=== PATIENT | female | born 1975 | race Caucasian/White ===

== ENCOUNTER 2016-04-14 17:46 | Emergency (ER) | payer OTHER ==
[~2016-04-14] VITALS: Ht 162.6 cm; Wt 102.0 kg
[~2016-04-14 17:46] MED LIST: ACET-1257 PO; ALBUAER19 INH; AMLO-110 PO; ASPCH81X PO; CALC600C9 PO; CARV25TA2 PO; CIPR-255 PO; CITA20TA9 PO; ENOX40IN SQ; ERGO1CAP35 PO; FERR325T5 PO; FURO-85 PO; GLGKIT PO; HYG/25 PO; INSUINJ2 SQ; LAMO200T PO; LEVO175T3 PO; LOSA1TAB38 PO; LOVA10TA2 PO; MAGN1TAB19 PO; MEDR10TA PO; NAPR-1007 PO; ONDA4TAB46 PO; OXYB10TA13 PO; PANT40TA PO; POTA10CA28 PO; PRLSR20 PO; RANI150T3 PO; SPIR25TA89 PO; SUMA25TA12 PO; TIZA4CAP PO; TRAM-10 PO; TRAZ100T29 PO; TROS1CAP2 PO
[2016-04-14 17:52] VITALS: TEMP 36.9; Ht 162.6 cm; Wt 102.0 kg
[2016-04-14] MEDS ORDERED: SODIUM CHLORIDE 0.9% 1000ML 1,000 ML IV STA (18:22)
[2016-04-14] MEDS ORDERED: DiphenhydrAMINE HCL 50 MG/ML VIAL IV STA (18:22)
[2016-04-14] MEDS ORDERED: PROCHLORPERAZINE 5 MG/ML 2 ML VIAL IV STA (18:22)
[2016-04-14] MEDS ORDERED: INSDGI SC (18:37)
[2016-04-14] MEDS ORDERED: CYCL5TAB PO (18:37)
[2016-04-14] MEDS ORDERED: INSU100I2 SQ (18:37)
[2016-04-14] MEDS ORDERED: LEVO200T PO (18:37)
--- NOTE | 2016-04-14 18:44 | DIAGNOSTIC IMAGING REPORT ---
SINGLE VIEW CHEST CLINICAL HISTORY: Headache. FINDINGS: An AP, portable, upright chest radiograph is compared to study dated 07/17/2015 and correlated with chest CT dated 09/13/2010. The examination is degraded by portable technique and large body habitus. The cardiomediastinal silhouette is unremarkable. There is mild chronic elevation of the right hemidiaphragm. The lungs and pleural spaces are clear. No pneumothorax is seen. The bony thorax is grossly intact. Cholecystectomy clips are seen in the right upper quadrant. IMPRESSION: No active disease in the chest. Electronically signed by: Adithya Moreno M.D. 04/14/2016 6:42 PM Dictated Date/Time: 04/14/2016 6:41 PM
[2016-04-14] MEDS ORDERED: ASPI-390 PF (18:57)
[2016-04-14 19:28] LABS: BASO % 0.2 %; BASO ABS # 0.02 K/uL (0-0.2); COMPLETE YES; EOS % 0.9 %; HEMATOCRIT 39.3 % (37-47); IG% 0.2 %; LYMPH % 19.7 %; LYMPH ABS # 1.82 K/uL (1.2-3.4); MEAN CORPUSCULAR HEMOGLOBIN 27.3 pg (25-34); MEAN CORPUSCULAR HGB CONC 35.9 g/dl (32-36); MEAN PLATELET VOLUME 9.6 fL (7.4-10.4); MONO % 9.1 %; NEUT % 69.9 %; PLATELET COUNT 335 K/uL (130-400); RED BLOOD COUNT 5.17 M/uL (4.2-5.4); WHITE BLOOD COUNT 9.23 K/uL (4.8-10.8)
[2016-04-14] MEDS ORDERED: CARVEDILOL 25 MG TAB PO ONE (19:45)
[2016-04-14] MEDS ORDERED: AMLODIPINE BESYLATE 5 MG TAB PO ONE (19:45)
[2016-04-14] MEDS ORDERED: CARVEDILOL 12.5 MG TAB ONE (19:50)
[2016-04-14 20:02] LABS: BUN/CREATININE RATIO 13.4 (10-20); CREATININE 1.2 mg/dl (0.60-1.20); POTASSIUM 3.1 mmol/L (3.5-5.1)
[2016-04-14] MEDS ORDERED: SODIUM CHLORIDE 0.9% 1000ML 2,000 ML IV STA (20:07)
[2016-04-14] MEDS ORDERED: NovoLIN-R INSULIN PER UNIT CHARGE SC STA (20:08)
[2016-04-14] MEDS ORDERED: POTASSIUM CHLORIDE 10 MEQ TABCR PO STA ×2 (20:20→23:42)
[2016-04-14 20:24] LABS: LYME DISEASE AB IGG NEG (NEG); LYME DISEASE AB IGM NEG (NEG)
[2016-04-14 20:29] LABS: BETA-HYDROXYBUTYRATE 20.12 mg/dL (0.2-2.81)
--- NOTE | 2016-04-14 20:57 | DIAGNOSTIC IMAGING REPORT ---
MRI OF THE BRAIN WITHOUT IV CONTRAST CLINICAL HISTORY: Left facial numbness. Left arm tingling. COMPARISON STUDY: No priors. TECHNIQUE: MRI of the brain was performed utilizing various T1 and T2-weighted sequences in the axial, sagittal, and coronal planes. IV contrast was not administered for this examination. The examination is modestly degraded by motion artifact. FINDINGS: Brain parenchyma: There are 2 or 3 punctate foci of T2 signal abnormality identified within the subcortical and periventricular white matter. This is of doubtful significance as an isolated finding. The brain parenchyma is otherwise normal in appearance. There is no hemorrhage or mass effect. There is no restricted diffusion to suggest acute ischemia. Fontana-white matter differentiation is preserved. No extra-axial fluid collection is seen. The cerebellar tonsils are normal in configuration. Ventricles, sulci, and cisterns: Normal in configuration. Pituitary and sella: Unremarkable. Intracranial vasculature: Normal flow voids are maintained at the skull base. Orbits: The bony orbits are grossly intact. Orbital contents are normal in appearance. Sinuses and mastoids: Clear. Calvarium: Unremarkable. Cervical cord: Partially visualized cervical spinal cord is normal in morphology and signal intensity. IMPRESSION: No acute intracranial abnormality. Electronically signed by: Adithya Moreno M.D. 04/14/2016 8:55 PM Dictated Date/Time: 04/14/2016 8:51 PM
[2016-04-14 21:15] LABS: VEN BLOOD GAS BASE EXCESS -0.5 mmol/L; VENOUS BLOOD GAS PCO2 34 mmHg (38.0-50.0); VENOUS BLOOD GAS PO2 31 mmHg
[2016-04-14 21:19] LABS: VEN BLD GAS O2 SATURATION < 60.0 %
[2016-04-14 22:16] LABS: URINE APPEARANCE CLEAR (CLEAR); URINE BILIRUBIN NEG (NEG); URINE COLOR YELLOW; URINE NITRITE NEG (NEG); URINE SPECIFIC GRAVITY 1.012 (1.000-1.030); UROBILINOGEN NEG (NEG)
[2016-04-14 22:22] LABS: MANUAL MICROSCOPIC REQUIRED? NO; REVIEW REQ? NO
[2016-04-14 23:02] VITALS: BP 169/83; PULSE 66; O2SAT 98
--- NOTE | 2016-04-15 01:36 | EMERGENCY ROOM VISIT NOTE ---
History Report prepared by Zeeshan: Jordin Davidson Under the Supervision of: Dr. Robert Saab D.O. First contact with patient: 18:10 Chief Complaint: STROKE SYMPTOMS Stated Complaint: POSSIBLE MINI STROKE OVER WEEKEND-REFERRED Nursing Triage Summary: [facility] in [place] sent patient here due to pain in left side of head and and left arm. Patient states she is weak. Breaking out in cold sweats. History of Present Illness The patient is a 40 year old female who presents to the Emergency Room with complaints of persistent left sided facial pain beginning three days prior to arrival. She currently rates her discomfort as a 7/10 in severity. The patient associates a left sided headache, left sided facial numbness, left arm numbness and weakness, and intermittent confusion with today's symptoms. She notes she began to have a left sided headache three days ago, in which, she took her migraine medication without relief. The patient states since the event of her headache, her symptoms have not resolved. She notes she would drink out of a cup and the fluid would dribble down the left side of her face. The left arm numbness is described as tingling, and she states she has chronic left leg weakness secondary to the ankle she broke years ago. She states she has been intermittently confused about her birthday and not recognizing her living room this past Wednesday notes that this has resolved.. The patient notes an instance , in which, [place] the [place] grab milk when she became diaphoretic and felt like she was going to pass out. She states she has the heterozygous portion of Factor 5. The patient notes she has anxiety and bipolar disorder, but denies a recent change in medication. She states she has a history of a previous blood clot in her ankle. The patient notes she called her PCP, who referred her to [facility] that referred the patient to the ED today. She denies recent surgeries, sick contacts, recent surgeries, and recent tick bites. Pt denies change in vision, fevers, chest pain, shortness of breath, nausea, vomiting, diarrhea, pain with urination, and melena. 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 Review of Systems See HPI for pertinent positives & negatives. A total of 10 systems reviewed and were otherwise negative. Past Medical & Surgical Medical Problems: (1) Abdominal pain (2) Anemia of chronic disease (3) Asthma (4) Bipolar 1 disorder (5) CKD (chronic kidney disease), stage III (6) Depression (7) Diabetes mellitus type 2 in obese (8) Endometriosis (9) Factor 5 Leiden mutation, heterozygous (10) GERD (gastroesophageal reflux disease) (11) HTN (hypertension) (12) Hypothyroidism (13) Migraine (14) Steatohepatitis, nonalcoholic (15) Vitamin D deficiency Surgical Problems: (1) H/O esophagogastroduodenoscopy (2) H/O tooth extraction (3) H/O: (4) Hx of tubal ligation (5) S/P laparoscopic cholecystectomy (6) S/P nasal surgery Family History Bleeding disorder (Factor V Leiden ) MOTHER SISTER Diabetes mellitus MOTHER FH: cancer MOTHER (Ovarian) FH: heart disease Hypertension MOTHER SISTER Social History Smoking Status: Never Smoker Marital Status: , Occupation Status: disabled Current/Historical Medications Scheduled Amlodipine (Norvasc), 5 MG PO QAM Aspirin (Aspirin Chewable), 81 MG PO QAM Fekalyu-Smaezjpxggjyq-Pzxeikwi (Excedrin Migraine), 2 TABS PF prn ud Calcium Carbonate-Vitamin D (Calcium/Vitamin D 600-200 mg-Unit), 1 CAP PO BID Carvedilol (Coreg), 25 MG PO BID Chlorthalidone (Hygroton), 1 TAB PO QAM Citalopram Hydrobromide (Celexa), 20 MG PO QAM Ergocalciferol (Vitamin D Cap), 50,000 INTER.UNIT PO [id number] Ferrous Sulfate (Ferrous Sulfate), 1 TAB PO QAM Insulin Glargine (Lantus), 90 SC QPM Insulin Lispro (Human) (Humalog Kwikpen), UNITS SQ AC Lamotrigine (Lamictal), 200 MG PO BID Levothyroxine Sodium (Synthroid), 200 MCG PO DAILY Losartan Potassium (Cozaar), 100 MG PO QAM Lovastatin (Mevacor), 5 MG PO QPM Magnesium Oxide (Mg Supplement (Magnesium Oxide), 1 TAB PO QAM Medroxyprogesterone (Provera), 10 MG PO UD Naproxen Sodium (Naproxen Sodium), 500 MG PO BID Omeprazole (Prilosec), 20 MG PO QAM Oxybutynin Chloride Er (Ditropan Xl), 15 MG PO QAM Potassium Chloride (Micro-K Ext Rel), 2 CAP PO BID Spironolactone (Aldactone), 25 MG PO QAM Trazodone Hcl (Trazodone), 100 MG PO HS Scheduled PRN Acetaminophen (Tylenol Extra Strength), 1,000 MG PO Q4 PRN for Pain Albuterol Inhaler (Ventolin Inhaler), 2 PUFFS INH QID PRN for Shortness of Breath Cyclobenzaprine Hcl (Flexeril), 5 MG PO TID PRN for Muscle Spasms Furosemide (Lasix), 20 MG PO DAILY PRN for LEG SWELLING Glucagon (Glucagon Emergency Kit), 1 DOSE PO UD PRN for RN Ondansetron Hcl (Zofran), 4 MG PO Q8H PRN for N Ranitidine Hcl (Zantac), 150 MG PO BID PRN for Dyspepsia Tramadol (Ultram), 50 MG PO Q6H PRN for RN Allergies Coded Allergies: Dust (Verified Allergy, Mild, ITCHY EYES,WHEEZING, 07/17/15) Penicillins (Verified Allergy, Mild, RED RASH AND LIP SWELLS, 07/17/15) Cat Dander (Verified Allergy, Unknown, ITCHY EYES,WHEEZING, 07/17/15) Morphine (Verified Allergy, Unknown, CHILLS, GI UPSET,VOMITING, 07/17/15) Physical Exam Vital Signs Date Time Temp Pulse Resp B/P Pulse Ox O2 Delivery O2 Flow Rate FiO2 04/14/16 23:02 66 16 169/83 98 Room Air 04/14/16 21:48 51 16 172/94 97 Room Air 04/14/16 19:50 115 20 181/104 99 Room Air 04/14/16 18:12 124 04/14/16 17:52 36.9 127 20 157/103 96 Room Air Physical Exam GENERAL: laying in bed, disheveled, no acute distress, non-toxic HEAD: No tenderness over the temporal arteries. EYE EXAM: normal conjunctiva, PERRL and EOM's intact OROPHARYNX: Moist mucous membranes with poor dentition. No abscess or swelling in the submandibular space. NECK: supple, no nuchal rigidity, no adenopathy, non-tender LUNGS: Clear to auscultation. Normal chest wall mechanics HEART: no murmurs, S1 normal and S2 normal ABDOMEN: abdomen soft, non-tender, normo-active bowel sounds, no masses, no rebound or guarding. BACK: Back is symmetrical on inspection and there is no deformity, no midline tenderness, no CVA tenderness. SKIN: no rashes and no bruising UPPER EXTREMITIES: upper extremities are grossly normal. LOWER EXTREMITIES: No pitting edema. NEURO EXAM: Normal sensorium, cranial nerves II-XII intact, normal speech, no weakness of arms, no weakness of legs. No drift. Finger to nose intact. Gross sensation intact. Medical Decision & Procedures ER Provider Diagnostic Interpretation: Xray results per the radiologist and my interpretation. Other results have been interpreted by the radiologist and reviewed by me. SINGLE VIEW CHEST CLINICAL HISTORY: Headache. FINDINGS: An AP, portable, upright chest radiograph is compared to study dated 07/17/2015 and correlated with chest CT dated 09/13/2010. The examination is degraded by portable technique and large body habitus. The cardiomediastinal silhouette is unremarkable. There is mild chronic elevation of the right hemidiaphragm. The lungs and pleural spaces are clear. No pneumothorax is seen. The bony thorax is grossly intact. Cholecystectomy clips are seen in the right upper quadrant. IMPRESSION: No active disease in the chest. Electronically signed by: Adithya Moreno M.D. 04/14/2016 6:42 PM MRI OF THE BRAIN WITHOUT IV CONTRAST CLINICAL HISTORY: Left facial numbness. Left arm tingling. COMPARISON STUDY: No priors. TECHNIQUE: MRI of the brain was performed utilizing various T1 and T2-weighted sequences in the axial, sagittal, and coronal planes. IV contrast was not administered for this examination. The examination is modestly degraded by motion artifact. FINDINGS: Brain parenchyma: There are 2 or 3 punctate foci of T2 signal abnormality identified within the subcortical and periventricular white matter. This is of doubtful significance as an isolated finding. The brain parenchyma is otherwise normal in appearance. There is no hemorrhage or mass effect. There is no restricted diffusion to suggest acute ischemia. Fontana-white matter differentiation is preserved. No extra-axial fluid collection is seen. The cerebellar tonsils are normal in configuration. Ventricles, sulci, and cisterns: Normal in configuration. Pituitary and sella: Unremarkable. Intracranial vasculature: Normal flow voids are maintained at the skull base. Orbits: The bony orbits are grossly intact. Orbital contents are normal in appearance. Sinuses and mastoids: Clear. Calvarium: Unremarkable. Cervical cord: Partially visualized cervical spinal cord is normal in morphology and signal intensity. IMPRESSION: No acute intracranial abnormality. Electronically signed by: Adithya Moreno M.D. 04/14/2016 8:55 PM Laboratory Results 04/14/16 19:14 Red Blood Count 5.17, Mean Corpuscular Volume 76.0, Mean Corpuscular Hemoglobin 27.3, Mean Corpuscular Hemoglobin Concent 35.9, Mean Platelet Volume 9.6, Neutrophils (%) (Auto) 69.9, Lymphocytes (%) (Auto) 19.7, Monocytes (%) (Auto) 9.1, Eosinophils (%) (Auto) 0.9, Basophils (%) (Auto) 0.2, Neutrophils # (Auto) 6.45, Lymphocytes # (Auto) 1.82, Monocytes # (Auto) 0.84, Eosinophils # (Auto) 0.08, Basophils # (Auto) 0.02 04/14/16 19:14 Test 04/14/16 19:14 04/14/16 21:00 04/14/16 21:30 04/14/16 21:35 White Blood Count 9.23 K/uL (4.8-10.8) Red Blood Count 5.17 M/uL (4.2-5.4) Hemoglobin 14.1 g/dL (12.0-16.0) Hematocrit 39.3 % (37-47) Mean Corpuscular Volume 76.0 fL (80-100) Mean Corpuscular Hemoglobin 27.3 pg (25-34) Mean Corpuscular Hemoglobin Concent 35.9 g/dl (32-36) Platelet Count 335 K/uL (130-400) Mean Platelet Volume 9.6 fL (7.4-10.4) Neutrophils (%) (Auto) 69.9 % Lymphocytes (%) (Auto) 19.7 % Monocytes (%) (Auto) 9.1 % Eosinophils (%) (Auto) 0.9 % Basophils (%) (Auto) 0.2 % Neutrophils # (Auto) 6.45 K/uL (1.4-6.5) Lymphocytes # (Auto) 1.82 K/uL (1.2-3.4) Monocytes # (Auto) 0.84 K/uL (0.11-0.59) Eosinophils # (Auto) 0.08 K/uL (0-0.5) Basophils # (Auto) 0.02 K/uL (0-0.2) RDW Standard Deviation 39.1 fL (36.4-46.3) RDW Coefficient of Variation 14.2 % (11.5-14.5) Immature Granulocyte % (Auto) 0.2 % Immature Granulocyte # (Auto) 0.02 K/uL (0.00-0.02) D-Dimer 310 ug/L FEU (0-500) Anion Gap 15.0 mmol/L (3-11) Est Creatinine Clear Calc Drug Dose 72.4 ml/min Estimated GFR () 65.5 Estimated GFR (Non- 56.5 BUN/Creatinine Ratio 13.4 (10-20) Calcium Level 9.0 mg/dl (8.5-10.1) Total Bilirubin 0.3 mg/dl (0.2-1) Direct Bilirubin 0.1 mg/dl (0-0.2) Aspartate Amino Transf (AST/SGOT) 15 U/L (15-37) Alanine Aminotransferase (ALT/SGPT) 32 U/L (12-78) Alkaline Phosphatase 115 U/L (45-117) Total Protein 8.3 gm/dl (6.4-8.2) Albumin 3.4 gm/dl (3.4-5.0) Beta-Hydroxybutyric Acid 20.12 mg/dL (0.2-2.81) Lyme Disease IgG Antibody NEG (NEG) Lyme Disease IgM Antibody NEG (NEG) Venous Blood pH 7.45 (7.36-7.41) Venous Blood Partial Pressure CO2 34 mmHg (38.0-50.0) Venous Blood Partial Pressure O2 31 mmHg Venous Blood HCO3 23 mmol/L Venous Blood Oxygen Saturation < 60.0 % Venous Blood Base Excess -0.5 mmol/L Lactic Acid Level 1.5 mmol/L (0.4-2.0) Urine Color YELLOW Urine Appearance CLEAR (CLEAR) Urine pH 5.0 (4.5-7.5) Urine Specific [place] 1.012 (1.000-1.030) Urine Protein NEG (NEG) Urine Glucose (UA) 3+ (NEG) Urine Ketones 1+ (NEG) Urine Occult Blood NEG (NEG) Urine Nitrite NEG (NEG) Urine Bilirubin NEG (NEG) Urine Urobilinogen NEG (NEG) Urine Leukocyte Esterase NEG (NEG) Test 04/14/16 22:50 Bedside Glucose 347 mg/dl (70-90) Laboratory results per my review. Medications Administered Medications (Trade) Dose Ordered Sig/Beena Route Start Time Stop Time Status Last Admin Dose Admin Sodium Chloride (Nss 1000ml) 1,000 ml @ 999 mls/hr Q1H1M STAT IV 04/14/16 18:22 04/14/16 19:23 DC 04/14/16 19:09 999 MLS/HR Diphenhydramine HCl (Benadryl Inj) 25 mg NOW STAT IV 04/14/16 18:22 04/14/16 18:25 DC 04/14/16 19:09 25 MG Prochlorperazine Edisylate (Compazine Inj) 5 mg NOW STAT IV 04/14/16 18:22 04/14/16 18:25 DC 04/14/16 19:09 5 MG Carvedilol (Coreg Tab) 25 mg NOW ONCE PO 04/14/16 19:45 04/14/16 19:46 DC 04/14/16 19:45 25 MG Amlodipine Besylate 5 mg 5 mg NOW ONCE PO 04/14/16 19:45 04/14/16 19:46 DC 04/14/16 19:53 5 MG Sodium Chloride (Nss 1000ml) 2,000 ml @ 999 mls/hr Q2H1M STAT IV 04/14/16 20:07 04/14/16 22:07 DC 04/14/16 20:53 999 MLS/HR Insulin Human Regular (novoLIN-R U-100 PER UNIT) 8 units NOW STAT SC 04/14/16 20:08 04/14/16 20:09 DC 04/14/16 20:08 8 UNITS Potassium Chloride (Klor-Con M10) 40 meq NOW STAT PO 04/14/16 20:20 04/14/16 20:21 DC 04/14/16 20:54 40 MEQ Potassium Chloride (Klor-Con M10) 40 meq NOW STAT PO 04/14/16 23:42 04/14/16 23:44 DC 04/14/16 23:53 40 MEQ ECG Indication: weakness Rate (beats per minute): 116 Rhythm: sinus tachycardia Findings: Q waves (Inferior), left axis deviation Comparison ECG Date: 07/17/2015 Change: Septal and inferior Q waves present with left axis deviation. ED Course ED COURSE: Vital signs were reviewed and showed tachycardia. The patients medical record was reviewed The above diagnostic studies were performed and reviewed. ED treatments and interventions as stated above. 1813: The patient was evaluated in room A12B. A complete history and physical examination was performed. 1821: Ordered Compazine Inj 5 mg IV, Benadryl Inj 25 mg IV, Sodium Chloride 1, 000 ml @ 999 mls/hr IV. 1923: Reevaluated the patient at this time, and she is doing well. The patient will give a urine sample soon. She notes she did not take any of her heart medication today. 1944: Ordered Norvasc Tab 5 mg PO, Coreg Tab 25 mg PO. It is noted the patient has not taken her insulin in the past 24 hours. 2006: Ordered Sodium Chloride 2,000 ml @ 999 mls/hr IV. 2007: Ordered Insulin Human Regular 8 units SC. 2019: Ordered Potassium Chloride 40 meq PO. 2124: Reevaluated the patient at this time, and she is feeling better. She notes her headache has resolved, and the numbness in her arm is gone. 2341: Ordered Potassium Chloride 40 meq PO. 5: Upon reevaluation, the patient is doing well.I discussed my findings with the patient and she understands and agrees with the treatment plan. Based on the patients age, coexisting illnesses, exam and lab findings the decision to treat as an outpatient was made. The patient remained stable while under my care. The patient appeared well at the time of discharge. Medical Decision Differential Diagnosis includes but is not limited to ischemic Stroke, hemorrhagic stroke, bells palsy, mass, neoplasm, migraine headache, seizure, subarachnoid hemorrhage, TIA, Lyme Disease, and transient global amnesia. Patient is a 40-year-old female who presents the ER following evaluation this past Wednesday for headache along with left facial and left upper extremity paresthesias. She also complains of left lower extremity weakness but notes that this is been there for several years following fracture of her left ankle. On exam she is completely neurologically intact. She is oriented to person place and time. No focal motor deficit. CBC is unremarkable. BMP was remarkable for a sodium of 128 which if corrected for her glucose is normal along with hypokalemia and an anion gap of 15. UA had +1 ketones. No infection. Chest x-ray was unremarkable. VBG shows a pH is 7.45 and CO2 of 34. With her symptoms I was concerned that she could possibly her stroke and consequently I performed an MRI of the brain which was negative. She wasn't sleepy DKA with her blood sugar being the mid 500s and anion gap 15 but her CO2 was normal and so was her pH. Her ketones were only +1. She was given subcutaneous insulin along with 2 L normal saline and her home heart rate medications. Her heart rate trended down. Instructed her that she needs to be taking her insulin. She was given Zofran as well. She is given Benadryl and Compazine and following this she notes her headache completely resolved along with the paresthesias of her left upper extremity. Differential did include a CVA versus embolic disease first MS versus atypical migraine, ect. MRI was negative so this is unlikely CVA or any embolic disease. There is no signs of MS on MRI either. I do favor this is likely an atypical migraine with her symptoms resolving as her headache improved. Headache did come on gradually and progressively worsened. There is no signs of meningitis or encephalitis. No fevers. Headache does not support subarachnoid hemorrhage. Patient was able to drink without difficulty. EKG was unchanged from previous. She is tolerating oral liquids and felt was reasonable as she is able to check her sugars which she will do every 2 hours and there is no acidosis and bicarbonate was normal. Stressed the importance of following up with neurology as discussed. Discussed with Pt concerning signs and symptoms to watch out for. Pt was instructed to follow up with their PCP and discussed with the patient their option to return to the ED at anytime for persistent or worsening symptoms. The appropriate anticipatory guidance and out-patient management, including indications for return to the emergency department, were explained at length to the patient and understood. Impression Primary Impression: Paresthesia of left arm Additional Impressions: Headache DKA (diabetic ketoacidoses) Scribe Attestation The scribe's documentation has been prepared under my direction and personally reviewed by me in its entirety. I confirm that the note above accurately reflects all work, treatment, procedures, and medical decision making performed by me. Departure Information Dispostion Home / Self-Care Referrals Allen Childress M.D. (PCP) Forms HOME CARE DOCUMENTATION FORM, IMPORTANT VISIT INFORMATION Patient Instructions DKA Prevent Ch, Headache Pain, My [facility] Additional Instructions Please follow up with your primary care doctor with in the next 24 hours. Any worsening of your symptoms, please return to the ED immediately. This includes weakness of her arms or legs, change in vision, passing out, chest pain or shortness of breath, trouble eating and drinking, or any other concerning signs or symptoms from your standpoint. Please continue to check your sugars every 2 hours for the next 12 hours. Please continue to use your insulin as previously prescribed. Please remain hydrated as possible. Please follow up with neurology for your headaches and paresthesias. Problem Qualifiers Additional Impressions: Headache Headache type: unspecified Headache chronicity pattern: acute headache Intractability: not intractable Qualified Codes: R51 - Headache DKA (diabetic ketoacidoses) Diabetes mellitus type: due to underlying condition Diabetes mellitus complication detail: without coma Qualified Codes: E08.10 - Diabetes mellitus due to underlying condition with ketoacidosis without coma
== END 2016-04-14 23:56 | disposition home or self-care (01) ==
LOC: C.EDB 17:48 → C.EDA 23:56
DX: R20.9 Unspecified disturbances of skin sensation (principal); R51 Headache; E08.10 Diabetes mellitus due to underlying condition with ketoacidosis without coma; N18.3 Chronic kidney disease, stage 3 (moderate); R41.0 Disorientation, unspecified; K21.9 Gastro-esophageal reflux disease without esophagitis; I12.9 Hypertensive chronic kidney disease with stage 1 through stage 4 chronic kidney disease, or unspecified chronic kidney disease; K75.81 Nonalcoholic steatohepatitis (NASH); E55.9 Vitamin D deficiency, unspecified; F31.9 Bipolar disorder, unspecified; J45.909 Unspecified asthma, uncomplicated; F32.9 Major depressive disorder, single episode, unspecified; E03.9 Hypothyroidism, unspecified; Z79.82 Long term (current) use of aspirin; Z79.4 Long term (current) use of insulin; Z79.899 Other long term (current) drug therapy

== ENCOUNTER 2022-01-31 17:14 | Observation (INO) ==
[2022-01-31 18:10] LABS: Basophils # (auto) 0.06 K/uL (0-0.2); Basophils % (auto) 0.6 %; Eosinophils # (auto) 0.18 K/uL (0-0.50); Eosinophils % (auto) 1.8 %; Hematocrit (blood only) 27.8 % (34.1-44.9); Hemoglobin 9.2 g/dl (12.0-16.0); Immature Granulocytes # (auto) 0.03 K/uL (0.00-0.02); Immature Granulocytes % (auto) 0.3 %; Lymphocytes # (auto) 2.35 K/uL (1.2-3.4); Lymphocytes % (auto) 23.6 %; Mean Corpuscular Hemoglobin 28.7 pg (25.0-34.0); Mean Corpuscular Hgb Conc 33.1 g/dL (32.0-36.0); Mean Corpuscular Volume 86.6 fL (80.0-100.0); Mean Platelet Volume 9.9 fL (9.4-12.3); Monocytes # (auto) 0.81 K/uL (0.24-0.82); Monocytes % (auto) 8.1 %; Neutrophils # (auto) 6.53 K/uL (1.4-6.5); Neutrophils % (auto) 65.6 %; Platelet Count 539 K/uL (130-400); RDW Coefficient of Variation 13.6 % (11.5-14.5); RDW Standard Deviation 43.2 fL (36.4-46.3); Red Blood Count 3.21 M/uL (3.93-5.22); White Blood Count 9.96 K/ul (4.8-10.8)
[2022-01-31 18:31] LABS: INR 0.9 (0.9-1.1); Partial Thromboplastin Time 27.3 Seconds (21.0-31.0); Prothrombin Time 10.1 Seconds (9.0-12.0)
[2022-01-31 18:36] LABS: Alanine Aminotransferase 9 U/L (7-52); Albumin Globulin Ratio 0.9 (0.9-2); Albumin Level 3.6 gm/dl (3.4-5.0); Alkaline Phosphatase 71 U/L (34-104); Anion Gap 8 (3-11); Aspartate Aminotransferase 11 U/L (13-39); BUN Creatinine Ratio 15.3 (10-20); Bilirubin,Total 0.2 mg/dl (0.2-1.0); Blood Urea Nitrogen 24 mg/dl (6-23); Calcium 8.6 mg/dl (8.5-10.1); Carbon Dioxide 23 mmol/L (21-32); Chloride 107 mmol/L (98-107); Est GFR (African American) 45.4 ml/min; Est GFR (Non-African American) 39.1 ml/min; Glucose 144 mg/dl (70-99(Fasting)); Potassium 3.4 mmol/L (3.5-5.1); Sodium 138 mmol/L (136-145); Total Protein 7.6 gm/dl (6.0-8.3)
[2022-01-31] MEDS ORDERED: SODIUM CHLORIDE 0.9% 1000ML 500 ML IV ONE (18:46)
--- NOTE | 2022-01-31 18:46 | Emergency Department Note ---
Impression & Plan Hypertensive emergency ADMIT ED Provider Note HPI: The patient is a 46-year-old female with history of bipolar disorder, type 2 diabetes, hypertension, factor V Leiden on anticoagulation, presents emergency department with a chief complaint of a syncopal event today. Patient's significant other at the bedside states that she "fell at the fire fernandes" and he was able to lower her to the ground. No seizure-like activity was witnessed. Patient states that she felt somewhat dizzy before she fell. She tells me she has a history of a seizure disorder and was concerned she might of had a seizure. On arrival here to the ED the patient is in no acute distress, she is a difficult historian on arrival, nurses at the bedside informs me that when the patient was being roomed she got out of her wheelchair under her own power and then lay down on her abdomen on the floor before getting back up into bed. Patient is hypertensive but otherwise hemodynamically stable on arrival, she is saturating well on room air without focal deficits. ROS: -Neuro: Syncopal event *10 point review systems was conducted and is otherwise negative unless stated above *Outpatient medications and allergy history reviewed PE: General: Alert HEENT: Normocephalic, trachea midline Eyes: Extraocular eye movement is intact, no scleral erythema Pulmonary: Clear to auscultation bilaterally, no wheezing Cardio: Regular rate and rhythm GI: Abdomen is soft, nontender : No suprapubic tenderness MSK: No evidence of trauma or malformation of the extremities, no edema Skin: No evidence of rash Neuro: Alert, no focal deficits, no drift of the upper extremities or lower extremities with testing against gravity Psychiatric: Cooperative threat monitoring analyst: - An order was placed for continuous cardiac monitoring - Patient was noted to be in sinus rhythm with a rate of 75 EKG: Rate: 85 Rhythm: Normal sinus rhythm Intervals: Within normal limits ST changes: No ST elevation Time: 1748 Interventions provided in ED: -IV morphine, IV Zofran, meclizine, IV labetalol, IV hydralazine Medical Decision Making: Patient presented to the emergency department with a syncopal event, this was witnessed by her significant other at the bedside. He states he lowered her to the ground she did not hit her head. On arrival the patient complains of right hip pain and lower back pain. CT imaging of the lumbar spine as well as CT imaging of the pelvis did not show any evidence of acute fractures. CT imaging of the head does not show any evidence of any acute intracranial process. Patient did arrive with hypertension greater than 200 systolic, she was given IV morphine and IV Zofran for pain, she was given IV labetalol and IV hydralazine as her pressures did remain persistently elevated. Lab work shows evidence of mild acute kidney injury with creatinine 1.57, also evidence of mildly elevated high-sensitivity troponin at 21, patient denies any chest pain, EKG does not show any acute ischemic changes. On my reassessment the patient states she continues to have a sensation of lightheadedness, she was given a dose of meclizine. She states that she strongly prefers admission, I think given her hypertension with acute kidney injury and mildly elevated troponin in the setting of syncope she would justify admission. Case was discussed with the on-call admitting hospital[place] [facility] [place], and the patient was admitted in stable condition for further care. Critical care time: 35 minutes -Management of hypertensive emergency with evidence of end-organ damage with acute kidney injury and elevated troponin requiring IV medications for improvement in blood pressure, time spent at the bedside, discussion with other physicians and arrangement of admission Diagnosis: 1. Hypertensive emergency 2. Elevated troponin 3. Acute kidney injury, mild 4. Syncopal event 5. Right lower back pain/right hip pain Disposition: Admission Adarsh Wiley DO Emergency Medicine Past Med/Surg History Medical History (Updated 02/01/22 @ 00:30 by Adarsh Wiley DO) Hyperlipidemia Social History Smoking Status: Never smoker Preferred Language: Greenlandic Feels Safe at Home: Yes Allergies Allergies Allergy/AdvReac Type Severity Reaction Status Date / Time Penicillins Allergy Mild RED RASH Verified 07/17/15 04:46 AND LIP SWELLS cat dander Allergy Unknown ITCHY Verified 07/17/15 04:46 EYES,WHEEZING morphine Allergy Unknown CHILLS, GI Verified 07/17/15 04:46 UPSET,VOMITING Dust Allergy Mild ITCHY Uncoded 07/17/15 04:46 EYES,WHEEZING Home Meds Home Medications Medication Instructions Recorded Confirmed amlodipine 5 mg tablet 5 mg PO DAILY 01/31/22 01/31/22 apixaban 5 mg tablet (Eliquis) 5 mg PO BID 01/31/22 01/31/22 aspirin 81 mg tablet,delayed 81 mg PO DAILY 01/31/22 01/31/22 release atorvastatin 20 mg tablet 20 mg PO DAILY 01/31/22 01/31/22 carvedilol 25 mg tablet 25 mg PO BID 01/31/22 01/31/22 chlorthalidone 25 mg tablet 25 mg PO QAM 01/31/22 01/31/22 citalopram 40 mg tablet 20 mg PO DAILY 01/31/22 01/31/22 cyclobenzaprine 5 mg tablet 5 mg PO TID PRN Muscle Spasm 01/31/22 01/31/22 diphenhydramine HCl 25 mg capsule 25 mg PO Q6 PRN Itching 01/31/22 01/31/22 (Banophen) ergocalciferol (vitamin D2) 1,250 1,250 mcg PO MONTHLY 01/31/22 01/31/22 mcg (50,000 unit) capsule (Vitamin D2) ferrous sulfate 325 mg (65 mg 325 mg PO DAILY 01/31/22 01/31/22 iron) tablet furosemide 20 mg tablet 20 mg PO DAILY PRN swelling,fluid 01/31/22 01/31/22 accumulation,weight gain gabapentin 100 mg capsule 100 mg PO TID 01/31/22 01/31/22 glucagon 1 mg solution for 1 mg subcut ONCE PRN Hypoglycemia 01/31/22 01/31/22 injection (Glucagon Emergency Kit) insulin glargine 100 unit/mL (3 60 unit subcut BID 01/31/22 01/31/22 mL) subcutaneous pen (Lantus Solostar U-100 Insulin) insulin lispro 200 unit/mL (3 mL) 12 unit subcut TID 01/31/22 01/31/22 subcutaneous pen lamotrigine 200 mg tablet,extended 400 mg PO HS 01/31/22 01/31/22 release 24 hr (Lamictal XR) levothyroxine 200 mcg tablet 200 mcg PO DAILYBB 01/31/22 01/31/22 levothyroxine 50 mcg tablet 50 mcg PO DAILYBB 01/31/22 01/31/22 loratadine-pseudoephedrine ER 10 1 tab PO DAILY 01/31/22 01/31/22 mg-240 mg tablet,extended [id number] losartan 100 mg tablet 100 mg PO DAILY 01/31/22 01/31/22 lovastatin 10 mg tablet 10 mg PO HS 01/31/22 01/31/22 magnesium oxide 400 mg PO DAILY 01/31/22 01/31/22 ondansetron 4 mg disintegrating 4 mg PO Q8H PRN Nausea And Vomiting 01/31/22 01/31/22 tablet oxybutynin chloride 15 mg 15 mg PO DAILY 01/31/22 01/31/22 tablet,extended release 24 hr pantoprazole 40 mg tablet,delayed 40 mg PO DAILY 01/31/22 01/31/22 release potassium chloride 10 mEq 20 meq PO BID 01/31/22 01/31/22 tablet,extended release(part/cryst) ranitidine HCl 150 mg tablet 150 mg PO BID 01/31/22 01/31/22 spironolactone 25 mg tablet 25 mg PO DAILY 01/31/22 01/31/22 trazodone 100 mg tablet 100 mg PO HS 01/31/22 01/31/22 Results & Data (ED) Vital Signs Vital Signs - 24 hr 01/31/22 17:14 01/31/22 19:27 01/31/22 19:52 Temperature 36.8 C Temperature Source Temporal Artery Scan Pulse Rate 93 H Pulse Rate [Finger] 85 80 Pulse Rhythm [Finger] Pulse Strength [Finger] Respiratory Rate 18 19 Respiratory Effort / Characteristics Non-Labored Respiratory Depth Normal Respiratory Pattern Regular Blood Pressure 201/114 H Blood Pressure [Left Arm] 195/104 H 183/102 H Blood Pressure Mean 143 Blood Pressure Mean [Left Arm] 134 129 Blood Pressure Position Sitting Pulse Oximetry 100 94 Oxygen Delivery Method Room Air Room Air Sepsis Recent Fever Within 48 Hours No Sepsis New/Unexplained Change in Mental Status No Sepsis Action Taken by Nursing No Action Required 01/31/22 20:24 01/31/22 21:25 01/31/22 22:03 Temperature Temperature Source Pulse Rate Pulse Rate [Finger] 75 75 82 Pulse Rhythm [Finger] Regular Pulse Strength [Finger] Normal Respiratory Rate 21 18 14 Respiratory Effort / Characteristics Non-Labored Spontaneous Respiratory Depth Normal Respiratory Pattern Blood Pressure Blood Pressure [Left Arm] 185/111 H 178/95 H 154/85 H Blood Pressure Mean Blood Pressure Mean [Left Arm] 135 122 108 Blood Pressure Position Pulse Oximetry 99 100 100 Oxygen Delivery Method Room Air Sepsis Recent Fever Within 48 Hours Sepsis New/Unexplained Change in Mental Status Sepsis Action Taken by Nursing 02/01/22 00:15 Temperature Temperature Source Pulse Rate 74 Pulse Rate [Finger] Pulse Rhythm [Finger] Pulse Strength [Finger] Respiratory Rate 17 Respiratory Effort / Characteristics Respiratory Depth Respiratory Pattern Blood Pressure 146/93 H Blood Pressure [Left Arm] Blood Pressure Mean Blood Pressure Mean [Left Arm] Blood Pressure Position Pulse Oximetry 99 Oxygen Delivery Method Sepsis Recent Fever Within 48 Hours Sepsis New/Unexplained Change in Mental Status Sepsis Action Taken by Nursing Laboratory Data Result diagrams: 01/31/22 17:49 01/31/22 17:49 Lab Results 01/31/22 01/31/22 01/31/22 Range/Units 17:20 17:49 17:49 WBC 9.96 (4.8-10.8) K/ul RBC 3.21 L (3.93-5.22) M/uL Hgb 9.2 L (12.0-16.0) g/dl Hct 27.8 L (34.1-44.9) % MCV 86.6 (80.0-100.0) fL MCH 28.7 (25.0-34.0) pg MCHC 33.1 (32.0-36.0) g/dL RDW Std Deviation 43.2 (36.4-46.3) fL RDW Coeff of Zak 13.6 (11.5-14.5) % Plt Count 539 H (130-400) K/uL MPV 9.9 (9.4-12.3) fL Immature Gran % (Auto) 0.3 % Neut % (Auto) 65.6 % Lymph % (Auto) 23.6 % [place] % (Auto) 8.1 % Eos % (Auto) 1.8 % Baso % (Auto) 0.6 % Reticulocyte % (Auto) 1.0 (0.5-2.0) % Neut # (Auto) 6.53 H (1.4-6.5) K/uL Lymph # (Auto) 2.35 (1.2-3.4) K/uL [place] # (Auto) 0.81 (0.24-0.82) K/uL Eos # (Auto) 0.18 (0-0.50) K/uL Baso # (Auto) 0.06 (0-0.2) K/uL Reticulocyte # 0.03 (0.02-0.10) 10^6/uL Immature Gran # (Auto) 0.03 H (0.00-0.02) K/uL PT 10.1 (9.0-12.0) Seconds INR 0.9 (0.9-1.1) APTT 27.3 (21.0-31.0) Seconds PTT Ratio 1.0 Sodium (136-145) mmol/L Potassium (3.5-5.1) mmol/L Chloride (98-107) mmol/L Carbon Dioxide (21-32) mmol/L Anion Gap (3-11) BUN (6-23) mg/dl Creatinine (0.6-1.2) mg/dl Est Cr Clr Drug Dosing Est GFR ( Amer) ml/min Est GFR (Non-Af Amer) ml/min BUN/Creatinine Ratio (10-20) Glucose (70-99(Fasting)) mg/dl POC Glucose 162 H (70-99) mg/dl Calcium (8.5-10.1) mg/dl Magnesium (1.7-2.4) mg/dl Iron Transferrin Ferritin Total Bilirubin (0.2-1.0) mg/dl AST (13-39) U/L ALT (7-52) U/L Alkaline Phosphatase (34-104) U/L Troponin I High Sens (0-14) pg/ml Total Protein (6.0-8.3) gm/dl Albumin (3.4-5.0) gm/dl Globulin (2.5-4.0) gm/dl Albumin/Globulin Ratio (0.9-2) Vitamin B12 (180-914) pg/ml Folate (>5.38) ng/ml TSH (0.300-4.500) uIu/ml Free T4 (0.61-1.60) ng/dl Ethyl Alcohol mg/dL (<10.0) mg/dl SARS-CoV-2, RNA, NAAT (NEGATIVE) 01/31/22 01/31/22 01/31/22 Range/Units 17:49 17:49 17:49 WBC (4.8-10.8) K/ul RBC (3.93-5.22) M/uL Hgb (12.0-16.0) g/dl Hct (34.1-44.9) % MCV (80.0-100.0) fL MCH (25.0-34.0) pg MCHC (32.0-36.0) g/dL RDW Std Deviation (36.4-46.3) fL RDW Coeff of Zak (11.5-14.5) % Plt Count (130-400) K/uL MPV (9.4-12.3) fL Immature Gran % (Auto) % Neut % (Auto) % Lymph % (Auto) % [place] % (Auto) % Eos % (Auto) % Baso % (Auto) % Reticulocyte % (Auto) (0.5-2.0) % Neut # (Auto) (1.4-6.5) K/uL Lymph # (Auto) (1.2-3.4) K/uL [place] # (Auto) (0.24-0.82) K/uL Eos # (Auto) (0-0.50) K/uL Baso # (Auto) (0-0.2) K/uL Reticulocyte # (0.02-0.10) 10^6/uL Immature Gran # (Auto) (0.00-0.02) K/uL PT (9.0-12.0) Seconds INR (0.9-1.1) APTT (21.0-31.0) Seconds PTT Ratio Sodium 138 (136-145) mmol/L Potassium 3.4 L (3.5-5.1) mmol/L Chloride 107 (98-107) mmol/L Carbon Dioxide 23 (21-32) mmol/L Anion Gap 8 (3-11) BUN 24 H (6-23) mg/dl Creatinine 1.57 H (0.6-1.2) mg/dl Est Cr Clr Drug Dosing Not Reportable Est GFR ( Amer) 45.4 ml/min Est GFR (Non-Af Amer) 39.1 ml/min BUN/Creatinine Ratio 15.3 (10-20) Glucose 144 H (70-99(Fasting)) mg/dl POC Glucose (70-99) mg/dl Calcium 8.6 (8.5-10.1) mg/dl Magnesium 2.0 (1.7-2.4) mg/dl Iron Transferrin Ferritin Total Bilirubin 0.2 (0.2-1.0) mg/dl AST 11 L (13-39) U/L ALT 9 (7-52) U/L Alkaline Phosphatase 71 (34-104) U/L Troponin I High Sens 21.0 H (0-14) pg/ml Total Protein 7.6 (6.0-8.3) gm/dl Albumin 3.6 (3.4-5.0) gm/dl Globulin 4.0 (2.5-4.0) gm/dl Albumin/Globulin Ratio 0.9 (0.9-2) Vitamin B12 (180-914) pg/ml Folate (>5.38) ng/ml TSH (0.300-4.500) uIu/ml Free T4 (0.61-1.60) ng/dl Ethyl Alcohol mg/dL (<10.0) mg/dl SARS-CoV-2, RNA, NAAT (NEGATIVE) 01/31/22 01/31/22 01/31/22 Range/Units 17:49 17:49 17:49 WBC (4.8-10.8) K/ul RBC (3.93-5.22) M/uL Hgb (12.0-16.0) g/dl Hct (34.1-44.9) % MCV (80.0-100.0) fL MCH (25.0-34.0) pg MCHC (32.0-36.0) g/dL RDW Std Deviation (36.4-46.3) fL RDW Coeff of Zak (11.5-14.5) % Plt Count (130-400) K/uL MPV (9.4-12.3) fL Immature Gran % (Auto) % Neut % (Auto) % Lymph % (Auto) % [place] % (Auto) % Eos % (Auto) % Baso % (Auto) % Reticulocyte % (Auto) Cancelled (0.5-2.0) % Neut # (Auto) (1.4-6.5) K/uL Lymph # (Auto) (1.2-3.4) K/uL [place] # (Auto) (0.24-0.82) K/uL Eos # (Auto) (0-0.50) K/uL Baso # (Auto) (0-0.2) K/uL Reticulocyte # Cancelled (0.02-0.10) 10^6/uL Immature Gran # (Auto) (0.00-0.02) K/uL PT (9.0-12.0) Seconds INR (0.9-1.1) APTT (21.0-31.0) Seconds PTT Ratio Sodium (136-145) mmol/L Potassium (3.5-5.1) mmol/L Chloride (98-107) mmol/L Carbon Dioxide (21-32) mmol/L Anion Gap (3-11) BUN (6-23) mg/dl Creatinine (0.6-1.2) mg/dl Est Cr Clr Drug Dosing Est GFR ( Amer) ml/min Est GFR (Non-Af Amer) ml/min BUN/Creatinine Ratio (10-20) Glucose (70-99(Fasting)) mg/dl POC Glucose (70-99) mg/dl Calcium (8.5-10.1) mg/dl Magnesium (1.7-2.4) mg/dl Iron Transferrin Ferritin Total Bilirubin (0.2-1.0) mg/dl AST (13-39) U/L ALT (7-52) U/L Alkaline Phosphatase (34-104) U/L Troponin I High Sens (0-14) pg/ml Total Protein (6.0-8.3) gm/dl Albumin (3.4-5.0) gm/dl Globulin (2.5-4.0) gm/dl Albumin/Globulin Ratio (0.9-2) Vitamin B12 250 (180-914) pg/ml Folate 21.18 (>5.38) ng/ml TSH 9.011 H (0.300-4.500) uIu/ml Free T4 0.80 (0.61-1.60) ng/dl Ethyl Alcohol mg/dL (<10.0) mg/dl SARS-CoV-2, RNA, NAAT (NEGATIVE) 01/31/22 01/31/22 01/31/22 Range/Units 20:44 21:06 21:25 WBC (4.8-10.8) K/ul RBC (3.93-5.22) M/uL Hgb (12.0-16.0) g/dl Hct (34.1-44.9) % MCV (80.0-100.0) fL MCH (25.0-34.0) pg MCHC (32.0-36.0) g/dL RDW Std Deviation (36.4-46.3) fL RDW Coeff of Zak (11.5-14.5) % Plt Count (130-400) K/uL MPV (9.4-12.3) fL Immature Gran % (Auto) % Neut % (Auto) % Lymph % (Auto) % [place] % (Auto) % Eos % (Auto) % Baso % (Auto) % Reticulocyte % (Auto) (0.5-2.0) % Neut # (Auto) (1.4-6.5) K/uL Lymph # (Auto) (1.2-3.4) K/uL [place] # (Auto) (0.24-0.82) K/uL Eos # (Auto) (0-0.50) K/uL Baso # (Auto) (0-0.2) K/uL Reticulocyte # (0.02-0.10) 10^6/uL Immature Gran # (Auto) (0.00-0.02) K/uL PT (9.0-12.0) Seconds INR (0.9-1.1) APTT (21.0-31.0) Seconds PTT Ratio Sodium (136-145) mmol/L Potassium (3.5-5.1) mmol/L Chloride (98-107) mmol/L Carbon Dioxide (21-32) mmol/L Anion Gap (3-11) BUN (6-23) mg/dl Creatinine (0.6-1.2) mg/dl Est Cr Clr Drug Dosing Est GFR ( Amer) ml/min Est GFR (Non-Af Amer) ml/min BUN/Creatinine Ratio (10-20) Glucose (70-99(Fasting)) mg/dl POC Glucose 159 H (70-99) mg/dl Calcium (8.5-10.1) mg/dl Magnesium (1.7-2.4) mg/dl Iron Cancelled Transferrin Cancelled Ferritin Cancelled Total Bilirubin (0.2-1.0) mg/dl AST (13-39) U/L ALT (7-52) U/L Alkaline Phosphatase (34-104) U/L Troponin I High Sens Cancelled (0-14) pg/ml Total Protein (6.0-8.3) gm/dl Albumin (3.4-5.0) gm/dl Globulin (2.5-4.0) gm/dl Albumin/Globulin Ratio (0.9-2) Vitamin B12 (180-914) pg/ml Folate (>5.38) ng/ml TSH (0.300-4.500) uIu/ml Free T4 (0.61-1.60) ng/dl Ethyl Alcohol mg/dL (<10.0) mg/dl SARS-CoV-2, RNA, NAAT NEGATIVE (NEGATIVE) 01/31/22 01/31/22 Range/Units 22:56 22:56 WBC (4.8-10.8) K/ul RBC (3.93-5.22) M/uL Hgb (12.0-16.0) g/dl Hct (34.1-44.9) % MCV (80.0-100.0) fL MCH (25.0-34.0) pg MCHC (32.0-36.0) g/dL RDW Std Deviation (36.4-46.3) fL RDW Coeff of Zak (11.5-14.5) % Plt Count (130-400) K/uL MPV (9.4-12.3) fL Immature Gran % (Auto) % Neut % (Auto) % Lymph % (Auto) % [place] % (Auto) % Eos % (Auto) % Baso % (Auto) % Reticulocyte % (Auto) (0.5-2.0) % Neut # (Auto) (1.4-6.5) K/uL Lymph # (Auto) (1.2-3.4) K/uL [place] # (Auto) (0.24-0.82) K/uL Eos # (Auto) (0-0.50) K/uL Baso # (Auto) (0-0.2) K/uL Reticulocyte # (0.02-0.10) 10^6/uL Immature Gran # (Auto) (0.00-0.02) K/uL PT (9.0-12.0) Seconds INR (0.9-1.1) APTT (21.0-31.0) Seconds PTT Ratio Sodium (136-145) mmol/L Potassium (3.5-5.1) mmol/L Chloride (98-107) mmol/L Carbon Dioxide (21-32) mmol/L Anion Gap (3-11) BUN (6-23) mg/dl Creatinine (0.6-1.2) mg/dl Est Cr Clr Drug Dosing Est GFR ( Amer) ml/min Est GFR (Non-Af Amer) ml/min BUN/Creatinine Ratio (10-20) Glucose (70-99(Fasting)) mg/dl POC Glucose (70-99) mg/dl Calcium (8.5-10.1) mg/dl Magnesium (1.7-2.4) mg/dl Iron Transferrin Ferritin Total Bilirubin (0.2-1.0) mg/dl AST (13-39) U/L ALT (7-52) U/L Alkaline Phosphatase (34-104) U/L Troponin I High Sens 18.7 H (0-14) pg/ml Total Protein (6.0-8.3) gm/dl Albumin (3.4-5.0) gm/dl Globulin (2.5-4.0) gm/dl Albumin/Globulin Ratio (0.9-2) Vitamin B12 (180-914) pg/ml Folate (>5.38) ng/ml TSH (0.300-4.500) uIu/ml Free T4 (0.61-1.60) ng/dl Ethyl Alcohol mg/dL < 10.0 (<10.0) mg/dl SARS-CoV-2, RNA, NAAT (NEGATIVE) Administered Medications Lactated Ringer's (Lr) 1,000 mls @ 80 mls/hr IV .[id number] [facility] Stop: 02/01/22 12:14 Last Admin: 02/01/22 00:18 Dose: 80 mls/hr Documented By: MED Discontinued Medications Aspirin (Aspirin Chew 324 Mg) 324 mg PO NOW STA Stop: 01/31/22 21:41 Last Admin: 01/31/22 22:26 Dose: Not Given Documented By: MELINA Carvedilol (Carvedilol 25 Mg Tab) 25 mg PO NOW ONE Stop: 01/31/22 21:31 Last Admin: 01/31/22 21:54 Dose: Not Given Documented By: MELINA Hydralazine HCl (Hydralazine Hcl 20 Mg/Ml Vial) 5 mg IV NOW ONE Stop: 01/31/22 20:31 Last Admin: 01/31/22 20:40 Dose: 5 mg Documented By: MELINA Sodium Chloride (Nss 1000ml) 500 mls @ 999 mls/hr IV .Q31M ONE Stop: 01/31/22 19:16 Last Infusion: 01/31/22 21:15 Dose: 0 mls/hr Documented By: Admin: 01/31/22 19:30 Dose: 999 mls/hr Documented By: MELINA Promethazine HCl 12.5 mg/ (Sodium Chloride) 50.5 mls @ 202 mls/hr IV NOW STA Stop: 01/31/22 21:38 Last Infusion: 01/31/22 21:54 Dose: 0 mls/hr Documented By: Admin: 01/31/22 21:34 Dose: 202 mls/hr Documented By: MELINA Labetalol HCl (Labetalol Hcl Iv 5 Mg/Ml 20ml) 10 mg IV NOW STA Stop: 01/31/22 18:50 Last Admin: 01/31/22 19:30 Dose: 10 mg Documented By: MELINA Co-signed By: ADRIANNA Lorazepam (Lorazepam 1 Mg/1 Ml Syr) 0.5 mg IV NOW STA; Protocol Stop: 01/31/22 21:58 Last Admin: 01/31/22 22:01 Dose: 0.5 mg Documented By: MELINA Meclizine HCl (Meclizine Hcl 25 Mg Tab) 25 mg PO NOW STA Stop: 01/31/22 20:31 Last Admin: 01/31/22 23:34 Dose: Not Given Documented By: MED Morphine Sulfate (Morphine Sulfate 4 Mg/Ml 1 Ml Carp\\Vial) 4 mg IV NOW STA Stop: 01/31/22 18:49 Last Admin: 01/31/22 18:54 Dose: 4 mg Documented By: QGV Ondansetron HCl (Ondansetron Inj 2 Mg/Ml 2 Ml Vial) 4 mg IV NOW STA Stop: 01/31/22 18:49 Last Admin: 01/31/22 18:55 Dose: 4 mg Documented By: QGV Ondansetron HCl (Ondansetron Inj 2 Mg/Ml 2 Ml Vial) 4 mg IV NOW STA Stop: 01/31/22 21:01 Last Admin: 01/31/22 21:00 Dose: 4 mg Documented By: MELINA Potassium Chloride (Potassium Chloride Pwd 20 Meq Pack) 40 meq PO NOW STA Stop: 01/31/22 21:18 Last Admin: 01/31/22 21:54 Dose: Not Given Documented By: MELINA Promethazine HCl (Promethazine 12.5 Mg/50.5 Ml Nss) Confirm Administered Dose 12.5 mg IV .STK-MED ONE Stop: 01/31/22 21:30 Last Admin: 01/31/22 21:34 Dose: Not Given Documented By: MELINA Imaging Data Radiologist's Impression: Head CT 01/31/22 18:43 CT head/brain wo con CLINICAL HISTORY: fall, ? Seizure Technique: Contiguous axial CT images of the head were acquired from the base of the skull to the vertex without intravenous contrast administration. Images were viewed in brain, subdural and bone windows. Automated dose lowering techniques and/or adjustment according to patient size were utilized for this exam. Comparison: None available at the time of this dictation. Findings: The ventricles, basal cisterns, and cerebral sulci are normal. There is no acute intracranial hemorrhage or evidence of acute territorial infarction. Neither mass effect, shift of the midline structures, nor abnormal extra-axial fluid collections are shown. Imaged portions of the paranasal sinuses and mastoid air cells are clear. The orbits appear normal. There are no acute fractures of the calvaria or scalp swelling. Impression: No acute intracranial hemorrhage, no evidence of acute territorial infarction or other acute intracranial disease process. ACT 112: Negative or not required by law. Electronically signed by: Gene Ko M.D. 01/31/2022 7:[address] 01/31/22 18:47 CT lumbar spine wo con CLINICAL HISTORY: fall, back pain TECHNIQUE: Multidetector row helical CT of the lumbar spine was performed without administration of intravenous contrast. Coronal and sagittal reformations were obtained. Automated dose lowering techniques and/or adjustment according to patient size were utilized for this exam. Comparison: None available at the time of this dictation. FINDINGS: For counting purposes, the last complete intervertebral disc space is considered L5-S1. No acute fractures are identified. Degenerative changes are noted in the visualized spine. Vertebral body alignment is within normal limits. Surrounding soft tissues are unremarkable. IMPRESSION: Degenerative changes without evidence of acute bony injury. ACT 112: Negative or not required by law. Electronically signed by: Gene Ko M.D. 01/31/2022 7:[address] 01/31/22 18:48 CT pelvis wo con CLINICAL HISTORY: fall R hip pain and back pain TECHNIQUE: Helical axial images of the pelvis were obtained and displayed at 5 and 1 mm intervals. Automated dose lowering techniques and/or adjustment according to patient size were utilized for this exam. This exam was performed without intravenous contrast. CT DOSE: 2037.90 mGy.cm COMPARISON: Comparison is made to CT abdomen pelvis 07/16/2015 FINDINGS: Bladder: Unremarkable. Reproductive organs: Nodular contour of the uterus is seen. Bowel: Unremarkable. Lymph nodes Pelvic: Unremarkable. Mesenteric: Unremarkable. Peritoneum: Normal Vessels: Unremarkable. Abdominal wall: Unremarkable. Bones: Degenerative changes in the visualized spine. IMPRESSION: 1. Degenerative changes are seen without evidence of acute fracture. In particular, no right hip fracture is seen. 2. Nodular contour of the uterus which may represent numerous fibroids. ACT 112: Negative or not required by law. Electronically signed by: Gene Ko M.D. 01/31/2022 7:48 PM Discharge Plan Visit Data Chief Complaint: Hip Pain Stated Complaint: HIP PAIN ED Provider: Adarsh Wiley Discharge Problem: Hypertensive emergency Patient Disposition: Admitted As Inpatient Discharge Instructions Interventions: ED Discharge Assessment Last Done: 02/01/22 00:15 Forms Stand Alone Forms: [facility], [facility] Emergency Department, Important Visit Information Prescriptions Prescriptions: No Action levothyroxine 50 mcg tablet 50 mcg PO DAILYBB Rx Instructions: take along with 200mcg levothyroxine 200 mcg Tablet 200 mcg PO DAILYBB Rx Instructions: take along with 50mcg spironolactone 25 mg Tablet 25 mg PO DAILY loratadine-pseudoephedrine 10-240 mg Tablet Extended Release 24 Hr 1 tab PO DAILY trazodone 100 mg tablet 100 mg PO HS pantoprazole 40 mg Tablet,Delayed Release (Dr/Ec) 40 mg PO DAILY ondansetron 4 mg Tablet,Disintegrating 4 mg PO Q8H PRN (Reason: Nausea And Vomiting) losartan 100 mg Tablet 100 mg PO DAILY cyclobenzaprine 5 mg tablet 5 mg PO TID PRN (Reason: Muscle Spasm) insulin glargine [Lantus Solostar U-100 Insulin] 100 unit/mL (3 mL) insulin pen 60 unit SUBCUT BID magnesium oxide 400 mg magnesium Tablet 400 mg PO DAILY Glucagon Emergency Kit (human) 1 mg recon soln 1 mg subcut ONCE PRN (Reason: Hypoglycemia) Rx Instructions: inject in to thigh,upper arm or buttock if needed for severe hypuglcemia carvedilol 25 mg Tablet 25 mg PO BID Rx Instructions: must administer with a meal/food oxybutynin chloride 15 mg Tablet Extended Release 24hr 15 mg PO DAILY atorvastatin 20 mg Tablet 20 mg PO DAILY citalopram 40 mg Tablet 20 mg PO DAILY Rx Instructions: 1/2 tablet dose chlorthalidone 25 mg Tablet 25 mg PO QAM amlodipine 5 mg Tablet 5 mg PO DAILY aspirin 81 mg Tablet,Delayed Release (Dr/Ec) 81 mg PO DAILY ferrous sulfate 325 mg (65 mg iron) Tablet 325 mg PO DAILY Rx Instructions: take with food potassium chloride 10 mEq Tablet,Er Particles/Crystals 20 meq PO BID Eliquis 5 mg Tablet 5 mg PO BID lovastatin 10 mg Tablet 10 mg PO HS diphenhydramine HCl [Banophen] 25 mg Capsule 25 mg PO Q6 PRN (Reason: Itching) ranitidine HCl [Zantac Maximum Strength] 150 mg Tablet 150 mg PO BID furosemide 20 mg Tablet 20 mg PO DAILY PRN (Reason: swelling,fluid accumulation,weight gain) gabapentin 100 mg capsule 100 mg PO TID ergocalciferol (vitamin D2) [Vitamin D2] 1,250 mcg (50,000 unit) Capsule 1,250 mcg PO MONTHLY lamotrigine [Lamictal XR] 200 mg Tablet Extended Release 24hr 400 mg PO HS Rx Instructions: 2 tablets daily at bedtime insulin lispro 200 unit/mL (3 mL) Insulin Pen 12 unit SUBCUT TID Referrals Referrals: Allen Childress MD [Outside Practitioners] -
[2022-01-31] MEDS ORDERED: ONDANSETRON INJ 2 MG/ML 2 ML VIAL IV STA ×2 (18:48→21:00)
[2022-01-31] MEDS ORDERED: MoRPHine SULFATE 4 MG/ML 1 ML CARP\\VIAL IV STA (18:48)
[2022-01-31] MEDS ORDERED: LABETALOL HCL IV 5 MG/ML 20ML IV STA (18:49)
--- NOTE | 2022-01-31 19:39 | CT Scan Report ---
CT head/brain wo con CLINICAL HISTORY: fall, ? Seizure Technique: Contiguous axial CT images of the head were acquired from the base of the skull to the bianka kenisha without intravenous contrast administration. Images were viewed in brain, subdural and bone [facility] ws. Automated dose lowering techniques and/or adjustment according to patient size were utilized for this exam. Comparison: None available at the time of this dictation. Findings: The ventricles, basal cisterns, and cerebral sulci are normal. There is no acute intracranial hemorrh age or evidence of acute territorial infarction. Neither mass effect, shift of the midline structures , nor abnormal extra-axial fluid collections are shown. Imaged portions of the paranasal sinuses and mastoid air cells are clear. The orbits appear normal. There are no acute fractures of the calvaria or scalp swelling. Impression: No acute intracranial hemorrhage, no evidence of acute territorial infarction or other acute intracra nial disease process. ACT 112: Negative or not required by law. Electronically signed by: Gene Ko M.D. 01/31/2022 7:37 PM
--- NOTE | 2022-01-31 19:45 | CT Scan Report ---
CT lumbar spine wo con CLINICAL HISTORY: fall, back pain TECHNIQUE: Multidetector row helical CT of the lumbar spine was performed without administration of i ntravenous contrast. Coronal and sagittal reformations were obtained. Automated dose lowering techniq ues and/or adjustment according to patient size were utilized for this exam. Comparison: None available at the time of this dictation. FINDINGS: For counting purposes, the last complete intervertebral disc space is considered L5-S1. No acute fractures are identified. Degenerative changes are noted in the visualized spine. Vertebral body alignment is within normal limits. Surrounding soft tissues are unremarkable. IMPRESSION: Degenerative changes without evidence of acute bony injury. ACT 112: Negative or not required by law. Electronically signed by: Gene Ko M.D. 01/31/2022 7:45 PM
--- NOTE | 2022-01-31 19:50 | CT Scan Report ---
CT pelvis wo con CLINICAL HISTORY: fall R hip pain and back pain TECHNIQUE: Helical axial images of the pelvis were obtained and displayed at 5 and 1 mm intervals. Au tomated dose lowering techniques and/or adjustment according to patient size were utilized for this e xam. This exam was performed without intravenous contrast. CT DOSE: 2037.90 mGy.cm COMPARISON: Comparison is made to CT abdomen pelvis 07/16/2015 FINDINGS: Bladder: Unremarkable. Reproductive organs: Nodular contour of the uterus is seen. Bowel: Unremarkable. Lymph nodes Pelvic: Unremarkable. Mesenteric: Unremarkable. Peritoneum: Normal Vessels: Unremarkable. Abdominal wall: Unremarkable. Bones: Degenerative changes in the visualized spine. IMPRESSION: 1. Degenerative changes are seen without evidence of acute fracture. In particular, no right hip fra cture is seen. 2. Nodular contour of the uterus which may represent numerous fibroids. ACT 112: Negative or not required by law. Electronically signed by: Gene Ko M.D. 01/31/2022 7:48 PM
[2022-01-31] MEDS ORDERED: MECLIZINE HCL 25 MG TAB PO STA (20:30)
[2022-01-31] MEDS ORDERED: hydrALAZINE HCL 20 MG/ML VIAL IV ONE (20:30)
[2022-01-31] MEDS ORDERED: POTASSIUM CHLORIDE PWD 20 MEQ PACK PO STA (21:17)
[2022-01-31] MEDS ORDERED: amLODIPine BESYLATE 5 MG TAB PO ONE (21:19)
[2022-01-31] MEDS ORDERED: PROMETHAZINE HCL 12.5 MG in SODIUM CHLORIDE 0.9% 50 ML IV STA (21:24)
[2022-01-31] MEDS ORDERED: PROMETHAZINE 12.5 MG/50.5 ML NSS IV ONE (21:29)
[2022-01-31] MEDS ORDERED: carvediloL 25 MG TAB PO ONE (21:30)
[2022-01-31 21:39] LABS: Reticulocytes # 0.03 10^6/uL (0.02-0.10)
[2022-01-31] MEDS ORDERED: LORazepam 1 MG/1 ML SYR IV STA (21:57)
[2022-01-31 21:59] LABS: Thyroid Stimulating Hormone 9.011 uIu/ml (0.300-4.500)
--- NOTE | 2022-01-31 22:04 | History & Physical Report ---
Date of Service January 31, 2022 Assessment & Plan (1) Syncopal episodes: Plan: 46yo female with a history of seizure disorder, HTN, HLD, IDDM2, CKD3, factor V Leiden (on eliquis), and bipolar 1 presents after a witnessed syncopal event. Syncope Patient with a brief episode of syncope, preceded by dizziness, without post- ictal symptoms Differential broad but includes seizure, vasovagal vs neurogenic vs cardiogenic syncope, others Imaging findings noted in HPI Admit to med/surg telemetry Will defer decision re: MRI brain to day team Urine drug screen ordered, serum ethanol level ordered Echo ordered Fall precautions, aspiration precautions NPO pending speech eval Hypertensive urgency BP on admission elevated to 201/114 BP improved to 150s/80s after receiving labetalol 10mg IV, hydralazine 5mg IV, and carvedilol 25mg PO in ED CT head without acute process Continue home BP regimen once patient is no longer NPO Hydralazine 5mg IV prn SBP>180 or DBP>110 while NPO CKD3 +/- ESTELITA Creatinine on admission elevated to 1.57, baseline unknown LR @ 80mL/hr (x1 bag ordered) Holding home lasix, chlorthalidone, losartan, spironolactone; avoid further nephrotoxins Trend renal function DM2 HbA1c ordered, no prior on record Patient's home regimen held on admission Continue BSG checks, sliding-scale insulin, hypoglycemic protocol Factor V Leiden Continue home eliquis when no longer NPO Consider starting heparin gtt if patient doesn't pass her speech eval Hypothyroidism TSH on admission elevated to 9.0 Continue home dose levothyroxine - will likely need increased dose, but will hold of on making this change for now until patient is more awake in order to c larify recent medication adherence Elevated troponin On admission, hsTroponin elevated to 21.0, repeat value pending EKG: NSR, no overt sign of ischemic change Patient without CP on admission; will continue to monitor HLD Unclear if patient is on lovastatin or atorvastatin (both are on home med list) Will hold both until patient's home regimen can be clarified Bipolar 1 Continue home regimen FEN: NPO pending speech MAU multani @ 80mL/hr Code status: full code DVT ppx: lexy Shearer when no longer NPO PT/OT: ordered Dispo: med/surg telemetry (2) HTN (hypertension): (3) Diabetes mellitus type 2 in obese: (4) Bipolar 1 disorder: (5) CKD (chronic kidney disease), stage III: (6) Hyperlipidemia: (7) Hypothyroidism: (8) Migraine: (9) Factor 5 Leiden mutation, heterozygous: History of Present Illness Primary Care Provider: Alis Peñaloza 46yo female with a history of seizure disorder, HTN, HLD, IDDM2, CKD3, factor V Leiden (on eliquis), and bipolar 1 presents after a witnessed syncopal event earlier today. Upon my interview, patient is very somnolent after receiving ativan in addition to morphine that was administered earlier. HPI is provided by patient's partner. Patient's partner says patient was in her normal state of health earlier before suddenly losing consciousness and falling. Patient's partner caught her and was able to lower her to the ground; he notes that patient was only unconscious for a few seconds before coming to. Patient's partner denies any traumatic contact with the ground including head trauma. No seizure-like activity was witnessed before nor after the syncopal episode. Patient did report to the ED physician that she felt dizzy beforehand. Patient's partner reports that patient has not recently complained of fever, chills, headache, vision changes, CP, SOB, abdominal pain, dysuria, back pain, weakness, or other symptoms. Denies recent illness and recent travel. Of note, patient reported to the ED provider a history of seizure disorder, however, it is unclear when patient last had a seizure, or if she is on any medications for this. Patient was too somnolent to provide information during my interview, and patient's partner was unsure, noting that she has not had a seizure since they have been together. I noticed lamotrigine is on patient's home medication list; however, it is unclear if this is for seizure prophylaxis or for patient's history of migraines. Patient's recent medication adherence is also unclear at this time. Upon arrival, vitals were notable for elevated BP (170-200s/95-110s); no tachycardia, no tachypnea, patient afebrile, spO2 adequate on room air. Initial labs were notable for mild anemia (9.2), thrombocytosis (539), elevated creatinine (1.57), slightly elevated hsTroponin (21), and elevated TSH (9.0); no electrolyte abnormalities, LFTs wnl, Tbili not elevated, covid PCR negative. ED course: patient received NSS 500mL bolus (x1), labetalol 10mg IV (x1), hydralazine 5mg IV (x1), carvedilol 25mg PO (x1), KCl 40mEq PO (x1), morphine, zofran, promethazine, and lorazepam. Of note, patient experienced some nausea and vomiting prior to my interview; per patient's partner, the nausea and vomiting started only after patient returned from her CT scans. EKG: NSR, no overt ischemic change Imaging: CT head: no acute intracranial hemorrhage, no evidence of acute territorial infarction or other acute intracranial disease process CT L-spine: degenerative changes without evidence of acute bony injury CT pelvis: degenerative changes are seen without evidence of acute fracture; in particular, no right hip fracture is seen; nodular contour of the uterus which may represent numerous fibroids Allergies Allergy/AdvReac Type Severity Reaction Status Date / Time Penicillins Allergy Mild RED RASH Verified 07/17/15 04:46 AND LIP SWELLS cat dander Allergy Unknown ITCHY Verified 07/17/15 04:46 EYES,WHEEZING morphine Allergy Unknown CHILLS, GI Verified 07/17/15 04:46 UPSET,VOMITING Dust Allergy Mild ITCHY Uncoded 07/17/15 04:46 EYES,WHEEZING Home Medications Medication Instructions Recorded Confirmed Type amlodipine 5 mg tablet 5 mg PO DAILY 01/31/22 01/31/22 History apixaban 5 mg tablet (Eliquis) 5 mg PO BID 01/31/22 01/31/22 History aspirin 81 mg tablet,delayed 81 mg PO DAILY 01/31/22 01/31/22 History release atorvastatin 20 mg tablet 20 mg PO DAILY 01/31/22 01/31/22 History carvedilol 25 mg tablet 25 mg PO BID 01/31/22 01/31/22 History chlorthalidone 25 mg tablet 25 mg PO QAM 01/31/22 01/31/22 History citalopram 40 mg tablet 20 mg PO DAILY 01/31/22 01/31/22 History cyclobenzaprine 5 mg tablet 5 mg PO TID PRN Muscle Spasm 01/31/22 01/31/22 History diphenhydramine HCl 25 mg capsule 25 mg PO Q6 PRN Itching 01/31/22 01/31/22 History (Banophen) ergocalciferol (vitamin D2) 1,250 1,250 mcg PO MONTHLY 01/31/22 01/31/22 History mcg (50,000 unit) capsule (Vitamin D2) ferrous sulfate 325 mg (65 mg 325 mg PO DAILY 01/31/22 01/31/22 History iron) tablet furosemide 20 mg tablet 20 mg PO DAILY PRN swelling,fluid 01/31/22 01/31/22 History accumulation,weight gain gabapentin 100 mg capsule 100 mg PO TID 01/31/22 01/31/22 History glucagon 1 mg solution for 1 mg subcut ONCE PRN Hypoglycemia 01/31/22 01/31/22 History injection (Glucagon Emergency Kit) insulin glargine 100 unit/mL (3 60 unit subcut BID 01/31/22 01/31/22 History mL) subcutaneous pen (Lantus Solostar U-100 Insulin) insulin lispro 200 unit/mL (3 mL) 12 unit subcut TID 01/31/22 01/31/22 History subcutaneous pen lamotrigine 200 mg tablet,extended 400 mg PO HS 01/31/22 01/31/22 History release 24 hr (Lamictal XR) levothyroxine 200 mcg tablet 200 mcg PO DAILYBB 01/31/22 01/31/22 History levothyroxine 50 mcg tablet 50 mcg PO DAILYBB 01/31/22 01/31/22 History loratadine-pseudoephedrine ER 10 1 tab PO DAILY 01/31/22 01/31/22 History mg-240 mg tablet,extended [id number] losartan 100 mg tablet 100 mg PO DAILY 01/31/22 01/31/22 History lovastatin 10 mg tablet 10 mg PO HS 01/31/22 01/31/22 History magnesium oxide 400 mg PO DAILY 01/31/22 01/31/22 History ondansetron 4 mg disintegrating 4 mg PO Q8H PRN Nausea And Vomiting 01/31/22 01/31/22 History tablet oxybutynin chloride 15 mg 15 mg PO DAILY 01/31/22 01/31/22 History tablet,extended release 24 hr pantoprazole 40 mg tablet,delayed 40 mg PO DAILY 01/31/22 01/31/22 History release potassium chloride 10 mEq 20 meq PO BID 01/31/22 01/31/22 History tablet,extended release(part/cryst) ranitidine HCl 150 mg tablet 150 mg PO BID 01/31/22 01/31/22 History spironolactone 25 mg tablet 25 mg PO DAILY 01/31/22 01/31/22 History trazodone 100 mg tablet 100 mg PO HS 01/31/22 01/31/22 History Past Med/Surg History Medical History (Updated 02/01/22 @ 00:30 by Adarsh Wiley DO) Hyperlipidemia Social History Smoking Status: Former smoker Hx Alcohol Use: No Hx Substance Use: No Preferred Language: Azerbaijani Manager Science Required: No Current Living Situation: Spouse Current Living Situation Comment: lives with and children Feels Safe at Home: Yes Safety Concerns: Feels Safe At This Time Assistive Devices: None Results & Data Results & Data ([facility]) Vital Signs (Past 12 Hours) Vital Signs Temp Pulse Pulse Resp BP BP Pulse Ox 01/31/22 21:25 75 18 178/95 H 100 01/31/22 20:24 75 21 185/111 H 99 01/31/22 19:52 80 183/102 H 01/31/22 19:27 85 19 195/104 H 94 01/31/22 17:14 36.8 C 93 H 18 201/114 H 100 O2 Del Method 01/31/22 21:25 01/31/22 20:24 Room Air 01/31/22 19:52 01/31/22 19:27 Room Air 01/31/22 17:14 Room Air Supervising Physician Co-Signing Physician Notes Patient seen and examined, chart reviewed, case discussed with Dr. Mehta and I agree with the assessment and plan as above. In brief, patient is a 46yo female with history of HLP. DM, CKD, HTN and Seizure disorder presenting after a witnessed syncopal event. Patient somnolent after Ativan in ER On exam she is somnolent, opens eyes to voice Skin - intact HEENT - NC/AT, MMM, Neck supple +S1/S2, regular, no m/r/g Lungs CTA Abd soft, NT/ND Labs and images reviewed Trop=21 --> 18.7 EKG with NSR at 85, left axis deviation, no acute ischemic changes Assessment/Plan - 46yo female with witnessed syncopal event. Symptom was preceded by dizziness - most likely vaso-vagal syncope -check Echo -Telemetry monitoring -BP control - BP > 200 on arrival- -Remainder as above Resident Activity Tracking Resident Involvement: Resident Care Provided and Patient Day Coordinator Coverage Note Care Provided: Adult Hospital Medicine
[2022-01-31] MEDS: ASPIRIN CHEW 324 MG PO STA ×2 (22:23→22:26)
[2022-01-31 22:41] LABS: T4 Free Thyroxine 0.8 ng/dl (0.61-1.60)
[2022-01-31] MEDS ORDERED: hydrALAZINE HCL 20 MG/ML VIAL IV PRN (23:17)
[2022-01-31] MEDS ORDERED: LACTATED RINGER'S 1,000 ML IV SCH (23:45)
--- NOTE | 2022-02-01 01:00 | Billing Data ---
Date of Service January 31, 2022 Coding Level of Care Code INT OBSERVATION CARE 50M LVL 2
[2022-02-01] MEDS ORDERED: GLUCOSE 10 TAB/TUBE PO PRN (01:06)
[2022-02-01] MEDS ORDERED: ACETAMINOPHEN 325 MG TAB PO PRN (01:06)
[2022-02-01] MEDS ORDERED: CARBOHYDRATES FOR HYPOGLYCEMIA PO PRN (01:06)
[2022-02-01] MEDS ORDERED: GLUCAGON FOR INJ 1 MG VIAL SQ PRN (01:06)
[2022-02-01] MEDS ORDERED: DEXTROSE 50% 50 ML SYRINGE IV PRN (01:06)
[2022-02-01] MEDS ORDERED: GLUCOSE 40% GEL 15 GM TUBE PO PRN (01:06)
[2022-02-01 01:32] LABS: Appearance Urine Clear (Clear); Bacteria Urine Automated Negative (Negative); Bilirubin Urine Negative (Negative); Blood Urine Trace (Negative); Color Urine Yellow; Epithelial Cell Urine Auto 20-30 /lpf (0-5); Glucose Urine UA 1+ (Negative); Ketones Urine Negative (Negative); Leukocyte Esterase Urine Negative (Negative); Nitrite Urine Negative (Negative); Protein Urine 4+ (Negative); Urobilinogen Urine Negative (Negative)
[2022-02-01] MEDS ORDERED: FLUARIX QUADRIVALENT 0.5 ML SYR IM ONE (01:46)
[2022-02-01] MEDS ORDERED: ACETAMINOPHEN 1000 MG/100 ML IV IV PRN (01:59)
[2022-02-01] MEDS ORDERED: POTASSIUM CHLORIDE 20 MEQ in LACTATED RINGER'S 1,000 ML IV SCH (02:00)
[2022-02-01] MEDS ORDERED: ACETAMINOPHEN 1,000 MG/100 ML VIAL IV PRN (02:02)
[2022-02-01 02:34] LABS: Amphetamines+Metham, Urine Neg (Neg); Barbiturates, Urine Neg (Neg); Benzodiazepine, Urine Neg (Neg); Cocaine, Urine Neg (Neg); MDMA (Ecstacy), Urine Neg (Neg); Methadone, Urine Neg (Neg); Opiate, Urine Pos (Neg); Phencyclidine, Urine Neg (Neg)
[2022-02-01] MEDS: ONDANSETRON INJ 2 MG/ML 2 ML VIAL IV PRN ×2 (03:42→12:06)
[2022-02-01] MEDS ORDERED: PROMETHAZINE HCL 6.25 MG in SODIUM CHLORIDE 0.9% 50 ML IV ONE (06:15)
[2022-02-01] MEDS: LEVOTHYROXINE SODIUM 200 MCG TABLET PO SCH (07:31)
[2022-02-01] MEDS: LEVOTHYROXINE SODIUM 50 MCG TABLET PO SCH (07:31)
--- NOTE | 2022-02-01 07:31 | Hospitalist Progress Note ---
Date of Service February 01, 2022 Assessment & Plan (1) Syncopal episodes: Plan: 46yo female with a history of seizure disorder, HTN, HLD, IDDM2, CKD3, factor V Leiden (on eliquis), and bipolar 1 presents after a witnessed syncopal event. ED course: patient received NSS 500mL bolus (x1), labetalol 10mg IV (x1), hydralazine 5mg IV (x1), carvedilol 25mg PO (x1), KCl 40mEq PO (x1), morphine, zofran, promethazine, and lorazepam. Of note, patient experienced some nausea and vomiting prior to my interview; per patient's partner, the nausea and vomiting started only after patient returned from her CT scans. EKG: NSR, no overt ischemic change Syncope Patient with a brief episode of syncope, preceded by dizziness, without post- ictal symptoms Differential broad but includes seizure, vasovagal vs neurogenic vs c ardiogenic syncope vs orthostatic hypotension Urine drug screen: + opioids, otherwise pending Serum ethanol: negative Echo: EF 60-65%, evidence of mild concentric LVH Fall precautions, aspiration precautions Dysphagia screening: passed, speech eval discontinued Emesis Ongoing since presentation despite Zofran use Small amount, < 30 mL per nursing, no blood Added Reglan Hypertensive urgency 01/31 BP on admission elevated to 201/114 BP improved to 150s/80s after receiving labetalol 10mg IV, hydralazine 5mg IV, and carvedilol 25mg PO in ED CT head without acute process Hydralazine 5mg IV prn SBP>180 or DBP>110 while NPO 02/01 remains elevated at 173/97 Amlodipine 5 mg PO daily and Carvedilol 25 mg PO BID started in AM Added Olmesartan 20 mg PO daily 1300 Repeat BP 148/86, will continue to monitor CKD3 +/- ESTELITA 01/31 Creatinine on admission @ 1.57 H, baseline unknown LR @ 80mL/hr (x1 bag ordered) Held home lasix, chlorthalidone, losartan, spironolactone 02/01 Olmesartan added, will follow kidney function DM2 HbA1c: pending Patient's home regimen held on admission Continue BSG checks, sliding-scale insulin, hypoglycemic protocol Factor V Leiden Eliquis continued per home regimen Hypothyroidism TSH on admission elevated to 9.0 Patient has not been taking Levothyroxine dosage for > 1 year Follow up with PCP to restart Levothyroxine Elevated troponin 11/5 hsTroponin elevated to 21.0, repeat 18.7 EKG: NSR, no overt sign of ischemic change Patient without CP HLD Unclear if patient is on lovastatin or atorvastatin (both are on home med list) Will hold both until patient's home regimen can be clarified Attempts to contact patient's pharmacy unsuccessful Bipolar 1 Unable to conform home regimen Lamotrigine XR 400 mg PO HS Will start Lamotrigine 200 mg PO HS LFEN: Regular, No fluids Code status: full code DVT ppx: Artemio PT/OT: Ordered Dispo: med/surg telemetry (2) HTN (hypertension): (3) Diabetes mellitus type 2 in obese: (4) Bipolar 1 disorder: (5) CKD (chronic kidney disease), stage III: (6) Hyperlipidemia: (7) Hypothyroidism: (8) Migraine: (9) Factor 5 Leiden mutation, heterozygous: Admission and Anticipated Discharge Date Admission Date: January 31, 2022 Supervising Physician Co-Signing Physician Notes Patient seen and examined independently of PGY-1 Dr Dawkins. Agree with history, exam findings, assessment and plan of care with the following updates: In brief, Kaci is a 46 year old female with history of seizures, bipolar disoder, DM, CKD (unknown baseline), Factor V leiden, HTN admitted for syncope. Found to also have significantly elevated blood pressures. Did feel a bit dizzy when she got up to use the bathroom today, but no syncope. Otherwise, feels well. No chest pain, palpitations, dyspnea. Partner reports that she is "coughing up cups of blood", but per nursing this is not the case. She is coughing up some phelgm. She tells me that she has not seen her PCP in quite some time due to insurance issues. She does have a new PCP that she plans to see, but is waiting for the prior auth. For her blood pressure, she takes chlorthalidone PRN for elevated blood pressures. She reports this is the only medication she takes for her blood pressures. Partner also tells me that he "got in a fight" with the emergency department physician bc he felt that Kaci needed to be admitted to the hospital. Reviewed H&P and ED course. Also spoke with floor nurse. VS and nursing notes reviewed. Well appearing. No coughing. Breathing comfortably on room air. Flat affect. Labs and imaging reviewed. 1. syncope. suspect this may be orthostasis vs vasovagal episode.CT Head unremarkable. cardiac cath technician without arrhythmia. TTE with preserved ejection fraction, moderate concentric LVH, left atrium mildly dilated. 2. Hypertensive urgency. s/p IV hydralazine, labetaolol, and PO coreg in the ED. Home regiment listed in the chart includes lasix, chlorthalidone, losartan and spironolactone. However, she reports that she only takes chlorthalidone and only when her blood pressure is elevated. Continue Coreg 25mg BID that was started here. Continue amlodipine. Started olmesartan since this has a longer half life than losartan for more even blood pressure control and can be given in a combined pill with amlodipine on discharge if the dosages allow for it. 3. DM. A1C is pending. sliding scale insulin. Unclear which statin she is taking--will need to clarify with pharmacy on Wednesday. 4. CKD. Unknown baseline. Cr 1.42. Will need to watch that her Cr does not become significantly elevated in light of starting ARB. 5. Hypothyroid. TSH on admission 9. Has been on levothyroxine for quite some time. Restarted levothyroxine 250mcg. 6. seizure disorder. reports that she is on lamictal 400mg QHS and 200mg QAM. Unable to verify this with her pharmacy ([facility] in [place]). Restart lamictal at 200mg QHS until we can verify her dosing. Seizure precautions. 7. Factor V Leiden. Continue home Eliquis. 8. Bipolar disorder. Continue seroquel and trazodone. Dispo: pending improvement in blood pressures. Hopeful for discharge tomorrow. Subjective 46yo female with a history of seizure disorder, HTN, HLD, IDDM2, CKD3, factor V Leiden (on eliquis), and bipolar 1 presents after a witnessed syncopal event earlier today. 02/01: Upon arrival patient was resting comfortably in bed. After awakening, she noted that she overall feels well. She denies any chest pain, dyspnea, headaches, vision changes, or abdominal pain. She notes that yesterday she experienced an episode of lightheadedness when she went to stand from a seated position, her partner was present at the time and was able to catch her, preventing any further injury. Patient notes that she has had emesis since the event, nursing notes only small amounts 1-2 tsp (primarily bile/stomach acids w/o any blood). Patient notes no additional bowel or bladder changes. She denies dysuria or hematochezia. Patient states that she has not been taking her levothyroxine, she states that she has been out for over a year and has not been able to return to her PCP to get it refilled. She notes that otherwise she has continued to take her medications as prescribed. Attempts from physician and nursing to adequately reconcile patient's medication list have proved unsuccessful. Attempted to call patient's home pharmacy, but they are closed. Review of Systems Review of Systems: See HPI Physical Exam Physical Exam: Gen: NAD, alert, interactive, tangential thought HEENT: Supple, no LAD, no thyromegaly, no JVD Resp:Non-labored, no wheezing/rhonchi/rales, CTAB CV:RRR, normal S1/S2, no M/R/G Abd: Soft, non-distended, no TTP, normoactive bowels, no masses Extr: 2+ dp bilaterally, no edema Skin: No rashes lesions or erythema Neuro: CN II-XII grossly intact, 5/5 strength UE/LE bilaterally, sensation intact Results & Data Results & Data ([facility]) Vital Signs (Past 12 Hours) Vital Signs Temp Pulse Pulse Resp BP BP Pulse Ox 02/01/22 02:57 36.4 C L 80 18 158/80 H 97 02/01/22 01:41 EST 80 02/01/22 01:38 EDT 36.7 C 85 16 184/98 H 98 02/01/22 01:23 EDT 02/01/22 00:15 74 17 146/93 H 99 01/31/22 22:03 82 14 154/85 H 100 01/31/22 21:25 75 18 178/95 H 100 O2 Del Method O2 Flow Rate 02/01/22 02:57 Nasal Cannula 2 02/01/22 01:41 EST 02/01/22 01:38 EDT Nasal Cannula 2 02/01/22 01:23 EDT Nasal Cannula 2 02/01/22 00:15 01/31/22 22:03 01/31/22 21:[address] head: no acute intracranial hemorrhage, no evidence of acute territorial infarction or other acute intracranial disease process CT L-spine: degenerative changes without evidence of acute bony injury CT pelvis: degenerative changes are seen without evidence of acute fracture; in particular, no right hip fracture is seen; nodular contour of the uterus which may represent numerous fibroids Resident Activity Tracking Resident Involvement: Resident Care Provided Care Provided: Adult Hospital Medicine
[2022-02-01 08:22] LABS: Hematocrit (blood only) 25.3 % (34.1-44.9); Hemoglobin 8.1 g/dl (12.0-16.0); Mean Corpuscular Hemoglobin 28.5 pg (25.0-34.0); Mean Corpuscular Volume 89.1 fL (80.0-100.0); Mean Platelet Volume 10.2 fL (9.4-12.3); Platelet Count 441 K/uL (130-400); Red Blood Count 2.84 M/uL (3.93-5.22)
[2022-02-01] MEDS: INSULIN ASPART PER UNIT SC SCH ×4 (08:36→21:43)
[2022-02-01 08:51] LABS: Albumin Globulin Ratio 0.9 (0.9-2); Albumin Level 3.1 gm/dl (3.4-5.0); BUN Creatinine Ratio 15.5 (10-20); Bilirubin,Total 0.2 mg/dl (0.2-1.0); Calcium 8.2 mg/dl (8.5-10.1); Chol HDL Ratio 2.8 (0-5); Creatinine Clr Calc Pharmacy 51.4 ml/min; Est GFR (African American) 51.2 ml/min; Est GFR (Non-African American) 44.2 ml/min; Globulin 3.5 gm/dl (2.5-4.0); Magnesium 1.9 mg/dl (1.7-2.4); Potassium 3.8 mmol/L (3.5-5.1); Total Protein 6.6 gm/dl (6.0-8.3)
[2022-02-01] MEDS: carvediloL 25 MG TAB PO SCH ×2 (09:47→21:00)
[2022-02-01] MEDS: POTASSIUM CHLORIDE CRTAB 20 MEQ TABCR PO SCH ×2 (09:47→20:59)
[2022-02-01] MEDS: ASPIRIN 81 MG ECTAB PO SCH (09:47)
[2022-02-01] MEDS: PANTOprazole 40 MG TAB PO SCH (09:47)
[2022-02-01] MEDS: CITALOPRAM 20 MG TAB PO SCH (09:47)
[2022-02-01] MEDS: OXYBUTYNIN CHLORIDE XL 5 MG TABCR PO SCH (09:47)
[2022-02-01] MEDS: amLODIPine BESYLATE 5 MG TAB PO SCH (09:48)
[2022-02-01] MEDS: APIXABAN 5 MG TABLET PO SCH ×2 (09:48→21:00)
[2022-02-01] MEDS: FAMOTIDINE 20 MG TAB PO SCH ×2 (09:48→21:00)
[2022-02-01] MEDS: FERROUS SULFATE 325 MG TAB PO SCH (11:31)
[2022-02-01] MEDS ORDERED: METOCLOPRAMIDE HCL INJ 5 MG/ML 2 ML VIAL IV ONE (13:15)
[2022-02-01] MEDS: OLMESARTAN MEDOXOMIL 20 MG TAB PO SCH (13:16)
--- NOTE | 2022-02-01 13:53 | Electrocardiogram Report ---
Test Reason : Blood Pressure : / mmHG Vent. Rate : 085 BPM Atrial Rate : 085 BPM P-R Int : 164 ms QRS Dur : 092 ms QT Int : 406 ms P-R-T Axes : 029 -35 099 degrees QTc Int : 483 ms Normal sinus rhythm Left axis deviation Voltage criteria for left ventricular hypertrophy with secondary ST/T changes Anteroseptal infarct (cited on or before 14-APR-2016) Abnormal ECG When compared with ECG of 14-APR-2016 18:42, Premature ventricular complexes are no longer Present Criteria for Inferior infarct are no longer Present Confirmed by Alex Jarrett ([id number]) on 02/01/2022 1:52:45 PM Referred By: REFERRED SELF Confirmed By:Alex Jarrett
[2022-02-01] MEDS ORDERED: lamoTRIgine 100 MG TAB PO SCH (21:00)
[2022-02-01] MEDS ORDERED: traZODone HCL 100 MG TAB PO SCH (21:00)
[2022-02-01 23:39] VITALS: TEMP 98.1
[2022-02-02] MEDS: ONDANSETRON INJ 2 MG/ML 2 ML VIAL IV PRN (06:03)
[2022-02-02] MEDS: LEVOTHYROXINE SODIUM 50 MCG TABLET PO SCH (06:06)
[2022-02-02] MEDS: LEVOTHYROXINE SODIUM 200 MCG TABLET PO SCH (06:06)
[2022-02-02 07:04] LABS: Estimated Average Glucose 235 mg/dl; Hemoglobin A1C 9.8 % (4.5-5.6)
--- NOTE | 2022-02-02 07:06 | Discharge Summary ---
Date of Service February 02, 2022 Admission HPI Per Admitting Provider 46yo female with a history of seizure disorder, HTN, HLD, IDDM2, CKD3, factor V Leiden (on eliquis), and bipolar 1 presents after a witnessed syncopal event earlier today. Upon my interview, patient is very somnolent after receiving ativan in addition to morphine that was administered earlier. HPI is provided by patient's partner. Patient's partner says patient was in her normal state of health earlier before suddenly losing consciousness and falling. Patient's partner caught her and was able to lower her to the ground; he notes that patient was only unconscious for a few seconds before coming to. Patient's partner denies any traumatic contact with the ground including head trauma. No seizure-like activity was witnessed before nor after the syncopal episode. Patient did report to the ED physician th at she felt dizzy beforehand. Patient's partner reports that patient has not recently complained of fever, chills, headache, vision changes, CP, SOB, abdominal pain, dysuria, back pain, weakness, or other symptoms. Denies recent illness and recent travel. Of note, patient reported to the ED provider a history of seizure disorder, however, it is unclear when patient last had a seizure, or if she is on any medications for this. Patient was too somnolent to provide information during my interview, and patient's partner was unsure, noting that she has not had a seizure since they have been together. I noticed lamotrigine is on patient's home medication list; however, it is unclear if this is for seizure prophylaxis or for patient's history of migraines. Patient's recent medication adherence is also unclear at this time. Upon arrival, vitals were notable for elevated BP (170-200s/95-110s); no tachycardia, no tachypnea, patient afebrile, spO2 adequate on room air. Initial labs were notable for mild anemia (9.2), thrombocytosis (539), elevated creatinine (1.57), slightly elevated hsTroponin (21), and elevated TSH (9.0); no electrolyte abnormalities, LFTs wnl, Tbili not elevated, covid PCR negative. ED course: patient received NSS 500mL bolus (x1), labetalol 10mg IV (x1), hydralazine 5mg IV (x1), carvedilol 25mg PO (x1), KCl 40mEq PO (x1), morphine, zofran, promethazine, and lorazepam. Of note, patient experienced some nausea and vomiting prior to my interview; per patient's partner, the nausea and vomiting started only after patient returned from her CT scans. EKG: NSR, no overt ischemic change Imaging: CT head: no acute intracranial hemorrhage, no evidence of acute territorial infarction or other acute intracranial disease process CT L-spine: degenerative changes without evidence of acute bony injury CT pelvis: degenerative changes are seen without evidence of acute fracture; in particular, no right hip fracture is seen; nodular contour of the uterus which may represent numerous fibroids Admission Exam Per Admitting Provider On exam she is somnolent, opens eyes to voice Skin - intact HEENT - NC/AT, MMM, Neck supple +S1/S2, regular, no m/r/g Lungs CTA Abd soft, NT/ND Principal Diagnosis Syncope Discharge Exam Gen: NAD, alert, interactive, tangential thought HEENT: Supple, no LAD, no thyromegaly, no JVD Resp:Non-labored, no wheezing/rhonchi/rales, CTAB CV:RRR, normal S1/S2, no M/R/G Abd: Soft, non-distended, no TTP, normoactive bowels, no masses Extr: 2+ dp bilaterally, no edema Skin: No rashes lesions or erythema Neuro: CN II-XII grossly intact, 5/5 strength UE/LE bilaterally, sensation intact Discharge Data Allergies Allergy/AdvReac Type Severity Reaction Status Date / Time Penicillins Allergy Mild RED RASH Verified 07/17/15 04:46 AND LIP SWELLS cat dander Allergy Unknown ITCHY Verified 07/17/15 04:46 EYES,WHEEZING morphine Allergy Unknown CHILLS, GI Verified 07/17/15 04:46 UPSET,VOMITING Dust Allergy Mild ITCHY Uncoded 07/17/15 04:46 EYES,WHEEZING Consultations 01/31/22 21:41 ED Decision to Admit Stat Ordered Studies 01/31/22 18:43 CT head/brain wo con Stat 01/31/22 18:47 CT lumbar spine wo con Stat 01/31/22 18:48 CT pelvis wo con Stat Laboratory Results WBC 10.22 K/ul (4.8-10.8) 02/02/22 08:49 RBC 2.87 M/uL (3.93-5.22) L 02/02/22 08:49 Hgb 8.2 g/dl (12.0-16.0) L 02/02/22 08:49 Hct 25.6 % (34.1-44.9) L 02/02/22 08:49 MCV 89.2 fL (80.0-100.0) 02/02/22 08:49 MCH 28.6 pg (25.0-34.0) 02/02/22 08:49 MCHC 32.0 g/dL (32.0-36.0) 02/02/22 08:49 RDW Std Deviation 45.9 fL (36.4-46.3) 02/02/22 08:49 RDW Coeff of Zak 14.0 % (11.5-14.5) 02/02/22 08:49 Plt Count 437 K/uL (130-400) H 02/02/22 08:49 MPV 10.1 fL (9.4-12.3) 02/02/22 08:49 Immature Gran % (Auto) 0.3 % 01/31/22 17:49 Neut % (Auto) 65.6 % 01/31/22 17:49 Lymph % (Auto) 23.6 % 01/31/22 17:49 Crane % (Auto) 8.1 % 01/31/22 17:49 Eos % (Auto) 1.8 % 01/31/22 17:49 Baso % (Auto) 0.6 % 01/31/22 17:49 Reticulocyte % (Auto) 1.0 % (0.5-2.0) 01/31/22 17:49 Reticulocyte % (Auto) Cancelled 01/31/22 17:49 Neut # (Auto) 6.53 K/uL (1.4-6.5) H 01/31/22 17:49 Lymph # (Auto) 2.35 K/uL (1.2-3.4) 01/31/22 17:49 Crane # (Auto) 0.81 K/uL (0.24-0.82) 01/31/22 17:49 Eos # (Auto) 0.18 K/uL (0-0.50) 01/31/22 17:49 Baso # (Auto) 0.06 K/uL (0-0.2) 01/31/22 17:49 Reticulocyte # 0.03 10^6/uL (0.02-0.10) 01/31/22 17:49 Reticulocyte # Cancelled 01/31/22 17:49 Immature Gran # (Auto) 0.03 K/uL (0.00-0.02) H 01/31/22 17:49 PT 10.1 Seconds (9.0-12.0) 01/31/22 17:49 INR 0.9 (0.9-1.1) 01/31/22 17:49 APTT 27.3 Seconds (21.0-31.0) 01/31/22 17:49 PTT Ratio 1.0 01/31/22 17:49 Sodium 139 mmol/L (136-145) 02/02/22 08:49 Potassium 3.9 mmol/L (3.5-5.1) 02/02/22 08:49 Chloride 111 mmol/L (98-107) H 02/02/22 08:49 Carbon Dioxide 21 mmol/L (21-32) 02/02/22 08:49 Anion Gap 7 (3-11) 02/02/22 08:49 BUN 26 mg/dl (6-23) H 02/02/22 08:49 Creatinine 1.66 mg/dl (0.6-1.2) H 02/02/22 08:49 Est Cr Clr Drug Dosing 44.0 ml/min 02/02/22 08:49 Est GFR ( Amer) 42.4 ml/min 02/02/22 08:49 Est GFR (Non-Af Amer) 36.6 ml/min 02/02/22 08:49 BUN/Creatinine Ratio 15.7 (10-20) 02/02/22 08:49 Glucose 210 mg/dl (70-99(Fasting)) H 02/02/22 08:49 POC Glucose 129 mg/dl (70-99) H 02/02/22 12:00 Estimat Average Glucose 235 mg/dl 01/31/22 17:49 Hemoglobin A1c 9.8 % (4.5-5.6) H 01/31/22 17:49 Calcium 8.7 mg/dl (8.5-10.1) 02/02/22 08:49 Magnesium 1.9 mg/dl (1.7-2.4) 02/01/22 07:49 Iron Cancelled 01/31/22 21:25 Transferrin Cancelled 01/31/22 21:25 Ferritin Cancelled 01/31/22 21:25 Total Bilirubin 0.2 mg/dl (0.2-1.0) 02/01/22 07:49 AST 10 U/L (13-39) L 02/01/22 07:49 ALT 8 U/L (7-52) 02/01/22 07:49 Alkaline Phosphatase 61 U/L (34-104) 02/01/22 07:49 Troponin I High Sens 18.7 pg/ml (0-14) H 01/31/22 22:56 Total Protein 6.6 gm/dl (6.0-8.3) 02/01/22 07:49 Albumin 3.1 gm/dl (3.4-5.0) L 02/01/22 07:49 Globulin 3.5 gm/dl (2.5-4.0) 02/01/22 07:49 Albumin/Globulin Ratio 0.9 (0.9-2) 02/01/22 07:49 Triglycerides 76 mg/dl (0-150) 02/01/22 07:49 Cholesterol 189 mg/dl (0-200) 02/01/22 07:49 LDL Cholesterol, Calc 106 mg/dl 02/01/22 07:49 VLDL Cholesterol, Calc 15 mg/dl (0-30) 02/01/22 07:49 HDL Cholesterol 68 mg/dl 02/01/22 07:49 Cholesterol/HDL Ratio 2.8 (0-5) 02/01/22 07:49 Vitamin B12 250 pg/ml (180-914) 01/31/22 17:49 Folate 21.18 ng/ml (>5.38) 01/31/22 17:49 TSH 9.011 uIu/ml (0.300-4.500) H 01/31/22 17:49 Free T4 0.80 ng/dl (0.61-1.60) 01/31/22 17:49 Urine Color Yellow 02/01/22 01:20 EST Urine Appearance Clear (Clear) 02/01/22 01:20 EST Urine pH 7.0 (4.5-7.5) 02/01/22 01:20 EST Ur Specific Robeline 1.020 (1.000-1.030) 02/01/22 01:20 EST Urine Protein 4+ (Negative) H 02/01/22 01:20 EST Urine Glucose (UA) 1+ (Negative) H 02/01/22 01:20 EST Urine Ketones Negative (Negative) 02/01/22 01:20 EST Urine Blood Trace (Negative) H 02/01/22 01:20 EST Urine Nitrite Negative (Negative) 02/01/22 01:20 EST Urine Bilirubin Negative (Negative) 02/01/22 01:20 EST Urine Urobilinogen Negative (Negative) 02/01/22 01:20 EST Ur Leukocyte Esterase Negative (Negative) 02/01/22 01:20 EST Urine WBC (Auto) 1-5 /hpf (0-5) 02/01/22 01:20 EST Urine RBC (Auto) 5-10 /hpf (0-4) H 02/01/22 01:20 EST U Hyaline Cast (Auto) 1-5 /lpf (0-5) 02/01/22 01:20 EST U Epithel Cells (Auto) 20-30 /lpf (0-5) H 02/01/22 01:20 EST Urine Bacteria (Auto) Negative (Negative) 02/01/22 01:20 EST Urine Opiates Screen Pos (Neg) H 02/01/22 01:20 EST Ur Methadone, Qual Neg (Neg) 02/01/22 01:20 EST Urine Barbiturates Neg (Neg) 02/01/22 01:20 EST Ur Phencyclidine (PCP) Neg (Neg) 02/01/22 01:20 EST U Amphetamin/Meth Scrn Neg (Neg) 02/01/22 01:20 EST MDMA (Ecstasy) Screen Neg (Neg) 02/01/22 01:20 EST U Benzodiazepines Scrn Neg (Neg) 02/01/22 01:20 EST Ur Cocaine Metabolite Neg (Neg) 02/01/22 01:20 EST U Marijuana (THC) Screen Neg (Neg) 02/01/22 01:20 EST Ethyl Alcohol mg/dL < 10.0 mg/dl (<10.0) 01/31/22 22:56 SARS-CoV-2, RNA, NAAT NEGATIVE (NEGATIVE) 01/31/22 20:[address] 01/31/22 18:43 CT head/brain wo con CLINICAL HISTORY: fall, ? Seizure Technique: Contiguous axial CT images of the head were acquired from the base of the skull to the vertex without intravenous contrast administration. Images were viewed in brain, subdural and bone windows. Automated dose lowering techniques and/or adjustment according to patient size were utilized for this exam. Comparison: None available at the time of this dictation. Findings: The ventricles, basal cisterns, and cerebral sulci are normal. There is no acute intracranial hemorrhage or evidence of acute territorial infarction. Neither mass effect, shift of the midline structures, nor abnormal extra-axial fluid collections are shown. Imaged portions of the paranasal sinuses and mastoid air cells are clear. The orbits appear normal. There are no acute fractures of the calvaria or scalp swelling. Impression: No acute intracranial hemorrhage, no evidence of acute territorial infarction or other acute intracranial disease process. ACT 112: Negative or not required by law. Electronically signed by: Gene Ko M.D. 01/31/2022 7:[address] 01/31/22 18:47 CT lumbar spine wo con CLINICAL HISTORY: fall, back pain TECHNIQUE: Multidetector row helical CT of the lumbar spine was performed without administration of intravenous contrast. Coronal and sagittal reformations were obtained. Automated dose lowering techniques and/or adjustment according to patient size were utilized for this exam. Comparison: None available at the time of this dictation. FINDINGS: For counting purposes, the last complete intervertebral disc space is considered L5-S1. No acute fractures are identified. Degenerative changes are noted in the visualized spine. Vertebral body alignment is within normal limits. Surrounding soft tissues are unremarkable. IMPRESSION: Degenerative changes without evidence of acute bony injury. ACT 112: Negative or not required by law. Electronically signed by: Gene Ko M.D. 01/31/2022 7:[address] 01/31/22 18:48 CT pelvis wo con CLINICAL HISTORY: fall R hip pain and back pain TECHNIQUE: Helical axial images of the pelvis were obtained and displayed at 5 and 1 mm intervals. Automated dose lowering techniques and/or adjustment according to patient size were utilized for this exam. This exam was performed without intravenous contrast. CT DOSE: 2037.90 mGy.cm COMPARISON: Comparison is made to CT abdomen pelvis 07/16/2015 FINDINGS: Bladder: Unremarkable. Reproductive organs: Nodular contour of the uterus is seen. Bowel: Unremarkable. Lymph nodes Pelvic: Unremarkable. Mesenteric: Unremarkable. Peritoneum: Normal Vessels: Unremarkable. Abdominal wall: Unremarkable. Bones: Degenerative changes in the visualized spine. IMPRESSION: 1. Degenerative changes are seen without evidence of acute fracture. In particular, no right hip fracture is seen. 2. Nodular contour of the uterus which may represent numerous fibroids. ACT 112: Negative or not required by law. Electronically signed by: Gene Ko M.D. 01/31/2022 7:48 PM Hospital Course (1) Syncopal episodes: 46yo female with a history of seizure disorder, HTN, HLD, IDDM2, CKD3, factor V Leiden (on eliquis), and bipolar 1 presents after a witnessed syncopal event. ED course: patient received NSS 500mL bolus (x1), labetalol 10mg IV (x1), hydralazine 5mg IV (x1), carvedilol 25mg PO (x1), KCl 40mEq PO (x1), morphine, zofran, promethazine, and lorazepam. Of note, patient experienced some nausea and vomiting prior to my interview; per patient's partner, the nausea and vomiting started only after patient returned from her CT scans. EKG: NSR, no overt ischemic change Syncope Patient with a brief episode of syncope, preceded by dizziness, without post- ictal symptoms Differential broad but includes seizure, vasovagal vs neurogenic vs cardiogenic syncope vs orthostatic hypotension Urine drug screen: + opioids, otherwise pending Serum ethanol: negative Echo: EF 60-65%, evidence of mild concentric LVH Fall precautions, aspiration precautions Dysphagia screening: passed, speech eval discontinued Suspect patient's syncopal episode was associated with orthostatic hypotension as patient describes symptoms surrounding a transition from sitting to standing. Patient's blood pressure was elevated during admission, but additional BP management at discharge was avoided d/t concern for home hypotension. Inpatient workup proved normal, patient discharged with strong recommendations to follow up with PCP. Emesis Ongoing since presentation despite Zofran use Small amount, < 30 mL per nursing, no blood Added Reglan Hypertensive urgency 01/31 BP on admission elevated to 201/114 BP improved to 150s/80s after receiving labetalol 10mg IV, hydralazine 5mg IV, and carvedilol 25mg PO in ED CT head without acute process Hydralazine 5mg IV prn SBP>180 or DBP>110 while NPO 02/01 remains elevated at 173/97 Amlodipine 5 mg PO daily and Carvedilol 25 mg PO BID started in AM Added Olmesartan 20 mg PO daily 1300 Repeat BP 148/86, will continue to monitor CKD3 +/- ESTELITA 01/31 Creatinine on admission @ 1.57 H, baseline unknown LR @ 80mL/hr (x1 bag ordered) Held home lasix, chlorthalidone, losartan, spironolactone 02/01 Olmesartan added, will follow kidney function DM2 HbA1c: pending Patient's home regimen held on admission Continue BSG checks, sliding-scale insulin, hypoglycemic protocol Factor V Leiden Eliquis continued per home regimen Hypothyroidism TSH on admission elevated to 9.0 Patient has not been taking Levothyroxine dosage for > 1 year Follow up with PCP to restart Levothyroxine TSH elevated on admission, discharged patient with 14 days of Levothyroxine 100 mg daily Strongly encouraged follow up with PCP for outpatient management of her hypothyroidism and appropriate dose titration Inpatient scheduling provided patient an appointment with a PCP in [place] where she lives. Elevated troponin 01/31 hsTroponin elevated to 21.0, repeat 18.7 EKG: NSR, no overt sign of ischemic change Patient without CP HLD Unclear if patient is on lovastatin or atorvastatin (both are on home med list) Will hold both until patient's home regimen can be clarified Attempts to contact patient's pharmacy unsuccessful Bipolar 1 Unable to conform home regimen Lamotrigine XR 400 mg PO HS Will start Lamotrigine 200 mg PO HS Patient notes history of seizures, for which she states that she takes Lamotrigine 400 mg PO BID. Attempts to confirm this were unsuccessful, called patient's pharmacy w/o answer. Inpatient pharmacy was able to confirm that patient received 14 days of Lamotrigine 200 mg HS in October. Discharged patient with 14 days of Lamotrigine 200 mg HS and strongly recommended that she follow up with Neurologist. Inpatient scheduling is working to establish this appointment. FEN: Regular, No fluids Code status: full code DVT ppx: Artemio PT/OT: Ordered Dispo: Home (2) HTN (hypertension): (3) Diabetes mellitus type 2 in obese: (4) Bipolar 1 disorder: (5) CKD (chronic kidney disease), stage III: (6) Hyperlipidemia: (7) Hypothyroidism: (8) Migraine: (9) Factor 5 Leiden mutation, heterozygous: Total Time Total Time Spent Total Time Spent (In Minutes): <30 Discharge Plan Discharge Items Patient Disposition: Home - Self-Care Reason For Visit: SYNCOPE Discharge Diagnosis: Orthostatic Hypotension vs. Seizure causing Syncope Activity: Resume your previous activity Non-emergency contact: Primary Care Provider Call non-emergency contact if: you have any medication questions and your symptoms worsen Follow-up/Referrals: Alis Peñaloza M.D. [Primary Care Provider] - (PLEASE CALL YOUR PRIMARY CARE PROVIDER TO SCHEDULE A DISCHARGE FOLLOW-UP APPOINTMENT WITHIN 7-10 DAYS.) Cristi Montiel PA-C [Outside Practitioners] - 02/06/22 10:30 am (Please arrive 15 minutes prior to your appointment time.) Diet: Carb Consistent or DM2 Addtl Attending Provider Instructions: You presented to the hospital for an episode of syncope (passing out). You were ultimately admitted because of very high blood pressures. You were treated with fluids and antihypertensive medications. CT of the head, lumbar spine, and pelvis were overall negative. EKG and telemetry showed normal sinus rhythm without arrhythmia. Echocardiogram was performed which was normal with a healthy ejection fraction. Overall, your in-hospital workup was negative. Your TSH was elevated, but you noted that you had been out of your Levothyroxine. I recommend following up with your PCP to discuss your thyroid medication. Your blood pressure was elevated, so we gave you the blood pressure medications that you have at home to help control your pressures (Amlodipine 5 mg PO daily and Carvedilol 25 mg PO BID). Please discuss your blood pressure with your primary care physician. We were unable to verify your home dose of Lamotrigine or Gabapentin, you were given Lamotrigine 200 mg at night while in the hospital. Please follow up with your Neurologist for continued dosing. A discharge summary will be sent to your primary care physician to ensure continuity of care. Please bring this discharge summary with you to your next office appointment so that your provider can review it at that time. Follow-up appointments: - A follow up appointment has been made with your Primary Care Physician (Dr. Peñaloza) - An appointment has been requested with a Extermination Inspector for you to follow up with, you have chronic kidney disease, but your creatinine was elevated while you were in the hospital, we were unable to determine your baseline creatinine to determine if there was acute kidney injury present. In addition, there was protein noted on urinalysis when you presented to the hospital. Please be sure to see a Extermination Inspector after discharge. - An appointment has been requested with your Neurologist (Dr. Boswell). It is important that you follow up with them to review your anti-seizure medications and determine an appropriate regimen to control/prevent seizures. Medications: - Your medication list has been reviewed and reconciled upon discharge to ensure accuracy and continuity of care. An updated list of all your medications is included with your hospital discharge paperwork. Please review this list closely, and make note of any changes. - We sent in a 14 days supply of Lamictal to your pharmacy. Please take 200 mg this medication once a day at night. Follow up with your Neurologist for additional dosing. - We sent in a 21 day supply of Levothyroxine to your pharmacy. Please take 100 mg of this medication once a day. Follow up with your Primary Care Physician for additional dosing. - If you have any issues filling these prescriptions, please call [phone] and ask to leave a message for Dr. Dawkins. - Take your medications as instructed; do not skip a dose of your medicines. Make sure all of your doctors know every medicine you are taking (including [id number] medicines, vitamins, and supplements). - Call your primary care provider before taking any new medicines (including over- the-counter medicines, vitamins, and supplements), because some of these may interact with your current medications, or may make your symptoms worse. - Tell your primary care provider if you cannot afford your medications. Actions: - Please check your blood pressure twice each day and write down the readings for morning and evening. - Please bring your blood pressure cuff to your follow up appointment with your primary care physician. - Please take time Contact your Primary Care Provider if you experience: - High or low blood pressure - Syncope - Difficulty following your treatment plan or taking medications Call 911 or go to the emergency department if you experience: - Sudden, severe abdominal pain or nausea/vomiting - Severe chest pain, or chest pain that radiates (moves) to your jaw or arm - Sudden, severe shortness of breath or difficulty breathing It was a pleasure to be a part of your care, Dr. Eugenio Dawkins Stand-Alone Forms: [facility], Smoking Cessation Medications and DC Order Prescriptions: New lamotrigine 100 mg Tablet 200 mg PO HS 14 Days Qty: 28 0RF levothyroxine 100 mcg tablet 100 mcg PO DAILY 21 Days Qty: 21 0RF insulin lispro 200 unit/mL (3 mL) insulin pen 6 unit subcut TID Qty: 3 0RF Continued trazodone 100 mg tablet 100 mg PO HS pantoprazole 40 mg Tablet,Delayed Release (Dr/Ec) 40 mg PO DAILY ondansetron 4 mg Tablet,Disintegrating 4 mg PO Q8H PRN (Reason: Nausea And Vomiting) magnesium oxide 400 mg magnesium Tablet 400 mg PO DAILY Glucagon Emergency Kit (human) 1 mg recon soln 1 mg subcut ONCE PRN (Reason: Hypoglycemia) Rx Instructions: inject in to thigh,upper arm or buttock if needed for severe hypuglcemia carvedilol 25 mg Tablet 25 mg PO BID Rx Instructions: must administer with a meal/food oxybutynin chloride 15 mg Tablet Extended Release 24hr 15 mg PO DAILY citalopram 40 mg Tablet 20 mg PO DAILY Rx Instructions: 1/2 tablet dose amlodipine 5 mg Tablet 5 mg PO DAILY aspirin 81 mg Tablet,Delayed Release (Dr/Ec) 81 mg PO DAILY ferrous sulfate 325 mg (65 mg iron) Tablet 325 mg PO DAILY Rx Instructions: take with food Eliquis 5 mg Tablet 5 mg PO BID gabapentin 100 mg capsule 100 mg PO TID ergocalciferol (vitamin D2) [Vitamin D2] 1,250 mcg (50,000 unit) Capsule 1,250 mcg PO MONTHLY Discontinued levothyroxine 50 mcg tablet 50 mcg PO DAILYBB Rx Instructions: take along with 200mcg levothyroxine 200 mcg Tablet 200 mcg PO DAILYBB Rx Instructions: take along with 50mcg spironolactone 25 mg Tablet 25 mg PO DAILY loratadine-pseudoephedrine 10-240 mg Tablet Extended Release 24 Hr 1 tab PO DAILY losartan 100 mg Tablet 100 mg PO DAILY cyclobenzaprine 5 mg tablet 5 mg PO TID PRN (Reason: Muscle Spasm) insulin glargine [Lantus Solostar U-100 Insulin] 100 unit/mL (3 mL) insulin pen 50 unit SUBCUT HS atorvastatin 20 mg Tablet 20 mg PO DAILY chlorthalidone 25 mg Tablet 25 mg PO QAM potassium chloride 10 mEq Tablet,Er Particles/Crystals 20 meq PO BID lovastatin 10 mg Tablet 10 mg PO HS diphenhydramine HCl [Banophen] 25 mg Capsule 25 mg PO Q6 PRN (Reason: Itching) ranitidine HCl [Zantac Maximum Strength] 150 mg Tablet 150 mg PO BID furosemide 20 mg Tablet 20 mg PO DAILY PRN (Reason: swelling,fluid accumulation,weight gain) lamotrigine [Lamictal XR] 200 mg Tablet Extended Release 24hr 400 mg PO HS Rx Instructions: 2 tablets daily at bedtime insulin lispro 200 unit/mL (3 mL) Insulin Pen 12 unit SUBCUT TID Discharge Orders: Discharge Order (Routine); Ordered 02/02/22 Ordered By: Eugenio Dawkins Admission Data Admit Date/Time: 01/31/22 23:16 Attending Provider: Robert Flores Admit Provider: Guillaume Mehta Primary Care Provider: Alis Peñaloza Other Providers: Dawna Mcdaniel Other Interventions: Discharge Summary Assessment (RN) Last Done: 02/02/22 15:17 Supervising Physician Co-Signing Physician Notes I personally examined the patient and verified all stanton points of history and exam, discussed case, and agree with decision making with Dr Dawkins. Feeling better and feels up to going home. Notes that she follows with her neurologist regularly but has not been able to get in with her PCP. He is willing to follow her blood pressure closely at home and has a home blood pressure cuff. Has been walking around without weakness or lightheadedness. Resident physician called pharmaciesnot entirely clear what patient is taking/getting filled Vitals noted, in general she is awake and alert pleasant no distress. HEENT normocephalic atraumatic mucous membranes moist. Breathing unlabored no accessory muscle use good effort. Skin shows no rashes no pallor or icterus. Neuro without focal deficits. 1. syncope. Seems most consistent with orthostatic. Has not recurred, stable for home. Will need to be cautious in treating her hypertension and escalate medications stepwise and only with close outpatient monitoring and follow-up so as to protect her from repeated syncopal episodes 2. Uncontrolled hypertensionvariable readings hereuncertain how much is stress response and how much is her baseline. As above noted need to use caution so as to not risk provoking further syncopal episodes; at the same time do not want her running uncontrolled at homeideally will have her have close follow-up and close monitoring of her blood pressure at home. She is willing to do this, asked nurse navigator to get her set up with PCP, given that patient seem to be having trouble with this 3. DM. A1C 9.8%unclear exactly what medications she is taking at home. Much like with the blood pressure, will start low, have close monitoring, and anticipate close PCP follow-up for escalation 4. CKD. Unknown baseline. Concerning for hypertensive or diabetic nephrosclerosis/nephrotic pathologymanagement as above, close PCP follow-up, asked to get her set up with nephrology as well 5. Hypothyroid. TSH on admission 9. Synthroid, close PCP follow-up 6. seizure disorder. Continue Lamictal, close PCP and neurology follow-up 7. Factor V Leiden. Continue home Eliquis. 8. Bipolar disorder. Continue seroquel and trazodone. Dispo: Stable for home, needs close follow-up of her blood pressure, glucoses, and closely follow with her PCP and neurologist. She expressed understanding Resident Activity Tracking Resident Involvement: Resident Care Provided Care Provided: Adult Hospital Medicine
[2022-02-02] MEDS: amLODIPine BESYLATE 5 MG TAB PO SCH (08:11)
[2022-02-02] MEDS: PANTOprazole 40 MG TAB PO SCH (08:11)
[2022-02-02] MEDS: OLMESARTAN MEDOXOMIL 20 MG TAB PO SCH (08:11)
[2022-02-02] MEDS: CITALOPRAM 20 MG TAB PO SCH (08:12)
[2022-02-02] MEDS: carvediloL 25 MG TAB PO SCH (08:12)
[2022-02-02] MEDS: POTASSIUM CHLORIDE CRTAB 20 MEQ TABCR PO SCH (08:12)
[2022-02-02] MEDS: OXYBUTYNIN CHLORIDE XL 5 MG TABCR PO SCH (08:12)
[2022-02-02] MEDS: ASPIRIN 81 MG ECTAB PO SCH (08:12)
[2022-02-02] MEDS: APIXABAN 5 MG TABLET PO SCH (08:12)
[2022-02-02] MEDS: FAMOTIDINE 20 MG TAB PO SCH (08:12)
[2022-02-02] MEDS: INSULIN ASPART PER UNIT SC SCH ×2 (08:15→12:36)
[2022-02-02 09:11] LABS: Hematocrit (blood only) 25.6 % (34.1-44.9); Hemoglobin 8.2 g/dl (12.0-16.0); Mean Corpuscular Hemoglobin 28.6 pg (25.0-34.0); Mean Corpuscular Volume 89.2 fL (80.0-100.0); Mean Platelet Volume 10.1 fL (9.4-12.3); Platelet Count 437 K/uL (130-400); RDW Standard Deviation 45.9 fL (36.4-46.3); Red Blood Count 2.87 M/uL (3.93-5.22); White Blood Count 10.22 K/ul (4.8-10.8)
[2022-02-02 09:40] LABS: BUN Creatinine Ratio 15.7 (10-20); Calcium 8.7 mg/dl (8.5-10.1); Est GFR (African American) 42.4 ml/min; Est GFR (Non-African American) 36.6 ml/min; Potassium 3.9 mmol/L (3.5-5.1)
[2022-02-02 12:12] VITALS: BP 147/80; O2SAT 98
[2022-02-02] MEDS: FERROUS SULFATE 325 MG TAB PO SCH (12:36)
[2022-02-02 15:19] VITALS: PULSE 68
--- NOTE | 2022-02-02 18:26 | Billing Data ---
Date of Service February 02, 2022 Coding Level of Care Code 29307 OBS Care - Discharge
[2022-02-04 03:11] LABS: Codeine Urine NEGATIVE ng/mL (<50); Hydrocodone Urine NEGATIVE ng/mL (<50); Hydromor Urine NEGATIVE ng/mL (<50); Morphine Urine 606 ng/mL (<50); Norhydrocodone Conf Ur NEGATIVE ng/mL (<50); Noroxycodone Urine NEGATIVE ng/mL (<50); Oxycodone Urine NEGATIVE ng/mL (<50); Oxymorph Urine NEGATIVE ng/mL (<50)
== END 2022-02-02 16:13 | disposition home or self-care (01) ==
LOC: ED 17:14 → 2N 17:14 → SUATTDRO 23:16 → 2N 02-01 00:15

== ENCOUNTER 2022-02-15 17:23 | Observation (INO) ==
[2022-02-15] MEDS ORDERED: LABETALOL HCL IV 5 MG/ML 20ML IV STA (17:46)
[2022-02-15] MEDS ORDERED: LORazepam 1 MG/1 ML SYR IV STA (17:46)
--- NOTE | 2022-02-15 17:54 | Emergency Department Note ---
Impression & Plan Hypertensive urgency, Recurrent syncope, Generalized weakness, Left hip pain ED Provider Note Name: GILDARDO GILBERT Age: 46 Sex: F Arrives Via: Walk-In Informant: Patient, ED Provider: Sreekanth Messina MD Chief Complaint: High blood pressure Impression: As per impressions above Medical Decision Makin-year-old female with a long history of hypertension, dyslipidemia, bipolar, factor V, diabetes, GERD amongst others arrives for evaluation of multiple episodes of syncope and diffuse generalized weakness. Symptoms rapidly onset throughout the day today. She has no focal neurologic deficits. She is unable to sit up on her own though is able to move her extremities without much difficulty. Her blood pressure is quite elevated on arrival but she is also severely anxious. She was given some Ativan and some IV labetalol blood pressure improved drastically. She seems much calmer though she still unwilling to sit up. She was sent to CT given she is having generalized weakness is on Eliquis which reveals no evidence of intracranial hemorrhage. On return from CT patient is screaming in pain from her left hip. I can find no abnormality on examination or on an x-ray. She was given some IV Tylenol and seems to be feeling better. Extensive laboratory work-up is essentially benign other than may be some mild worsening of her chronic renal disease. Looking through her chart it appears she supposed to be on blood pressure meds though she said she is not taking them and she was not prescribed any when she was here 2 weeks ago. She does state that she has been taking her Eliquis however. She also states she is been taking her insulin. Given the patient's multiple medical comorbidities and the fact that she is unable to sit up cannot send her home. I had a consulted hospitalist for further evaluation and management of patient and they agree with plan for bringing in. Prior Medical Record and Triage/Nursing Notes reviewed by Me Additional history obtained from chart and Differentials:Infection, dehydration, metabolic abnormality, hypo/hyperglycemia, electrolyte disturbance, anemia, hypoxia, cardiac sources, intracerebral event, toxicologic, neurologic, as well as other pathologies. Vital Signs: reviewed and remarkable for HTN Interventions: Ativan 1mg IV, Labetalol 10mg IV, Tylenol 1gm IV Labs:Reviewed and remarkable for mild cr bump Imaging:X ray results are stated below per my interpretation: Chest: 1 view: No infiltrate, no effusion, normal cardiac border. ct head without con per rads no acute findings. EKG:Per My Interpretation: Indication HTN: NSR 72 bpm, qtc 459. No Ectopy. No Ischemia. Compared to EKG 02/15/22, lateral T wave inversions are new. Consults:Dr Jair MIRANDA Hospitalist Plan: Disposition:Hospitalization. Condition: Good History of Present Illness:46-year-old female arrives for evaluation of weakness. Patient notes she was admitted 2 weeks ago for high blood pressure lightheadedness and passing out. She states she had been feeling better over the last 2 weeks but today around lunchtime started feeling weak. She has been having weakness, passing out, shaking, headaches, chest pains, anxiety amongst multiple other complaints over the last 5 hours. Any exertion makes worse rest makes better. No new medications. She is not currently on any antihypertensives which after reviewing chart appears because she was becoming hypotensive on previous hospitalization. Patient states that her blood sugars have been high as well but she takes a lot of insulin. She cannot tell me what high is. Denies any head injury, falls. She denies any actual shortness of breath, fevers, chills, cough, abdominal pain, back pain, leg swelling, black stools, bruising or other concerning signs or symptoms. ROS: See above HPI for pertinent positives & negatives. A total of 10 systems reviewed and were otherwise negative. Past Medical History:See Below Past Surgical History:See Below Family History:See Below Social History:See Below Home Medications:See Below Allergies:See Below Vitals:Blood Pressure: 213/111, Pulse 101, RR 18, T 37.1C, O2 100% on RA Physical Exam: GENERAL: Patient is severely anxious appearing and in moderate distress. Very tremulous, unable to sit up on her own EYES: No scleral icterus, unremarkable pupils. ENT: Mucous membranes moist, no nasal congestion. NECK: No masses appreciated, nomeningismus, trachea is midline. RESPIRATORY: No dyspnea. Clear to auscultation and equal bilaterally. No wheeze, no rhonchi. CARDIOVASCULAR: Regular rate and rhythm.No murmurs, rubs, gallops appreciated. GASTROINTESTINAL: Abdomen soft, non-tender, no peritonitis.Bowel sounds positive.No masses appreciated. BACK: No midline tenderness, no CVA tenderness EXTREMITIES: Normal motion all extremities, no cyanosis, no edema. NEUROLOGIC: Tremulous, Alert and oriented, no acute motor or sensory deficits, no focal weakness, cranial nerves grossly intact. SKIN: No rash, no jaundice, no diaphoresis. PSYCH: Severely anxious appearing GCS: 15 ED Course: Times/Reassessments: stable appearing, BP improved, still too weak to sit up. Protecting airway with good vitals. Sreekanth Messina MD Past Med/Surg History Medical History Hyperlipidemia Social History Smoking Status: Never smoker Second Hand Exposure: No; Do You Dip or Chew Tobacco: No; Tobacco Cessation Education Requested by Patient: No Hx Alcohol Use: No Hx Substance Use: No Preferred Language: Faroese Account Service Associate Required: No Beliefs That Will Affect Care: None Current Living Situation: Spouse Current Living Situation Comment: lives with and children Other Information That Helps Us Care for You: No Feels Safe at Home: Yes Safety Concerns: Feels Safe At This Time Assistive Devices: None Allergies Allergies Allergy/AdvReac Type Severity Reaction Status Date / Time cat dander Allergy Intermediate ITCHY Verified 02/15/22 18:02 EYES,WHEEZING Penicillins Allergy Intermediate RED RASH Verified 02/15/22 18:02 AND LIP SWELLS morphine AdvReac Intermediate CHILLS, GI Verified 02/15/22 18:02 UPSET,VOMITING Home Meds Home Medications Medication Instructions Recorded Confirmed amlodipine 5 mg tablet 5 mg PO DAILY 01/31/22 02/15/22 apixaban 5 mg tablet (Eliquis) 5 mg PO BID 01/31/22 02/15/22 aspirin 81 mg tablet,delayed 81 mg PO DAILY 01/31/22 02/15/22 release carvedilol 25 mg tablet 25 mg PO BID 01/31/22 02/15/22 citalopram 40 mg tablet 20 mg PO DAILY 01/31/22 02/15/22 ferrous sulfate 325 mg (65 mg 325 mg PO DAILY 01/31/22 02/15/22 iron) tablet gabapentin 100 mg capsule 100 mg PO TID 01/31/22 02/15/22 glucagon 1 mg solution for 1 mg subcut DIRECTED PRN 01/31/22 02/15/22 injection (Glucagon Emergency Kit) Hypoglycemia magnesium oxide 400 mg PO DAILY 01/31/22 02/15/22 ondansetron 4 mg disintegrating 4 mg PO Q8H PRN Nausea And Vomiting 01/31/22 02/15/22 tablet oxybutynin chloride 15 mg 15 mg PO DAILY 01/31/22 02/15/22 tablet,extended release 24 hr pantoprazole 40 mg tablet,delayed 40 mg PO DAILY 01/31/22 02/15/22 release trazodone 100 mg tablet 100 mg PO HS 01/31/22 02/15/22 cholecalciferol (vitamin D3) 125 125 mcg PO DAILY 02/15/22 02/15/22 mcg (5,000 unit) tablet (Vitamin D3) multivitamin 1 tab PO DAILY 02/15/22 02/15/22 Previous Rx's Medication Instructions Recorded insulin lispro 200 unit/mL (3 mL) 6 unit (0.03 mL) subcut TID 02/02/22 subcutaneous pen Diabetes Mellitus #3 mL lamotrigine 100 mg tablet 200 mg PO HS 14 days #28 tabs 02/02/22 levothyroxine 100 mcg tablet 100 mcg PO DAILY 21 days #21 tabs 02/02/22 Results & Data (ED) Vital Signs Vital Signs - 24 hr 02/15/22 17:30 02/15/22 17:52 02/15/22 18:24 Temperature 37.1 C Temperature Source Oral Pulse Rate 101 H Pulse Rate [Apical] 99 H 81 Pulse Rate from SpO2 Sensor Pulse Rhythm Irregular Pulse Strength Normal Respiratory Rate 18 18 Respiratory Effort / Characteristics Non-Labored Spontaneous Respiratory Depth Normal Blood Pressure 213/111 H Blood Pressure [Left Arm] 217/114 H 151/86 H Blood Pressure Mean 145 Blood Pressure Mean [Left Arm] 148 107 Pulse Oximetry 100 100 Oxygen Delivery Method Room Air Room Air Sepsis Recent Fever Within 48 Hours No Sepsis New/Unexplained Change in Mental Status N/A Sepsis Action Taken by Nursing No Action Required 02/15/22 17:47 02/15/22 18:00 02/15/22 18:20 Temperature Temperature Source Pulse Rate Pulse Rate [Apical] Pulse Rate from SpO2 Sensor Pulse Rhythm Pulse Strength Respiratory Rate Respiratory Effort / Characteristics Respiratory Depth Blood Pressure 166/83 H Blood Pressure [Left Arm] Blood Pressure Mean 110 Blood Pressure Mean [Left Arm] Pulse Oximetry 100 100 Oxygen Delivery Method Sepsis Recent Fever Within 48 Hours Sepsis New/Unexplained Change in Mental Status Sepsis Action Taken by Nursing 02/15/22 18:24 02/15/22 18:24 02/15/22 18:30 Temperature Temperature Source Pulse Rate 82 Pulse Rate [Apical] Pulse Rate from SpO2 Sensor 82 Pulse Rhythm Pulse Strength Respiratory Rate 14 Respiratory Effort / Characteristics Respiratory Depth Blood Pressure 151/86 H 175/97 H Blood Pressure [Left Arm] Blood Pressure Mean 107 123 Blood Pressure Mean [Left Arm] Pulse Oximetry 100 Oxygen Delivery Method Sepsis Recent Fever Within 48 Hours Sepsis New/Unexplained Change in Mental Status Sepsis Action Taken by Nursing 02/15/22 18:30 02/15/22 18:40 02/15/22 18:40 Temperature Temperature Source Pulse Rate 80 79 Pulse Rate [Apical] Pulse Rate from SpO2 Sensor 80 79 Pulse Rhythm Pulse Strength Respiratory Rate 19 21 Respiratory Effort / Characteristics Respiratory Depth Blood Pressure 164/93 H Blood Pressure [Left Arm] Blood Pressure Mean 116 Blood Pressure Mean [Left Arm] Pulse Oximetry 98 93 Oxygen Delivery Method Sepsis Recent Fever Within 48 Hours Sepsis New/Unexplained Change in Mental Status Sepsis Action Taken by Nursing 02/15/22 18:51 02/15/22 18:51 02/15/22 19:00 Temperature Temperature Source Pulse Rate 83 Pulse Rate [Apical] Pulse Rate from SpO2 Sensor 81 Pulse Rhythm Pulse Strength Respiratory Rate 24 Respiratory Effort / Characteristics Respiratory Depth Blood Pressure 181/93 H 175/92 H Blood Pressure [Left Arm] Blood Pressure Mean 122 119 Blood Pressure Mean [Left Arm] Pulse Oximetry 100 Oxygen Delivery Method Sepsis Recent Fever Within 48 Hours Sepsis New/Unexplained Change in Mental Status Sepsis Action Taken by Nursing 02/15/22 19:00 02/15/22 19:10 02/15/22 19:10 Temperature Temperature Source Pulse Rate 85 83 Pulse Rate [Apical] Pulse Rate from SpO2 Sensor 85 83 Pulse Rhythm Pulse Strength Respiratory Rate 22 26 H Respiratory Effort / Characteristics Respiratory Depth Blood Pressure 161/89 H Blood Pressure [Left Arm] Blood Pressure Mean 113 Blood Pressure Mean [Left Arm] Pulse Oximetry 100 100 Oxygen Delivery Method Sepsis Recent Fever Within 48 Hours Sepsis New/Unexplained Change in Mental Status Sepsis Action Taken by Nursing 02/15/22 19:20 02/15/22 19:20 02/15/22 19:30 Temperature Temperature Source Pulse Rate 83 Pulse Rate [Apical] Pulse Rate from SpO2 Sensor 83 Pulse Rhythm Pulse Strength Respiratory Rate 18 Respiratory Effort / Characteristics Respiratory Depth Blood Pressure 178/100 H 159/89 H Blood Pressure [Left Arm] Blood Pressure Mean 126 112 Blood Pressure Mean [Left Arm] Pulse Oximetry 100 Oxygen Delivery Method Sepsis Recent Fever Within 48 Hours Sepsis New/Unexplained Change in Mental Status Sepsis Action Taken by Nursing 02/15/22 19:30 02/15/22 19:41 02/15/22 19:50 Temperature Temperature Source Pulse Rate 83 92 H Pulse Rate [Apical] Pulse Rate from SpO2 Sensor 93 H Pulse Rhythm Pulse Strength Respiratory Rate 19 17 Respiratory Effort / Characteristics Respiratory Depth Blood Pressure 169/106 H Blood Pressure [Left Arm] Blood Pressure Mean 127 Blood Pressure Mean [Left Arm] Pulse Oximetry 100 Oxygen Delivery Method Sepsis Recent Fever Within 48 Hours Sepsis New/Unexplained Change in Mental Status Sepsis Action Taken by Nursing 02/15/22 19:50 02/15/22 20:00 02/15/22 20:00 Temperature Temperature Source Pulse Rate 79 Pulse Rate [Apical] 74 Pulse Rate from SpO2 Sensor 79 Pulse Rhythm Pulse Strength Respiratory Rate 15 15 Respiratory Effort / Characteristics Respiratory Depth Blood Pressure 161/88 H Blood Pressure [Left Arm] 161/78 H Blood Pressure Mean 112 Blood Pressure Mean [Left Arm] 105 Pulse Oximetry 100 97 Oxygen Delivery Method Sepsis Recent Fever Within 48 Hours Sepsis New/Unexplained Change in Mental Status Sepsis Action Taken by Nursing 02/15/22 20:00 02/15/22 20:10 02/15/22 20:10 Temperature Temperature Source Pulse Rate 82 76 Pulse Rate [Apical] Pulse Rate from SpO2 Sensor 82 78 Pulse Rhythm Pulse Strength Respiratory Rate 18 12 Respiratory Effort / Characteristics Respiratory Depth Blood Pressure 173/91 H Blood Pressure [Left Arm] Blood Pressure Mean 118 Blood Pressure Mean [Left Arm] Pulse Oximetry 100 99 Oxygen Delivery Method Sepsis Recent Fever Within 48 Hours Sepsis New/Unexplained Change in Mental Status Sepsis Action Taken by Nursing 02/15/22 20:20 02/15/22 20:20 02/15/22 20:30 Temperature Temperature Source Pulse Rate 79 Pulse Rate [Apical] Pulse Rate from SpO2 Sensor 78 Pulse Rhythm Pulse Strength Respiratory Rate 14 Respiratory Effort / Characteristics Respiratory Depth Blood Pressure 163/87 H 169/91 H Blood Pressure [Left Arm] Blood Pressure Mean 112 117 Blood Pressure Mean [Left Arm] Pulse Oximetry 100 Oxygen Delivery Method Sepsis Recent Fever Within 48 Hours Sepsis New/Unexplained Change in Mental Status Sepsis Action Taken by Nursing 02/15/22 20:30 02/15/22 20:40 02/15/22 20:40 Temperature Temperature Source Pulse Rate 78 84 Pulse Rate [Apical] Pulse Rate from SpO2 Sensor 80 83 Pulse Rhythm Pulse Strength Respiratory Rate 21 21 Respiratory Effort / Characteristics Respiratory Depth Blood Pressure 153/87 H Blood Pressure [Left Arm] Blood Pressure Mean 109 Blood Pressure Mean [Left Arm] Pulse Oximetry 97 99 Oxygen Delivery Method Sepsis Recent Fever Within 48 Hours Sepsis New/Unexplained Change in Mental Status Sepsis Action Taken by Nursing 02/15/22 20:50 02/15/22 20:50 Temperature Temperature Source Pulse Rate 80 Pulse Rate [Apical] Pulse Rate from SpO2 Sensor 80 Pulse Rhythm Pulse Strength Respiratory Rate 21 Respiratory Effort / Characteristics Respiratory Depth Blood Pressure 153/81 H Blood Pressure [Left Arm] Blood Pressure Mean 105 Blood Pressure Mean [Left Arm] Pulse Oximetry 91 Oxygen Delivery Method Sepsis Recent Fever Within 48 Hours Sepsis New/Unexplained Change in Mental Status Sepsis Action Taken by Nursing Laboratory Data Result diagrams: 02/15/22 17:54 02/15/22 17:54 Lab Results 02/15/22 02/15/22 02/15/22 Range/Units 17:54 17:54 17:54 WBC 14.49 H (4.8-10.8) K/ul RBC 3.18 L (3.93-5.22) M/uL Hgb 9.1 L (12.0-16.0) g/dl Hct 27.9 L (34.1-44.9) % MCV 87.7 (80.0-100.0) fL MCH 28.6 (25.0-34.0) pg MCHC 32.6 (32.0-36.0) g/dL RDW Std Deviation 45.4 (36.4-46.3) fL RDW Coeff of Zak 14.2 (11.5-14.5) % Plt Count 450 H (130-400) K/uL MPV 10.3 (9.4-12.3) fL Immature Gran % (Auto) 0.4 % Neut % (Auto) 81.6 % Lymph % (Auto) 11.1 % Appling % (Auto) 6.1 % Eos % (Auto) 0.6 % Baso % (Auto) 0.2 % Neut # (Auto) 11.83 H (1.4-6.5) K/uL Lymph # (Auto) 1.61 (1.2-3.4) K/uL Appling # (Auto) 0.88 H (0.24-0.82) K/uL Eos # (Auto) 0.08 (0-0.50) K/uL Baso # (Auto) 0.03 (0-0.2) K/uL Immature Gran # (Auto) 0.06 H (0.00-0.02) K/uL D-Dimer (0-500) ug/L FEU Sodium 139 (136-145) mmol/L Potassium 3.3 L (3.5-5.1) mmol/L Chloride 108 H (98-107) mmol/L Carbon Dioxide 21 (21-32) mmol/L Anion Gap 10 (3-11) BUN 24 H (6-23) mg/dl Creatinine 1.79 H (0.6-1.2) mg/dl Est Cr Clr Drug Dosing 41.9 ml/min Est GFR ( Amer) 38.7 ml/min Est GFR (Non-Af Amer) 33.4 ml/min BUN/Creatinine Ratio 13.4 (10-20) Glucose 197 H (70-99(Fasting)) mg/dl Calcium 8.2 L (8.5-10.1) mg/dl Magnesium 1.8 (1.7-2.4) mg/dl Total Bilirubin 0.2 (0.2-1.0) mg/dl Direct Bilirubin 0.1 (0-0.2) mg/dl AST 10 L (13-39) U/L ALT 8 (7-52) U/L Alkaline Phosphatase 72 (34-104) U/L Troponin I High Sens 21.9 H (0-14) pg/ml Total Protein 7.0 (6.0-8.3) gm/dl Albumin 3.4 (3.4-5.0) gm/dl TSH 6.042 H (0.300-4.500) uIu/ml SARS-CoV-2, RNA, NAAT (NEGATIVE) 02/15/22 02/15/22 Range/Units 17:54 17:58 WBC (4.8-10.8) K/ul RBC (3.93-5.22) M/uL Hgb (12.0-16.0) g/dl Hct (34.1-44.9) % MCV (80.0-100.0) fL MCH (25.0-34.0) pg MCHC (32.0-36.0) g/dL RDW Std Deviation (36.4-46.3) fL RDW Coeff of Zak (11.5-14.5) % Plt Count (130-400) K/uL MPV (9.4-12.3) fL Immature Gran % (Auto) % Neut % (Auto) % Lymph % (Auto) % Appling % (Auto) % Eos % (Auto) % Baso % (Auto) % Neut # (Auto) (1.4-6.5) K/uL Lymph # (Auto) (1.2-3.4) K/uL Appling # (Auto) (0.24-0.82) K/uL Eos # (Auto) (0-0.50) K/uL Baso # (Auto) (0-0.2) K/uL Immature Gran # (Auto) (0.00-0.02) K/uL D-Dimer 440 (0-500) ug/L FEU Sodium (136-145) mmol/L Potassium (3.5-5.1) mmol/L Chloride (98-107) mmol/L Carbon Dioxide (21-32) mmol/L Anion Gap (3-11) BUN (6-23) mg/dl Creatinine (0.6-1.2) mg/dl Est Cr Clr Drug Dosing ml/min Est GFR ( Amer) ml/min Est GFR (Non-Af Amer) ml/min BUN/Creatinine Ratio (10-20) Glucose (70-99(Fasting)) mg/dl Calcium (8.5-10.1) mg/dl Magnesium (1.7-2.4) mg/dl Total Bilirubin (0.2-1.0) mg/dl Direct Bilirubin (0-0.2) mg/dl AST (13-39) U/L ALT (7-52) U/L Alkaline Phosphatase (34-104) U/L Troponin I High Sens (0-14) pg/ml Total Protein (6.0-8.3) gm/dl Albumin (3.4-5.0) gm/dl TSH (0.300-4.500) uIu/ml SARS-CoV-2, RNA, NAAT NEGATIVE (NEGATIVE) Administered Medications Apixaban (Apixaban 2.5 Mg Tab) 2.5 mg PO BID ROCHELLE Stop: 03/17/22 21:58 Last Admin: 02/15/22 22:35 Dose: 2.5 mg Documented By: YARITZA Insulin Aspart (Insulin Aspart Per Unit) 0 units SC ACHS ROCHELLE Stop: 03/17/22 21:58 Last Admin: 02/15/22 22:33 Dose: Not Given Documented By: YARITZA Lamotrigine (Lamotrigine 100 Mg Tab) 200 mg PO HS ROCHELLE Stop: 03/17/22 21:58 Last Admin: 02/15/22 22:35 Dose: 200 mg Documented By: YARITZA Discontinued Medications Acetaminophen (Ofirmev) 1,000 mg in 100 mls @ 400 mls/hr IV NOW STA Stop: 02/15/22 19:27 Last Infusion: 02/15/22 19:55 Dose: 0 mls/hr Documented By: Admin: 02/15/22 19:36 Dose: 400 mls/hr Documented By: BILL Labetalol HCl (Labetalol Hcl Iv 5 Mg/Ml 20ml) 10 mg IV NOW STA Stop: 02/15/22 17:47 Last Admin: 02/15/22 18:07 Dose: 10 mg Documented By: DESMOND Co-signed By: TAMICA Lorazepam (Lorazepam 1 Mg/1 Ml Syr) 1 mg IV NOW STA; Protocol Stop: 02/15/22 17:47 Last Admin: 02/15/22 18:08 Dose: 1 mg Documented By: DESMOND Imaging Data Radiologist's Impression: Head CT 02/15/22 17:[address] DOSE: 614.27 mGy.cm HISTORY: hypertension, headache, syncope TECHNIQUE: Multiaxial CT images of the head were performed without the use of intravenous contrast. Automated exposure control was utilized for this study. A dose lowering technique was utilized adhering to the principles of ALARA. Comparison: Head CT 01/31/2022. Findings: The paranasal sinuses and mastoid air cells are clear. The calvarium and skull base are intact. The ventricles and sulci are within normal limits. There is no mass, hematoma, midline shift, or acute infarct. Old punctate lacunar infarcts seen within the right thalamus and essie. This remains unchanged. Impression: No significant change compared to the prior study. No acute intracranial abnorm ality. ACT 112: Negative or not required by law. Electronically signed by: Иван Reina M.D. 02/15/2022 7:04 PM Chest X-Ray 02/15/22 17:47 XR chest 1V portable HISTORY: Atypical chest pain, hypertension COMPARISON: Chest 04/14/2016. FINDINGS: There are low lung volumes. The cardiac silhouette remains mildly enlarged. The lungs are clear. No pleural effusions. No pneumothorax. IMPRESSION: Stable mild cardiomegaly. ACT 112: Negative or not required by law. Electronically signed by: Иван Riena M.D. 02/15/2022 6:07 PM Hip/Pelvis X-Ray 02/15/22 19:13 XR hip LT 2V w pelvis CLINICAL HISTORY: left hip pain COMPARISON STUDY: Pelvis CT 01/31/2022. FINDINGS: No fracture or dislocation within the pelvis or hips. The sacrum is intact. Soft tissues are unremarkable. IMPRESSION: No fracture or dislocation within the pelvis or hips. ACT 112: Negative or not required by law. Electronically signed by: Иван Reina M.D. 02/15/2022 7:51 PM Discharge Plan Visit Data Chief Complaint: Hypertension Stated Complaint: HIGH BP ED Provider: Sreekanth Messina Discharge Problem: Hypertensive urgency, Recurrent syncope, Generalized weakness, Left hip pain Patient Disposition: Admitted As Inpatient Discharge Instructions Interventions: ED Discharge Assessment Last Done: 02/15/22 21:56
[2022-02-15 18:03] LABS: Basophils # (auto) 0.03 K/uL (0-0.2); Basophils % (auto) 0.2 %; Eosinophils # (auto) 0.08 K/uL (0-0.50); Eosinophils % (auto) 0.6 %; Hematocrit (blood only) 27.9 % (34.1-44.9); Hemoglobin 9.1 g/dl (12.0-16.0); Immature Granulocytes # (auto) 0.06 K/uL (0.00-0.02); Immature Granulocytes % (auto) 0.4 %; Lymphocytes # (auto) 1.61 K/uL (1.2-3.4); Lymphocytes % (auto) 11.1 %; Mean Corpuscular Hemoglobin 28.6 pg (25.0-34.0); Mean Corpuscular Hgb Conc 32.6 g/dL (32.0-36.0); Mean Corpuscular Volume 87.7 fL (80.0-100.0); Mean Platelet Volume 10.3 fL (9.4-12.3); Monocytes # (auto) 0.88 K/uL (0.24-0.82); Monocytes % (auto) 6.1 %; Neutrophils # (auto) 11.83 K/uL (1.4-6.5); Neutrophils % (auto) 81.6 %; Platelet Count 450 K/uL (130-400); RDW Coefficient of Variation 14.2 % (11.5-14.5); RDW Standard Deviation 45.4 fL (36.4-46.3); Red Blood Count 3.18 M/uL (3.93-5.22); White Blood Count 14.49 K/ul (4.8-10.8)
--- NOTE | 2022-02-15 18:08 | XRay Report ---
XR chest 1V portable HISTORY: Atypical chest pain, hypertension COMPARISON: Chest 04/14/2016. FINDINGS: There are low lung volumes. The cardiac silhouette remains mildly enlarged. The lungs are c lear. No pleural effusions. No pneumothorax. IMPRESSION: Stable mild cardiomegaly. ACT 112: Negative or not required by law. Electronically signed by: Иван Reina M.D. 02/15/2022 6:07 PM
[2022-02-15 18:29] LABS: Albumin Level 3.4 gm/dl (3.4-5.0); BUN Creatinine Ratio 13.4 (10-20); Bilirubin Direct 0.1 mg/dl (0-0.2); Bilirubin,Total 0.2 mg/dl (0.2-1.0); Calcium 8.2 mg/dl (8.5-10.1); Creatinine Clr Calc Pharmacy 41.9 ml/min; Est GFR (African American) 38.7 ml/min; Est GFR (Non-African American) 33.4 ml/min; Magnesium 1.8 mg/dl (1.7-2.4); Potassium 3.3 mmol/L (3.5-5.1)
[2022-02-15 18:32] LABS: Troponin I High Sensitivity 21.9 pg/ml (0-14)
--- NOTE | 2022-02-15 19:06 | CT Scan Report ---
HEAD CT NONCONTRAST CT DOSE: 614.27 mGy.cm HISTORY: hypertension, headache, syncope TECHNIQUE: Multiaxial CT images of the head were performed without the use of intravenous contrast. A utomated exposure control was utilized for this study. A dose lowering technique was utilized adheri ng to the principles of ALARA. Comparison: Head CT 01/31/2022. Findings: The paranasal sinuses and mastoid air cells are clear. The calvarium and skull base are int act. The ventricles and sulci are within normal limits. There is no mass, hematoma, midline shift, or acute infarct. Old punctate lacunar infarcts seen within the right thalamus and essie. This remains u nchanged. Impression: No significant change compared to the prior study. No acute intracranial abnormality. ACT 112: Negative or not required by law. Electronically signed by: Иван Reina M.D. 02/15/2022 7:04 PM
[2022-02-15] MEDS ORDERED: ACETAMINOPHEN 1,000 MG/100 ML VIAL IV STA (19:13)
--- NOTE | 2022-02-15 19:52 | XRay Report ---
XR hip LT 2V w pelvis CLINICAL HISTORY: left hip pain COMPARISON STUDY: Pelvis CT 01/31/2022. FINDINGS: No fracture or dislocation within the pelvis or hips. The sacrum is intact. Soft tissues ar e unremarkable. IMPRESSION: No fracture or dislocation within the pelvis or hips. ACT 112: Negative or not required by law. Electronically signed by: Иван Reina M.D. 02/15/2022 7:51 PM
--- NOTE | 2022-02-15 21:10 | History & Physical Report ---
Date of Service February 15, 2022 Assessment & Plan (1) Syncopal episodes: Plan: "Too many to count" syncopal episodes in presence of SO. However, arousable and each one only lasting a few seconds. Echo on 02/01 with EF 60-65%, moderate LVH, no RWMA. - Similar to prior admission this month when it was thought to be orthostatic, but this time, no really in context of position changes. Given chest pressure, am wondering if this was more of a pre-syncopal feeling with an atrial arrthymia? - Telemetry - Would consider 30-day MCOT on discharge - Trend troponins and EKGs - See no need to repeat echo from 2 weeks ago unless troponin significantly elevates (2) HTN (hypertension): Plan: Significantly elevated BP last admission and in the ER today at 160/80. Do not believe she is actually on any HTN meds as her last refills were in 10/2021 and were clearly for limited duration (most of them only 2 weeks long). - Start amlodipine 5 mg PO daily - Will need script for all meds prescribed on discharge. Has f/u with Dr. Montiel on 02/24 per her significant other. (3) Diabetes mellitus type 2 in obese: Plan: A1c was 9.8% on last admission. - Sliding scale insulin - Again, will need any oral DM meds prescribed on discharge. Given concern for intellectual disability, would be reluctant to prescribe insulin without significant instruction while admitted. (4) Bipolar 1 disorder: Plan: Unclear psychiatry history. She tells me it has been "years" since she saw a psychiatrist or counselor. - Continue lamotrigine (not clear to me if this is for seizure as previously noted or for mood stabilization) - fixed wing aircraft flight mechanicmanaged care liaison consulted for help in getting/finding records and assessing any acute needs (5) CKD (chronic kidney disease), stage III: Plan: Baseline Cr ~1.4 - 1.6. Cr on admission was 1.8, so nearly at baseline. - Dose meds for CrCl ~40. - Monitor Cr (6) Factor 5 Leiden mutation, heterozygous: Plan: Per report. Reports she has had clots in the past, but not sure when. - Eliquis 2.5 mg PO BID was last prescription, though I do not believe she was taking it recently. - Consider [facility] record request as her last PCP was [facility]. (7) GERD (gastroesophageal reflux disease): Plan: Unclear hx and work-up. Not reporting this to me on admission. Not sure if she is taking a PPI or not. - Hold any meds for now and monitor for symptoms. FULL CODE - Per patient and SO in ER History of Present Illness Primary Care Provider: Tran Montiel DO 46-year-old female with history of reported seizure disorder, hypertension, DM, factor V Leiden who presents with episodes of syncope and weakness. The patient reports that she was in her normal state of health over the last several weeks since her discharge from the hospital on 02/02. She has been up, walking, traveling, and feeling well. She and her significant other reports that at 1 PM today she had multiple episodes of syncope. She has no inciting factors that she is aware of. She reports that she did have prodromal dizziness, lightheadedness, and shortness of breath. She was in the car when the syncope occurred, and denies hitting her head or having a significant fall. When she and her SO arrived at home, she moved to the couch and reports that she had "too many to count" episodes of syncope. Her SO reports that each episode only lasted 2 seconds, as he was able to shake her and arouse her. She notes that during this time she had central chest pressure that radiated up to the left arm. This has now resolved. She also reports some nausea during this episode. She notes some recent diarrhea, but no abdominal pain, no emesis, changes in urination, no fevers chills, or other symptoms. Allergies Allergy/AdvReac Type Severity Reaction Status Date / Time cat dander Allergy Intermediate ITCHY Verified 02/15/22 18:02 EYES,WHEEZING Penicillins Allergy Intermediate RED RASH Verified 02/15/22 18:02 AND LIP SWELLS morphine AdvReac Intermediate CHILLS, GI Verified 02/15/22 18:02 UPSET,VOMITING Dust Allergy Intermediate ITCHY Uncoded 02/15/22 18:02 EYES,WHEEZING Home Medications Medication Instructions Recorded Confirmed Type amlodipine 5 mg tablet 5 mg PO DAILY 01/31/22 02/15/22 History apixaban 5 mg tablet (Eliquis) 5 mg PO BID 01/31/22 02/15/22 History aspirin 81 mg tablet,delayed 81 mg PO DAILY 01/31/22 02/15/22 History release carvedilol 25 mg tablet 25 mg PO BID 01/31/22 02/15/22 History citalopram 40 mg tablet 20 mg PO DAILY 01/31/22 02/15/22 History ferrous sulfate 325 mg (65 mg 325 mg PO DAILY 01/31/22 02/15/22 History iron) tablet gabapentin 100 mg capsule 100 mg PO TID 01/31/22 02/15/22 History glucagon 1 mg solution for 1 mg subcut DIRECTED PRN 01/31/22 02/15/22 History injection (Glucagon Emergency Kit) Hypoglycemia magnesium oxide 400 mg PO DAILY 01/31/22 02/15/22 History ondansetron 4 mg disintegrating 4 mg PO Q8H PRN Nausea And Vomiting 01/31/22 02/15/22 History tablet oxybutynin chloride 15 mg 15 mg PO DAILY 01/31/22 02/15/22 History tablet,extended release 24 hr pantoprazole 40 mg tablet,delayed 40 mg PO DAILY 01/31/22 02/15/22 History release trazodone 100 mg tablet 100 mg PO HS 01/31/22 02/15/22 History insulin lispro 200 unit/mL (3 mL) 6 unit (0.03 mL) subcut TID 02/02/22 02/15/22 Rx subcutaneous pen Diabetes Mellitus #3 mL lamotrigine 100 mg tablet 200 mg PO HS 14 days #28 tabs 02/02/22 02/15/22 Rx levothyroxine 100 mcg tablet 100 mcg PO DAILY 21 days #21 tabs 02/02/22 02/15/22 Rx cholecalciferol (vitamin D3) 125 125 mcg PO DAILY 02/15/22 02/15/22 History mcg (5,000 unit) tablet (Vitamin D3) multivitamin 1 tab PO DAILY 02/15/22 02/15/22 History Past Med/Surg History Medical History Hyperlipidemia Social History Smoking Status: Never smoker Hx Alcohol Use: No Hx Substance Use: No Preferred Language: Tu[place] Sales Property Manager Required: No Current Living Situation: Spouse Current Living Situation Comment: lives with and children Feels Safe at Home: Yes Assistive Devices: None Review of Systems Review of Systems: All systems reviewed & are unremarkable except as noted in HPI & below Physical Exam Constitutional: WD/WN, vitals as above Eyes: EOM intact bilaterally; no conjunctival abnormality ENMT: external ear and nose normal, oropharynx normal Neck: trachea midline, no thyromegaly normal visual inspection Respiratory: normal respiratory effort, lungs clear to auscultation no respiratory distress Cardiovascular: RRR, no murmur, no edema Gastrointestinal (Abdomen): Inspection/Auscultation: abdomen normal to inspection; abdomen not distended Musculoskeletal: no cyanosis or clubbing, extremities motor strength 5/5 Skin: no rashes, warm and dry Neurologic: moves all extremities and awake Psychiatric: Orientation: alert, oriented to person and cooperative Results & Data Results & Data ([facility]) Vital Signs (Past 12 Hours) Vital Signs Temp Pulse Pulse Resp BP BP Pulse Ox 02/15/22 20:00 74 15 161/78 H 97 02/15/22 19:50 79 15 100 02/15/22 19:50 169/106 H 02/15/22 19:41 92 H 17 100 02/15/22 19:30 83 19 02/15/22 19:30 159/89 H 02/15/22 19:20 178/100 H 02/15/22 19:20 83 18 100 02/15/22 19:10 161/89 H 02/15/22 19:10 83 26 H 100 02/15/22 19:00 85 22 100 02/15/22 19:00 175/92 H 02/15/22 18:51 83 24 100 02/15/22 18:51 181/93 H 02/15/22 18:40 79 21 93 02/15/22 18:40 164/93 H 02/15/22 18:30 80 19 98 02/15/22 18:30 175/97 H 02/15/22 18:24 151/86 H 02/15/22 18:24 82 14 100 02/15/22 18:20 166/83 H 02/15/22 18:00 100 02/15/22 17:47 100 02/15/22 18:24 81 151/86 H 02/15/22 17:52 99 H 18 217/114 H 100 02/15/22 17:30 37.1 C 101 H 18 213/111 H 100 O2 Del Method 02/15/22 20:00 02/15/22 19:50 02/15/22 19:50 02/15/22 19:41 02/15/22 19:30 02/15/22 19:30 02/15/22 19:20 02/15/22 19:20 02/15/22 19:10 02/15/22 19:10 02/15/22 19:00 02/15/22 19:00 02/15/22 18:51 02/15/22 18:51 02/15/22 18:40 02/15/22 18:40 02/15/22 18:30 02/15/22 18:30 02/15/22 18:24 02/15/22 18:24 02/15/22 18:20 02/15/22 18:00 02/15/22 17:47 02/15/22 18:24 02/15/22 17:52 Room Air 02/15/22 17:30 Room Air Code Status & VTE Plan VTE Prophylaxis Plan VTE Prophylaxis will be ordered: Yes PG Care Time/CCT Total # of Minutes Spent Total Time Spent with Patient: Total time spent is greater than 50% in coordination of care (as documented) at patient's floor/unit and/or counseling patient: Coding Level of Care Code INT OBSERVATION CARE 70M LVL 3 Diagnoses Syncopal episodes R55 HTN (hypertension) I10 Diabetes mellitus type 2 in obese E11.69; E66.9 Bipolar 1 disorder F31.9 CKD (chronic kidney disease), stage III N18.3 Factor 5 Leiden mutation, heterozygous D68.51 GERD (gastroesophageal reflux disease) K21.9
[2022-02-15 21:31] LABS: D Dimer 440 ug/L FEU (0-500)
[2022-02-15] MEDS ORDERED: CARBOHYDRATES FOR HYPOGLYCEMIA PO PRN (21:59)
[2022-02-15] MEDS ORDERED: GLUCAGON FOR INJ 1 MG VIAL SQ PRN (21:59)
[2022-02-15] MEDS ORDERED: GLUCOSE 10 TAB/TUBE PO PRN (21:59)
[2022-02-15] MEDS ORDERED: ONDANSETRON INJ 2 MG/ML 2 ML VIAL IV PRN (21:59)
[2022-02-15] MEDS ORDERED: DEXTROSE 50% 50 ML SYRINGE IV PRN (21:59)
[2022-02-15] MEDS ORDERED: GLUCOSE 40% GEL 15 GM TUBE PO PRN (21:59)
[2022-02-15] MEDS ORDERED: lamoTRIgine 100 MG TAB PO SCH (21:59)
[2022-02-15] MEDS ORDERED: ACETAMINOPHEN 325 MG TAB PO PRN (21:59)
[2022-02-15] MEDS: INSULIN ASPART PER UNIT SC SCH (22:33)
[2022-02-15] MEDS: APIXABAN 2.5 MG TAB PO SCH (22:35)
[2022-02-15 23:28] LABS: Amphetamines+Metham, Urine Neg (Neg); Barbiturates, Urine Neg (Neg); Benzodiazepine, Urine Neg (Neg); Cocaine, Urine Neg (Neg); MDMA (Ecstacy), Urine Neg (Neg); Methadone, Urine Neg (Neg); Opiate, Urine Neg (Neg); Phencyclidine, Urine Neg (Neg)
[2022-02-16] MEDS: LEVOTHYROXINE SODIUM 100 MCG TABLET PO SCH (05:47)
[2022-02-16 07:27] LABS: Hematocrit (blood only) 23.1 % (34.1-44.9); Hemoglobin 7.7 g/dl (12.0-16.0); Mean Corpuscular Hemoglobin 28.7 pg (25.0-34.0); Mean Corpuscular Hgb Conc 33.3 g/dL (32.0-36.0); Mean Corpuscular Volume 86.2 fL (80.0-100.0); Mean Platelet Volume 10.2 fL (9.4-12.3); Platelet Count 353 K/uL (130-400); RDW Coefficient of Variation 14.3 % (11.5-14.5); RDW Standard Deviation 44.9 fL (36.4-46.3); Red Blood Count 2.68 M/uL (3.93-5.22); White Blood Count 8.73 K/ul (4.8-10.8)
[2022-02-16] MEDS: amLODIPine BESYLATE 5 MG TAB PO SCH (07:48)
[2022-02-16] MEDS: APIXABAN 2.5 MG TAB PO SCH (07:48)
[2022-02-16 07:53] LABS: BUN Creatinine Ratio 16.3 (10-20); Calcium 7.6 mg/dl (8.5-10.1); Est GFR (African American) 49.1 ml/min; Est GFR (Non-African American) 42.4 ml/min; Magnesium 1.9 mg/dl (1.7-2.4); Potassium 3.4 mmol/L (3.5-5.1)
[2022-02-16] MEDS: INSULIN ASPART PER UNIT SC SCH ×4 (07:54→20:56)
[2022-02-16 08:57] LABS: Ferritin 6.6 ng/ml (8-388)
[2022-02-16] MEDS: PANTOprazole 40 MG in SYRINGE 0 ML IV SCH ×2 (13:53→20:47)
[2022-02-16] MEDS: carvediloL 12.5 MG TAB PO SCH ×2 (14:05→20:52)
[2022-02-16] MEDS: GABAPENTIN 100 MG CAP PO SCH ×2 (14:05→20:52)
--- NOTE | 2022-02-16 16:03 | Hospitalist Progress Note ---
Date of Service February 16, 2022 Assessment & Plan (1) Hypertensive encephalopathy: Plan: Suspect this is the cause of her dizziness and possibly syncope vs. seizure. Last admission she was taking amlodipine 5mg PO daily, carvedilol 25mg PO BID and olmesartan 20mg PO daily however she was not prescribed any of these on discharge and did not have any of them therefore was not on anything prior to coming in. Continue amlodipine 5mg PO daily started by admitting provider. Will add back carvedilol today @ 12.5mg PO BID Hydralazine PRN for sBP > 180. Plan to uptitrate BB and add ARB back if able Reportedly held home Lasix, chlorthalidone, losartan and spironolactone last admission however patient reports not having any anti-hypertensives for months (2) Syncopal episodes: Plan: "Too many to count" syncopal episodes in presence of SO. However, arousable and each one only lasting a few seconds. Echo on 02/01 with EF 60-65%, moderate LVH, no RWMA. Possible seizure activity in setting of elevated BP. - Will arrange 30-day MCOT on discharge however suspect more likely due to her not taking her anti-hypertensives - no arrythmias on telemetry (3) HTN (hypertension): Plan: As above for hypertensive encephlopathy (4) Diabetes mellitus type 2 in obese: Plan: A1c was 9.8% on last admission. - Reports taking Lantus 50 units HS and Novolog 1:10 carb ratio and correection factor of 30 - will need diabetes medications prescribed on discharge Currently not on any Lantus and glucose 119-201 therefore will restart Lantus at a lower dose of 10 units BID Novolog: --Goal BSG Range: Low 100 mg/dL, High 140 mg/dL --Correction Factor: 35 mg/dL/unit --Carbohydrate ratio = 18 g/unit --BSGs ACHS if eating, q6h if npo (5) Bipolar 1 disorder: Plan: Unclear psychiatry history. She tells me it has been "years" since she saw a psychiatrist or counselor. - Continue lamotrigine (reports she takes this for mood stabilization - lab courierrevenue liaison consulted for help in getting/finding records and assessing any acute needs - she requests medication for anxiety - previously on citalopram - old notes requested (6) CKD (chronic kidney disease), stage III: Plan: Baseline Cr ~1.4 - 1.6. Cr on admission was 1.8, so nearly at baseline. - Dose meds for CrCl ~40. - Monitor Cr (7) Factor 5 Leiden mutation, heterozygous: Plan: Per report. Reports she has had clots in the past. This in itself is not an indication for Eliquis -> she also notes a TIA but unsure if this was cardioembolic and also one DVT in the past. HIM request for [facility] records Will place on hold for now as not yet ruled out acute blood loss anemia (8) GERD (gastroesophageal reflux disease): Plan: Previously on pantoprazole but not had for many months for heartburn Given iron deficient anemia and vomiting now and possible blood last admission will start on pantoprazole 40mg IV BID (9) Iron deficiency anemia: Plan: No history of gastric ulcer per patient but concerning significant weight loss for the last 2 years. Will need EGD/colonoscopy as outpatient if not recently performed. Will consult inpatient if continued blood loss. Fecal occult blood Repeat CBC this afternoon to decided on blood transfusion vs. iron transfusion. (10) Urine incontinence: Plan: Restart oxybutynin in AM. Previously on this medication but not had for many months as was unable to refill through her PCP. (11) Seizure disorder: Plan: Continue her usual anti-seizure medications. I am unclear why these were not on her home list on this or last admission as clearly are being prescribed and picked up per external pharmacy list. Lamotrigine 250mg QAM and 200mg PO HS (given high dose and dose not confirmed on external med list will give 200mg PO BID here) Topamax 150mg PO BID Gabapentin 200mg PO TID HIM request for her last [facility] neurology note Plan VTE Prophylaxis -deferred in the setting of trying to rule out acute blood loss anemia FULL CODE - Per patient and SO in ER Disposition -continued observation to med telemetry Admission and Anticipated Discharge Date Admission Date: February 15, 2022 Subjective Vomiting this morning. No abdominal pain or change in bowels. No melena or bright red blood in stool. No hematemesis. She reports vomiting blood last admission. No further syncopal events. No dizziness since admission. Spent a significant time going through the patient's medications. She reports taking all her anti-seizure medications but reportedly different from what was listed on home medication list. On looking at external medications list and patient knowledge of her medications she appears to be on Lamictal 200 (or possibly 250 +200) mg PO BID, Review of Systems Review of Systems: All systems reviewed & are unremarkable except as noted in Subjective Physical Exam Constitutional: WD/WN, vitals as above Eyes: EOM intact bilaterally; no conjunctival abnormality ENMT: external ear and nose normal, oropharynx normal Neck: trachea midline, no thyromegaly Respiratory: normal respiratory effort, lungs clear to auscultation no respiratory distress Cardiovascular: RRR, no murmur, no edema Gastrointestinal (Abdomen): Inspection/Auscultation: abdomen normal to inspection; abdomen not distended Musculoskeletal: no cyanosis or clubbing, extremities motor strength 5/5 Skin: no rashes, warm and dry Neurologic: moves all extremities and awake Psychiatric: Orientation: alert, oriented to person, oriented to place, oriented to time and cooperative Results & Data Results & Data ([facility]) Vital Signs (Past 12 Hours) Vital Signs Temp Pulse Pulse Resp BP Pulse Ox O2 Del Method 02/16/22 08:00 96 H 02/16/22 11:17 36.7 C 78 18 181/96 H 98 Room Air 02/16/22 07:20 Room Air 02/16/22 07:19 37 C 81 16 173/86 H 99 Room Air PG Care Time/CCT Total # of Minutes Spent Total Time Spent: 70 Total Time Spent with Patient: Total time spent is greater than 50% in coordination of care (as documented) at patient's floor/unit and/or counseling patient: Coding Level of Care Code 50018 Subseq Obs Care Lvl 3 Diagnoses Hypertensive encephalopathy I67.4 Syncopal episodes R55 HTN (hypertension) I10 Diabetes mellitus type 2 in obese E11.69; E66.9 Bipolar 1 disorder F31.9 CKD (chronic kidney disease), stage III N18.3 Factor 5 Leiden mutation, heterozygous D68.51 GERD (gastroesophageal reflux disease) K21.9 Iron deficiency anemia D50.9 Urine incontinence R32 Seizure disorder G40.909
[2022-02-16 17:00] LABS: Hematocrit (blood only) 23.7 % (34.1-44.9); Hemoglobin 7.9 g/dl (12.0-16.0); Mean Corpuscular Hemoglobin 28.9 pg (25.0-34.0); Mean Corpuscular Hgb Conc 33.3 g/dL (32.0-36.0); Mean Corpuscular Volume 86.8 fL (80.0-100.0); Platelet Count 377 K/uL (130-400); RDW Coefficient of Variation 14.4 % (11.5-14.5); RDW Standard Deviation 45.5 fL (36.4-46.3); Red Blood Count 2.73 M/uL (3.93-5.22); White Blood Count 9.11 K/ul (4.8-10.8)
[2022-02-16] MEDS: lamoTRIgine 100 MG TAB PO SCH (20:50)
[2022-02-16] MEDS: TOPIRAMATE 50 MG TAB PO SCH (20:53)
[2022-02-16] MEDS: LANTUS PER UNIT CHARGE SQ SCH (20:54)
[2022-02-16] MEDS: TOPIRAMATE 100 MG TAB PO SCH (20:54)
[2022-02-16] MEDS ORDERED: hydrALAZINE HCL 20 MG/ML VIAL IV PRN (22:16)
[2022-02-17] MEDS: LEVOTHYROXINE SODIUM 100 MCG TABLET PO SCH (05:25)
--- NOTE | 2022-02-17 06:54 | Electrocardiogram Report ---
Test Reason : Blood Pressure : / mmHG Vent. Rate : 097 BPM Atrial Rate : 097 BPM P-R Int : 200 ms QRS Dur : 088 ms QT Int : 388 ms P-R-T Axes : 059 -39 089 degrees QTc Int : 492 ms Normal sinus rhythm Left axis deviation Anteroseptal infarct (cited on or before 14-APR-2016) Prolonged QT T wave abnormality, consider lateral ischemia Abnormal ECG When compared with ECG of 31-JAN-2022 17:48, Questionable change in initial forces of Septal leads Confirmed by Biju Corea ([id number]) on 02/17/2022 6:53:38 AM Referred By: REFERRED SELF Confirmed By:Biju Corea
[2022-02-17] MEDS: amLODIPine BESYLATE 5 MG TAB PO SCH (07:42)
[2022-02-17] MEDS: lamoTRIgine 100 MG TAB PO SCH (07:42)
[2022-02-17] MEDS: GABAPENTIN 100 MG CAP PO SCH (07:43)
[2022-02-17] MEDS: carvediloL 12.5 MG TAB PO SCH (07:43)
[2022-02-17] MEDS: TOPIRAMATE 100 MG TAB PO SCH (07:44)
[2022-02-17] MEDS: PANTOprazole 40 MG in SYRINGE 0 ML IV SCH (07:44)
[2022-02-17] MEDS: TOPIRAMATE 50 MG TAB PO SCH (07:44)
[2022-02-17 07:54] LABS: Basophils # (auto) 0.03 K/uL (0-0.2); Basophils % (auto) 0.3 %; Eosinophils # (auto) 0.33 K/uL (0-0.50); Eosinophils % (auto) 3.6 %; Hematocrit (blood only) 24.3 % (34.1-44.9); Hemoglobin 7.9 g/dl (12.0-16.0); Immature Granulocytes # (auto) 0.03 K/uL (0.00-0.02); Immature Granulocytes % (auto) 0.3 %; Lymphocytes # (auto) 2.19 K/uL (1.2-3.4); Lymphocytes % (auto) 23.8 %; Mean Corpuscular Hemoglobin 28.6 pg (25.0-34.0); Mean Corpuscular Hgb Conc 32.5 g/dL (32.0-36.0); Mean Platelet Volume 10.5 fL (9.4-12.3); Monocytes # (auto) 0.78 K/uL (0.24-0.82); Monocytes % (auto) 8.5 %; Neutrophils # (auto) 5.86 K/uL (1.4-6.5); Neutrophils % (auto) 63.5 %; Platelet Count 374 K/uL (130-400); RDW Coefficient of Variation 14.5 % (11.5-14.5); RDW Standard Deviation 46.2 fL (36.4-46.3); Red Blood Count 2.76 M/uL (3.93-5.22); White Blood Count 9.22 K/ul (4.8-10.8)
[2022-02-17] MEDS: LANTUS PER UNIT CHARGE SQ SCH (08:17)
[2022-02-17] MEDS: INSULIN ASPART PER UNIT SC SCH ×2 (08:17→12:42)
[2022-02-17 08:19] LABS: Ovalocytes 1+
[2022-02-17 08:31] LABS: Albumin Globulin Ratio 0.9 (0.9-2); Albumin Level 2.7 gm/dl (3.4-5.0); BUN Creatinine Ratio 15.1 (10-20); Bilirubin,Total 0.2 mg/dl (0.2-1.0); Calcium 7.4 mg/dl (8.5-10.1); Creatinine Clr Calc Pharmacy 44.2 ml/min; Est GFR (African American) 42.4 ml/min; Est GFR (Non-African American) 36.6 ml/min; Globulin 3.1 gm/dl (2.5-4.0); Potassium 3.4 mmol/L (3.5-5.1); Total Protein 5.8 gm/dl (6.0-8.3)
[2022-02-17] MEDS ORDERED: lamoTRIgine 25 MG TAB PO SCH (09:00)
[2022-02-17] MEDS ORDERED: OXYBUTYNIN CHLORIDE XL 5 MG TABCR PO SCH (09:00)
[2022-02-17] MEDS ORDERED: IRON SUCROSE 300 MG in SODIUM CHLORIDE 0.9% 250 ML IV ONE (11:00)
--- NOTE | 2022-02-17 12:55 | Discharge Summary ---
Date of Service February 17, 2022 Admission HPI Per Admitting Provider 46-year-old female with history of reported seizure disorder, hypertension, DM, factor V Leiden who presents with episodes of syncope and weakness. The patient reports that she was in her normal state of health over the last several weeks since her discharge from the hospital on 02/02. She has been up, walking, traveling, and feeling well. She and her significant other reports that at 1 PM today she had multiple episodes of syncope. She has no inciting factors that she is aware of. She reports that she did have prodromal dizziness, lightheadedness, and shortness of breath. She was in the car when the syncope occurred, and denies hitting her head or having a significant fall. When she and her SO arrived at home, she moved to the couch and reports that she had "too many to count" episodes of syncope. Her SO reports that each episode only lasted 2 seconds, as he was able to shake her and arouse her. She notes that during this time she had central chest pressure that radiated up to the left arm. This has now resolved. She also reports some nausea during this episode. She notes some recent diarrhea, but no abdominal pain, no emesis, changes in urination, no fevers chills, or other symptoms. Principal Diagnosis Hypertensive encephalopathy Discharge Data Allergies Allergy/AdvReac Type Severity Reaction Status Date / Time cat dander Allergy Intermediate ITCHY Verified 02/15/22 18:02 EYES,WHEEZING Penicillins Allergy Intermediate RED RASH Verified 02/15/22 18:02 AND LIP SWELLS morphine AdvReac Intermediate CHILLS, GI Verified 02/15/22 18:02 UPSET,VOMITING Consultations 02/15/22 21:13 Consult Behavioral Health Liaison Routine 02/16/22 12:36 HIM [Consult Health Information Management] Routine 02/16/22 13:40 HIM [Consult Health Information Management] Routine Ordered Studies 02/15/22 17:46 CT head/brain wo con Stat Impression: No significant change compared to the prior study. No acute intracranial abnormality. Hospital Course (1) Hypertensive encephalopathy: Kaci Gagnon is a 46 year old female observed at [facility] from February 15 - 2021 due to episodes of syncope, weakness, left leg pain. Suspect most likely these episodes are due to hypertensive encephalopathy as her anti-hypertensives were not prescribed after her most recent hospitalization and she is current waiting to establish with a new primary care provider on February 24. She had no further episodes during her inpatient stay and no arrythmias on telemetry after restarting her amlodipine and carvedilol. Given some concern for orthostasis and medicaltion compliance we did not resume her ARB. She also reports being on diuretics such as chlorthalidone. Please follow up with your primary care provider for ongoing management of hypertension. We will set you up with a 30 day cardiac event monitor as an outpatient to assess for cardiac arrhythmia as a cause of your syncopal events. You have been re-prescribed your diabetes medications to make sure you have enough supplies prior to your primary care appointment. Lantus has been reduced to 30 units at night due to concern for low glucose levels and per your inpatient glucose levels this appears to be adequate to manage your glucose levels. Your insulin lispro carb ratio and correction factor will remain the same. Please follow up with [facility] endocrinology or your primary care provider for ongoing management of this. You were incidentally diagnosed with iron deficient anemia. Recommend discussing follow up EGD and colonoscopy for this. 200mg iron sucrose was given during your inpatient stay. Recommend continuing with ferrous sulfate 324mg every other day on discharge. Please continue on pantoprazole 40mg twice a day on an empty stomach until otherwise advised by a healthcare provider. Please stop taking your apixaban until after EGD / colonoscopy. For your urine incontinence - you were previously treated with oxybutynin but not taken for many months For your anxiety - given we are restarting multiple medications we will hold off restarting your previously prescribed citalopram at this time. Please follow up with your primary care provider about this. Please continue on supplementation for B12 (this can contribute towards your peripheral neuropathy if not treated), magnesium and potassium as prescribed below. (2) Syncopal episodes: "Too many to count" syncopal episodes in presence of SO. However, arousable and each one only lasting a few seconds. Echo on 02/01 with EF 60-65%, moderate LVH, no RWMA. Possible seizure activity in setting of elevated BP. - Will arrange 30-day MCOT on discharge however suspect more likely due to her not taking her anti-hypertensives - no arrythmias on telemetry (3) HTN (hypertension): As above for hypertensive encephlopathy (4) Diabetes mellitus type 2 in obese: A1c was 9.8% on last admission. - Reports taking Lantus 50 units HS and Novolog 1:10 carb ratio and correection factor of 30 - will need diabetes medications prescribed on discharge Currently not on any Lantus and glucose 119-201 therefore will restart Lantus at a lower dose of 10 units BID Novolog: --Goal BSG Range: Low 100 mg/dL, High 140 mg/dL --Correction Factor: 35 mg/dL/unit --Carbohydrate ratio = 18 g/unit --BSGs ACHS if eating, q6h if npo (5) Bipolar 1 disorder: Unclear psychiatry history. She tells me it has been "years" since she saw a psychiatrist or counselor. - Continue lamotrigine (reports she takes this for mood stabilization - [employer] professionalmanagement liaison consulted for help in getting/finding records and assessing any acute needs - she requests medication for anxiety - previously on citalopram - old notes requested (6) CKD (chronic kidney disease), stage III: Baseline Cr ~1.4 - 1.6. Cr on admission was 1.8, so nearly at baseline. - Dose meds for CrCl ~40. - Monitor Cr (7) Factor 5 Leiden mutation, heterozygous: Per report. Reports she has had clots in the past. This in itself is not an indication for Eliquis -> she also notes a TIA but unsure if this was cardioembolic and also one DVT in the past. HIM request for [employer] records Will place on hold for now as not yet ruled out acute blood loss anemia (8) GERD (gastroesophageal reflux disease): Previously on pantoprazole but not had for many months for heartburn Given iron deficient anemia and vomiting now and possible blood last admission will start on pantoprazole 40mg IV BID (9) Iron deficiency anemia: No history of gastric ulcer per patient but concerning significant weight loss for the last 2 years. Will need EGD/colonoscopy as outpatient if not recently performed. Will consult inpatient if continued blood loss. Fecal occult blood Repeat CBC this afternoon to decided on blood transfusion vs. iron transfusion. (10) Urine incontinence: Restart oxybutynin in AM. Previously on this medication but not had for many months as was unable to refill through her PCP. (11) Seizure disorder: Continue her usual anti-seizure medications. I am unclear why these were not on her home list on this or last admission as clearly are being prescribed and picked up per external pharmacy list. Lamotrigine 250mg QAM and 200mg PO HS (given high dose and dose not confirmed on external med list will give 200mg PO BID here) Topamax 150mg PO BID Gabapentin 200mg PO TID HIM request for her last [facility] neurology note Plan VTE Prophylaxis -deferred in the setting of trying to rule out acute blood loss anemia FULL CODE - Per patient and SO in ER Disposition -continued observation to med telemetry Discharge Plan Discharge Items Patient Disposition: Home - Self-Care Reason For Visit: SYNCOPE, WEAKNESS Discharge Diagnosis: Hypertensive encephalopathy Activity: Resume your previous activity Non-emergency contact: Primary Care Provider Call non-emergency contact if: you have any medication questions and your symptoms worsen Follow-up/Referrals: Tran Montiel DO [Primary Care Provider] - Diet: Carb Consistent or DM2 Addtl Attending Provider Instructions: You were observed at [facility] from February 15 - 2021 due to episodes of syncope, weakness, left leg pain. Suspect most likely these episodes are due to uncontrolled blood pressure as you have been off your medications for this. They appeared to resolve during your inpatient stay with restarting blood pressure medications. Given also some concern for orthostasis and not taking any blood pressure medications before coming to hospital we have just restarted you just on amlodipine and carvedilol. Please follow up with your primary care provider for ongoing management of hypertension. We will set you up with a 30 day cardiac event monitor as an outpatient to assess for cardiac arrhythmia as a cause of your syncopal events. You have been re-prescribed your diabetes medications to make sure you have enough supplies prior to your primary care appointment. Lantus has been reduced to 30 units at night due to concern for low glucose levels and per your inpatient glucose levels this appears to be adequate to manage your glucose levels. Your insulin lispro carb ratio and correction factor will remain the same. Please follow up with [facility] endocrinology or your primary care provider for ongoing management of this. You were incidentally diagnosed with iron deficient anemia. Recommend discussing follow up EGD and colonoscopy for this. 200mg iron sucrose was given during your inpatient stay. Recommend continuing with ferrous sulfate 324mg every other day on discharge. Please continue on pantoprazole 40mg twice a day on an empty stomach until otherwise advised by a healthcare provider. Please stop taking your apixaban until after EGD / colonoscopy. For your urine incontinence - you were previously treated with oxybutynin but not taken for many months For your anxiety - given we are restarting multiple medications we will hold off restarting your previously prescribed citalopram at this time. Please follow up with your primary care provider about this. Please continue on supplementation for B12 (this can contribute towards your peripheral neuropathy if not treated), magnesium and potassium as prescribed below. Pending Studies at Discharge: No Stand-Alone Forms: My [facility] [employer], Smoking Cessation Medications and DC Order Prescriptions: New oxybutynin chloride 5 mg Tablet Extended Release 24hr 5 mg PO QAM Qty: 30 0RF levothyroxine 100 mcg capsule 100 mcg PO DAILY Qty: 30 0RF insulin lispro 100 unit/mL insulin pen 1 sliding scale dose subcut USEASDIRECTD Qty: 15 0RF Rx Instructions: Carb ratio 1:10, correction factor 30 for blood glucose > 150 insulin glargine [Lantus Solostar U-100 Insulin] 100 unit/mL (3 mL) insulin pen 30 unit subcut PM Qty: 15 0RF (DME) pen needle, diabetic [Easy Comfort Pen Essie] 31 gauge x 5/16" needle See Rx Instructions .Route Qty: 100 0RF Rx Instructions: As directed (DME) blood-glucose meter [OneTouch Verio Meter] Misc See Rx Instructions .Route Qty: 1 0RF Rx Instructions: As directed (DME) OneTouch Verio test strips Strip See Rx Instructions .Route Qty: 250 0RF Rx Instructions: to check 8x/day (DME) lancets [OneTouch Delica Lancets] 33 gauge misc See Rx Instructions .Route Qty: 250 0RF Rx Instructions: to check 8x/day carvedilol 12.5 mg tablet 12.5 mg PO BID Qty: 60 0RF Rx Instructions: must administer with a meal/food amlodipine 5 mg tablet 5 mg PO DAILY Qty: 30 0RF pantoprazole 40 mg tablet,delayed release (DR/EC) 40 mg PO BID Qty: 60 0RF potassium chloride 20 mEq tablet extended release 20 meq PO DAILY Qty: 30 0RF magnesium oxide 400 mg magnesium tablet 400 mg PO DAILY Qty: 30 0RF ferrous sulfate 324 mg (65 mg iron) tablet,delayed release (DR/EC) 324 mg PO Q OTHER DAY Qty: 14 0RF ondansetron 4 mg tablet,disintegrating 4 mg PO Q6H PRN (Reason: nausea and vomiting) Qty: 10 0RF cyanocobalamin (vitamin B-12) 1,000 mcg tablet 1,000 mcg PO DAILY Qty: 30 0RF Continued lamotrigine 200 mg tablet 250 mg PO QAM topiramate 100 mg tablet 100 mg PO BID topiramate 50 mg tablet 50 mg PO BID lamotrigine 200 mg tablet 200 mg PO QPM trazodone 100 mg tablet 100 mg PO HS PRN (Reason: Insomnia) gabapentin 100 mg capsule 200 mg PO TID Discontinued multivitamin Tablet 1 tab PO DAILY insulin lispro 100 unit/mL insulin pen See Rx Instructions .ROUTE .COMPLEX Rx Instructions: 1 unit per 10g, Correction factor 30 abve 150 insulin glargine [Lantus Solostar U-100 Insulin] 100 unit/mL (3 mL) insulin pen 50 unit SUBCUT HS Eliquis 2.5 mg tablet 2.5 mg PO BID ondansetron 4 mg Tablet,Disintegrating 4 mg PO Q8H PRN (Reason: Nausea And Vomiting) magnesium oxide 400 mg magnesium Tablet 400 mg PO DAILY Glucagon Emergency Kit (human) 1 mg recon soln 1 mg subcut DIRECTED PRN (Reason: Hypoglycemia) Rx Instructions: inject in to thigh,upper arm or buttock if needed for severe hypuglcemia oxybutynin chloride 15 mg Tablet Extended Release 24hr 15 mg PO DAILY levothyroxine 100 mcg tablet 100 mcg PO DAILY 21 Days Qty: 21 0RF Admission Data Admit Date/Time: 02/15/22 20:52 Attending Provider: Ramírez Simmons Admit Provider: Wenceslao Adam Primary Care Provider: Tran Montiel Coding Diagnoses Hypertensive encephalopathy I67.4 Syncopal episodes R55 HTN (hypertension) I10 Diabetes mellitus type 2 in obese E11.69; E66.9 Bipolar 1 disorder F31.9 CKD (chronic kidney disease), stage III N18.3 Factor 5 Leiden mutation, heterozygous D68.51 GERD (gastroesophageal reflux disease) K21.9 Iron deficiency anemia D50.9 Urine incontinence R32 Seizure disorder G40.909
--- NOTE | 2022-02-18 06:12 | Electrocardiogram Report ---
Test Reason : Blood Pressure : / mmHG Vent. Rate : 072 BPM Atrial Rate : 072 BPM P-R Int : 182 ms QRS Dur : 088 ms QT Int : 420 ms P-R-T Axes : 049 -25 173 degrees QTc Int : 459 ms Normal sinus rhythm T wave abnormality, consider lateral ischemia Possible Septal infarct Abnormal ECG When compared with ECG of 15-FEB-2022 17:40, Nonspecific T wave abnormality now evident in Inferior leads T wave inversion more evident in Lateral leads Confirmed by Biju Corea ([id number]) on 02/18/2022 6:12:01 AM Referred By: REFERRED SELF Confirmed By:Biju Corea
== END 2022-02-17 16:45 | disposition home or self-care (01) ==
LOC: 2N 17:23 → ED 17:23 → SUATTDRO 20:52 → 2N 21:56

== ENCOUNTER 2023-08-16 05:02 | Inpatient (IN) ==
--- NOTE | 2023-08-16 05:37 | Emergency Department Note ---
Impression & Plan Left lower lobe pneumonia, ESTELITA (acute kidney injury) Admit to the [facility] ED Provider Note NAME: GILDARDO GILBERT AGE: 47 SEX: Female INFORMANT: Patient ED PROVIDER(S): Emily Key DO CHIEF COMPLAINT: Sore throat and dizziness PLAN: Disposition: admit to the [facility] MEDICAL DECISION MAKING: This is a 47-year-old female patient with history of insulin-dependent diabetes who presents emergency department with sore throat and dizziness. Patient states that she was discharged yesterday from [facility] where she spent the last week receiving IV fluids. She states that throughout that time, she did not receive any Lasix and has become quite edematous and is still having very little urinary output. She is now unable to eat or drink very much and every time she does she coughs. She describes having a dry throat. She states that she had been diagnosed with a virus and was told that she did not have pneumonia. laboratory studies revealed white blood cell count of 12.4. The patient is anemic with a hemoglobin of 9.3. She has significant kidney injury with a BUN of 40 and a creatinine of 3.1. Lactate and procalcitonin were normal. TSH was elevated at 9.6. Troponin was normal. BSG was 136. Care/management discussed with: The patient's son who was at the bedside, sales project manager and the [facility] Triage Nursing notes: reviewed and agree with them. Vital Signs: reviewed and unremarkable Additional History obtained from: the patient's son Chronic Medical/Social Conditions affecting care: insulin-dependent diabetes Prior/ Outside/ External records reviewed: records from [facility] Differential Diagnosis: DKA, pneumonia, acute kidney injury, sepsis, anemia, NSTEMI Diagnostics, independently interpreted by me: ECG: Normal sinus rhythm at a rate of [address] segment elevation or signs of ischemia. There was T wave inversion in leads I and aVL which is unchanged from 2021. Cardiac Monitoring: Normal sinus rhythm at a rate of 74 Imaging studies: Portable chest x-ray: As per my independent interpretation- concern for left basilar opacity HPI: 47 year old Female arrives for evaluation of dizziness and sore throat. patient just spent a week as an inpatient at [facility] where she states she was treated for dehydration with IV fluids. She feels that she was fluid overloaded there and did not receive Lasix like she should have. She is concerned now that she cannot eat or drink because of the significant sore throat that she has and is concerned about her bilateral flank pain and cough.. PAST MEDICAL HISTORY: See Below, PAST SURGICAL HISTORY: See Below, SOCIAL HISTORY: See Below, HOME MEDICATIONS: See list ALLERGIES: See Below VITALS: See Below PHYSICAL EXAMINATION: HEENT: Head - normocephalic and atraumatic Pupils are equal, round, and reactive to light. Extraocular eye muscles are intact, and sclera are anicteric. Nose - drynasal mucosa without discharge. Mouth - Extremely drybuccal mucosa. Oropharynx is nonerythematous and there is no tonsillar exudate or edema noted. Neck: Supple; no JVD, nuchal rigidity, cervical lymphadenopathy, or auscultated bruits. Heart: Regular rate and rhythm. There is a normal S1 and S2 with no murmurs, clicks, or gallops appreciated. Lungs: Clear to auscultation bilaterally with no wheezes, rales, or rhonchi. Abdomen: Soft, completely nontender, nondistended, with good bowel sounds. There are no palpable pulsatile masses or hepatosplenomegaly. There is no guarding, rigidity, or rebound noted. Extremities: No evidence of cyanosis, clubbing, or edema. There are easily palpable peripheral pulses. Skin: warm and dry with good turgor and no rashes. Emergency department treatment: credit cashier, IV normal saline bolus, IV Rocephin emergency department course: The patient was evaluated in room A-2. A complete history and physical was performed. An order was placed for continuous cardiac monitoring. Patient was in a normal sinus rhythm at a rate of 74. A twelve- lead EKG was obtained as described above. Patient was bolused with IV normal saline solution. Patient had a two-view chest performed. Urine specimen was obtained. patient was treated with IV Rocephin for the left-sided pneumonia. Past Med/Surg History Problem List (Updated 08/17/23 @ 08:42 by Emily Key DO) ESTELITA (acute kidney injury) (Acute) Left lower lobe pneumonia (Acute) Pneumonia Anemia due to chronic kidney disease Family history of ovarian cancer Hyponatremia Diabetic peripheral 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 Diabetic autonomic 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 Acute kidney injury Proliferative retinopathy due to type 1 diabetes mellitus Loss of protective sensation of skin of foot Type 1 diabetes History of retinal detachment L eye Hx-TIA (transient ischemic attack) History of CVA (cerebrovascular accident) Brain MRI Mar 2022 noting b/l thalamic stroke x 2 Vitamin D deficiency (Chronic) Recurrent syncope (Acute) Iron deficiency anemia Urine incontinence Menorrhagia Anxiety B12 deficiency HTN (hypertension) Proteinuria Stage 3b chronic kidney disease Asthma (Chronic) well controlled per pt rare res inh use Factor 5 Leiden mutation, heterozygous (Chronic) Bipolar 1 disorder (Chronic) Depression (Chronic) Hypothyroidism (Chronic) Migraine (Chronic) GERD (gastroesophageal reflux disease) (Chronic) Anemia of chronic disease (Chronic) Endometriosis (Chronic) Steatohepatitis, nonalcoholic (Chronic) Seizure disorder epilepsy - last seizure 01/2022 @ [facility] per pt - follows w/ [facility] neuro last visit 09/2021 > [place] Hyperlipidemia Medical History Anemia due to chronic kidney disease Hyponatremia History of broken nose Hypertensive encephalopathy Hypertensive urgency Surgical History Hx of cardiac catheterization Hx of cholecystectomy Hx of laparoscopy Hx of section H/O tooth extraction S/P laparoscopic cholecystectomy S/P nasal surgery H/O esophagogastroduodenoscopy Hx of tubal ligation Family History Grandmother (Maternal) Stroke Diabetes Arthritis Anxiety Panic attacks Agoraphobia Uncle Hypertension Myocardial infarction Uncle Agoraphobia Rheumatoid arthritis Mother Hypertension FH: brain aneurysm Anxiety History of cholecystectomy Hypothyroid Diabetes History of colon resection Neuropathy Colorectal cancer Father Drug abuse Chronic mental illness Other Unknown family medical history Social History Smoking Status: Former smoker Tobacco Type: Cigarettes Age Started Using Tobacco: 22; Age Quit Using Tobacco: 22; Second Hand Exposure: No; Do You Dip or Chew Tobacco: No; Hx Alcohol Use: No Hx Substance Use: No Preferred Language: [place] Communication Ability: Effective Visual Impairment: No Limitations Hearing Ability: Normal Line Haul Driver Required: No Beliefs That Will Affect Care: None marital status: / marital status details: Currently engaged Current Living Situation: Family Current Living Situation Comment: With daughter and son current occupational status: disabled How many Children do You have: 3 How many Children do You have Comment: 3 children(1 ) Feels Safe at Home: Yes Childhood Exposure to Second-Hand Smoke: No Diet: regular during the past year weight has: remained stable Dental Care, Regularly: No Physical Activity Frequency: Daily Seatbelt Use: always Sunscreen Use: No Assistive Devices: None Allergies Allergies Allergy/AdvReac Type Severity Reaction Status Date / Time cat dander Allergy Intermediate ITCHY Verified 07/05/23 15:06 EYES,WHEEZING Penicillins Allergy Intermediate RED RASH Verified 07/05/23 15:06 AND LIP SWELLS morphine AdvReac Intermediate CHILLS, GI Verified 07/05/23 15:06 UPSET,VOMITING levothyroxine AdvReac Verified 07/05/23 15:06 metoprolol [From Lopressor] AdvReac Verified 07/05/23 15:06 Home Meds Home Medications Medication Instructions Recorded Confirmed topiramate 100 mg tablet 100 mg PO BID 02/16/22 08/16/23 topiramate 50 mg tablet 50 mg PO BID 02/16/22 08/16/23 acetaminophen-caffeine 500 mg-65 1 tab PO Q12H PRN Migraine Headache 04/28/22 08/16/23 mg tablet (Excedrin Tension Headache) diphenhydramine HCl 25 mg capsule 25 mg PO TID PRN Allergy Symptoms 04/28/22 08/16/23 (Benadryl) lamotrigine 200 mg tablet 200 mg PO BID 04/28/22 08/16/23 phenylephrine HCl 10 mg tablet 10 mg PO Q6H 04/28/22 08/16/23 (Sudafed PE) polyethylene glycol 3350 17 17 g PO DAILY 04/28/22 08/16/23 gram/dose oral powder (Miralax) gabapentin 100 mg capsule 200 mg PO TID 09/22/22 08/16/23 citalopram 20 mg tablet 20 mg PO QAM 10/07/22 08/16/23 amitriptyline 10 mg tablet 10 mg PO DAILY 11/17/22 08/16/23 chlorthalidone 25 mg tablet 25 mg PO DAILY 05/04/23 08/16/23 amlodipine 5 mg tablet 5 mg PO HS 08/16/23 08/16/23 atorvastatin 40 mg tablet 40 mg PO HS 08/16/23 08/16/23 carvedilol 12.5 mg tablet 12.5 mg PO BID 08/16/23 08/16/23 clonidine HCl 0.2 mg tablet 0.2 mg PO BID 08/16/23 08/16/23 lamotrigine 25 mg tablet 25 mg PO QPM 08/16/23 08/16/23 sodium bicarbonate 650 mg tablet See Rx Instructions .Route .COMPLEX 08/16/23 08/16/23 thyroid (pork) 60 mg tablet (HORSE TRADER 60 mg PO DAILY 08/16/23 08/16/23 Thyroid) Previous Rx's Medication Instructions Recorded blood-glucose meter (OneTouch #1 ea 02/27/22 Verio Meter) calcium carbonate 600 mg-vitamin 1 tab PO DAILY #30 tabs 03/05/22 D3 10 mcg (400 unit) chewable tablet (Calcium 600 with Vitamin D3) apixaban 5 mg tablet 5 mg PO BID #180 tabs 10/16/22 Blood pressure Cuff #1 ea 11/26/22 glucagon 3 mg/actuation nasal 3 mg intranasal ONCE #2 ea 11/26/22 spray (Baqsimi) Diabetic Shoes #1 ea 11/27/22 incontinence pads #30 ea 11/27/22 cyanocobalamin (vitamin B-12) 1,000 mcg PO DAILY #30 tabs 02/11/23 1,000 mcg tablet ferrous sulfate 324 mg (65 mg 324 mg PO Q OTHER DAY #15 tabs 02/11/23 iron) tablet,delayed release doxazosin 4 mg tablet 4 mg PO DAILY #30 tabs 02/17/23 spironolactone 50 mg tablet 50 mg PO BID #60 tabs 02/17/23 [employer] G7 Sensor (blood-glucose #3 ea 02/23/23 sensor) cholecalciferol (vitamin D3) 50 50 mcg PO DAILY #90 caps 02/25/23 mcg (2,000 unit) capsule magnesium oxide 400 mg PO QAM #30 tabs 03/15/23 oxybutynin chloride 5 mg 5 mg PO QAM #30 tabs 03/15/23 tablet,extended release 24 hr pantoprazole 40 mg tablet,delayed 40 mg PO QAM #30 tabs 03/15/23 release trazodone 100 mg tablet 100 mg PO HS PRN Insomnia #90 tabs 03/15/23 aspirin 81 mg tablet,delayed 81 mg PO PM #30 tabs 06/07/23 release (Speedy Low Dose Aspirin) ondansetron 4 mg disintegrating 4 mg PO Q6H PRN nausea and 06/07/23 tablet vomiting #10 tabs pen needle, diabetic 31 gauge x #100 ea 06/07/23 5/16" (Easy Comfort Pen [place]) blood sugar diagnostic (OneTouch #250 ea 06/11/23 Verio test strips) insulin glargine 100 unit/mL (3 18 unit (0.18 mL) subcut PM #15 mL 06/14/23 mL) subcutaneous pen (Lantus Solostar U-100 Insulin) insulin lispro 100 unit/mL 1 sliding scale dose subcut 06/14/23 subcutaneous pen USEASDIRECTD #15 mL insulin lispro 100 unit/mL 45 unit (0.45 mL) continuous 06/14/23 subcutaneous solution subcutaneous infusion ONCE #20 mL Blood Pressure Cuff #1 ea 06/17/23 acetone (urine) test (Ketone Urine #100 ea 06/22/23 Test strips) blood sugar diagnostic (OneTouch #200 ea 06/22/23 Verio test strips) blood-glucose meter (OneTouch #1 ea 06/22/23 Verio Flex Meter) lancets 33 gauge #200 ea 06/22/23 Results & Data (ED) Vital Signs Vital Signs - 24 hr 08/16/23 05:08 08/16/23 05:08 08/16/23 05:10 Temperature 36.8 C 36.4 C L Temperature Source Oral Oral Pulse Rate 76 74 Pulse Rate [Apical] 76 Pulse Rhythm Regular Pulse Rhythm [Apical] Regular Pulse Strength [Apical] Normal Respiratory Rate 20 20 Respiratory Effort / Characteristics Non-Labored Non-Labored Respiratory Depth Normal Normal Respiratory Pattern Regular Blood Pressure 158/101 H Blood Pressure [Left Arm] 158/101 H Blood Pressure Mean 120 Blood Pressure Mean [Left Arm] 120 Pulse Oximetry 97 97 Oxygen Delivery Method Room Air Room Air Sepsis Recent Fever Within 48 Hours No Sepsis New/Unexplained Change in Mental Status No Sepsis Action Taken by Nursing No Action Required 08/16/23 05:38 08/16/23 06:00 Temperature Temperature Source Pulse Rate 77 74 Pulse Rate [Apical] Pulse Rhythm Pulse Rhythm [Apical] Pulse Strength [Apical] Respiratory Rate 20 16 Respiratory Effort / Characteristics Respiratory Depth Respiratory Pattern Blood Pressure 144/92 H Blood Pressure [Left Arm] Blood Pressure Mean 109 Blood Pressure Mean [Left Arm] Pulse Oximetry 94 98 Oxygen Delivery Method Room Air Room Air Sepsis Recent Fever Within 48 Hours Sepsis New/Unexplained Change in Mental Status Sepsis Action Taken by Nursing Laboratory Data 08/17/23 06:23 08/17/23 06:23 Lab Results 08/16/23 08/16/23 08/16/23 Range/Units 05:18 05:38 05:45 WBC 12.47 H (4.8-10.8) K/ul RBC 2.92 L (4.20-5.40) M/uL Hgb 9.3 L (12.0-16.0) g/dl POC Hgb 8.5 L (12.0-16.0) g/dl Hct 27.7 L (37.0-47.0) % POC Hct 25 L (37-47) % MCV 94.9 (80.0-100.0) fL MCH 31.8 (25.0-34.0) pg MCHC 33.6 (32.0-36.0) g/dL RDW Std Deviation 42.1 (36.4-46.3) fL RDW Coeff of Zak 11.9 (11.5-14.5) % Plt Count 313 (130-400) K/uL MPV 10.4 (9.4-12.4) fL Immature Gran % (Auto) 0.4 % Neut % (Auto) 79.0 % Lymph % (Auto) 10.3 % Hopkins % (Auto) 6.7 % Eos % (Auto) 3.4 % Baso % (Auto) 0.2 % Neut # (Auto) 9.85 H (1.40-6.50) K/uL Lymph # (Auto) 1.28 (1.20-3.40) K/uL Hopkins # (Auto) 0.84 H (0.11-0.59) K/uL Eos # (Auto) 0.42 (0.00-0.50) K/uL Baso # (Auto) 0.03 (0.00-0.20) K/uL Immature Gran # (Auto) 0.05 (0.01-0.20) K/uL POC Sodium 141 (135-144) mmol/L Sodium 138 (136-145) mmol/L POC Potassium 4.4 (3.3-5.0) mmol/L Potassium 4.3 (3.5-5.1) mmol/L POC Chloride 112 (101-112) mmol/L Chloride 113 H (98-107) mmol/L Carbon Dioxide 16 L (21-32) mmol/L POC Total CO2 17 L (24-31) mmol/L Anion Gap 9 (3-11) POC Anion Gap 17.0 (16-25) mmol/L POC BUN 36 H (7-18) mg/dl BUN 40 H (6-23) mg/dl Creatinine 3.11 H (0.6-1.2) mg/dl POC Creatinine 3.5 H (0.6-1.3) mg/dl Est Cr Clr Drug Dosing 27.2 ml/min Est GFR ( Amer) 19.7 ml/min Est GFR (Non-Af Amer) 17.0 ml/min BUN/Creatinine Ratio 12.9 (10-20) Glucose 106 H (70-99(Fasting)) mg/dl POC Glucose (other) 106 H (70-99) mg/dl Lactate (0.4-2.0) mmol/L Calcium 8.5 L (8.6-10.3) mg/dl POC Ioniz Calcium Debbi 1.18 (1.12-1.32) mmol/l Magnesium 2.2 (1.7-2.4) mg/dl Total Bilirubin 0.3 (0.2-1.0) mg/dl AST 10 L (13-39) U/L ALT 7 (7-52) U/L Alkaline Phosphatase 67 (34-104) U/L Total Creatine Kinase 90 (26-192) U/L Troponin I High Sens 13.6 (0-14) pg/ml C-Reactive Protein 1.46 H (0-0.5) mg/dl Total Protein 7.0 (6.0-8.3) gm/dl Albumin 3.5 (3.4-5.0) gm/dl Globulin 3.5 (2.5-4.0) gm/dl Albumin/Globulin Ratio 1.0 (0.9-2) Procalcitonin 0.04 (0-0.5) ng/ml TSH 9.670 H (0.300-4.500) uIu/ml Free T4 0.68 (0.61-1.60) ng/dl Adenovirus (PCR) Not Detected (NotDetected) B. pertussis DNA (PCR) Not Detected (NotDetected) B.parapertussis DNA PCR Not Detected (NotDetected) C. pneumoniae DNA (PCR) Not Detected (NotDetected) Coronavirus OC43 (PCR) Not Detected (NotDetected) Coronavirus HKU1 (PCR) Not Detected (NotDetected) Coronavirus 229E (PCR) Not Detected (NotDetected) SARS-CoV-2 (PCR) Not Detected (NotDetected) Coronavirus NL63 (PCR) Not Detected (NotDetected) Human Metapneumovir PCR Not Detected (NotDetected) Influenza Type A (PCR) Not Detected (NotDetected) Influenza Type B (PCR) Not Detected (NotDetected) M. pneumoniae (PCR) Not Detected (NotDetected) Parainfluenza 1 (PCR) Not Detected (NotDetected) Parainfluenza 2 (PCR) Not Detected (NotDetected) Parainfluenza 3 (PCR) Not Detected (NotDetected) Parainfluenza 4 (PCR) Not Detected (NotDetected) RSV (PCR) Not Detected (NotDetected) Entero/Rhino (PCR) Not Detected (NotDetected) 08/16/23 Range/Units 06:36 WBC (4.8-10.8) K/ul RBC (4.20-5.40) M/uL Hgb (12.0-16.0) g/dl POC Hgb (12.0-16.0) g/dl Hct (37.0-47.0) % POC Hct (37-47) % MCV (80.0-100.0) fL MCH (25.0-34.0) pg MCHC (32.0-36.0) g/dL RDW Std Deviation (36.4-46.3) fL RDW Coeff of Zak (11.5-14.5) % Plt Count (130-400) K/uL MPV (9.4-12.4) fL Immature Gran % (Auto) % Neut % (Auto) % Lymph % (Auto) % Hopkins % (Auto) % Eos % (Auto) % Baso % (Auto) % Neut # (Auto) (1.40-6.50) K/uL Lymph # (Auto) (1.20-3.40) K/uL Hopkins # (Auto) (0.11-0.59) K/uL Eos # (Auto) (0.00-0.50) K/uL Baso # (Auto) (0.00-0.20) K/uL Immature Gran # (Auto) (0.01-0.20) K/uL POC Sodium (135-144) mmol/L Sodium (136-145) mmol/L POC Potassium (3.3-5.0) mmol/L Potassium (3.5-5.1) mmol/L POC Chloride (101-112) mmol/L Chloride (98-107) mmol/L Carbon Dioxide (21-32) mmol/L POC Total CO2 (24-31) mmol/L Anion Gap (3-11) POC Anion Gap (16-25) mmol/L POC BUN (7-18) mg/dl BUN (6-23) mg/dl Creatinine (0.6-1.2) mg/dl POC Creatinine (0.6-1.3) mg/dl Est Cr Clr Drug Dosing ml/min Est GFR ( Amer) ml/min Est GFR (Non-Af Amer) ml/min BUN/Creatinine Ratio (10-20) Glucose (70-99(Fasting)) mg/dl POC Glucose (other) (70-99) mg/dl Lactate 0.3 L (0.4-2.0) mmol/L Calcium (8.6-10.3) mg/dl POC Ioniz Calcium Debbi (1.12-1.32) mmol/l Magnesium (1.7-2.4) mg/dl Total Bilirubin (0.2-1.0) mg/dl AST (13-39) U/L ALT (7-52) U/L Alkaline Phosphatase (34-104) U/L Total Creatine Kinase (26-192) U/L Troponin I High Sens (0-14) pg/ml C-Reactive Protein (0-0.5) mg/dl Total Protein (6.0-8.3) gm/dl Albumin (3.4-5.0) gm/dl Globulin (2.5-4.0) gm/dl Albumin/Globulin Ratio (0.9-2) Procalcitonin (0-0.5) ng/ml TSH (0.300-4.500) uIu/ml Free T4 (0.61-1.60) ng/dl Adenovirus (PCR) (NotDetected) B. pertussis DNA (PCR) (NotDetected) B.parapertussis DNA PCR (NotDetected) C. pneumoniae DNA (PCR) (NotDetected) Coronavirus OC43 (PCR) (NotDetected) Coronavirus HKU1 (PCR) (NotDetected) Coronavirus 229E (PCR) (NotDetected) SARS-CoV-2 (PCR) (NotDetected) Coronavirus NL63 (PCR) (NotDetected) Human Metapneumovir PCR (NotDetected) Influenza Type A (PCR) (NotDetected) Influenza Type B (PCR) (NotDetected) M. pneumoniae (PCR) (NotDetected) Parainfluenza 1 (PCR) (NotDetected) Parainfluenza 2 (PCR) (NotDetected) Parainfluenza 3 (PCR) (NotDetected) Parainfluenza 4 (PCR) (NotDetected) RSV (PCR) (NotDetected) Entero/Rhino (PCR) (NotDetected) Administered Medications Amitriptyline HCl (Amitriptyline Hcl 10 Mg Tab) 10 mg PO DAILY ROC[facility]LE Stop: 09/15/23 08:59 Last Admin: 08/17/23 08:12 Dose: 10 mg Documented By: Admin: 08/16/23 10:10 Dose: 10 mg Documented By: AMAURI Apixaban (Apixaban 5 Mg Tablet) 5 mg PO BID [facility]LE Stop: 09/15/23 08:59 Last Admin: 08/17/23 08:14 Dose: 5 mg Documented By: Admin: 08/16/23 22:06 Dose: 5 mg Documented By: Admin: 08/16/23 10:10 Dose: 5 mg Documented By: AMAURI Aspirin (Aspirin 81 Mg Ectab) 81 mg PO PM [facility] Stop: 09/15/23 20:59 Last Admin: 08/16/23 23:27 Dose: 81 mg Documented By: PRIYA Atorvastatin Calcium (Atorvastatin 20 Mg Tab) 20 mg PO HS [facility] Stop: 09/15/23 20:59 Last Admin: 08/16/23 22:06 Dose: 20 mg Documented By: PRIYA Carvedilol (Carvedilol 25 Mg Tab) 25 mg PO BIDM [facility] Stop: 09/15/23 08:14 Last Admin: 08/17/23 08:14 Dose: 25 mg Documented By: Admin: 08/16/23 18:28 Dose: 25 mg Documented By: Admin: 08/16/23 10:10 Dose: 25 mg Documented By: AMAURI Citalopram Hydrobromide (Citalopram 20 Mg Tab) 20 mg PO QAM [facility] Stop: 09/15/23 08:59 Last Admin: 08/17/23 08:12 Dose: 20 mg Documented By: Admin: 08/16/23 10:50 Dose: 20 mg Documented By: AMAURI Doxazosin Mesylate (Doxazosin Mesylate 4 Mg Tab) 4 mg PO DAILY [facility] Stop: 09/15/23 08:59 Last Admin: 08/17/23 08:12 Dose: 4 mg Documented By: Admin: 08/16/23 10:51 Dose: 4 mg Documented By: AMAURI Ergocalciferol (Ergocalciferol 1250 Mcg (50,000 Units) Cap) 1,250 mcg PO Mo@0900 [facility] Stop: 09/15/23 08:59 Last Admin: 08/16/23 10:10 Dose: 1,250 mcg Documented By: AMAURI Ferrous Sulfate (Ferrous Sulfate 325 Mg Tab) 324 mg PO Q2D@0900 [facility] Stop: 09/16/23 08:59 Last Admin: 08/17/23 08:11 Dose: 324 mg Documented By: JAIME Gabapentin (Gabapentin 100 Mg Cap) 200 mg PO TID [facility] Stop: 09/15/23 08:59 Last Admin: 08/17/23 08:10 Dose: 200 mg Documented By: Admin: 08/16/23 22:05 Dose: 200 mg Documented By: Admin: 08/16/23 13:11 Dose: 200 mg Documented By: Admin: 08/16/23 10:50 Dose: 200 mg Documented By: AMAURI Ceftriaxone Sodium (Rocephin) 2,000 mg in 50 mls @ 100 mls/hr IV Q24H [facility] Stop: 08/24/23 06:44 Last Infusion: 08/17/23 08:14 Dose: Infused Documented By: Admin: 08/17/23 06:02 Dose: 100 mls/hr Documented By: PRIYA Insulin Aspart (Insulin, Rapid-Acting Pump) 1 each N/A ACHS [facility]; Protocol Stop: 09/15/23 11:29 Last Admin: 08/16/23 22:00 Dose: 0.66 each Documented By: PRIYA Co-signed By: BRADLEY Admin: 08/16/23 18:17 Dose: 0.66 each Documented By: MARYANN Co-signed By: EUSEBIA Admin: 08/16/23 12:37 Dose: Not Given Documented By: AMAURI Lamotrigine (Lamotrigine 100 Mg Tab) 200 mg PO BID [facility]; Protocol Stop: 09/15/23 10:14 Last Admin: 08/17/23 08:12 Dose: 200 mg Documented By: Admin: 08/16/23 22:07 Dose: 200 mg Documented By: Admin: 08/16/23 10:50 Dose: 200 mg Documented By: AMAURI Oxybutynin Chloride (Oxybutynin Chloride Xl 5 Mg Tabcr) [facility] [place]: 09/15/23 10:14 Last Admin: 08/17/23 08:12 Dose: 5 mg Documented By: Admin: 08/16/23 10:50 Dose: 5 mg Documented By: AMAURI Pantoprazole Sodium (Pantoprazole 40 Mg Tab) 40 mg PO QAM [facility] Stop: 09/15/23 08:59 Last Admin: 08/17/23 08:10 Dose: 40 mg Documented By: Admin: 08/16/23 10:50 Dose: 40 mg Documented By: AMAURI Polyethylene Glycol (Polyethylene (Miralax) 17 Gm Pack) 17 gm PO DAILY [facility] Stop: 09/15/23 08:59 Last Admin: 08/17/23 08:13 Dose: Not Given Documented By: Admin: 08/16/23 10:51 Dose: Not Given Documented By: AMAURI Sodium Bicarbonate (Sodium Bicarbonate 650 Mg Tab) 650 mg PO DAILY [facility] Stop: 09/15/23 08:59 Last Admin: 08/17/23 08:10 Dose: 650 mg Documented By: Admin: 08/16/23 10:51 Dose: 650 mg Documented By: AMAURI Thyroid (Wilber Thyroid 30 Mg Tab) 60 mg PO DAILY [facility] Stop: 09/15/23 08:59 Last Admin: 08/17/23 08:11 Dose: 60 mg Documented By: Admin: 08/16/23 10:51 Dose: 60 mg Documented By: AMAURI Topiramate (Topiramate 100 Mg Tab) 100 mg PO BID [facility] Stop: 09/15/23 10:14 Last Admin: 08/17/23 08:13 Dose: 100 mg Documented By: Admin: 08/16/23 22:06 Dose: 100 mg Documented By: Admin: 08/16/23 10:50 Dose: 100 mg Documented By: AMAURI Topiramate (Topiramate 50 Mg Tab) 50 mg PO BID [facility] Stop: 09/15/23 10:14 Last Admin: 08/17/23 08:12 Dose: 50 mg Documented By: Admin: 08/16/23 22:06 Dose: 50 mg Documented By: Admin: 08/16/23 10:50 Dose: 50 mg Documented By: AMAURI Vitamin D (Cholecalciferol 25 Mcg (1000 Units) Tab) 50 mcg PO DAILY [facility] Stop: 09/15/23 08:59 Last Admin: 08/17/23 08:10 Dose: 50 mcg Documented By: Admin: 08/16/23 10:10 Dose: 50 mcg Documented By: AMAURI Discontinued Medications Carvedilol (Carvedilol 12.5 Mg Tab) Confirm Administered Dose 12.5 mg .ROUTE .STK-MED ONE Stop: 08/16/23 18:18 Last Admin: 08/16/23 18:28 Dose: Not Given Documented By: EUSEBIA Sodium Chloride (Nss) 1,000 mls @ 999 mls/hr IV .Q1H1M ONE Stop: 08/16/23 06:46 Last Infusion: 08/16/23 07:35 Dose: Infused Documented By: Admin: 08/16/23 05:55 Dose: 999 mls/hr Documented By: BENITO Ceftriaxone Sodium (Rocephin) 2,000 mg in 50 mls @ 100 mls/hr IV NOW STA Stop: 08/16/23 07:16 Last Infusion: 08/16/23 08:04 Dose: Infused Documented By: Admin: 08/16/23 07:31 Dose: 100 mls/hr Documented By: AMAURI Sodium Chloride (Nss) 500 mls @ 999 mls/hr IV .Q31M ONE Stop: 08/16/23 07:41 Last Infusion: 08/16/23 08:04 Dose: Infused Documented By: Admin: 08/16/23 07:31 Dose: 999 mls/hr Documented By: AMAURI Sodium Chloride (Nss) 500 mls @ 125 mls/hr IV .Q4H [facility] Stop: 09/15/23 07:14 Last Infusion: 08/16/23 15:16 Dose: Infused Documented By: Admin: 08/16/23 14:56 Dose: 125 mls/hr Documented By: Infusion: 08/16/23 14:33 Dose: Infused Documented By: Admin: 08/16/23 10:52 Dose: 125 mls/hr Documented By: Admin: 08/16/23 07:55 Dose: Not Given Documented By: AMAURI Lactated Ringer's (Lr) 1,000 mls @ 80 mls/hr IV .[id number] [facility] Stop: 09/15/23 07:44 Last Admin: 08/16/23 09:15 Dose: Not Given Documented By: AMAURI Discharge Plan Visit Data Chief Complaint: Sore Throat Stated Complaint: Flank Pain, N/V, Sore Throat ED Provider: Emily Key Discharge Problem: Left lower lobe pneumonia, ESTELITA (acute kidney injury) Patient Disposition: Admitted As Inpatient Discharge Instructions Interventions: ED Discharge Assessment Last Done: 08/16/23 10:04
[2023-08-16 05:51] LABS: iSTAT Creatinine 3.5 mg/dl (0.6-1.3); iSTAT Hemoglobin 8.5 g/dl (12.0-16.0); iSTAT Ionized Calcium 1.18 mmol/l (1.12-1.32); iSTAT Potassium 4.4 mmol/L (3.3-5.0)
[2023-08-16] MEDS: SODIUM CHLORIDE 0.9% 1,000 ML IV ONE (05:55)
[2023-08-16 06:10] LABS: Basophils # (auto) 0.03 K/uL (0.00-0.20); Basophils % (auto) 0.2 %; Eosinophils # (auto) 0.42 K/uL (0.00-0.50); Eosinophils % (auto) 3.4 %; Hematocrit (blood only) 27.7 % (37.0-47.0); Hemoglobin 9.3 g/dl (12.0-16.0); Immature Granulocytes # (auto) 0.05 K/uL (0.01-0.20); Immature Granulocytes % (auto) 0.4 %; Lymphocytes # (auto) 1.28 K/uL (1.20-3.40); Lymphocytes % (auto) 10.3 %; Mean Corpuscular Hemoglobin 31.8 pg (25.0-34.0); Mean Corpuscular Hgb Conc 33.6 g/dL (32.0-36.0); Mean Corpuscular Volume 94.9 fL (80.0-100.0); Mean Platelet Volume 10.4 fL (9.4-12.4); Monocytes # (auto) 0.84 K/uL (0.11-0.59); Monocytes % (auto) 6.7 %; Neutrophils # (auto) 9.85 K/uL (1.40-6.50); Platelet Count 313 K/uL (130-400); RDW Coefficient of Variation 11.9 % (11.5-14.5); RDW Standard Deviation 42.1 fL (36.4-46.3); Red Blood Count 2.92 M/uL (4.20-5.40); White Blood Count 12.47 K/ul (4.8-10.8)
[2023-08-16 06:14] LABS: Albumin Level 3.5 gm/dl (3.4-5.0); BUN Creatinine Ratio 12.9 (10-20); Bilirubin,Total 0.3 mg/dl (0.2-1.0); Calcium 8.5 mg/dl (8.6-10.3); Creatinine Clr Calc Pharmacy 27.2 ml/min; Est GFR (African American) 19.7 ml/min; Globulin 3.5 gm/dl (2.5-4.0); Magnesium 2.2 mg/dl (1.7-2.4); Potassium 4.3 mmol/L (3.5-5.1)
[2023-08-16 06:27] LABS: Thyroid Stimulating Hormone 9.67 uIu/ml (0.300-4.500)
[2023-08-16 06:41] LABS: Troponin I High Sensitivity 13.6 pg/ml (0-14)
[2023-08-16 06:46] LABS: Adenovirus PCR Not Detected (NotDetected); Bordetella parapertussis PCR Not Detected (NotDetected); Bordetella pertussis PCR Not Detected (NotDetected); Chlamydia pneumoniae PCR Not Detected (NotDetected); Coronavirus 229E PCR Not Detected (NotDetected); Coronavirus CoV-2 (COVID19)PCR Not Detected (NotDetected); Coronavirus HKU1 PCR Not Detected (NotDetected); Coronavirus NL63 PCR Not Detected (NotDetected); Coronavirus OC43PCR Not Detected (NotDetected); Human Metapneumovirus PCR Not Detected (NotDetected); Influenza A PCR Not Detected (NotDetected); Influenza B PCR Not Detected (NotDetected); Mycoplasma pneumoniae PCR Not Detected (NotDetected); Parainfluenza Virus 1 PCR Not Detected (NotDetected); Parainfluenza Virus 2 PCR Not Detected (NotDetected); Parainfluenza Virus 3 PCR Not Detected (NotDetected); Parainfluenza Virus 4 PCR Not Detected (NotDetected); Respiratory Syncytial VirusPCR Not Detected (NotDetected); Rhinovirus/Enterovirus PCR Not Detected (NotDetected)
--- NOTE | 2023-08-16 07:08 | XRay Report ---
XR chest 1V portable CLINICAL HISTORY: weakness COMPARISON STUDY: Chest radiograph February 15, 2022. FINDINGS: There is no pneumothorax or pleural fusion. Moderate enlargement of the cardiac silhouette has slightly increased. Left mid lung and left basilar airspace opacity is present. There may be mini mal right basilar opacity. There is bilateral hilar prominence. IMPRESSION: 1. Left mid lung and left basilar airspace opacities suggestive of pneumonia. Possible right basilar opacity. Radiographic follow-up to ensure resolution is recommended. 2. Moderate enlargement of the cardiac silhouette, slightly increased since prior exam. 3. Bilateral hilar enlargement, likely due to pulmonary vessels. This can be assessed on follow-up ex ams. ACT 112: Negative or not required by law. Electronically signed by: Haile Ivy M.D. 08/16/2023 7:07 AM
[2023-08-16 07:23] LABS: T4 Free Thyroxine 0.68 ng/dl (0.61-1.60)
[2023-08-16] MEDS: cefTRIAXone SODIUM 2,000 MG/50 ML BAG IV STA (07:31)
[2023-08-16] MEDS: SODIUM CHLORIDE 0.9% 500 ML IV ONE (07:31)
--- NOTE | 2023-08-16 07:35 | History & Physical Report ---
Date of Service August 16, 2023 Assessment & Plan (1) Pneumonia: Plan: Patient admitted with pneumnia after recent hospitalization. Placed on empiric ceftriaxone. Patient not currently requiring oxygen. will continue to monitor (2) Type 1 diabetes: Plan: continue insulin pump glycemic consult on hold as patient willl be using insulin pump. (3) Acute kidney injury: Plan: consulted nephrology for assistance. (4) Family history of ovarian cancer: Plan dvt: apixaban History of Present Illness Chief Complaint: sore throat Primary Care Provider: Tran Montiel, DO 47 yo female with PMHL insulin-dependent diabetes on an insulin pump, arrives to the ED with a sore throat. She states she was discharged yesterday from [facility]. Patient reports she was being treated for a viral illness. SHe reports she was being treated with IV fluids and diuretics were held. This was accompanied by subjective fever, cough, sore throat and generalized malaise. When patient arrived to the ED, WBC was elevated, creatinine was also high. Allergies Allergy/AdvReac Type Severity Reaction Status Date / Time cat dander Allergy Intermediate ITCHY Verified 07/05/23 15:06 EYES,WHEEZING Penicillins Allergy Intermediate RED RASH Verified 07/05/23 15:06 AND LIP SWELLS morphine AdvReac Intermediate CHILLS, GI Verified 07/05/23 15:06 UPSET,VOMITING levothyroxine AdvReac Verified 07/05/23 15:06 metoprolol [From Lopressor] AdvReac Verified 07/05/23 15:06 Home Medications Medication Instructions Recorded Confirmed Type topiramate 100 mg tablet 100 mg PO BID 02/16/22 08/16/23 History topiramate 50 mg tablet 50 mg PO BID 02/16/22 08/16/23 History blood-glucose meter (OneTouch #1 ea 02/27/22 07/05/23 Rx Verio Meter) calcium carbonate 600 mg-vitamin 1 tab PO DAILY #30 tabs 03/05/22 08/16/23 Rx D3 10 mcg (400 unit) chewable tablet (Calcium 600 with Vitamin D3) acetaminophen-caffeine 500 mg-65 1 tab PO Q12H PRN Migraine Headache 04/28/22 0 08/16/23 History mg tablet (Excedrin Tension Headache) diphenhydramine HCl 25 mg capsule 25 mg PO TID PRN Allergy Symptoms 04/28/22 08/16/23 History (Benadryl) lamotrigine 200 mg tablet 200 mg PO BID 04/28/22 08/16/23 History phenylephrine HCl 10 mg tablet 10 mg PO Q6H 04/28/22 08/16/23 History (Sudafed PE) polyethylene glycol 3350 17 17 g PO DAILY 04/28/22 08/16/23 History gram/dose oral powder (Miralax) gabapentin 100 mg capsule 200 mg PO TID 09/22/22 08/16/23 History citalopram 20 mg tablet 20 mg PO QAM 10/07/22 08/16/23 History apixaban 5 mg tablet 5 mg PO BID #180 tabs 10/16/22 08/16/23 Rx amitriptyline 10 mg tablet 10 mg PO DAILY 11/17/22 08/16/23 History Blood pressure Cuff #1 ea 11/26/22 07/05/23 Rx glucagon 3 mg/actuation nasal 3 mg intranasal ONCE #2 ea 11/26/22 08/16/23 Rx spray (Baqsimi) Diabetic Shoes #1 ea 11/27/22 07/05/23 Rx incontinence pads #30 ea 11/27/22 07/05/23 Rx cyanocobalamin (vitamin B-12) 1,000 mcg PO DAILY #30 tabs 02/11/23 08/16/23 Rx 1,000 mcg tablet ferrous sulfate 324 mg (65 mg 324 mg PO Q OTHER DAY #15 tabs 02/11/23 08/16/23 Rx iron) tablet,delayed release doxazosin 4 mg tablet 4 mg PO DAILY #30 tabs 02/17/23 08/16/23 Rx spironolactone 50 mg tablet 50 mg PO BID #60 tabs 02/17/23 08/16/23 Rx Dexcom G7 Sensor (blood-glucose #3 ea 02/23/23 07/05/23 Rx sensor) cholecalciferol (vitamin D3) 50 50 mcg PO DAILY #90 caps 02/25/23 08/16/23 Rx mcg (2,000 unit) capsule magnesium oxide 400 mg PO QAM #30 tabs 03/15/23 08/16/23 Rx oxybutynin chloride 5 mg 5 mg PO QAM #30 tabs 03/15/23 08/16/23 Rx tablet,extended release 24 hr pantoprazole 40 mg tablet,delayed 40 mg PO QAM #30 tabs 03/15/23 08/16/23 Rx release trazodone 100 mg tablet 100 mg PO HS PRN Insomnia #90 tabs 03/15/23 08/16/23 Rx chlorthalidone 25 mg tablet 25 mg PO DAILY 05/04/23 08/16/23 History aspirin 81 mg tablet,delayed 81 mg PO PM #30 tabs 06/07/23 08/16/23 Rx release (Speedy Low Dose Aspirin) ondansetron 4 mg disintegrating 4 mg PO Q6H PRN nausea and 06/07/23 08/16/23 Rx tablet vomiting #10 tabs pen needle, diabetic 31 gauge x #100 ea 06/07/23 07/05/23 Rx 5/16" (Easy Comfort Pen [place]) blood sugar diagnostic (OneTouch #250 ea 06/11/23 07/05/23 Rx Verio test strips) insulin glargine 100 unit/mL (3 18 unit (0.18 mL) subcut PM #15 mL 06/14/23 Rx mL) subcutaneous pen (Lantus Solostar U-100 Insulin) insulin lispro 100 unit/mL 1 sliding scale dose subcut 06/14/23 08/16/23 Rx subcutaneous pen USEASDIRECTD #15 mL insulin lispro 100 unit/mL 45 unit (0.45 mL) continuous 06/14/23 08/16/23 Rx subcutaneous solution subcutaneous infusion ONCE #20 mL Blood Pressure Cuff #1 ea 06/17/23 07/05/23 Rx acetone (urine) test (Ketone Urine #100 ea 06/22/23 07/05/23 Rx Test strips) blood sugar diagnostic (OneTouch #200 ea 06/22/23 07/05/23 Rx Verio test strips) blood-glucose meter (OneTouch #1 ea 06/22/23 07/05/23 Rx Verio Flex Meter) lancets 33 gauge #200 ea 06/22/23 07/05/23 Rx amlodipine 5 mg tablet 5 mg PO HS 08/16/23 08/16/23 History atorvastatin 40 mg tablet 40 mg PO HS 08/16/23 08/16/23 History carvedilol 12.5 mg tablet 12.5 mg PO BID 08/16/23 08/16/23 History clonidine HCl 0.2 mg tablet 0.2 mg PO BID 08/16/23 08/16/23 History lamotrigine 25 mg tablet 25 mg PO QPM 08/16/23 08/16/23 History sodium bicarbonate 650 mg tablet See Rx Instructions .Route .COMPLEX 08/16/23 08/16/23 History thyroid (pork) 60 mg tablet (INSPECTOR ELECTROMECHANICAL 60 mg PO DAILY 08/16/23 08/16/23 History Thyroid) Past Med/Surg History Problem List ESTELITA (acute kidney injury) (Acute) Left lower lobe pneumonia (Acute) Pneumonia Anemia due to chronic kidney disease Family history of ovarian cancer Hyponatremia Diabetic peripheral 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 Diabetic autonomic 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 Acute kidney injury Proliferative retinopathy due to type 1 diabetes mellitus Loss of protective sensation of skin of foot Type 1 diabetes History of retinal detachment L eye Hx-TIA (transient ischemic attack) History of CVA (cerebrovascular accident) Brain MRI Mar 2022 noting b/l thalamic stroke x 2 Vitamin D deficiency (Chronic) Recurrent syncope (Acute) Iron deficiency anemia Urine incontinence Menorrhagia Anxiety B12 deficiency HTN (hypertension) Proteinuria Stage 3b chronic kidney disease Asthma (Chronic) well controlled per pt rare res inh use Factor 5 Leiden mutation, heterozygous (Chronic) Bipolar 1 disorder (Chronic) Depression (Chronic) Hypothyroidism (Chronic) Migraine (Chronic) GERD (gastroesophageal reflux disease) (Chronic) Anemia of chronic disease (Chronic) Endometriosis (Chronic) Steatohepatitis, nonalcoholic (Chronic) Seizure disorder epilepsy - last seizure 01/2022 @ [facility] per pt - follows w/ [facility] neuro last visit 09/2021 > grand mal Hyperlipidemia Medical History History of broken nose Hypertensive encephalopathy Hypertensive urgency Surgical History Hx of cardiac catheterization [facility]- Dr Aragon 5-10 yrs ago - no stents- not currently following w/ cardio Hx of cholecystectomy Hx of laparoscopy Hx of section X2 H/O tooth extraction S/P laparoscopic cholecystectomy S/P nasal surgery H/O esophagogastroduodenoscopy Hx of tubal ligation Family History Grandmother (Maternal) Stroke Diabetes Arthritis Anxiety Panic attacks Agoraphobia Uncle Hypertension Myocardial infarction Uncle Agoraphobia Rheumatoid arthritis Mother Hypertension FH: brain aneurysm Anxiety History of cholecystectomy Hypothyroid Diabetes History of colon resection Neuropathy Colorectal cancer Father Drug abuse Chronic mental illness Other Unknown family medical history Social History Smoking Status: Former smoker Tobacco Type: Cigarettes Age Started Using Tobacco: 22; Age Quit Using Tobacco: 22; Second Hand Exposure: No; Do You Dip or Chew Tobacco: No; Hx Alcohol Use: No Hx Substance Use: No Preferred Language: [place] Communication Ability: Effective Visual Impairment: No Limitations Hearing Ability: Normal Process Supervisor Required: No Beliefs That Will Affect Care: None marital status: / marital status details: Currently engaged Current Living Situation: Family Current Living Situation Comment: With daughter and son current occupational status: disabled How many Children do You have: 3 How many Children do You have Comment: 3 children(1 ) Feels Safe at Home: Yes Childhood Exposure to Second-Hand Smoke: No Diet: regular during the past year weight has: remained stable Dental Care, Regularly: No Physical Activity Frequency: Daily Seatbelt Use: always Sunscreen Use: No Assistive Devices: None Review of Systems Constitutional: + fever, + body aches, + malaise and + w eakness Eyes: no blind spots Ear, Nose, Mouth, Throat: no ear pain and no tinnitus Respiratory: + cough Cardiovascular: no chest pain Gastrointestinal: no abdominal pain Genitourinary: no dysuria Musculoskeletal: no back pain Integumentary: no acne Neurologic: no gait abnormality Psychiatric: no behavioral changes Endocrine: no fatigue Hematologic / Lymphatic: no easy bleeding Allergy / Immunological: no GI upset with certain foods Physical Exam Constitutional: well developed, well nourished, + ill appearing and + physical limitations Eyes: PERRL, conjunctivae normal, anicteric sclerae ENMT: external ear and nose normal, oropharynx normal Neck: trachea midline, no thyromegaly Respiratory: + cough and able to speak in complete se ntences Auscultation: + diminished lung sounds and + rhonchi Cardiovascular: RRR, no murmur, no edema Gastrointestinal (Abdomen): normal bowel sounds, soft, nontender, no hepatosplenomegaly Neurologic: PERRL, EOMI, accommodation nl, no face palsy, no dysarthria Psychiatric: A+Ox3, euthymic affect Lymphatic: no cervical or axillary lymphadenopathy Results & Data Results & Data Vital Signs (Past 12 Hours) Vital Signs Temp Pulse Pulse Resp BP BP Pulse Ox 08/16/23 06:00 74 16 144/92 H 98 08/16/23 05:38 77 20 94 08/16/23 05:10 74 08/16/23 05:08 36.4 C L 76 20 158/101 H 97 08/16/23 05:08 36.8 C 76 20 158/101 H 97 O2 Del Method 08/16/23 06:00 Room Air 08/16/23 05:38 Room Air 08/16/23 05:10 08/16/23 05:08 Room Air 08/16/23 05:08 Room Air PG Care Time/CCT Total # of Minutes Spent Total Time Spent with Patient: Total time spent is greater than 50% in coordination of care (as documented) at patient's floor/unit and/or counseling patient: Coding Level of Care Code 42753 INT INP/OBS CARE 375MIN Diagnoses Pneumonia J18.9 Type 1 diabetes mellitus with stage 4 chronic kidney disease E10.22; N18.4 Chronic kidney disease stage: stage 4 (severe) Diabetes mellitus complication detail: with chronic kidney disease Diabetes mellitus complication status: with kidney complications Acute kidney injury N17.9 Family history of ovarian cancer Z80.41 (2) Type 1 diabetes Chronic kidney disease stage: stage 4 (severe) Diabetes mellitus complication detail: with chronic kidney disease Diabetes mellitus complication status: with kidney complications Qualified Code(s): E10.22 - Type 1 diabetes mellitus with diabetic chronic kidney disease; N18.4 - Chronic kidney disease, stage 4 (severe)
[2023-08-16] MEDS ORDERED: PHARMACY GLYCEMIC MGMT CONSULT PRN (07:39)
[2023-08-16] MEDS ORDERED: traZODone HCL 100 MG TAB PO PRN (07:45)
[2023-08-16] MEDS ORDERED: PHENYLEPHRINE HCL 10 MG PO SCH (07:45)
[2023-08-16] MEDS: SODIUM CHLORIDE 0.9% 500 ML IV SCH (07:55)
[2023-08-16 08:15] LABS: C Reactive Protein 1.46 mg/dl (0-0.5)
[2023-08-16] MEDS: LACTATED RINGER'S 1,000 ML IV SCH (09:15)
--- NOTE | 2023-08-16 09:15 | Electrocardiogram Report ---
Test Reason : Blood Pressure : / mmHG Vent. Rate : 075 BPM Atrial Rate : 075 BPM P-R Int : 192 ms QRS Dur : 090 ms QT Int : 414 ms P-R-T Axes : 051 -41 098 degrees QTc Int : 462 ms Normal sinus rhythm Left axis deviation Old Anteroseptal infarct Left ventricular hypertrophy with repolarization abnormality Abnormal ECG When compared with ECG of 15-FEB-2022 22:25, No significant change Confirmed by Hipolito Thompson ([id number]) on 08/16/2023 9:14:50 AM Referred By: REFERRED SELF Confirmed By:Hipolito Thompson
--- NOTE | 2023-08-16 09:15 | Ultrasound Report ---
RENAL ULTRASOUND CLINICAL HISTORY: Acute kidney injury. COMPARISON STUDY: CT of the abdomen and pelvis July 17, 2015. Renal ultrasound May 12, 2022. TECHNIQUE: Sonography of the kidneys and the urinary bladder was performed. FINDINGS: The right kidney measures 10.2 cm in maximal dimension and the left measures 12.8 cm. Renal echogenicity, size and cortical thickness are normal. There is no hydronephrosis. No renal masses ar e identified. No renal calculi are identified. Ureteral jets were not visualized. Otherwise, bladder is unremarkable. IMPRESSION: Unremarkable sonographic appearance of the kidneys. No hydronephrosis. ACT 112: Negative or not required by law. Electronically signed by: Haile Ivy M.D. 08/16/2023 9:13 AM
[2023-08-16] MEDS: APIXABAN 5 MG TABLET PO SCH (10:10)
[2023-08-16] MEDS: CHOLECALCIFEROL 25 MCG (1000 UNITS) TAB PO SCH (10:10)
[2023-08-16] MEDS: carvediloL 25 MG TAB PO SCH (10:10)
[2023-08-16] MEDS: AMITRIPTYLINE HCL 10 MG TAB PO SCH (10:10)
[2023-08-16] MEDS: ERGOCALCIFEROL 1250 MCG (50,000 UNITS) CAP PO SCH (10:10)
[2023-08-16] MEDS: CITALOPRAM 20 MG TAB PO SCH (10:50)
[2023-08-16] MEDS: lamoTRIgine 100 MG TAB PO SCH (10:50)
[2023-08-16] MEDS: OXYBUTYNIN CHLORIDE XL 5 MG TABCR PO SCH (10:50)
[2023-08-16] MEDS: TOPIRAMATE 50 MG TAB PO SCH (10:50)
[2023-08-16] MEDS: GABAPENTIN 100 MG CAP PO SCH (10:50)
[2023-08-16] MEDS: TOPIRAMATE 100 MG TAB PO SCH (10:50)
[2023-08-16] MEDS: PANTOprazole 40 MG TAB PO SCH (10:50)
[2023-08-16] MEDS: POLYETHYLENE (MIRALAX) 17 GM PACK PO SCH (10:51)
[2023-08-16] MEDS: ARMOUR THYROID 30 MG TAB PO SCH (10:51)
[2023-08-16] MEDS: DOXAZosin MESYLATE 4 MG TAB PO SCH (10:51)
[2023-08-16] MEDS: SODIUM BICARBONATE 650 MG TAB PO SCH (10:51)
[2023-08-16 11:00] LABS: Appearance Urine Clear (Clear); Bacteria Urine Automated None Seen (None Seen); Bilirubin Urine Negative (Negative); Blood Urine 2+ (Negative); Cast Urine Automated 0-2 /lpf (0-2); Color Urine Yellow; Epithelial Cell Urine Auto 0-2 /hpf (0-2); Glucose Urine UA Negative (Negative); Ketones Urine Negative (Negative); Leukocyte Esterase Urine Negative (Negative); Nitrite Urine Negative (Negative); Protein Urine 3+ (Negative); RBC Urine Automated 0-2 /hpf (0-2); Specific Gravity Urine 1.011 (1.000-1.030); Urobilinogen Urine Negative (Negative); WBC Urine Automated 0-5 /hpf (0-5); pH Urine 6.5 (4.5-7.5)
[2023-08-16] MEDS ORDERED: GLUCOSE 10 TAB/TUBE PO PRN (11:30)
[2023-08-16] MEDS ORDERED: CARBOHYDRATES FOR HYPOGLYCEMIA PO PRN (11:30)
[2023-08-16] MEDS ORDERED: GLUCOSE 40% GEL 15 GM TUBE PO PRN (11:30)
[2023-08-16] MEDS ORDERED: INSULIN ASPART 100 UNITS/ML VIAL SC PRN (11:30)
[2023-08-16] MEDS ORDERED: GLUCAGON FOR INJ 1 MG VIAL IM PRN (11:30)
[2023-08-16] MEDS ORDERED: DEXTROSE 50% 50 ML SYRINGE IV PRN (11:30)
[2023-08-16] MEDS: INSULIN, Rapid-Acting PUMP SCH (12:37)
--- NOTE | 2023-08-16 14:14 | Nephrology Consultation ---
Date of Consultation August 16, 2023 Assessment & Plan (1) Acute kidney injury: (2) Anemia due to chronic kidney disease: (3) Hyponatremia: (4) HTN (hypertension): (5) Stage 3b chronic kidney disease: (6) Pneumonia: Plan 47-year-old female with stage IIIb CKD baseline creatinine around 2.0 mg/dl with history of poorly controlled hypertension and diabetes, admitted recent diagnosis of parainfluenza a week ago and on admission chest x-ray showing possible left lower lobe pneumonia. Started empirically on ceftriaxone. Blood pressure remains elevated since admission. Noted to have ESTELITA, creatinine 3.0 and lab a week ago at the outside hospital also showed creatinine around 3. She reports decreased urine output over last few days. Although she has ESTELITA overall clinically she looks volume overloaded, blood pressure running high. Although her creatinine is slightly higher than her baseline, her kidney function has been declining somewhat over last few months or so. --Recommend discontinuing IV fluid, encourage p.o. intake -- Check iron study, CBC, renal panel in a.m. --Left arm nephrology precaution for future need for vascular access -- Agree with continuing on empiric antibiotic for left lower lobe pneumonia Thank you for allowing me to participate in your patient's care. It was a pleasure to see Kaci. History of Present Illness Reason for Consultation: ESTELITA, hypertensive urgency Attending Physician: Godfrey Perla History of Present Illness Ms. Kaci Gagnon is a 47 y o f with PMH of stage 3B CKD, poorly controlled HTN and DM admitted to the hospital with left lower lobe pneumonia with recent diagnosis of parainfluenza virus in an outside hospital. Nephrology consult was requested fro management of ESTELITA and hypertensive urgency. EMR records were reviewed in detail during visit. Kaci presented to ER earlier today overall feeling poorly, cough, fever, generalized weakness lightheadedness over last few days. She went to ER for here on 08/10/2023 with cough, fever and chills and diagnosed with parainfluenza virus and had an overnight stay there. She was discharged from the day and failed the following day. During the hospitalization she was noted to have ESTELITA, creatinine was 3.0 and hypertensive urgency. She was continued on her home antihypertensive medications She was discharged following day but over last few days at home she felt like she was progressively declining clinically with ongoing cough, fever, chills and occasional feeling of lightheadedness and presented to ER for further evaluation. In ER initially her blood pressure to be quite elevated which slightly improved although still elevated. She reports noticing decreased urine output over last few days as her diuretics has been on hold. Chest x-ray was concerning for left lower lobe pneumonia. CBC showed leukocytosis. Lab was notable for ESTELITA and metabolic acidosis, creatinine was 3.1. Hemoglobin 10.4. She was empirically started on ceftriaxone. Diuretics has been on hold since hospitalization in [facility]. Currently she is on normal saline at 125 ml/h. Stage 3B CKD, b/l cr lately around 2.0 to 2.2 mg/dl in the setting of poorly controlled hypertension, diabetes with nephrotic range proteinuria., Last episode of ESTELITA was seen June 2022. Nephrotic syndrome secondary to diabetic nephropathy. Urinalysis showed 4+ proteinuria. CT A/P on 07/03/22 showed otherwise normal kidney and adrenal gland. Serology and paraproteinemia workup as well as MARILEE 2 are antibody was negative. She has been using ibuprofen and naproxen as needed which she stopped. Her grandmother had history of CKD although she does not know the details. Never smoker. Has history of repeated hospitalization with ESTELITA History of type 2 DM since age 17, initially was on diet control then oral antidiabetic medication and eventually quickly needed to be on insulin, associated with proliferative diabetic retinopathy and proteinuria. Diabetes slightly improved recently to see 7.1 from > 9 and around 14 a year ago. Hypertension for more than 20 years, poorly controlled on amlodipine 10, losartan 100, carvedilol 25 and Lasix 20 mg daily her blood pressure is usually runs high although recently she was set up with remote monitoring which showed significant variability in blood pressure occasionally blood pressure in 120s to 130s systolic.Renal doppler with <60% b/l RA stenosis. Aldosterone 5, renin <1. No h/o CAD, 2D echo with moderate concentric LVH with EF 60-65%. History of TIA and CVA before with mild right-sided residual weakness with history of factor 5 laden deficiency, has been on Eliquis. h/o left eye surgery for retinal detachment on 02/15/23. Allergies Allergy/AdvReac Type Severity Reaction Status Date / Time cat dander Allergy Intermediate ITCHY Verified 07/05/23 15:06 EYES,WHEEZING Penicillins Allergy Intermediate RED RASH Verified 07/05/23 15:06 AND LIP SWELLS morphine AdvReac Intermediate CHILLS, GI Verified 07/05/23 15:06 UPSET,VOMITING levothyroxine AdvReac Verified 07/05/23 15:06 metoprolol [From Lopressor] AdvReac Verified 07/05/23 15:06 Home Medications Medication Instructions Recorded Confirmed Type topiramate 100 mg tablet 100 mg PO BID 02/16/22 08/16/23 History topiramate 50 mg tablet 50 mg PO BID 02/16/22 08/16/23 History blood-glucose meter (OneTouch #1 ea 02/27/22 07/05/23 Rx Verio Meter) calcium carbonate 600 mg-vitamin 1 tab PO DAILY #30 tabs 03/05/22 08/16/23 Rx D3 10 mcg (400 unit) chewable tablet (Calcium 600 with Vitamin D3) acetaminophen-caffeine 500 mg-65 1 tab PO Q12H PRN Migraine Headache 04/28/22 08/16/23 History mg tablet (Excedrin Tension Headache) diphenhydramine HCl 25 mg capsule 25 mg PO TID PRN Allergy Symptoms 04/28/22 08/16/23 History (Benadryl) lamotrigine 200 mg tablet 200 mg PO BID 04/28/22 08/16/23 History phenylephrine HCl 10 mg tablet 10 mg PO Q6H 04/28/22 08/16/23 History (Sudafed PE) polyethylene glycol 3350 17 17 g PO DAILY 04/28/22 08/16/23 History gram/dose oral powder (Miralax) gabapentin 100 mg capsule 200 mg PO TID 09/22/22 08/16/23 History citalopram 20 mg tablet 20 mg PO QAM 10/07/22 08/16/23 History apixaban 5 mg tablet 5 mg PO BID #180 tabs 10/16/22 08/16/23 Rx amitriptyline 10 mg tablet 10 mg PO DAILY 11/17/22 08/16/23 History Blood pressure Cuff #1 ea 11/26/22 07/05/23 Rx glucagon 3 mg/actuation nasal 3 mg intranasal ONCE #2 ea 11/26/22 08/16/23 Rx spray (Baqsimi) Diabetic Shoes #1 ea 11/27/22 07/05/23 Rx incontinence pads #30 ea 11/27/22 07/05/23 Rx cyanocobalamin (vitamin B-12) 1,000 mcg PO DAILY #30 tabs 02/11/23 08/16/23 Rx 1,000 mcg tablet ferrous sulfate 324 mg (65 mg 324 mg PO Q OTHER DAY #15 tabs 02/11/23 08/16/23 Rx iron) tablet,delayed release doxazosin 4 mg tablet 4 mg PO DAILY #30 tabs 02/17/23 08/16/23 Rx spironolactone 50 mg tablet 50 mg PO BID #60 tabs 02/17/23 08/16/23 Rx [employer] G7 Sensor (blood-glucose #3 ea 02/23/23 07/05/23 Rx sensor) cholecalciferol (vitamin D3) 50 50 mcg PO DAILY #90 caps 02/25/23 08/16/23 Rx mcg (2,000 unit) capsule magnesium oxide 400 mg PO QAM #30 tabs 03/15/23 08/16/23 Rx oxybutynin chloride 5 mg 5 mg PO QAM #30 tabs 03/15/23 08/16/23 Rx tablet,extended release 24 hr pantoprazole 40 mg tablet,delayed 40 mg PO QAM #30 tabs 03/15/23 08/16/23 Rx release trazodone 100 mg tablet 100 mg PO HS PRN Insomnia #90 tabs 03/15/23 08/16/23 Rx chlorthalidone 25 mg tablet 25 mg PO DAILY 05/04/23 08/16/23 History aspirin 81 mg tablet,delayed 81 mg PO PM #30 tabs 06/07/23 08/16/23 Rx release (Speedy Low Dose Aspirin) ondansetron 4 mg disintegrating 4 mg PO Q6H PRN nausea and 06/07/23 08/16/23 Rx tablet vomiting #10 tabs pen needle, diabetic 31 gauge x #100 ea 06/07/23 07/05/23 Rx 5/16" (Easy Comfort Pen [place]) blood sugar diagnostic (OneTouch #250 ea 06/11/23 07/05/23 Rx Verio test strips) insulin glargine 100 unit/mL (3 18 unit (0.18 mL) subcut PM #15 mL 06/14/23 08/16/23 Rx mL) subcutaneous pen (Lantus Solostar U-100 Insulin) insulin lispro 100 unit/mL 1 sliding scale dose subcut 06/14/23 08/16/23 Rx subcutaneous pen USEASDIRECTD #15 mL insulin lispro 100 unit/mL 45 unit (0.45 mL) continuous 06/14/23 08/16/23 Rx subcutaneous solution subcutaneous infusion ONCE #20 mL Blood Pressure Cuff #1 ea 06/17/23 07/05/23 Rx acetone (urine) test (Ketone Urine #100 ea 06/22/23 07/05/23 Rx Test strips) blood sugar diagnostic (OneTouch #200 ea 06/22/23 07/05/23 Rx Verio test strips) blood-glucose meter (OneTouch #1 ea 06/22/23 07/05/23 Rx Verio Flex Meter) lancets 33 gauge #200 ea 06/22/23 07/05/23 Rx amlodipine 5 mg tablet 5 mg PO HS 08/16/23 08/16/23 History atorvastatin 40 mg tablet 40 mg PO HS 08/16/23 08/16/23 History carvedilol 12.5 mg tablet 12.5 mg PO BID 08/16/23 08/16/23 History clonidine HCl 0.2 mg tablet 0.2 mg PO BID 08/16/23 08/16/23 History lamotrigine 25 mg tablet 25 mg PO QPM 08/16/23 08/16/23 History sodium bicarbonate 650 mg tablet See Rx Instructions .Route .COMPLEX 08/16/23 08/16/23 History thyroid (pork) 60 mg tablet (AUTOMATIC HEMMER 60 mg PO DAILY 08/16/23 08/16/23 History Thyroid) Patient History Medical History Anemia due to chronic kidney disease Hyponatremia History of broken nose Hypertensive encephalopathy Hypertensive urgency Surgical History Hx of cardiac catheterization Hx of cholecystectomy Hx of laparoscopy Hx of section H/O tooth extraction S/P laparoscopic cholecystectomy S/P nasal surgery H/O esophagogastroduodenoscopy Hx of tubal ligation Family History Grandmother (Maternal) Stroke Diabetes Arthritis Anxiety Panic attacks Agoraphobia Uncle Hypertension Myocardial infarction Uncle Agoraphobia Rheumatoid arthritis Mother Hypertension FH: brain aneurysm Anxiety History of cholecystectomy Hypothyroid Diabetes History of colon resection Neuropathy Colorectal cancer Father Drug abuse Chronic mental illness Other Unknown family medical history Social History Smoking Status: Never smoker Tobacco Type: Cigarettes Age Started Using Tobacco: 22; Age Quit Using Tobacco: 22; Second Hand Exposure: No; Do You Dip or Chew Tobacco: No; Hx Alcohol Use: No Hx Substance Use: No Preferred Language: Stateless Communication Ability: Effective Visual Impairment: No Limitations Hearing Ability: Normal Acetylene Torch Burner Required: No Beliefs That Will Affect Care: None marital status: / marital status details: Currently engaged Current Living Situation: Family Current Living Situation Comment: LIVES W/ KIDS AND SOMETIMES SO current occupational status: disabled How many Children do You have: 3 How many Children do You have Comment: 3 children(1 ) Feels Safe at Home: Yes Childhood Exposure to Second-Hand Smoke: No Diet: regular during the past year weight has: remained stable Dental Care, Regularly: No Physical Activity Frequency: Daily Seatbelt Use: always Sunscreen Use: No Assistive Devices: None Review of Systems Review of Systems: Detailed review of system was done and pertinent positives and negatives are mentioned above. Physical Exam Constitutional: WD/WN, vitals as above + obese and + edematous; no acute distress Eyes: + anicteric sclerae Neck: normal visual inspection Respiratory: Auscultation: lungs clear to auscultation bilaterally and + crackles (left base) Cardiovascular: Rate/Rhythm: regular rate and regular rhythm Heart Sounds: normal S1 and normal S2 Extremities: no edema Gastrointestinal (Abdomen): Inspection/Auscultation: abdomen normal to inspection Musculoskeletal: Extremities: extremities normal to inspection Neurologic: no focal motor deficits Psychiatric: Orientation: alert and oriented x 3 Affect: euthymic affect Results & Data Vital Signs (Past 12 Hours) Vital Signs Temp Pulse Pulse Resp BP BP Pulse Ox 08/16/23 10:35 80 14 165/90 H 98 08/16/23 07:30 72 20 167/94 H 98 08/16/23 06:30 73 15 161/109 H 08/16/23 06:00 74 16 144/92 H 98 08/16/23 05:38 77 20 94 08/16/23 05:10 74 08/16/23 05:08 36.4 C L 76 20 158/101 H 97 08/16/23 05:08 36.8 C 76 20 158/101 H 97 O2 Del Method 08/16/23 10:35 Room Air 08/16/23 07:30 Room Air 08/16/23 06:30 08/16/23 06:00 Room Air 08/16/23 05:38 Room Air 08/16/23 05:10 08/16/23 05:08 Room Air 08/16/23 05:08 Room Air PG Care Time/CCT Total # of Minutes Spent Total Time Spent with Patient: Total time spent is greater than 50% in coordination of care (as documented) at patient's floor/unit and/or counseling patient: Coding Level of Care Code 60109 INT INP/OBS CARE 375MIN Diagnoses Acute kidney injury N17.9 Anemia due to chronic kidney disease N18.9; D63.1 Hyponatremia E87.1 HTN (hypertension) I10 Stage 3b chronic kidney disease N18.32 Pneumonia J18.9
[2023-08-16 17:44] LABS: HCO3 VBG 16 mmol/L; Oxygen Saturation VBG 83.5 %; PCO2 VBG 32 mmHg (38-50); PO2 VBG 46 mmHg; pH VBG 7.31 (7.36-7.41)
[2023-08-16] MEDS: carvediloL 12.5 MG TAB ONE (18:28)
[2023-08-16] MEDS: ATORVASTATIN 20 MG TAB PO SCH (22:06)
[2023-08-16] MEDS: ASPIRIN 81 MG ECTAB PO SCH (23:27)
[2023-08-17] MEDS: cefTRIAXone SODIUM 2,000 MG/50 ML BAG IV SCH (06:02)
[2023-08-17 07:16] LABS: Hematocrit (blood only) 25.9 % (37.0-47.0); Hemoglobin 8.6 g/dl (12.0-16.0); Mean Corpuscular Hemoglobin 31.6 pg (25.0-34.0); Mean Corpuscular Hgb Conc 33.2 g/dL (32.0-36.0); Mean Corpuscular Volume 95.2 fL (80.0-100.0); Platelet Count 300 K/uL (130-400); RDW Coefficient of Variation 12.1 % (11.5-14.5); RDW Standard Deviation 41.8 fL (36.4-46.3); Red Blood Count 2.72 M/uL (4.20-5.40); White Blood Count 9.88 K/ul (4.8-10.8)
[2023-08-17 07:35] LABS: Calcium 8.4 mg/dl (8.6-10.3)
[2023-08-17 07:41] LABS: BUN Creatinine Ratio 11.6 (10-20); Creatinine Clr Calc Pharmacy 29.3 ml/min; Est GFR (African American) 22.8 ml/min; Est GFR (Non-African American) 19.6 ml/min; Phosphorus 3.4 mg/dl (2.5-4.9)
[2023-08-17 07:45] LABS: Estimated Average Glucose 171 mg/dl; Hemoglobin A1C 7.6 % (4.5-5.6)
[2023-08-17 07:58] LABS: Ferritin 139.5 ng/ml (8-388)
[2023-08-17] MEDS: FERROUS SULFATE 325 MG TAB PO SCH (08:11)
[2023-08-17] MEDS: amLODIPine BESYLATE 5 MG TAB PO SCH (11:52)
--- NOTE | 2023-08-17 12:35 | Nephrology Progress Note ---
Date of Service August 17, 2023 Assessment & Plan (1) Acute kidney injury: (2) Anemia due to chronic kidney disease: (3) Hyponatremia: (4) HTN (hypertension): (5) Stage 3b chronic kidney disease: (6) Pneumonia: Plan 47-year-old female with stage IIIb CKD baseline creatinine around 2.0 mg/dl with history of poorly controlled hypertension and diabetes, admitted recent diagnosis of parainfluenza a week ago and on admission chest x-ray showing possible left lower lobe pneumonia. Started empirically on ceftriaxone. Blood pressure remains elevated since admission. Noted to have ESTELITA, creatinine 3.0 and lab a week ago at the outside hospital also showed creatinine around 3. She reports decreased urine output over last few days. Although she has ESTELITA overall clinically she looks volume overloaded, blood pressure running high. Slight improvement in creatinine noted, off of IV fluid. Hemoglobin low with low iron store. --Amlodipine 5 mg daily and increase dose as needed --Start on Venofer 200 mg IV daily for total 5 doses --Left arm nephrology precaution for future need for vascular access --Agree with continuing on empiric antibiotic for left lower lobe pneumonia Admission and Anticipated Discharge Date Admission Date: August 16, 2023 Subjective Kaci was seen and evaluated this morning. She reports overall feeling slightly better although continues to have occasional cough. Slightly improved, down to 2.8 this morning. Blood pressure remains elevated. Review of Systems Review of Systems: Detailed review of system was done and pertinent positives and negatives are mentioned above. Physical Exam Constitutional: WD/WN, vitals as above + obese and + edematous; no acute distress Eyes: + anicteric sclerae Neck: normal visual inspection Respiratory: Auscultation: lungs clear to auscultation bilaterally and + crackles (left base) Cardiovascular: Rate/Rhythm: regular rate and regular rhythm Heart Sounds: normal S1 and normal S2 Extremities: no edema Musculoskeletal: Extremities: extremities normal to inspection Neurologic: no focal motor deficits Psychiatric: Orientation: alert and oriented x 3 Affect: euthymic affect Results & Data Vital Signs (Past 12 Hours) Vital Signs Temp Pulse Resp BP Pulse Ox O2 Del Method 08/17/23 08:02 36.8 C 74 16 179/85 H 91 Room Air PG Care Time/CCT Total # of Minutes Spent Total Time Spent with Patient: Total time spent is greater than 50% in coordination of care (as documented) at patient's floor/unit and/or counseling patient: Coding Level of Care Code 78558 SUB INP/OBS CARE MIN Diagnoses Acute kidney injury N17.9 Anemia due to chronic kidney disease N18.9; D63.1 Hyponatremia E87.1 HTN (hypertension) I10 Stage 3b chronic kidney disease N18.32 Pneumonia J18.9
[2023-08-17] MEDS ORDERED: ALBUT/IPRATROP 3MG/0.5MG NEB 3 ML VIAL NEB PRN (13:05)
[2023-08-17] MEDS: ALBUT/IPRATROP 3MG/0.5MG NEB 3 ML VIAL NEB STA (13:34)
[2023-08-17] MEDS: SODIUM BICARBONATE 650 MG TAB PO SCH (20:45)
[2023-08-17] MEDS ORDERED: SODIUM BICARBONATE 650 MG TAB PO SCH (21:00)
--- NOTE | 2023-08-17 22:10 | Hospitalist Progress Note ---
Date of Service August 17, 2023 Assessment & Plan (1) Pneumonia: Plan: Patient admitted with pneumnia after recent hospitalization. Placed on empiric ceftriaxone. Patient not currently requiring oxygen. ordered throat culture. will start doxycycline. will order echo. (2) Type 1 diabetes: Plan: continue insulin pump glycemic consult on hold as patient willl be using insulin pump. (3) ESTELITA (acute kidney injury): Plan: Patient with metaboic acidosis, with low bicarb on BMP ordered additional sodium bicarb. Nephro increased to 1300 mg BID Creatinine improved without fluids. (4) Iron deficiency anemia: Plan: Patient with low iron, high IBC, low transferrin. Nephro ordered venofer. (5) Family history of ovarian cancer: Plan Typertension: resume home meds dvt: apixaban Admission and Anticipated Discharge Date Admission Date: August 16, 2023 Subjective Patient reports feeling slightly beter. She still fels fatigued with low energy, but more awake. Able to get more history today. Still SOB with intermittent cough. She denies denies having asthma or COPD and denies smoking. Denies melena, hematoquezia Review of Systems Review of Systems: All systems reviewed & are unremarkable except as noted in HPI & below Physical Exam Constitutional: well developed, well nourished, + ill appearing and + physical limitations Eyes: PERRL, conjunctivae normal, anicteric sclerae Respiratory: + cough and able to speak in complete se ntences Auscultation: + diminished lung sounds and + rhonchi (decreased rhonchi) Cardiovascular: RRR, no murmur, no edema Gastrointestinal (Abdomen): normal bowel sounds, soft, nontender, no hepatosplenomegaly Neurologic: PERRL, EOMI, accommodation nl, no face palsy, no dysarthria Psychiatric: A+Ox3, euthymic affect Lymphatic: no cervical or axillary lymphadenopathy Results & Data Results & Data Vital Signs (Past 12 Hours) Vital Signs Temp Pulse Resp BP Pulse Ox O2 Del Method 08/17/23 15:29 36.5 C 70 16 146/79 H 96 Room Air 08/17/23 13:35 88 18 92 Room Air PG Care Time/CCT Total # of Minutes Spent Total Time Spent with Patient: Total time spent is greater than 50% in coordination of care (as documented) at patient's floor/unit and/or counseling patient: Coding Level of Care Code 58156 SUB INP/OBS CARE MIN Diagnoses Pneumonia J18.9 Type 1 diabetes mellitus with stage 4 chronic kidney disease E10.22; N18.4 Chronic kidney disease stage: stage 4 (severe) Diabetes mellitus complication detail: with chronic kidney disease Diabetes mellitus complication status: with kidney complications ESTELITA (acute kidney injury) N17.9 Iron deficiency anemia D50.9 Family history of ovarian cancer Z80.41 (2) Type 1 diabetes Chronic kidney disease stage: stage 4 (severe) Diabetes mellitus complication detail: with chronic kidney disease Diabetes mellitus complication status: with kidney complications Qualified Code(s): E10.22 - Type 1 diabetes mellitus with diabetic chronic kidney disease; N18.4 - Chronic kidney disease, stage 4 (severe)
[2023-08-18 06:30] LABS: BUN Creatinine Ratio 11.7 (10-20); Creatinine Clr Calc Pharmacy 30.5 ml/min; Est GFR (African American) 23.9 ml/min; Est GFR (Non-African American) 20.6 ml/min; Phosphorus 3.4 mg/dl (2.5-4.9); Potassium 3.7 mmol/L (3.5-5.1)
--- NOTE | 2023-08-18 08:30 | Hospitalist Progress Note ---
Date of Service August 18, 2023 Assessment & Plan (1) Pneumonia: Plan: Patient admitted with pneumonia after recent hospitalization at [facility] where she had hypertensive urgency and her viral upper respiratory infection with parainfluenza.. Placed on empiric ceftriaxone.doxycycline. Respiratory BioFire negative on presentation (2) Type 1 diabetes: Plan: continue insulin pump glycemic consult on hold as patient willl be using insulin pump. Patient with endorgan damage of nephropathy neuropathy cerebrovascular disease with previous thalamic stroke Takes gabapentin for neuropathic pain (3) ESTELITA (acute kidney injury): Plan: Present with ESTELITA on CKD 3, CKD secondary to diabetes patient with metaboic acidosis, with low bicarb on BMP Nephrology consultation continues to follow Nephro increased to 1300 mg BID Creatinine improved without fluids suspect part of this was dehydration from illness. (4) Iron deficiency anemia: Plan: Patient with low iron, high IBC, low transferrin. Nephro ordered venofer. Chronically anticoagulated with apixaban taking aspirin for cerebrovascular risk reduction (5) HTN (hypertension): Plan: Recent hypertensive urgency [facility].Noted history of previous thalamic stroke Outpatient regimen includes amlodipine started and uptitrated this admission carvedilol 25 twice daily doxazosin added prn hydralazine chlorthalidone and spironolactone held Plan dvt: apixaban, history of factor V Leiden deficiency Patient also on citalopram Topamax amitriptyline Admission and Anticipated Discharge Date Admission Date: August 16, 2023 Subjective pt states she feels improved bp still elevated renal parameters improving Physical Exam Physical Exam: lungs with some rhonchi at the bases, no focal loss, pt is not appearing to be short of breath Results & Data Results & Data Vital Signs (Past 12 Hours) Vital Signs Temp Pulse Pulse Resp BP Pulse Ox O2 Del Method 08/18/23 07:59 98.2 F 80 16 185/98 H 96 Room Air 08/17/23 22:31 97.5 F L 70 18 144/75 H 93 Room Air 08/17/23 22:17 Room Air Laboratory Results review cbc review chemistry PG Care Time/CCT Total # of Minutes Spent Total Time Spent with Patient: Total time spent is greater than 50% in coordination of care (as documented) at patient's floor/unit and/or counseling patient: Coding Level of Care Code 58573 SUB INP/OBS CARE 3/50MIN Diagnoses Pneumonia J18.9 Type 1 diabetes mellitus with stage 4 chronic kidney disease E10.22; N18.4 Chronic kidney disease stage: stage 4 (severe) Diabetes mellitus complication detail: with chronic kidney disease Diabetes mellitus complication status: with kidney complications ESTELITA (acute kidney injury) N17.9 Iron deficiency anemia D50.9 HTN (hypertension) I10 (2) Type 1 diabetes Chronic kidney disease stage: stage 4 (severe) Diabetes mellitus complication detail: with chronic kidney disease Diabetes mellitus complication status: with kidney complications Qualified Code(s): E10.22 - Type 1 diabetes mellitus with diabetic chronic kidney disease; N18.4 - Chronic kidney disease, stage 4 (severe)
[2023-08-18] MEDS: DOXYCYCLINE HYCLATE 100 MG CAP PO SCH (08:32)
[2023-08-18] MEDS: amLODIPine BESYLATE 5 MG TAB PO STA (09:52)
--- NOTE | 2023-08-18 10:24 | Nephrology Progress Note ---
Date of Service August 18, 2023 Assessment & Plan (1) Acute kidney injury: (2) Anemia due to chronic kidney disease: (3) Hyponatremia: (4) HTN (hypertension): (5) Stage 3b chronic kidney disease: (6) Pneumonia: Plan 47-year-old female with stage IIIb CKD baseline creatinine around 2.0 mg/dl with history of poorly controlled hypertension and diabetes, admitted recent diagnosis of parainfluenza a week ago and on admission chest x-ray showing possible left lower lobe pneumonia. Started empirically on ceftriaxone. Blood pressure remains elevated since admission. Noted to have ESTELITA, creatinine 3.0 and lab a week ago at the outside hospital also showed creatinine around 3. She reports decreased urine output over last few days. Slow improvement in creatinine, down to 2.7 Hemoglobin low with low iron store. --Increase amlodipine to 10 mg daily and increase dose as needed --continue on Venofer 200 mg IV daily for total 5 doses, consider GI w/u --Left arm nephrology precaution for future need for vascular access Admission and Anticipated Discharge Date Admission Date: August 16, 2023 Larissa Clemons was seen and evaluated this morning. She reports feeling slightly better although continues to have occasional cough. Cr continues to improve, down to 2.8 this morning. Blood pressure remains elevated. Hb low with iron deficiency. Review of Systems Review of Systems: Detailed review of system was done and pertinent positives and negatives are mentioned above. Physical Exam Constitutional: WD/WN, vitals as above + obese and + edematous; no acute distress Eyes: + anicteric sclerae Neck: normal visual inspection Respiratory: Auscultation: lungs clear to auscultation bilaterally and + crackles (left base) Cardiovascular: Rate/Rhythm: regular rate and regular rhythm Heart Sounds: normal S1 and normal S2 Extremities: no edema Musculoskeletal: Extremities: extremities normal to inspection Neurologic: no focal motor deficits Psychiatric: Orientation: alert and oriented x 3 Affect: euthymic affect Results & Data Vital Signs (Past 12 Hours) Vital Signs Temp Pulse Pulse Resp BP Pulse Ox O2 Del Method 08/18/23 09:22 Room Air 08/18/23 07:59 36.8 C 80 16 185/98 H 96 Room Air 08/17/23 22:31 36.4 C L 70 18 144/75 H 93 Room Air PG Care Time/CCT Total # of Minutes Spent Total Time Spent with Patient: Total time spent is greater than 50% in coordination of care (as documented) at patient's floor/unit and/or counseling patient: Coding Level of Care Code 40849 SUB INP/OBS CARE 2MIN Diagnoses Acute kidney injury N17.9 Anemia due to chronic kidney disease N18.9; D63.1 Hyponatremia E87.1 HTN (hypertension) I10 Stage 3b chronic kidney disease N18.32 Pneumonia J18.9
--- NOTE | 2023-08-18 17:02 | XCELERA ---
[id number]
[2023-08-18] MEDS ORDERED: hydrALAZINE HCL 20 MG/ML VIAL IV PRN (18:32)
[2023-08-19 08:01] LABS: Albumin Level 3.2 gm/dl (3.4-5.0); BUN Creatinine Ratio 11.8 (10-20); Calcium 8.4 mg/dl (8.6-10.3); Creatinine Clr Calc Pharmacy 28.8 ml/min; Est GFR (African American) 22.4 ml/min; Est GFR (Non-African American) 19.3 ml/min; Phosphorus 3.4 mg/dl (2.5-4.9); Potassium 3.9 mmol/L (3.5-5.1)
[2023-08-19] MEDS ORDERED: amLODIPine BESYLATE 5 MG TAB PO SCH (09:00)
--- NOTE | 2023-08-19 17:24 | Discharge Summary ---
Discharge Summary Date of Service August 19, 2023 Notes For Next Care Provider Patient left AMA Instructed that she was in renal failure and could progressively worsen even to the point of dialysis and doubt that she said she wishes to leave AMA Her concern was that there was a document on her bedside table with her signature that said she would manage her own insulin pump and she felt that we falsify that document that is what caused her to be unhappy and want to leave our facility She was not medically stable for discharge she was aware of this Admission HPI Per Admitting Provider 47 yo female with PMHL insulin-dependent diabetes on an insulin pump, arrives to the ED with a sore throat. She states she was discharged yesterday from [facility]. Patient reports she was being treated for a viral illness. SHe reports she was being treated with IV fluids and diuretics were held. This was accompanied by subjective fever, cough, sore throat and generalized malaise. When patient arrived to the ED, WBC was elevated, creatinine was also high. Principal Dx & Hospital Course #1 = Principal Diagnosis (1) Pneumonia: Patient admitted with pneumonia after recent hospitalization at [facility] where she had hypertensive urgency and her viral upper respiratory infection with parainfluenza.. Placed on empiric ceftriaxone.doxycycline. Respiratory BioFire negative on presentation patient requested to leave AMA she improved clinically did not request any additional antibiotics (2) Type 1 diabetes: continue insulin pump at time of discharge. 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 Vargas as an outpatient Continue outpatient bicarbonate (4) Iron deficiency anemia: Patient with low iron, high IBC, low transferrin. Nephro ordered venofer. Chronically anticoagulated with apixaban taking aspirin for cerebrovascular risk reduction (5) HTN (hypertension): Recent hypertensive urgency [facility].Noted history of previous thalamic stroke Outpatient regimen includes amlodipine started and uptitrated this admission carvedilol 25 twice daily doxazosin patient left AMA did not request any additional medications or changes in medications. Plan apixaban, history of factor V Leiden deficiency Patient also on citalopram Topamax amitriptyline Updated Medication List Medication Instructions Recorded Confirmed Type topiramate 100 mg tablet 100 mg PO BID 02/16/22 08/16/23 History topiramate 50 mg tablet 50 mg PO BID 02/16/22 08/16/23 History blood-glucose meter (OneTouch #1 ea 02/27/22 07/05/23 Rx Verio Meter) calcium carbonate 600 mg-vitamin 1 tab PO DAILY #30 tabs 03/05/22 08/16/23 Rx D3 10 mcg (400 unit) chewable tablet (Calcium 600 with Vitamin D3) acetaminophen-caffeine 500 mg-65 1 tab PO Q12H PRN Migraine Headache 04/28/22 08/16/23 History mg tablet (Excedrin Tension Headache) diphenhydramine HCl 25 mg capsule 25 mg PO TID PRN Allergy Symptoms 04/28/22 08/16/23 History (Benadryl) lamotrigine 200 mg tablet 200 mg PO BID 04/28/22 08/16/23 History polyethylene glycol 3350 17 17 g PO DAILY 04/28/22 08/16/23 History gram/dose oral powder (Miralax) gabapentin 100 mg capsule 200 mg PO TID 09/22/22 08/16/23 History citalopram 20 mg tablet 20 mg PO QAM 10/07/22 08/16/23 History apixaban 5 mg tablet 5 mg PO BID #180 tabs 10/16/22 08/16/23 Rx amitriptyline 10 mg tablet 10 mg PO DAILY 11/17/22 08/16/23 History Blood pressure Cuff #1 ea 11/26/22 07/05/23 Rx glucagon 3 mg/actuation nasal 3 mg intranasal ONCE #2 ea 11/26/22 08/16/23 Rx spray (Baqsimi) Diabetic Shoes #1 ea 11/27/22 07/05/23 Rx incontinence pads #30 ea 11/27/22 07/05/23 Rx cyanocobalamin (vitamin B-12) 1,000 mcg PO DAILY #30 tabs 02/11/23 08/16/23 Rx 1,000 mcg tablet ferrous sulfate 324 mg (65 mg 324 mg PO Q OTHER DAY #15 tabs 02/11/23 08/16/23 Rx iron) tablet,delayed release doxazosin 4 mg tablet 4 mg PO DAILY #30 tabs 02/17/23 08/16/23 Rx spironolactone 50 mg tablet 50 mg PO BID #60 tabs 02/17/23 08/16/23 Rx Dexcom G7 Sensor (blood-glucose #3 ea 02/23/23 07/05/23 Rx sensor) cholecalciferol (vitamin D3) 50 50 mcg PO DAILY #90 caps 02/25/23 08/16/23 Rx mcg (2,000 unit) capsule magnesium oxide 400 mg PO QAM #30 tabs 03/15/23 08/16/23 Rx oxybutynin chloride 5 mg 5 mg PO QAM #30 tabs 03/15/23 08/16/23 Rx tablet,extended release 24 hr pantoprazole 40 mg tablet,delayed 40 mg PO QAM #30 tabs 03/15/23 08/16/23 Rx release trazodone 100 mg tablet 100 mg PO HS PRN Insomnia #90 tabs 03/15/23 08/16/23 Rx chlorthalidone 25 mg tablet 25 mg PO DAILY 05/04/23 08/16/23 History aspirin 81 mg tablet,delayed 81 mg PO PM #30 tabs 06/07/23 08/16/23 Rx release (Speedy Low Dose Aspirin) ondansetron 4 mg disintegrating 4 mg PO Q6H PRN nausea and 06/07/23 08/16/23 Rx tablet vomiting #10 tabs pen needle, diabetic 31 gauge x #100 ea 06/07/23 07/05/23 Rx 5/16" (Easy Comfort Pen Beatrice) blood sugar diagnostic (OneTouch #250 ea 06/11/23 07/05/23 Rx Verio test strips) insulin glargine 100 unit/mL (3 18 unit (0.18 mL) subcut PM #15 mL 06/14/23 08/16/23 Rx mL) subcutaneous pen (Lantus Solostar U-100 Insulin) insulin lispro 100 unit/mL 1 sliding scale dose subcut 06/14/23 08/16/23 Rx subcutaneous pen USEASDIRECTD #15 mL insulin lispro 100 unit/mL 45 unit (0.45 mL) continuous 06/14/23 08/16/23 Rx subcutaneous solution subcutaneous infusion ONCE #20 mL Blood Pressure Cuff #1 ea 06/17/23 07/05/23 Rx acetone (urine) test (Ketone Urine #100 ea 06/22/23 07/05/23 Rx Test strips) blood sugar diagnostic (OneTouch #200 ea 06/22/23 07/05/23 Rx Verio test strips) blood-glucose meter (OneTouch #1 ea 06/22/23 07/05/23 Rx Verio Flex Meter) lancets 33 gauge #200 ea 06/22/23 07/05/23 Rx amlodipine 5 mg tablet 5 mg PO HS 08/16/23 08/16/23 History atorvastatin 40 mg tablet 40 mg PO HS 08/16/23 08/16/23 History carvedilol 12.5 mg tablet 12.5 mg PO BID 08/16/23 08/16/23 History clonidine HCl 0.2 mg tablet 0.2 mg PO BID 08/16/23 08/16/23 History lamotrigine 25 mg tablet 25 mg PO QPM 08/16/23 08/16/23 History sodium bicarbonate 650 mg tablet See Rx Instructions .Route .COMPLEX 08/16/23 08/16/23 History thyroid (pork) 60 mg tablet ([employer] 60 mg PO DAILY 08/16/23 08/16/23 History Thyroid) Hospital Stay Data Consultations 08/16/23 07:34 ED Decision to Admit Stat 08/16/23 07:51 Consult Nephrology Routine Diagnostic Imagining Performed 08/16/23 07:43 US Renal Bladder [US renal/blad retro comp] Urgent Pending Results Patient Have Any Pending Studies at Discharge: Yes Total Time Total Time Spent Total Time Spent (In Minutes): It required less than 30 minutes to prepare this patient for discharge. Coding Level of Care Code 01688 IN/OBS DISCH 30 MIN/LESS Diagnoses Pneumonia J18.9 Type 1 diabetes mellitus with stage 4 chronic kidney disease E10.22; N18.4 Diabetes mellitus complication status: with kidney complications Diabetes mellitus complication detail: with chronic kidney disease Chronic kidney disease stage: stage 4 (severe) ESTELITA (acute kidney injury) N17.9 Iron deficiency anemia D50.9 HTN (hypertension) I10
== END 2023-08-19 09:33 | disposition left against medical advice (07) | DRG 194 ==
LOC: ED 05:02 → EDINP 07:39 → SUATTDRO 07:39 → 3N 10:04

== ENCOUNTER 2023-09-27 19:34 | Observation (INO) ==
--- NOTE | 2023-09-27 19:48 | Emergency Department Note ---
Impression & Plan Hypertensive emergency, Chest pain, CKD (chronic kidney disease), Anemia ED Provider Note NAME: GILDARDO GILBERT AGE: 47 SEX: F : 1975 ARRIVES VIA: Ambulance INFORMANT: Patient, ED PROVIDER(S): Guillaume Lindo MD CHIEF COMPLAINT: Chest pain MEDICAL DECISION MAKING: Patient presents hypertensive and with chest pain. IV was established and blood was obtained along with an EKG troponin chest x-ray ankle x-ray also obtained given recent reported fracture. No signs of lower extremity swelling or volume overload. Patient was ordered amlodipine which she takes in the evening as well as Coreg 25 is this was recommended at the time of discharge. Patient was ordered an IV dose of labetalol. Patient with a white count of 12 hemoglobin 10.5. Anemia is chronic. Platelet count is unremarkable. The patient's kidney function with creatinine 2.52 in the patient's prior in mid August was 2.9. Calcium of 8.2 blood sugar 219 troponin 19.6. EKG appears unchanged from prior. The patient's chest pain has improved. I did speak with the on-call hospitalist and the patient was admitted to the medicine service. Critical Care: I have personally spent 35 minutes of critical care time in direct management of this patient. This includes bedside care, interpretation of diagnostic studies, and testing, discussion with consultants, patient, and family members, and other require inpatient management activities. This 35 minutes is in excess of all separately billable procedures. Discussion w/ other healthcare providers: Dr. Mcdaniel inpatient medicine service Prior /Outside records reviewed: I reviewed a recent discharge summary from August 19, 2023 productive [place] patient did have an echocardiogram completed August 17 showed normal LV size LVEF 60 to 65% mild mitral regurgitation borderline pulmonary hypertension. No significant changes from Comparison echo from February 01, 2022.. The patient reportedly left AMA at that time and had been diagnosed with pneumonia. Patient did have recent hospitalization prior to this time secondary to hypertensive urgency and viral upper respiratory infection with prior influenza. There were recommendations for additional antihypertensives but the patient left without request of additional medications or changes to her current regimen. Differential diagnosis: Cardiac ischemia, aortic dissection, pulmonary embolism, pneumothorax, pneumonia, pericarditis, myocarditis, GERD, cholecystitis, pancreatitis, musculoskeletal, as well as other pathologies were considered. Diagnostics, as interpreted by me: ECG: Normal sinus rhythm, rate of 83, normal intervals, left axis deviation, Q waves anteriorly with T wave inversions in the high lateral leads. This looks grossly unchanged from comparison EKG completed August 16, 2023 Cardiac monitoring: An order was placed for continuous cardiac monitoring. The monitor shows a rate of 82 with sinus rhythm. Patient was placed on pulse oximetry Medical decision rules: None Imaging studies: I informally interpreted the patient's chest x-ray does not show obvious pneumonia or pneumothorax with formal report to follow. I informally interpreted the patient's ankle x-ray which may show an avulsion fracture to the distal fibula. HPI: Patient presents due to concern for chest pain. The patient states that this occurred about 1-1/2 hours prior to arrival. Patient describes the left- sided pressures of a cinderblock being placed on the chest. Patient denies any radiation of pain. No associated nausea vomiting or diaphoresis. At its peak it was dated 10 currently 4 out of 10. Patient did receive 3 nitro and 4 baby aspirin. Patient does follow with Dr. Montiel PCP and Dr. Acuna from nephrology and does have a history of stage IV kidney disease. Patient does have a history of factor V Leiden and does take Eliquis twice daily. The patient also does take a baby aspirin daily. Patient does have issues with hypertension and states that she does have salt in her diet and she does live off of assistance meals. Patient denies any leg swelling or calf pain. Patient states she did have a recent reported fracture of the left fibula. Patient states that she rolled her ankle and was placed in a ankle wrap. PAST MEDICAL HISTORY: See Below PAST SURGICAL HISTORY: See Below SOCIAL HISTORY: See Below HOME MEDICATIONS: See Below ALLERGIES: See Below VITALS: See Below PHYSICAL EXAMINATION: GENERAL: NAD, non-toxic. EYE EXAM: Normal conjunctiva. PERRL, no anisocoria and EOM's grossly intact w/o pain. OROPHARYNX: Moist mucus membranes, poor dentition. NECK: Trachea midline, no stridor. Supple, no nuchal rigidity, no adenopathy, non-tender. No signs of meningismus. FROM of the neck with good chin to chest and neck extension. LUNGS: Clear to auscultation. Normal chest wall mechanics. HEART: NSR, no MRG. ABDOMEN: Abdomen soft, non-tender, no masses, no rebound or guarding. BACK: No CVA TTP. SKIN: No rashes and no bruising. UPPER EXTREMITIES: Upper extremities are grossly normal. LOWER EXTREMITIES: Grossly normal, no edema. Negative Homans' sign bilaterally. Left lower extremity and an ankle wrap. NEURO EXAM: A&O x3, cranial nerves II-XII grossly intact, normal speech, moves all 4 extremities. Past Med/Surg History Problem List (Updated 09/28/23 @ 01:16 by Guillaume Lindo MD) Anemia (Acute) CKD (chronic kidney disease) (Acute) Chest pain (Acute) Hypertensive emergency (Acute) ESTELITA (acute kidney injury) (Acute) Left lower lobe pneumonia (Acute) Hyponatremia Diabetic peripheral 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 Diabetic autonomic 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 Proliferative retinopathy due to type 1 diabetes mellitus Loss of protective sensation of skin of foot History of retinal detachment L eye Hx-TIA (transient ischemic attack) History of CVA (cerebrovascular accident) Brain MRI Mar 2022 noting b/l thalamic stroke x 2 Vitamin D deficiency (Chronic) Recurrent syncope (Acute) Urine incontinence Menorrhagia Anxiety B12 deficiency Proteinuria Asthma (Chronic) well controlled per pt rare res inh use Factor 5 Leiden mutation, heterozygous (Chronic) Bipolar 1 disorder (Chronic) Depression (Chronic) Hypothyroidism (Chronic) Migraine (Chronic) GERD (gastroesophageal reflux disease) (Chronic) Anemia of chronic disease (Chronic) Endometriosis (Chronic) Steatohepatitis, nonalcoholic (Chronic) Seizure disorder epilepsy - last seizure 01/2022 @ [facility] per pt - follows w/ [facility] neuro last visit 09/2021 > grand mal Hyperlipidemia Medical History Anemia due to chronic kidney disease Family history of ovarian cancer Type 1 diabetes HTN (hypertension) Stage 3b chronic kidney disease Iron deficiency anemia History of broken nose Hypertensive encephalopathy Hypertensive urgency Surgical History Hx of cardiac catheterization [facility]- Dr Aragon 5-10 yrs ago - no stents- not currently following w/ cardio Hx of cholecystectomy Hx of laparoscopy Hx of section X2 H/O tooth extraction S/P laparoscopic cholecystectomy S/P nasal surgery H/O esophagogastroduodenoscopy Hx of tubal ligation Family History Grandmother (Maternal) Stroke Diabetes Arthritis Anxiety Panic attacks Agoraphobia Uncle Hypertension Myocardial infarction Uncle Agoraphobia Rheumatoid arthritis Mother Hypertension FH: brain aneurysm Anxiety History of cholecystectomy Hypothyroid Diabetes History of colon resection Neuropathy Colorectal cancer Father Drug abuse Chronic mental illness Other Unknown family medical history Social History Smoking Status: Never smoker Tobacco Type: Cigarettes Age Started Using Tobacco: 22; Age Quit Using Tobacco: 22; Second Hand Exposure: No; Do You Dip or Chew Tobacco: No; Hx Alcohol Use: No Hx Substance Use: No Preferred Language: Somali Communication Ability: Effective Visual Impairment: No Limitations Hearing Ability: Normal Manager Night Required: No Beliefs That Will Affect Care: None marital status: / marital status details: Currently engaged Current Living Situation: Family Current Living Situation Comment: With daughter and son current occupational status: disabled How many Children do You have: 3 How many Children do You have Comment: 3 children(1 ) Feels Safe at Home: Yes Childhood Exposure to Second-Hand Smoke: No Diet: regular during the past year weight has: remained stable Dental Care, Regularly: No Physical Activity Frequency: Daily Seatbelt Use: always Sunscreen Use: No Assistive Devices: None Allergies Allergies Allergy/AdvReac Type Severity Reaction Status Date / Time cat dander Allergy Intermediate ITCHY Verified 07/05/23 15:06 EYES,WHEEZING Penicillins Allergy Intermediate RED RASH Verified 07/05/23 15:06 AND LIP SWELLS morphine AdvReac Intermediate CHILLS, GI Verified 07/05/23 15:06 UPSET,VOMITING levothyroxine AdvReac Verified 07/05/23 15:06 metoprolol [From Lopressor] AdvReac Verified 07/05/23 15:06 Home Meds Home Medications Medication Instructions Recorded Confirmed topiramate 100 mg tablet 100 mg PO BID 02/16/22 09/27/23 topiramate 50 mg tablet 50 mg PO BID 02/16/22 09/27/23 acetaminophen-caffeine 500 mg-65 1 tab PO Q12H PRN Migraine Headache 04/28/22 09/27/23 mg tablet (Excedrin Tension Headache) diphenhydramine HCl 25 mg capsule 25 mg PO TID PRN Allergy Symptoms 04/28/22 09/27/23 (Benadryl) lamotrigine 200 mg tablet 200 mg PO BID 04/28/22 09/27/23 gabapentin 100 mg capsule 200 mg PO TID 09/22/22 09/27/23 citalopram 20 mg tablet 20 mg PO QAM 10/07/22 09/27/23 amitriptyline 10 mg tablet 10 mg PO DAILY 11/17/22 09/27/23 chlorthalidone 25 mg tablet 25 mg PO DAILY 05/04/23 09/27/23 amlodipine 5 mg tablet 5 mg PO HS 08/16/23 09/27/23 atorvastatin 40 mg tablet 40 mg PO HS 08/16/23 09/27/23 carvedilol 12.5 mg tablet 12.5 mg PO BID 08/16/23 09/27/23 clonidine HCl 0.2 mg tablet 0.2 mg PO BID 08/16/23 09/27/23 lamotrigine 25 mg tablet 25 mg PO QPM 08/16/23 09/27/23 thyroid (pork) 60 mg tablet ([facility] 60 mg PO DAILY 08/16/23 09/27/23 Thyroid) naproxen 500 mg tablet 1,000 mg PO DAILY PRN Pain 09/13/23 09/28/23 oxycodone-acetaminophen 5 mg-325 1 tab PO Q4H PRN Pain 09/13/23 09/27/23 mg tablet (Percocet) doxazosin 4 mg tablet 4 mg PO QAM 09/27/23 09/27/23 Previous Rx's Medication Instructions Recorded blood-glucose meter (OneTouch #1 ea 02/27/22 Verio Meter) calcium carbonate 600 mg-vitamin 1 tab PO DAILY #30 tabs 03/05/22 D3 10 mcg (400 unit) chewable tablet (Calcium 600 with Vitamin D3) apixaban 5 mg tablet 5 mg PO BID #180 tabs 10/16/22 Blood pressure Cuff #1 ea 11/26/22 glucagon 3 mg/actuation nasal 3 mg intranasal ONCE #2 ea 11/26/22 spray (Baqsimi) Diabetic Shoes #1 ea 11/27/22 incontinence pads #30 ea 11/27/22 cyanocobalamin (vitamin B-12) 1,000 mcg PO DAILY #30 tabs 02/11/23 1,000 mcg tablet ferrous sulfate 324 mg (65 mg 324 mg PO Q OTHER DAY #15 tabs 02/11/23 iron) tablet,delayed release spironolactone 50 mg tablet 50 mg PO BID #60 tabs 02/17/23 Dexcom G7 Sensor (blood-glucose #3 ea 02/23/23 sensor) cholecalciferol (vitamin D3) 50 50 mcg PO DAILY #90 caps 02/25/23 mcg (2,000 unit) capsule magnesium oxide 400 mg PO QAM #30 tabs 03/15/23 oxybutynin chloride 5 mg 5 mg PO QAM #30 tabs 03/15/23 tablet,extended release 24 hr pantoprazole 40 mg tablet,delayed 40 mg PO QAM #30 tabs 03/15/23 release trazodone 100 mg tablet 100 mg PO HS PRN Insomnia #90 tabs 03/15/23 aspirin 81 mg tablet,delayed 81 mg PO PM #30 tabs 06/07/23 release (Speedy Low Dose Aspirin) ondansetron 4 mg disintegrating 4 mg PO Q6H PRN nausea and 06/07/23 tablet vomiting #10 tabs blood sugar diagnostic (OneTouch #250 ea 06/11/23 Verio test strips) Blood Pressure Cuff #1 ea 06/17/23 acetone (urine) test (Ketone Urine #100 ea 06/22/23 Test strips) blood-glucose meter (OneTouch #1 ea 06/22/23 Verio Flex Meter) blood sugar diagnostic (OneTouch #200 ea 08/25/23 Verio test strips) insulin lispro 100 unit/mL 1 sliding scale dose subcut 08/25/23 subcutaneous pen USEASDIRECTD #15 mL insulin lispro 100 unit/mL 45 unit (0.45 mL) continuous 08/25/23 subcutaneous solution subcutaneous infusion ONCE #20 mL lancets 33 gauge #200 ea 08/25/23 pen needle, diabetic 31 gauge x #100 ea 08/25/23 5/16" (Easy Comfort Pen [place]) Shower Chair #1 ea 09/13/23 Results & Data (ED) Vital Signs Vital Signs - 24 hr 09/27/23 19:38 09/27/23 19:38 09/27/23 19:38 Temperature 36.8 C Temperature Source Oral Pulse Rate 80 Pulse Rate [Apical] 84 Pulse Rate from SpO2 Sensor Pulse Rhythm Regular Pulse Rhythm [Apical] Regular Respiratory Rate 16 16 Respiratory Effort / Characteristics Non-Labored Spontaneous Non-Labored Spontaneous Respiratory Depth Normal Normal Respiratory Pattern Regular Regular Blood Pressure 208/110 H Blood Pressure [Right Arm] 208/110 H Blood Pressure Mean 142 Blood Pressure Mean [Right Arm] 142 Pulse Oximetry 99 99 98 Oxygen Delivery Method Room Air Room Air Room Air Sepsis Recent Fever Within 48 Hours No Sepsis New/Unexplained Change in Mental Status No Sepsis Action Taken by Nursing No Action Required 09/27/23 19:41 09/27/23 19:42 09/27/23 19:52 Temperature Temperature Source Pulse Rate 84 84 Pulse Rate [Apical] Pulse Rate from SpO2 Sensor 84 Pulse Rhythm Pulse Rhythm [Apical] Respiratory Rate 20 Respiratory Effort / Characteristics Respiratory Depth Respiratory Pattern Blood Pressure 208/110 H Blood Pressure [Right Arm] Blood Pressure Mean 142 Blood Pressure Mean [Right Arm] Pulse Oximetry 99 99 Oxygen Delivery Method Room Air Sepsis Recent Fever Within 48 Hours Sepsis New/Unexplained Change in Mental Status Sepsis Action Taken by Nursing 09/27/23 20:00 09/27/23 20:30 09/27/23 21:00 Temperature Temperature Source Pulse Rate 84 89 90 Pulse Rate [Apical] Pulse Rate from SpO2 Sensor 83 89 89 Pulse Rhythm Pulse Rhythm [Apical] Respiratory Rate 21 18 13 Respiratory Effort / Characteristics Respiratory Depth Respiratory Pattern Blood Pressure 193/116 H 198/111 H 199/118 H Blood Pressure [Right Arm] Blood Pressure Mean 141 150 145 Blood Pressure Mean [Right Arm] Pulse Oximetry 99 100 100 Oxygen Delivery Method Room Air Sepsis Recent Fever Within 48 Hours Sepsis New/Unexplained Change in Mental Status Sepsis Action Taken by Nursing 09/27/23 21:30 09/27/23 22:00 09/27/23 22:09 Temperature Temperature Source Pulse Rate 87 88 Pulse Rate [Apical] 85 Pulse Rate from SpO2 Sensor 87 89 Pulse Rhythm Pulse Rhythm [Apical] Regular Respiratory Rate 17 18 17 Respiratory Effort / Characteristics Non-Labored Spontaneous Respiratory Depth Normal Respiratory Pattern Regular Blood Pressure 196/109 H Blood Pressure [Right Arm] 202/123 H Blood Pressure Mean 138 Blood Pressure Mean [Right Arm] 149 Pulse Oximetry 99 100 100 Oxygen Delivery Method Room Air Room Air Room Air Sepsis Recent Fever Within 48 Hours Sepsis New/Unexplained Change in Mental Status Sepsis Action Taken by Nursing 09/27/23 22:21 Temperature Temperature Source Pulse Rate 80 Pulse Rate [Apical] Pulse Rate from SpO2 Sensor 80 Pulse Rhythm Pulse Rhythm [Apical] Respiratory Rate 21 Respiratory Effort / Characteristics Respiratory Depth Respiratory Pattern Blood Pressure Blood Pressure [Right Arm] Blood Pressure Mean Blood Pressure Mean [Right Arm] Pulse Oximetry 99 Oxygen Delivery Method Room Air Sepsis Recent Fever Within 48 Hours Sepsis New/Unexplained Change in Mental Status Sepsis Action Taken by [facility] Medications Current Medication List: was personally reviewed by me Laboratory Data Attestation: I reviewed the patient's lab results. 09/27/23 20:15 09/27/23 20:15 Lab Results 09/27/23 Range/Units 20:15 WBC 12.28 H (4.8-10.8) K/ul RBC 3.26 L (4.20-5.40) M/uL Hgb 10.5 L (12.0-16.0) g/dl Hct 30.6 L (37.0-47.0) % MCV 93.9 (80.0-100.0) fL MCH 32.2 (25.0-34.0) pg MCHC 34.3 (32.0-36.0) g/dL RDW Std Deviation 42.9 (36.4-46.3) fL RDW Coeff of Zak 12.4 (11.5-14.5) % Plt Count 318 (130-400) K/uL MPV 9.9 (9.4-12.4) fL Immature Gran % (Auto) 0.5 % Neut % (Auto) 73.3 % Lymph % (Auto) 16.4 % Angelina % (Auto) 7.4 % Eos % (Auto) 2.0 % Baso % (Auto) 0.4 % Neut # (Auto) 9.00 H (1.40-6.50) K/uL Lymph # (Auto) 2.01 (1.20-3.40) K/uL Angelina # (Auto) 0.91 H (0.11-0.59) K/uL Eos # (Auto) 0.25 (0.00-0.50) K/uL Baso # (Auto) 0.05 (0.00-0.20) K/uL Immature Gran # (Auto) 0.06 (0.01-0.20) K/uL PT 10.0 (9.0-12.0) Seconds INR 0.9 (0.9-1.1) APTT 24 (21-31) Seconds PTT Ratio 0.9 Sodium 136 (136-145) mmol/L Potassium 3.7 (3.5-5.1) mmol/L Chloride 110 H (98-107) mmol/L Carbon Dioxide 18 L (21-32) mmol/L Anion Gap 8 (3-11) BUN 43 H (6-23) mg/dl Creatinine 2.52 H (0.6-1.2) mg/dl Est Cr Clr Drug Dosing 31.1 ml/min Est GFR ( Amer) 25.4 ml/min Est GFR (Non-Af Amer) 21.9 ml/min BUN/Creatinine Ratio 17.1 (10-20) Glucose 219 H (70-99(Fasting)) mg/dl Calcium 8.2 L (8.6-10.3) mg/dl Total Bilirubin 0.3 (0.2-1.0) mg/dl AST 9 L (13-39) U/L ALT 6 L (7-52) U/L Alkaline Phosphatase 83 (34-104) U/L Troponin I High Sens 19.6 H (0-14) pg/ml Total Protein 6.8 (6.0-8.3) gm/dl Albumin 3.4 (3.4-5.0) gm/dl Globulin 3.4 (2.5-4.0) gm/dl Albumin/Globulin Ratio 1.0 (0.9-2) Lipase 37 (11-82) U/L Administered Medications Discontinued Medications Amlodipine Besylate (Amlodipine Besylate 5 Mg Tab) 5 mg PO NOW ONE Stop: 09/27/23 20:31 Last Admin: 09/27/23 20:56 Dose: 5 mg Documented By: FABIO Carvedilol (Carvedilol 25 Mg Tab) 25 mg PO NOW ONE Stop: 09/27/23 20:31 Last Admin: 09/27/23 20:56 Dose: 25 mg Documented By: FABIO Labetalol HCl (Labetalol Hcl Iv 5 Mg/Ml 20ml) 10 mg IV NOW STA Stop: 09/27/23 21:44 Last Admin: 09/27/23 22:54 Dose: 10 mg Documented By: FABIO Co-signed By: BENITO Lorazepam (Lorazepam 1 Mg Tab) 1 mg PO NOW STA Stop: 09/27/23 22:22 Last Admin: 09/27/23 22:54 Dose: 1 mg Documented By: KLS Discharge Plan Visit Data Chief Complaint: Cardiac Assessment Stated Complaint: CHEST TIGHTNESS ED Provider: Guillaume Lindo Discharge Problem: Hypertensive emergency, Chest pain, CKD (chronic kidney disease), Anemia Patient Disposition: Admitted As Inpatient Discharge Instructions Interventions: ED Discharge Assessment Last Done: 09/28/23 00:30 Discharge Problem: Chest pain Qualifiers: Chest pain type: unspecified Qualified Code(s): R07.9 - Chest pain, unspecified CKD (chronic kidney disease) Qualifiers: Chronic kidney disease stage: unspecified stage Qualified Code(s): N18.9 - Chronic kidney disease, unspecified Anemia Qualifiers: Anemia type: unspecified type Qualified Code(s): D64.9 - Anemia, unspecified
[2023-09-27 20:31] LABS: Basophils # (auto) 0.05 K/uL (0.00-0.20); Basophils % (auto) 0.4 %; Eosinophils # (auto) 0.25 K/uL (0.00-0.50); Hematocrit (blood only) 30.6 % (37.0-47.0); Hemoglobin 10.5 g/dl (12.0-16.0); Immature Granulocytes # (auto) 0.06 K/uL (0.01-0.20); Immature Granulocytes % (auto) 0.5 %; Lymphocytes # (auto) 2.01 K/uL (1.20-3.40); Lymphocytes % (auto) 16.4 %; Mean Corpuscular Hemoglobin 32.2 pg (25.0-34.0); Mean Corpuscular Hgb Conc 34.3 g/dL (32.0-36.0); Mean Corpuscular Volume 93.9 fL (80.0-100.0); Mean Platelet Volume 9.9 fL (9.4-12.4); Monocytes # (auto) 0.91 K/uL (0.11-0.59); Monocytes % (auto) 7.4 %; Neutrophils % (auto) 73.3 %; Platelet Count 318 K/uL (130-400); RDW Coefficient of Variation 12.4 % (11.5-14.5); RDW Standard Deviation 42.9 fL (36.4-46.3); Red Blood Count 3.26 M/uL (4.20-5.40); White Blood Count 12.28 K/ul (4.8-10.8)
[2023-09-27 20:39] LABS: INR 0.9 (0.9-1.1); Partial Thromboplastin Ratio 0.9; Partial Thromboplastin Time 24 Seconds (21-31)
[2023-09-27 20:47] LABS: Albumin Level 3.4 gm/dl (3.4-5.0); BUN Creatinine Ratio 17.1 (10-20); Bilirubin,Total 0.3 mg/dl (0.2-1.0); Calcium 8.2 mg/dl (8.6-10.3); Creatinine Clr Calc Pharmacy 31.1 ml/min; Est GFR (African American) 25.4 ml/min; Est GFR (Non-African American) 21.9 ml/min; Globulin 3.4 gm/dl (2.5-4.0); Potassium 3.7 mmol/L (3.5-5.1); Total Protein 6.8 gm/dl (6.0-8.3)
[2023-09-27 20:53] LABS: Troponin I High Sensitivity 19.6 pg/ml (0-14)
[2023-09-27] MEDS: amLODIPine BESYLATE 5 MG TAB PO ONE (20:56)
[2023-09-27] MEDS: carvediloL 25 MG TAB PO ONE (20:56)
--- NOTE | 2023-09-27 22:30 | History & Physical Report ---
Date of Service September 27, 2023 Assessment & Plan (1) Hypertensive emergency: Plan: 47yo female presenting with hypertensive emergency, BP 208/110 on arrival with chest pain. Patient with longstanding history of multi-drug resistant hypertension. She reports compliance with her medications. Did take some cold medicine yesterday, ate a high sodium meal and had a stressful day arguing with her daughter which could have precipitated her elevated blood pressure. Chest pain has improved with Nitro and ASA -Admit to PCU -Continue home BP meds - Clonidine, Spironolactone, Carvedilol, Amlodipine, Chlorthalidone and Doxazosin -Hydralazine 5mg IV q 4 hours as needed for BP > 180/110 (2) Chest pain: Plan: Patient with mild elevation of troponin on admission labs - trop = 19.6. Repeat has declined to 18.9 -Telemetry monitoring -Nitro PRN Plan Type I Diabetes - chronic. Last HgbA1C on 08/17/23 = 7.6 -Patient may use own insulin pump -Goal blood sugar 110 - 140 -Continue Gabapentin for neuropathy Factor V Leiden - chronic -Continue Apixaban Anxiety - chronic -Continue Citalopram -Continue trazodone qHS Seizure disorder - chronic -Continue Lamictal -Continue Topamax Hypothyroidism - chronic. TSH elevated at 9.67 at last admission with normal T4 -Continue home armour thyroid F/E/N - Saline lock. Electrolytes WNL. Type I DM diet as tolerated Ppx - Continue Apixaban Code - Full per discussion with patient Dispo - Admit to PCU History of Present Illness Chief Complaint: hypertensive urgency Primary Care Provider: DO Kaci Walden Chelsi is a 47yo female with history of hypertension (multi-drug - Spironolactone, Doxazosin, Clonidine, Carvedilol, Amlodipine), DM-I, HTN, CKD, Seizure disorder and Factor V Leiden on Eliquis anticoagulation presenting with hypertensive urgency. Patient reports having very stressful couple of days. She lives in a 3-bedroom subsidized apartment. Her son and daughter have recently moved out and have left their things in the apartment. She is having an inspection in two weeks and if her place does not pass she is liable to be evicted and lose her belongings. She is very stressed about her situation. She reports that her son and daughter refuse to help her clean the apartment. Her boyfriend lives out of town and is unable to help much either. Due to her chronic medical conditions she is unable to walk or stand long enough to complete the cleaning and laundry, etc. She had a fairly heated argument with her daughter this morning. She then went to lunch and ate some pizza. Upon returning home from lunch she had another argument with her daughter after which she developed some substernal chest pressure and headache. She also felt very dizzy and thought she may pass out. She told her boyfriend that she wasn't feeling well and he called 911. Patient reports feeling like "a cinder block was on my chest". She was given Nitro x 3 and ASA prior to arrival which improved her chest pain to "a brick on my chest". She still has some chest soreness as well as mild CONCEPCION and shortness of breath. She reports she is compliant with her medications. She did take some cold medication yesterday due to some congestion - Nyquil Severe She drinks several caffeinated sodas daily She reports having a stress test performed at [facility] in December 2022 which revealed a "leaky valve" but no concern for CAD. She had a cardiac catheterization at [facility] several years ago with no stents. Hypertensive in the ER ER Course: Carvedilol 25mg PO Amlodipine 5mg PO Labetalol 10mg IV Ativan 1mg PO Tylenol 650mg PO Trazodone 100mg PO Hydralazine 5mg IV Allergies Allergy/AdvReac Type Severity Reaction Status Date / Time cat dander Allergy Intermediate ITCHY Verified 07/05/23 15:06 EYES,WHEEZING Penicillins Allergy Intermediate RED RASH Verified 07/05/23 15:06 AND LIP SWELLS morphine AdvReac Intermediate CHILLS, GI Verified 07/05/23 15:06 UPSET,VOMITING levothyroxine AdvReac Verified 07/05/23 15:06 metoprolol [From Lopressor] AdvReac Verified 07/05/23 15:06 Home Medications Medication Instructions Recorded Confirmed Type topiramate 100 mg tablet 100 mg PO BID 02/16/22 09/27/23 History topiramate 50 mg tablet 50 mg PO BID 02/16/22 09/27/23 History blood-glucose meter (OneTouch #1 ea 02/27/22 08/20/23 Rx Verio Meter) calcium carbonate 600 mg-vitamin 1 tab PO DAILY #30 tabs 03/05/22 09/27/23 Rx D3 10 mcg (400 unit) chewable tablet (Calcium 600 with Vitamin D3) acetaminophen-caffeine 500 mg-65 1 tab PO Q12H PRN Migraine Headache 04/28/22 09/27/23 History mg tablet (Excedrin Tension Headache) diphenhydramine HCl 25 mg capsule 25 mg PO TID PRN Allergy Symptoms 04/28/22 09/27/23 History (Benadryl) lamotrigine 200 mg tablet 200 mg PO BID 04/28/22 09/27/23 History gabapentin 100 mg capsule 200 mg PO TID 09/22/22 09/27/23 History citalopram 20 mg tablet 20 mg PO QAM 10/07/22 09/27/23 History apixaban 5 mg tablet 5 mg PO BID #180 tabs 10/16/22 09/27/23 Rx amitriptyline 10 mg tablet 10 mg PO DAILY 11/17/22 09/27/23 History Blood pressure Cuff #1 ea 11/26/22 08/20/23 Rx glucagon 3 mg/actuation nasal 3 mg intranasal ONCE #2 ea 11/26/22 09/28/23 Rx spray (Baqsimi) Diabetic Shoes #1 ea 11/27/22 08/20/23 Rx incontinence pads #30 ea 11/27/22 08/20/23 Rx cyanocobalamin (vitamin B-12) 1,000 mcg PO DAILY #30 tabs 02/11/23 09/27/23 Rx 1,000 mcg tablet ferrous sulfate 324 mg (65 mg 324 mg PO Q OTHER DAY #15 tabs 02/11/23 09/27/23 Rx iron) tablet,delayed release spironolactone 50 mg tablet 50 mg PO BID #60 tabs 02/17/23 09/28/23 Rx Dexcom G7 Sensor (blood-glucose #3 ea 02/23/23 08/20/23 Rx sensor) cholecalciferol (vitamin D3) 50 50 mcg PO DAILY #90 caps 11/30/23 07/01/24 Rx mcg (2,000 unit) capsule magnesium oxide 400 mg PO QAM #30 tabs 03/15/23 09/28/23 Rx oxybutynin chloride 5 mg 5 mg PO QAM #30 tabs 03/15/23 09/28/23 Rx tablet,extended release 24 hr pantoprazole 40 mg tablet,delayed 40 mg PO QAM #30 tabs 03/15/23 09/28/23 Rx release trazodone 100 mg tablet 100 mg PO HS PRN Insomnia #90 tabs 03/15/23 09/27/23 Rx chlorthalidone 25 mg tablet 25 mg PO DAILY 05/04/23 09/27/23 History aspirin 81 mg tablet,delayed 81 mg PO PM #30 tabs 06/07/23 09/27/23 Rx release (Speedy Low Dose Aspirin) ondansetron 4 mg disintegrating 4 mg PO Q6H PRN nausea and 06/07/23 09/28/23 Rx tablet vomiting #10 tabs blood sugar diagnostic (OneTouch #250 ea 06/11/23 08/20/23 Rx Verio test strips) Blood Pressure Cuff #1 ea 06/17/23 08/20/23 Rx acetone (urine) test (Ketone Urine #100 ea 06/22/23 08/20/23 Rx Test strips) blood-glucose meter (OneTouch #1 ea 06/22/23 08/20/23 Rx Verio Flex Meter) amlodipine 5 mg tablet 5 mg PO HS 08/16/23 09/27/23 History atorvastatin 40 mg tablet 40 mg PO HS 08/16/23 09/27/23 History carvedilol 12.5 mg tablet 12.5 mg PO BID 08/16/23 09/27/23 History clonidine HCl 0.2 mg tablet 0.2 mg PO BID 08/16/23 09/27/23 History lamotrigine 25 mg tablet 25 mg PO QPM 08/16/23 09/27/23 History thyroid (pork) 60 mg tablet (SAILOR 60 mg PO DAILY 08/16/23 09/27/23 History Thyroid) blood sugar diagnostic (OneTouch #200 ea 08/25/23 Rx Verio test strips) insulin lispro 100 unit/mL 1 sliding scale dose subcut 08/25/23 09/28/23 Rx subcutaneous pen USEASDIRECTD #15 mL insulin lispro 100 unit/mL 45 unit (0.45 mL) continuous 08/25/23 09/27/23 Rx subcutaneous solution subcutaneous infusion ONCE #20 mL lancets 33 gauge #200 ea 08/25/23 Rx pen needle, diabetic 31 gauge x #100 ea 08/25/23 Rx 5/16" (Easy Comfort Pen [place]) Shower Chair #1 ea 09/13/23 Rx naproxen 500 mg tablet 1,000 mg PO DAILY PRN Pain 09/13/23 09/28/23 History oxycodone-acetaminophen 5 mg-325 1 tab PO Q4H PRN Pain 09/13/23 09/27/23 History mg tablet (Percocet) doxazosin 4 mg tablet 4 mg PO QAM 09/27/23 09/27/23 History Past Med/Surg History Problem List Anemia (Acute) CKD (chronic kidney disease) (Acute) Chest pain (Acute) Hypertensive emergency (Acute) ESTELITA (acute kidney injury) (Acute) Left lower lobe pneumonia (Acute) Hyponatremia Diabetic peripheral 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 Diabetic autonomic 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 Proliferative retinopathy due to type 1 diabetes mellitus Loss of protective sensation of skin of foot History of retinal detachment L eye Hx-TIA (transient ischemic attack) History of CVA (cerebrovascular accident) Brain MRI Mar 2022 noting b/l thalamic stroke x 2 Vitamin D deficiency (Chronic) Recurrent syncope (Acute) Urine incontinence Menorrhagia Anxiety B12 deficiency Proteinuria Asthma (Chronic) well controlled per pt rare res inh use Factor 5 Leiden mutation, heterozygous (Chronic) Bipolar 1 disorder (Chronic) Depression (Chronic) Hypothyroidism (Chronic) Migraine (Chronic) GERD (gastroesophageal reflux disease) (Chronic) Anemia of chronic disease (Chronic) Endometriosis (Chronic) Steatohepatitis, nonalcoholic (Chronic) Seizure disorder epilepsy - last seizure 01/2022 @ [facility] per pt - follows w/ [facility] neuro last visit 09/2021 > [place] Hyperlipidemia Medical History Anemia due to chronic kidney disease Family history of ovarian cancer Type 1 diabetes HTN (hypertension) Stage 3b chronic kidney disease Iron deficiency anemia History of broken nose Hypertensive encephalopathy Hypertensive urgency Surgical History Hx of cardiac catheterization [facility]- Dr Aragon 5-10 yrs ago - no stents- not currently following w/ cardio Hx of cholecystectomy Hx of laparoscopy Hx of section X2 H/O tooth extraction S/P laparoscopic cholecystectomy S/P nasal surgery H/O esophagogastroduodenoscopy Hx of tubal ligation Family History Grandmother (Maternal) Stroke Diabetes Arthritis Anxiety Panic attacks Agoraphobia Uncle Hypertension Myocardial infarction Uncle Agoraphobia Rheumatoid arthritis Mother Hypertension FH: brain aneurysm Anxiety History of cholecystectomy Hypothyroid Diabetes History of colon resection Neuropathy Colorectal cancer Father Drug abuse Chronic mental illness Other Unknown family medical history Social History Smoking Status: Former smoker Tobacco Type: Cigarettes Age Started Using Tobacco: 22; Age Quit Using Tobacco: 22; Second Hand Exposure: No; Do You Dip or Chew Tobacco: No; Hx Alcohol Use: No Hx Substance Use: No Preferred Language: Czech Communication Ability: Effective Visual Impairment: No Limitations Hearing Ability: Normal Stallion Manager Required: No Beliefs That Will Affect Care: None marital status: / marital status details: Currently engaged Current Living Situation: Alone Current Living Situation Comment: With daughter and son current occupational status: disabled How many Children do You have: 3 How many Children do You have Comment: 3 children(1 ) Other Information That Helps Us Care for You: No Feels Safe at Home: Yes Safety Concerns: Feels Safe At This Time Childhood Exposure to Second-Hand Smoke: No Diet: regular during the past year weight has: remained stable Dental Care, Regularly: No Physical Activity Frequency: Daily Seatbelt Use: always Sunscreen Use: No Assistive Devices: Brace/Splint/Immobilizer Review of Systems Review of Systems: All systems reviewed & are unremarkable except as noted in HPI & below Physical Exam Physical Exam: General: patient resting comfortably, NAD, non-toxic in appearance, AA&O x 4 Skin: warm, dry, intact, no rashes or lesions HEENT: NC/AT, PERRL, EOMI, anicteric sclera, conjunctiva without injection, external ear normal to inspection and nontender, nares patent, moist mucus membr anes, dentition intact, no oropharyngeal lesions, neck supple, trachea midline, no LAD, no thyromegaly, no JVD Heart: +S1/S2, regular, no m/r/g Lungs: equal air entry bilaterally, no rales/rhonchi/wheezes Abd: +BS, soft, NT/ND, no masses/organomegaly/ascites, insulin pump and CGM on anterior abdomen Ext: warm, 2+ pulses in UE/LE bilaterally, no clubbing/cyanosis or edema Neuro: nonfocal, patient AA&O x 4, speech intact, no facial droop, moving all extremities on command with equal strength 5/5 Results & Data Results & Data Vital Signs (Past 12 Hours) Vital Signs Temp Pulse Pulse Resp BP BP Pulse Ox 09/27/23 21:30 87 17 196/109 H 99 09/27/23 21:00 90 13 199/118 H 100 09/27/23 20:30 89 18 198/111 H 100 09/27/23 20:00 84 21 193/116 H 99 09/27/23 19:52 99 09/27/23 19:42 84 20 208/110 H 99 09/27/23 19:41 84 09/27/23 19:38 84 16 208/110 H 98 09/27/23 19:38 99 09/27/23 19:38 36.8 C 80 16 208/110 H 99 O2 Del Method 09/27/23 21:30 Room Air 09/27/23 21:00 Room Air 09/27/23 20:30 09/27/23 20:00 09/27/23 19:52 Room Air 09/27/23 19:42 09/27/23 19:41 09/27/23 19:38 Room Air 09/27/23 19:38 Room Air 09/27/23 19:38 Room Air Laboratory Results Laboratory Results WBC 12.28 K/ul (4.8-10.8) H 09/27/23 20:15 RBC 3.26 M/uL (4.20-5.40) L 09/27/23 20:15 Hgb 10.5 g/dl (12.0-16.0) L 09/27/23 20:15 Hct 30.6 % (37.0-47.0) L 09/27/23 20:15 MCV 93.9 fL (80.0-100.0) 09/27/23 20:15 MCH 32.2 pg (25.0-34.0) 09/27/23 20:15 MCHC 34.3 g/dL (32.0-36.0) 09/27/23 20:15 RDW Std Deviation 42.9 fL (36.4-46.3) 09/27/23 20:15 RDW Coeff of Zak 12.4 % (11.5-14.5) 09/27/23 20:15 Plt Count 318 K/uL (130-400) 09/27/23 20:15 MPV 9.9 fL (9.4-12.4) 09/27/23 20:15 Immature Gran % (Auto) 0.5 % 09/27/23 20:15 Neut % (Auto) 73.3 % 09/27/23 20:15 Lymph % (Auto) 16.4 % 09/27/23 20:15 Garza % (Auto) 7.4 % 09/27/23 20:15 Eos % (Auto) 2.0 % 09/27/23 20:15 Baso % (Auto) 0.4 % 09/27/23 20:15 Neut # (Auto) 9.00 K/uL (1.40-6.50) H 09/27/23 20:15 Lymph # (Auto) 2.01 K/uL (1.20-3.40) 09/27/23 20:15 Garza # (Auto) 0.91 K/uL (0.11-0.59) H 09/27/23 20:15 Eos # (Auto) 0.25 K/uL (0.00-0.50) 09/27/23 20:15 Baso # (Auto) 0.05 K/uL (0.00-0.20) 09/27/23 20:15 Immature Gran # (Auto) 0.06 K/uL (0.01-0.20) 09/27/23 20:15 PT 10.0 Seconds (9.0-12.0) 09/27/23 20:15 INR 0.9 (0.9-1.1) 09/27/23 20:15 APTT 24 Seconds (21-31) 09/27/23 20:15 PTT Ratio 0.9 09/27/23 20:15 Sodium 136 mmol/L (136-145) 09/27/23 20:15 Potassium 3.7 mmol/L (3.5-5.1) 09/27/23 20:15 Chloride 110 mmol/L (98-107) H 09/27/23 20:15 Carbon Dioxide 18 mmol/L (21-32) L 09/27/23 20:15 Anion Gap 8 (3-11) 09/27/23 20:15 BUN 43 mg/dl (6-23) H 09/27/23 20:15 Creatinine 2.52 mg/dl (0.6-1.2) H 09/27/23 20:15 Est Cr Clr Drug Dosing 31.1 ml/min 09/27/23 20:15 Est GFR ( Amer) 25.4 ml/min 09/27/23 20:15 Est GFR (Non-Af Amer) 21.9 ml/min 09/27/23 20:15 BUN/Creatinine Ratio 17.1 (10-20) 09/27/23 20:15 Glucose 219 mg/dl (70-99(Fasting)) H 09/27/23 20:15 Calcium 8.2 mg/dl (8.6-10.3) L 09/27/23 20:15 Phosphorus 4.2 mg/dl (2.5-4.9) 09/28/23 01:26 Magnesium 1.8 mg/dl (1.7-2.4) 09/28/23 01:26 Total Bilirubin 0.3 mg/dl (0.2-1.0) 09/27/23 20:15 AST 9 U/L (13-39) L 09/27/23 20:15 ALT 6 U/L (7-52) L 09/27/23 20:15 Alkaline Phosphatase 83 U/L (34-104) 09/27/23 20:15 Troponin I High Sens 18.9 pg/ml (0-14) H 09/28/23 01:26 Total Protein 6.8 gm/dl (6.0-8.3) 09/27/23 20:15 Albumin 3.4 gm/dl (3.4-5.0) 09/27/23 20:15 Globulin 3.4 gm/dl (2.5-4.0) 07/01/24 20:15 Albumin/Globulin Ratio 1.0 (0.9-2) 09/27/23 20:15 Lipase 37 U/L (11-82) 09/27/23 20:15 ECG Additional Comments: EKG with NSR at 83bpm, left axis deviation, HT=942, QRS=84, ULs=343, no acute ischemic changes, possible LVH PG Care Time/CCT Total # of Minutes Spent Total Time Spent with Patient: Total time spent is greater than 50% in coordination of care (as documented) at patient's floor/unit and/or counseling patient: Coding Level of Care Code 39333 INT INP/OBS CARE 375MIN Diagnoses Hypertensive emergency I16.1 Chest pain R07.9 Chest pain type: unspecified (2) Chest pain Chest pain type: unspecified Qualified Code(s): R07.9 - Chest pain, unspecified
[2023-09-27] MEDS: LABETALOL HCL IV 5 MG/ML 20ML IV STA (22:54)
[2023-09-27] MEDS: LORazepam 1 MG TAB PO STA (22:54)
[2023-09-28] MEDS ORDERED: ONDANSETRON INJ 2 MG/ML 2 ML VIAL IV PRN (00:51)
[2023-09-28] MEDS ORDERED: GLUCOSE 10 TAB/TUBE PO PRN (00:51)
[2023-09-28] MEDS ORDERED: GLUCOSE 40% GEL 15 GM TUBE PO PRN (00:51)
[2023-09-28] MEDS ORDERED: NON-FORMULARY MEDICATION (Insulin Lispro 100 unit/mL solution) continuous subcutaneous infusion SCH (00:51)
[2023-09-28] MEDS ORDERED: DEXTROSE 50% 50 ML SYRINGE IV PRN (00:51)
[2023-09-28] MEDS ORDERED: NITROGLYCERIN SL 0.4 MG/TAB TAB SL PRN (00:51)
[2023-09-28] MEDS ORDERED: LABETALOL HCL IV 5 MG/ML 20ML IV PRN (00:51)
[2023-09-28] MEDS ORDERED: CARBOHYDRATES FOR HYPOGLYCEMIA PO PRN (00:51)
[2023-09-28] MEDS ORDERED: GLUCAGON FOR INJ 1 MG VIAL SQ PRN (00:51)
[2023-09-28] MEDS: ACETAMINOPHEN 325 MG TAB PO PRN (01:35)
[2023-09-28] MEDS: traZODone HCL 100 MG TAB PO PRN (01:35)
[2023-09-28 01:59] LABS: Magnesium 1.8 mg/dl (1.7-2.4)
[2023-09-28 02:05] LABS: Phosphorus 4.2 mg/dl (2.5-4.9)
[2023-09-28 02:09] LABS: Troponin I High Sensitivity 18.9 pg/ml (0-14)
[2023-09-28] MEDS: hydrALAZINE HCL 20 MG/ML VIAL IV PRN (02:40)
[2023-09-28] MEDS: cloNIDine HCL 0.1 MG TAB PO ONE (03:03)
[2023-09-28] MEDS ORDERED: INSULIN ASPART 100 UNITS/ML VIAL SC PRN (04:00)
[2023-09-28] MEDS: ARMOUR THYROID 30 MG TAB PO SCH (06:30)
[2023-09-28 06:41] LABS: Hematocrit (blood only) 30.5 % (37.0-47.0); Hemoglobin 10.4 g/dl (12.0-16.0); Mean Corpuscular Hgb Conc 34.1 g/dL (32.0-36.0); Mean Corpuscular Volume 93.8 fL (80.0-100.0); Mean Platelet Volume 9.9 fL (9.4-12.4); Platelet Count 338 K/uL (130-400); RDW Coefficient of Variation 12.4 % (11.5-14.5); Red Blood Count 3.25 M/uL (4.20-5.40); White Blood Count 11.14 K/ul (4.8-10.8)
--- NOTE | 2023-09-28 06:44 | XRay Report ---
XR ankle LT min 3V routine CLINICAL HISTORY: Left ankle pain. Prior frx per patient. COMPARISON: None FINDINGS: There is an acute appearing nondisplaced fracture of the fibular tip. Lateral ankle soft t issue swelling is present. No distal left tibial fracture is present. There is no ankle mortise widen ing. Talar dome is intact. IMPRESSION: 1. Acute appearing nondisplaced fibular tip fracture. 2. Lateral ankle soft tissue swelling. 3. No ankle mortise widening. ACT 112: Negative or not required by law. Electronically signed by: Haile Ivy M.D. 09/28/2023 6:43 AM
[2023-09-28 07:38] LABS: Calcium 7.7 mg/dl (8.6-10.3); Potassium 3.5 mmol/L (3.5-5.1)
[2023-09-28 07:43] LABS: BUN Creatinine Ratio 18.8 (10-20); Creatinine Clr Calc Pharmacy 32.4 ml/min; Est GFR (Non-African American) 23.3 ml/min
--- NOTE | 2023-09-28 07:49 | XRay Report ---
XR chest 1V portable CLINICAL HISTORY: Chest pain, nonspecific TECHNIQUE: Single frontal radiograph of the chest was obtained. Comparison: Comparison is made to chest radiograph 08/16/2023 FINDINGS: No lines and tubes are seen. Cardiomegaly is noted. The lungs are clear. No evidence of pleural effus ion or pneumothorax. IMPRESSION: No acute chest disease. ACT 112: Negative or not required by law. Electronically signed by: Gene Ko M.D. 09/28/2023 7:48 AM
[2023-09-28] MEDS: APIXABAN 5 MG TABLET PO SCH (08:22)
[2023-09-28] MEDS: CITALOPRAM 20 MG TAB PO SCH (08:22)
[2023-09-28] MEDS: CHLORTHALIDONE 25 MG TAB PO SCH (08:22)
[2023-09-28] MEDS: AMITRIPTYLINE HCL 10 MG TAB PO SCH (08:22)
[2023-09-28] MEDS: carvediloL 25 MG TAB PO SCH (08:22)
[2023-09-28] MEDS: cloNIDine HCL 0.1 MG TAB PO SCH (08:22)
[2023-09-28] MEDS: lamoTRIgine 100 MG TAB PO SCH (08:23)
[2023-09-28] MEDS: PANTOprazole 40 MG TAB PO SCH (08:23)
[2023-09-28] MEDS: TOPIRAMATE 50 MG TAB PO SCH (08:23)
[2023-09-28] MEDS: SPIRONOLACTONE 25 MG TAB PO SCH (08:23)
[2023-09-28] MEDS: DOXAZosin MESYLATE 4 MG TAB PO SCH (08:23)
[2023-09-28] MEDS: GABAPENTIN 100 MG CAP PO SCH (08:23)
[2023-09-28] MEDS: TOPIRAMATE 100 MG TAB PO SCH (08:23)
[2023-09-28] MEDS: OXYBUTYNIN CHLORIDE XL 5 MG TABCR PO SCH (08:23)
[2023-09-28] MEDS: INSULIN, Rapid-Acting PUMP SCH (08:27)
[2023-09-28] MEDS ORDERED: carvediloL 12.5 MG TAB PO SCH (09:00)
--- NOTE | 2023-09-28 16:21 | Hospitalist Progress Note ---
Date of Service September 28, 2023 Assessment & Plan (1) Hypertensive emergency: Plan: Presented with hypertensive emergency, BP 208/110 on arrival with chest pain. Longstanding history of multi-drug resistant hypertension. She reports compliance with her medications. Did take some cold medicine, ate a high sodium meal, and had a stressful day arguing with her daughter which could have precipitated her elevated blood pressure. Chest pain improved with Nitro and ASA. -Continue home BP meds - Clonidine, Spironolactone, Carvedilol, Amlodipine, Chlorthalidone and Doxazosin -Hydralazine 5mg IV q 4 hours as needed for BP > 180/110 (2) Chest pain: Plan: Patient with mild elevation of troponin on admission labs - trop = 19.6. Repeat has declined to 18.9 -Telemetry monitoring -Nitro PRN Plan Type I Diabetes - chronic. Last HgbA1C on 08/17/23 = 7.6 -Patient may use own insulin pump -Goal blood sugar 110 - 140 -Continue Gabapentin for neuropathy Factor V Leiden - chronic -Continue Apixaban Anxiety - chronic -Continue Citalopram -Continue trazodone qHS Seizure disorder - chronic -Continue Lamictal -Continue Topamax Hypothyroidism - chronic. TSH elevated at 9.67 at last admission with normal T4 -Continue home armour thyroid VTE PPx: Continue apixaban CODE STATUS: Full code Admission and Anticipated Discharge Date Admission Date: September 27, 2023 Subjective Patient seen and evaluated at bedside. She reports feeling very sleepy, but otherwise denies any complaints. She reports that she was fully compliant with her antihypertensive medications, however believes she had this episode of hypertensive urgency due to an argument with her daughter and high sodium meal. She notes when she gets very stressed out her blood pressure becomes uncontrolled. Today, her blood pressure readings have been normal. Will continue to monitor. Physical Exam Physical Exam: General: No acute distress, nondiaphoretic, well-developed, well-nourished. Very sleepy. Skin: The skin was without rashes, erythema, edema, or bruising. Cardiac: Regular rate and rhythm without murmurs gallops or rubs. Pulm: Clear to auscultation bilaterally without wheezes, rales or rhonchi. No retractions or accessory muscle use. Abdominal: Soft, nontender, nondistended. Bowel sounds present. Insulin pump and CGM on anterior abdomen. Neuro: A&O x3. No focal neurological deficits. Results & Data Results & Data Vital Signs (Past 12 Hours) Vital Signs Temp Pulse Resp BP Pulse Ox O2 Del Method 09/28/23 16:00 36.8 C 65 18 116/57 L 95 Room Air 09/28/23 11:42 36.8 C 76 18 119/66 91 Room Air 09/28/23 07:52 36.7 C 67 18 135/70 99 Room Air Laboratory Results Reviewed CBC Reviewed CMP Reviewed BPs throughout the day PG Care Time/CCT Total # of Minutes Spent Total Time Spent with Patient: Total time spent is greater than 50% in coordination of care (as documented) at patient's floor/unit and/or counseling patient: Coding Level of Care Code 46172 SUB INP/OBS CARE 2/35MIN Diagnoses Hypertensive emergency I16.1 Chest pain R07.9 Chest pain type: unspecified (2) Chest pain Chest pain type: unspecified Qualified Code(s): R07.9 - Chest pain, unspecified
[2023-09-28] MEDS: ASPIRIN 81 MG ECTAB PO SCH (20:03)
[2023-09-28] MEDS: amLODIPine BESYLATE 5 MG TAB PO SCH (20:03)
[2023-09-28] MEDS: lamoTRIgine 25 MG TAB PO SCH (20:03)
[2023-09-28] MEDS: ATORVASTATIN 40 MG TAB PO SCH (20:04)
--- NOTE | 2023-09-29 06:29 | Electrocardiogram Report ---
Test Reason : Blood Pressure : / mmHG Vent. Rate : 083 BPM Atrial Rate : 083 BPM P-R Int : 172 ms QRS Dur : 084 ms QT Int : 400 ms P-R-T Axes : 041 -33 103 degrees QTc Int : 470 ms Normal sinus rhythm Left axis deviation Moderate voltage criteria for LVH, may be normal variant ( R in aVL , Benjamin product ) Septal infarct (cited on or before 14-APR-2016) Poor R wave progression, consider anterior IL vs. lead placement vs. LVH Abnormal ECG When compared with ECG of 16-AUG-2023 05:12, No significant change was found Confirmed by Biju Croea ([id number]) on 09/29/2023 6:29:09 AM Referred By: REFERRED SELF Confirmed By:Biju Corea
[2023-09-29 06:39] LABS: Hematocrit (blood only) 28.4 % (37.0-47.0); Hemoglobin 9.7 g/dl (12.0-16.0); Mean Corpuscular Hemoglobin 32.2 pg (25.0-34.0); Mean Corpuscular Hgb Conc 34.2 g/dL (32.0-36.0); Mean Corpuscular Volume 94.4 fL (80.0-100.0); Mean Platelet Volume 10.2 fL (9.4-12.4); Platelet Count 295 K/uL (130-400); RDW Coefficient of Variation 12.5 % (11.5-14.5); RDW Standard Deviation 42.9 fL (36.4-46.3); Red Blood Count 3.01 M/uL (4.20-5.40); White Blood Count 9.35 K/ul (4.8-10.8)
[2023-09-29 07:26] VITALS: RESP 17
[2023-09-29 08:27] LABS: BUN Creatinine Ratio 16.3 (10-20); Calcium 7.5 mg/dl (8.6-10.3); Creatinine Clr Calc Pharmacy 26.8 ml/min; Est GFR (African American) 21.6 ml/min; Est GFR (Non-African American) 18.7 ml/min; Potassium 3.8 mmol/L (3.5-5.1)
[2023-09-29 11:21] VITALS: BP 104/61; TEMP 98.2; O2SAT 98
[2023-09-29 13:49] VITALS: PULSE 61
--- NOTE | 2023-09-29 17:50 | Discharge Summary ---
Discharge Summary Date of Service September 29, 2023 Principal Dx & Hospital Course #1 = Principal Diagnosis (1) Hypertensive emergency: Presented with hypertensive emergency, BP 208/110 on arrival with chest pain. Longstanding history of multi-drug resistant hypertension. She reports compliance with her medications. Did take some cold medicine, ate a high sodium meal, and had a stressful day arguing with her daughter which could have precipitated her elevated blood pressure. Chest pain improved with Nitro and ASA. -Continue home BP meds - Clonidine, Spironolactone, Carvedilol, Amlodipine, Chlorthalidone and Doxazosin -Carvedilol increased to 25 mg twice daily -BPs have remained controlled while in the hospital (2) Chest pain: Patient with mild elevation of troponin on admission labs - trop = 19.6. Repeat has declined to 18.9 -Nitro PRN -Resolved. No other cardiac complaints (3) Left fibular fracture: Patient complained of left ankle pain and had x-ray of left ankle on admission which revealed nondisplaced fibular tip fracture with lateral ankle soft tissue swelling. No ankle mortise widening. Left ankle Aircast provided and encouraged patient to wear this until PCP follow-up appointment. Recommend follow-up imaging to ensure healing. Consider Ortho referral if complications arise. Plan Type I Diabetes - chronic. Last HgbA1C on 08/17/23 = 7.6 -Patient may use own insulin pump -Goal blood sugar 110 - 140 -Continue Gabapentin for neuropathy Factor V Leiden - chronic -Continue Apixaban Anxiety - chronic -Continue Citalopram -Continue trazodone qHS Seizure disorder - chronic -Continue Lamictal -Continue Topamax Hypothyroidism - chronic. TSH elevated at 9.67 at last admission with normal T4 -Continue home armour thyroid VTE PPx: Continue apixaban CODE STATUS: Full code Notes For Next Care Provider Presented with hypertensive urgency. Patient reports this is due to stress and high salt intake. Unsure of medication compliance at home as patient's BP has been well-controlled while hospitalized. Follow-up appointment scheduled for 10/19/2023 for BP recheck, and to monitor left fibular tip fracture. Defer Ortho referral to PCP to evaluate if it is necessary at that appointment, as well as to continue or stop wearing the left ankle Aircast. Medication Changes From Visit Carvedilol increased to 25 mg twice daily Admission HPI Per Admitting Provider Kaci Gagnon is a 47yo female with history of hypertension (multi-drug - Spironolactone, Doxazosin, Clonidine, Carvedilol, Amlodipine), DM-I, HTN, CKD, Seizure disorder and Factor V Leiden on Eliquis anticoagulation presenting with hypertensive urgency. Patient reports having very stressful couple of days. She lives in a 3-bedroom subsidized apartment. Her son and daughter have recently moved out and have left their things in the apartment. She is having an inspection in two weeks and if her place does not pass she is liable to be evicted and lose her belongings. She is very stressed about her situation. She reports that her son and daughter refuse to help her clean the apartment. Her boyfriend lives out of town and is unable to help much either. Due to her chronic medical conditions she is unable to walk or stand long enough to complete the cleaning and laundry, etc. She had a fairly heated argument with her daughter this morning. She then went to lunch and ate some pizza. Upon returning home from lunch she had another argument with her daughter after which she developed some substernal chest pressure and headache. She also felt very dizzy and thought she may pass out. She told her boyfriend that she wasn't feeling well and he called 911. Patient reports feeling like "a cinder block was on my chest". She was given Nitro x 3 and ASA prior to arrival which improved her chest pain to "a brick on my chest". She still has some chest soreness as well as mild CONCEPCION and shortness of breath. She reports she is compliant with her medications. She did take some cold medication yesterday due to some congestion - Nyquil Severe She drinks several caffeinated sodas daily She reports having a stress test performed at [facility] in December 2022 which revealed a "leaky valve" but no concern for CAD. She had a cardiac catheterization at [facility] several years ago with no stents. Hypertensive in the ER ER Course: Carvedilol 25mg PO Amlodipine 5mg PO Labetalol 10mg IV Ativan 1mg PO Tylenol 650mg PO Trazodone 100mg PO Hydralazine 5mg IV Admission Exam Per Admitting Provider General: patient resting comfortably, NAD, non-toxic in appearance, AA&O x 4 Skin: warm, dry, intact, no rashes or lesions HEENT: NC/AT, PERRL, EOMI, anicteric sclera, conjunctiva without injection, external ear normal to inspection and nontender, nares patent, moist mucus membranes, dentition intact, no oropharyngeal lesions, neck supple, trachea midline, no LAD, no thyromegaly, no JVD Heart: +S1/S2, regular, no m/r/g Lungs: equal air entry bilaterally, no rales/rhonchi/wheezes Abd: +BS, soft, NT/ND, no masses/organomegaly/ascites, insulin pump and CGM on anterior abdomen Ext: warm, 2+ pulses in UE/LE bilaterally, no clubbing/cyanosis or edema Neuro: nonfocal, patient AA&O x 4, speech intact, no facial droop, moving all extremities on command with equal strength 5/5 Discharge Exam General: No acute distress, nondiaphoretic, well-developed, well-nourished. Very sleepy. Skin: The skin was without rashes, erythema, edema, or bruising. Cardiac: Regular rate and rhythm without murmurs gallops or rubs. Pulm: Clear to auscultation bilaterally without wheezes, rales or rhonchi. No retractions or accessory muscle use. Abdominal: Soft, nontender, nondistended. Bowel sounds present. Insulin pump and CGM on anterior abdomen. Neuro: A&O x3. No focal neurological deficits. Updated Medication List Medication Instructions Recorded Confirmed Type topiramate 100 mg tablet 100 mg PO BID 02/16/22 09/27/23 History topiramate 50 mg tablet 50 mg PO BID 02/16/22 09/27/23 History blood-glucose meter (OneTouch #1 ea 02/27/22 08/20/23 Rx Verio Meter) calcium carbonate 600 mg-vitamin 1 tab PO DAILY #30 tabs 03/05/22 09/27/23 Rx D3 10 mcg (400 unit) chewable tablet (Calcium 600 with Vitamin D3) acetaminophen-caffeine 500 mg-65 1 tab PO Q12H PRN Migraine Headache 04/28/22 09/27/23 History mg tablet (Excedrin Tension Headache) diphenhydramine HCl 25 mg capsule 25 mg PO TID PRN Allergy Symptoms 04/28/22 09/27/23 History (Benadryl) lamotrigine 200 mg tablet 200 mg PO BID 04/28/22 09/27/23 History gabapentin 100 mg capsule 200 mg PO TID 09/22/22 09/27/23 History citalopram 20 mg tablet 20 mg PO QAM 10/07/22 09/27/23 History apixaban 5 mg tablet 5 mg PO BID #180 tabs 10/16/22 09/27/23 Rx amitriptyline 10 mg tablet 10 mg PO DAILY 11/17/22 09/27/23 History Blood pressure Cuff #1 ea 11/26/22 08/20/23 Rx glucagon 3 mg/actuation nasal 3 mg intranasal ONCE #2 ea 11/26/22 09/28/23 Rx spray (Baqsimi) Diabetic Shoes #1 ea 11/27/22 08/20/23 Rx incontinence pads #30 ea 11/27/22 08/20/23 Rx cyanocobalamin (vitamin B-12) 1,000 mcg PO DAILY #30 tabs 02/11/23 09/27/23 Rx 1,000 mcg tablet ferrous sulfate 324 mg (65 mg 324 mg PO Q OTHER DAY #15 tabs 02/11/23 09/27/23 Rx iron) tablet,delayed release spironolactone 50 mg tablet 50 mg PO BID #60 tabs 02/17/23 09/28/23 Rx Dexcom G7 Sensor (blood-glucose #3 ea 02/23/23 08/20/23 Rx sensor) cholecalciferol (vitamin D3) 50 50 mcg PO DAILY #90 caps 02/25/23 09/27/23 Rx mcg (2,000 unit) capsule magnesium oxide 400 mg PO QAM #30 tabs 03/15/23 09/28/23 Rx oxybutynin chloride 5 mg 5 mg PO QAM #30 tabs 03/15/23 09/28/23 Rx tablet,extended release 24 hr pantoprazole 40 mg tablet,delayed 40 mg PO QAM #30 tabs 03/15/23 09/28/23 Rx release trazodone 100 mg tablet 100 mg PO HS PRN Insomnia #90 tabs 03/15/23 09/27/23 Rx chlorthalidone 25 mg tablet 25 mg PO DAILY 05/04/23 09/27/23 History aspirin 81 mg tablet,delayed 81 mg PO PM #30 tabs 06/07/23 09/27/23 Rx release (Speedy Low Dose Aspirin) ondansetron 4 mg disintegrating 4 mg PO Q6H PRN nausea and 06/07/23 09/28/23 Rx tablet vomiting #10 tabs blood sugar diagnostic (OneTouch #250 ea 06/11/23 08/20/23 Rx Verio test strips) Blood Pressure Cuff #1 ea 06/17/23 08/20/23 Rx acetone (urine) test (Ketone Urine #100 ea 06/22/23 08/20/23 Rx Test strips) blood-glucose meter (OneTouch #1 ea 06/22/23 08/20/23 Rx Verio Flex Meter) amlodipine 5 mg tablet 5 mg PO HS 08/16/23 09/27/23 History atorvastatin 40 mg tablet 40 mg PO HS 08/16/23 09/27/23 History clonidine HCl 0.2 mg tablet 0.2 mg PO BID 08/16/23 09/27/23 History lamotrigine 25 mg tablet 25 mg PO QPM 08/16/23 09/27/23 History thyroid (pork) 60 mg tablet ([employer] 60 mg PO DAILY 08/16/23 09/27/23 History Thyroid) blood sugar diagnostic (OneTouch #200 ea 08/25/23 Rx Verio test strips) insulin lispro 100 unit/mL 1 sliding scale dose subcut 08/25/23 09/28/23 Rx subcutaneous pen USEASDIRECTD #15 mL insulin lispro 100 unit/mL 45 unit (0.45 mL) continuous 08/25/23 09/27/23 Rx subcutaneous solution subcutaneous infusion ONCE #20 mL lancets 33 gauge #200 ea 08/25/23 Rx pen needle, diabetic 31 gauge x #100 ea 08/25/23 Rx 5/16" (Easy Comfort Pen [place]) Shower Chair #1 ea 09/13/23 Rx naproxen 500 mg tablet 1,000 mg PO DAILY PRN Pain 09/13/23 09/28/23 History oxycodone-acetaminophen 5 mg-325 1 tab PO Q4H PRN Pain 09/13/23 09/27/23 History mg tablet (Percocet) doxazosin 4 mg tablet 4 mg PO QAM 09/27/23 09/27/23 History carvedilol 25 mg tablet 25 mg PO BIDM #60 tabs 09/29/23 Rx Hospital Stay Data Consultations 09/27/23 22:32 ED Decision to Admit Stat Pending Results Patient Have Any Pending Studies at Discharge: No Discharge Instructions Given to Patient (Per Discharging Provider) Kaci, You were admitted to the hospital with severely elevated blood pressure and chest pain. Your chest pain was improved with nitroglycerin and aspirin, and your cardiac workup was negative. Therefore, your chest pain was likely due to your severely elevated blood pressure. Your carvedilol (Coreg) was increased from 12.5 mg twice daily to 25 mg twice daily. Your blood pressures have been controlled since then while hospitalized. Additionally, you had an x-ray of your left ankle due to left ankle pain, which showed an acute nondisplaced fracture of your fibular tip. You were given an ankle Aircast for this. Upon discharge from the hospital: * Continue your increased dosage of carvedilol 25 mg twice daily. This is to help control your blood pressure. This new dose has been sent to your pharmacy. * Continue the left ankle Aircast until seen by your PCP. * Your PCP appointment is scheduled for 10/19/2023 at 9:20 AM. At this appointment, your PCP can send a referral for you to see orthopedics for the fibular fracture if needed. Additionally, she can fill out the emotional support animal paperwork. * Continue all other medications as prescribed. Please return to the hospital if you experience any of the following: Chest pain, racing heartbeat, chest palpitations, shortness of breath, difficulty breathing, confusion, lightheadedness, dizziness, or passing out. It was a pleasure taking care of you while you were in the hospital, Arabella Valencia PA-C Total Time Total Time Spent Total Time Spent (In Minutes): Greater than 30 minutes spent completing this discharge process including direct patient care, medication reconciliation, documentation, review of labs and images, and coordination of care. Coding Level of Care Code 02605 INP/OBS DISCH >30 MIN Diagnoses Hypertensive emergency I16.1 Chest pain R07.9 Chest pain type: unspecified Left fibular fracture S82.402A
== END 2023-09-29 16:09 | disposition home or self-care (01) | DRG 305 ==
LOC: ED 19:34 → SUATTDRO 22:30 → INTOOBSV 22:30 → 2E 22:30

== ENCOUNTER 2024-02-24 22:11 | Observation (INO) ==
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
[2024-02-24 22:40] LABS: Basophils # (auto) 0.05 K/uL (0.00-0.20); Basophils % (auto) 0.4 %; Eosinophils # (auto) 0.37 K/uL (0.00-0.50); Eosinophils % (auto) 2.7 %; Hematocrit (blood only) 31.3 % (37.0-47.0); Hemoglobin 10.5 g/dl (12.0-16.0); Immature Granulocytes # (auto) 0.05 K/uL (0.01-0.20); Immature Granulocytes % (auto) 0.4 %; Lymphocytes # (auto) 2.11 K/uL (1.20-3.40); Lymphocytes % (auto) 15.5 %; Mean Corpuscular Hemoglobin 31.6 pg (25.0-34.0); Mean Corpuscular Hgb Conc 33.5 g/dL (32.0-36.0); Mean Corpuscular Volume 94.3 fL (80.0-100.0); Mean Platelet Volume 10.4 fL (9.4-12.4); Monocytes # (auto) 1.03 K/uL (0.11-0.59); Monocytes % (auto) 7.6 %; Neutrophils # (auto) 10.02 K/uL (1.40-6.50); Neutrophils % (auto) 73.4 %; Platelet Count 357 K/uL (130-400); RDW Coefficient of Variation 13.1 % (11.5-14.5); RDW Standard Deviation 45.2 fL (36.4-46.3); Red Blood Count 3.32 M/uL (4.20-5.40); White Blood Count 13.63 K/ul (4.8-10.8)
[2024-02-24] MEDS: ONDANSETRON INJ 2 MG/ML 2 ML VIAL IV STA (22:43)
[2024-02-24] MEDS: MoRPHine SULFATE 4 MG/ML 1 ML CARP\\VIAL IV STA (22:44)
[2024-02-24] MEDS: LABETALOL HCL IV 5 MG/ML 20ML IV STA (22:45)
[2024-02-24 22:54] LABS: Albumin Globulin Ratio 0.9 (0.9-2); Albumin Level 3.4 gm/dl (3.4-5.0); BUN Creatinine Ratio 6.3 (10-20); Bilirubin,Total 0.2 mg/dl (0.2-1.0); Calcium 8.2 mg/dl (8.6-10.3); Creatinine Clr Calc Pharmacy 19.1 ml/min; Globulin 3.7 gm/dl (2.5-4.0); Potassium 3.4 mmol/L (3.5-5.1); Total Protein 7.1 gm/dl (6.0-8.3)
[2024-02-24 23:03] LABS: Troponin I High Sensitivity 52.2 pg/ml (0-14)
[2024-02-24 23:31] LABS: INR 0.9 (0.9-1.1); Prothrombin Time 9.8 Seconds (9.0-12.0)
--- NOTE | 2024-02-24 23:43 | XRay Report ---
Exam(s): XR CXR 1 VIEW EXAM: XR Chest, 1 View CLINICAL HISTORY: Reason for exam: Chest pain, nonspecific. TECHNIQUE: Frontal view of the chest. COMPARISON: 09/27/2023 FINDINGS: Lungs: No consolidation. No overt edema. Pleural space: No pleural effusion. No pneumothorax. Heart: Cardiomegaly. IMPRESSION: Cardiomegaly. Electronically signed by: Jose Manuel Morales MD 02/24/24 23:42 PM
[2024-02-25] MEDS: MoRPHine SULFATE 4 MG/ML 1 ML CARP\\VIAL IV STA (00:49)
[2024-02-25] MEDS: SODIUM CHLORIDE 0.9% 1,000 ML IV ONE (01:16)
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
[2024-02-25] MEDS ORDERED: CARBOHYDRATES FOR HYPOGLYCEMIA PO PRN (03:40)
[2024-02-25] MEDS ORDERED: DEXTROSE 50% 50 ML SYRINGE IV PRN (03:40)
[2024-02-25] MEDS ORDERED: traZODone HCL 100 MG TAB PO PRN (03:40)
[2024-02-25] MEDS ORDERED: GLUCOSE 10 TAB/TUBE PO PRN (03:40)
[2024-02-25] MEDS ORDERED: GLUCOSE 40% GEL 15 GM TUBE PO PRN (03:40)
[2024-02-25] MEDS ORDERED: NON-FORMULARY MEDICATION (Insulin Lispro 100 unit/mL solution) continuous subcutaneous infusion SCH (03:40)
[2024-02-25] MEDS ORDERED: GLUCAGON FOR INJ 1 MG VIAL SQ PRN (03:40)
[2024-02-25] MEDS: NITROGLYCERIN SL 0.4 MG/TAB TAB SL PRN (04:16)
[2024-02-25] MEDS: ACETAMINOPHEN 325 MG TAB PO PRN (04:16)
[2024-02-25] MEDS ORDERED: INSULIN ASPART 100 UNITS/ML VIAL SC PRN (04:30)
[2024-02-25] MEDS: NITROGLYCERIN SL 0.4 MG/TAB TAB ONE (06:42)
[2024-02-25] MEDS: ARMOUR THYROID 30 MG TAB PO SCH (07:22)
--- NOTE | 2024-02-25 07:41 | Hospitalist Progress Note ---
Date of Service February 25, 2024 Assessment & Plan (1) Hypertensive emergency: Plan: 48yo female presenting with hypertensive emergency - BP 220/118 on arrival with chest discomfort as well as acute on chronic kidney injury. Stress secondary to family argument likely causing patient's acute elevation of blood pressure. Notable patient admitted JOSIAH Delgado on 201 from 01/22-01/25 after argument with children/children called polices as reported threatening to cut herself with a dish (denied at presentation to ER) and was admitted to medical floor initially d/t HTN and having ESTELITA. She has received Nitro and IV Labetalol thus far, BP initially improved to 167/90 in ER Was provided home amlodipine 5mg, coreg 25mg BID, chlorthalidone 25mg, spironolactone 50mg BID, clonidine 0.2mg BID, doxazosin 4mg this morning for BP 211/96 BP IMPROVED TO 139/77 per RN on recheck -->currently BP 126/78 and will continue medications as listed for now unless otherwise rec by nephrology Continue to monitor for IV vasoactive agents if needed but appears much improved Nephrology consult pending, appreciate recs/assistance. UA notable for 3+ protein ?holding doxazosin +/- diuretics pending UOP if not improving w/ improvement in HTN/renal function Patient reported she has been compliant with her medications however review outpt endo note this past week had NOT filled meds in past month. Also per PCP note/unable to rec medications as patient also not sure what meds to be on/issues WELL reporting issues with $$ and ability to fill medications/relying on her boyfriend who lives with/cares for his elderly parents "until they pass" * Placed consult for CM for complex issues. * Suspect compliance issues, stress, also possible rebound HTN w/ certain agents contributing as well as excessive fluid intake * She does have diabetic retinopathy and difficulty with vision/blindness and suspect she would benefit from pill packs (however ?didn't seem thrilled about this but does have her medications delivered) (2) Chronic kidney disease, stage 4 (severe): Plan: Patient with progression of her CKD. Baseline Cr ~ 3.3 with decreased UOP over several weeks with associated weight gain and increased LE edema Suspected progression of disease w. Type I DM and poorly controlled BP BUN/Cr 26/4.13 on admission UA w/ 3+ protein, 2+ glucose but also 1+ bacteria. CK NOT elevated, 143 Not on SHANEKA/ARB at baseline w/ CKD Recent rec to start NaHCO3 outpt nephrology but unclear if ever done but have resumed PO BID given CO2 20 on BMP Iron studies checked w/ CKD for alternative causes --> LOW iron/trans % sat LOW at 12, ferritin 81-- Venofer 200mg IV x 1 ordered, consider repeat dosing in AM/EPO? If never had c-scope likely should have for screening Monitor urine cx given +bacteria however no leuk est/WBC and denies burning/frequency but does have decreased output reported and leukocytosis however afebrile and will monitor to avoid further renal impairment. Bladder scan order in place Renal dose meds/avoid nephrotoxins--REDUCED gabapentin from 200mg TID to 100mg TID for now, can resume prior dosing if needed but believe too much medications for patient Monitor BMP in AM, uric acid, phos Nephrology consult pending, appreciate recs/assistance (3) Diabetes: Plan: Patient with Type-I DM. Last [id number]=8.7 on 02/10/24. Patient with insulin pump in place, prefers to manage it herself while admitted -Patient may manage insulin pump -Continue Gabapentin for neuropathy, reduced to 100mg TID as above. B12 recently 443 this month (4) Hypothyroidism: Plan: TSH checked and ELEVATED to 16, given increased LE edema/fatigue/anemia and recent check 11 just this month when "not filled in a month" will INCREASE to 90mg daily for now but if able to improve compliance w/ medications likely will be able to back down in dose in follow up but given sx decision to increase. (5) Bipolar 1 disorder: Plan: Hx Bipolar/anxiety/seizure disorder Recently worsened anxiety/social stressors and fighting with family at home, recent 201 earlier this month Support provided, CM/B[facility] consult in place Continues on home psych meds but suspect benefit from outpt f/u psychiatrist (6) Anxiety: Plan: as above Plan Factor V Leiden - chronic, remains on eliquis BID. Given suspected non- compliance with other medications as outlined and w/ LE edema will check venous doppler for completeness Hypothyroidism - chronic. TSH elevated at 9.67 at last admission with normal T4. Continue home [place] thyroid as above INCREASED, outpatient followup rec'd Dispo: continued inpatient stay, PT/OT consults placed Admission and Anticipated Discharge Date Admission Date: February 25, 2024 Supervising Physician Co-Signing Physician Notes The patient was not seen by me. The chart was reviewed. Case discussed with DAVID Ray. Agree with assessment and plan Subjective BRIDGE NOTE: ADMITTED THIS AFTERNOON Evaluated this afternoon. Sitting up in bed, just finished lunch. Reported issues with arguments with family causing distress and not having finances to pay for her medications. CM consulted for assistance to see what available to offer to improve compliance. BP improved from 211/96 this morning to 139/77 on recheck following AM HTN medications and presently 126/78. She reports decreased urine output recently, which could be from progression of her CKD. Nephrology consult pending, patient reports has not yet been seen today but also discussed started bicarb PO per prior recs and to continue unless they say otherwise as is acedemic on labs. Moved bowels 2 days ago, does sound like possible underlying gastroparesis. Leg edema, worse w/ dependency per patient. Inquired about compression stockings and she reports provider this past week recommended but that she hasn't gotten them and needs rx to have them covered for her but not sure which pharmacy it is. Discussed to let us know if she figures this out.. Takes aleeve ON OCCASION at home, but reports taking about 1x/month No fever/chills, chest pain or shortness of breath at this time. Anticipate inpatient stay for another 2-3 days pending course. Physical Exam 2 Physical Exam: General: patient resting comfortably, NAD, non-toxic in appearance, AA&O x 4 Skin: warm, dry, intact, no rashes or lesions HEENT: NC/AT, PERRL, EOMI, anicteric sclera, conjunctiva without injection, external ear normal to inspection and nontender, nares patent, moist mucus membranes, dentition intact, no oropharyngeal lesions, neck supple, trachea midline, no LAD, no thyromegaly, no JVD Heart: +S1/S2, regular, no m/r/g Lungs: equal air entry bilaterally, no rales/rhonchi/wheezes Abd: +BS but slightly slow, mild distension but soft/nontender, no guarding/rebound Ext: warm, 2+ pulses in UE/LE bilaterally, no clubbing/cyanosis, +non-pitting edema of bilateral LE to knees Neuro: nonfocal, patient AA&O x 4, speech intact, no facial droop, moving all extremities on command with equal strength 5/5 Results & Data Results & Data Vital Signs (Past 12 Hours) Vital Signs Temp Pulse Pulse Resp BP BP BP 02/25/24 07:21 36.7 C 78 18 211/96 H 02/25/24 05:51 167/75 H 02/25/24 05:34 189/96 H 02/25/24 05:23 80 02/25/24 05:10 181/100 H 02/25/24 05:00 181/100 H 02/25/24 04:55 184/91 H 02/25/24 04:37 190/97 H 02/25/24 03:42 36.7 C 78 8 L 207/110 H 02/25/24 03:00 74 17 167/90 H 02/25/24 02:58 74 02/25/24 02:00 75 14 171/89 H 02/25/24 00:33 78 16 183/96 H 02/24/24 23:30 71 16 181/93 H 02/24/24 23:00 73 18 173/93 H 02/24/24 22:45 85 02/24/24 22:45 84 203/105 H 02/24/24 22:30 71 19 203/105 H 02/24/24 22:20 02/24/24 22:15 37.2 C 85 22 220/120 H Pulse Ox O2 Del Method 02/25/24 07:21 97 Room Air 02/25/24 05:51 02/25/24 05:34 02/25/24 05:23 02/25/24 05:10 02/25/24 05:00 02/25/24 04:55 02/25/24 04:37 02/25/24 03:42 97 Room Air 02/25/24 03:00 95 Room Air 02/25/24 02:58 02/25/24 02:00 98 02/25/24 00:33 96 Room Air 02/24/24 23:30 98 02/24/24 23:00 95 02/24/24 22:45 02/24/24 22:45 02/24/24 22:30 94 Room Air 02/24/24 22:20 97 Room Air 02/24/24 22:15 98 Room Air Laboratory Results 02/25/24 07:51 02/25/24 07:51 Iron 25, TIBC 212, Unsaturated IBC 187, trans % sat 12%, ferritin 81 Troponin 52.2--> 48 TSH 16.9, T4 0.74, T3 2.70 UA 3+ protein, 2+ glucose, 1+ blood, 1+ bacteria Diagnostic Findings Chest X-Ray 02/24/24 22:18 Exam(s): XR CXR 1 VIEW EXAM: XR Chest, 1 View CLINICAL HISTORY: Reason for exam: Chest pain, nonspecific. TECHNIQUE: Frontal view of the chest. COMPARISON: 09/27/2023 FINDINGS: Lungs: No consolidation. No overt edema. Pleural space: No pleural effusion. No pneumothorax. Heart: Cardiomegaly. IMPRESSION: Cardiomegaly. 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
[2024-02-25] MEDS: carvediloL 25 MG TAB PO SCH (07:53)
[2024-02-25] MEDS: SPIRONOLACTONE 25 MG TAB PO SCH (07:53)
[2024-02-25] MEDS: APIXABAN 5 MG TABLET PO SCH (07:54)
[2024-02-25] MEDS: CHLORTHALIDONE 25 MG TAB PO SCH (07:54)
[2024-02-25] MEDS: CITALOPRAM 20 MG TAB PO SCH (07:54)
[2024-02-25] MEDS: cloNIDine HCL 0.1 MG TAB PO SCH (07:55)
[2024-02-25] MEDS: DOXAZosin MESYLATE 4 MG TAB PO SCH (07:55)
[2024-02-25] MEDS: GABAPENTIN 100 MG CAP PO SCH ×2 (07:55→20:36)
[2024-02-25] MEDS: lamoTRIgine 100 MG TAB PO SCH (07:56)
[2024-02-25] MEDS: OXYBUTYNIN CHLORIDE XL 5 MG TABCR PO SCH (07:56)
[2024-02-25] MEDS: PANTOprazole 40 MG TAB PO SCH (07:57)
[2024-02-25] MEDS: TOPIRAMATE 100 MG TAB PO SCH (07:57)
[2024-02-25] MEDS: TOPIRAMATE 50 MG TAB PO SCH (07:57)
[2024-02-25 08:06] LABS: Basophils # (auto) 0.03 K/uL (0.00-0.20); Basophils % (auto) 0.2 %; Eosinophils % (auto) 2.8 %; Hematocrit (blood only) 30.3 % (37.0-47.0); Hemoglobin 10.1 g/dl (12.0-16.0); Immature Granulocytes # (auto) 0.05 K/uL (0.01-0.20); Immature Granulocytes % (auto) 0.4 %; Lymphocytes # (auto) 1.66 K/uL (1.20-3.40); Lymphocytes % (auto) 11.7 %; Mean Corpuscular Hemoglobin 32.2 pg (25.0-34.0); Mean Corpuscular Hgb Conc 33.3 g/dL (32.0-36.0); Mean Corpuscular Volume 96.5 fL (80.0-100.0); Mean Platelet Volume 10.5 fL (9.4-12.4); Monocytes # (auto) 0.71 K/uL (0.11-0.59); Neutrophils # (auto) 11.34 K/uL (1.40-6.50); Neutrophils % (auto) 79.9 %; Platelet Count 332 K/uL (130-400); RDW Coefficient of Variation 13.2 % (11.5-14.5); RDW Standard Deviation 46.8 fL (36.4-46.3); Red Blood Count 3.14 M/uL (4.20-5.40); White Blood Count 14.19 K/ul (4.8-10.8)
[2024-02-25 08:20] LABS: BUN Creatinine Ratio 6.5 (10-20); Calcium 8.1 mg/dl (8.6-10.3); Creatinine Clr Calc Pharmacy 19.7 ml/min; Magnesium 2.1 mg/dl (1.7-2.4); Potassium 3.4 mmol/L (3.5-5.1)
[2024-02-25 08:35] LABS: Thyroid Stimulating Hormone 16.924 uIu/ml (0.300-4.500)
[2024-02-25 08:43] LABS: Appearance Urine Clear (Clear); Bacteria Urine Automated 1+ (None Seen); Bilirubin Urine Negative (Negative); Blood Urine 1+ (Negative); Cast Urine Automated 0-2 /lpf (0-2); Color Urine Yellow; Epithelial Cell Urine Auto 0-2 /hpf (0-2); Glucose Urine UA 2+ (Negative); Ketones Urine Negative (Negative); Leukocyte Esterase Urine Negative (Negative); Nitrite Urine Negative (Negative); Protein Urine 3+ (Negative); RBC Urine Automated 0-2 /hpf (0-2); Specific Gravity Urine 1.015 (1.000-1.030); Urobilinogen Urine Negative (Negative); WBC Urine Automated 0-5 /hpf (0-5)
[2024-02-25] MEDS: INSULIN, Rapid-Acting PUMP SCH (08:45)
[2024-02-25 09:10] LABS: T4 Free Thyroxine 0.74 ng/dl (0.61-1.60)
[2024-02-25] MEDS: POTASSIUM CHLORIDE 10 MEQ TABCR PO STA (11:06)
[2024-02-25] MEDS: SODIUM BICARBONATE 650 MG TAB PO SCH (11:06)
[2024-02-25 11:08] VITALS: RESP 18
--- NOTE | 2024-02-25 14:14 | Nephrology Consultation ---
Date of Consultation February 25, 2024 Assessment & Plan (1) ESTELITA (acute kidney injury): Advanced CKD complicated by hypertensive emergency. Non-oliguric. Electrolytes are acceptable. Slightly hypervolemic. No emergent indication for dialysis. KDIGO staging and classification and appropriate risk factor modification was reviewed. I reviewed the plan of care with Gabriella Montes De Oca PA-C. Continue oral NaHCO3. Medications are appropriately dosed for kidney function. (2) Chronic kidney disease, stage 4 (severe): Variable baseline creatinine 3.3-4.0 mg/dL. Proteinuria A3. Follows with Dr. Vargas as outpatient. CKD attributed to DKD and hypertension. (3) Hypertensive emergency: Improved with therapy. BP and BP dropped abruptly. Significant concern for non-compliance/non-adherence. Medications are being adjusted to avoid hypotension and bradycardia. PM dose of clonidine held. Amlodipine can be increased to 10 mg as needed. Doxazosin will be held in the AM. (4) Anemia: IV iron provided for iron deficiency. History of Present Illness Reason for Consultation: ESTELITA on CKD, HTN Requesting Physician: Noel Campbell MD Attending Physician: Noel Campbell MD History of Present Illness Kaci Gagnon is a 48 year-old female with CKD IV A3 attributed to diabetic kidney disease and resistant hypertension. She [place] [facility] [place] Dr. Vargas. Records from Dr. Vargas were reviewed today. Kidney function has unfortunately been declining at a fast rate. Kaci was recently admitted to [facility] with accelerated hypertension and ESTELITA. Serum creatinine during the admission improved to 3.8-4.2 mg/dL. She was discharged with a serum creatinine of 4.2 mg/dL. Creatinine improved to 3.3 mg/dL on laboratory testing obtained earlier this month. Thankfully, serum electrolytes have been normal. Kaci had presented to the hospital as a 302 admission. She was transferred to inpatient psych at [facility] from 01/22-01/25. During her hospitalization, BP was reasonably controlled with her home regimen of amlodipine, carvedilol, chlorthalidone, spironolactone, clonidine, and doxazosin. She appears to tolerate the medications reasonably well. However, there is concerning history of medication non-adherence and non-compliance. These concerns that been a major contributor to poorly controlled blood pressure. Psychiatric illness, notably bipolar disorder, has been a major contributing medical comorbidity. Kaci does not know what medications she is taking at home and we have not been able to verify an accurate medication reconciliation from her pharmacy with the medication list [facility] or her list from home. 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 CKD is complicated by anemia of chronic disease which has not required DEONNA therapy. Prior evaluation in the nephrology clinic included normal imaging of the kidneys including renal artery duplex, reassuring serologic evaluation and paraproteinemia screening. Renin and aldosterone testing was normal and imaging has not demonstrated any adrenal lesions. Kaci presented to the ER at [facility] yesterday for evaluation of chest pain. She was admitted with accelerated hypertension and acute kidney injury. Nitroglycerin was provided in the ER. Kaci was admitted and started on her home antihypertensive regimen. BP has improved to 126/78 mmHg. Creatinine is stable at 3.98 mg/dL. Urine microscopy is acellular. CT of the abdomen and pelvis obtained earlier this month demonstrated normal appearing kidneys. Allergies Allergy/AdvReac Type Severity Reaction Status Date / Time cat dander Allergy Intermediate ITCHY Verified 02/21/24 16:32 EYES,WHEEZING Penicillins Allergy Intermediate RED RASH Verified 02/21/24 16:32 AND LIP SWELLS morphine AdvReac Intermediate CHILLS, GI Verified 02/21/24 16:32 UPSET,VOMITING levothyroxine AdvReac Verified 02/21/24 16:32 metoprolol [From Lopressor] AdvReac Verified 02/21/24 16:32 Home Medications Medication Instructions Recorded Confirmed Type blood-glucose meter (OneTouch #1 ea 02/27/22 02/24/24 Rx Verio Meter) acetaminophen-caffeine 500 mg-65 1 tab PO Q12H PRN Migraine Headache 04/28/22 02/24/24 History mg tablet (Excedrin Tension Headache) diphenhydramine HCl 25 mg capsule 25 mg PO TID PRN Allergy Symptoms 04/28/22 02/24/24 History (Benadryl) Blood pressure Cuff #1 ea 11/26/22 02/24/24 Rx Diabetic Shoes #1 ea 11/27/22 02/24/24 Rx incontinence pads #30 ea 11/27/22 02/24/24 Rx Dexcom G7 Sensor (blood-glucose #3 ea 02/23/23 02/24/24 Rx sensor) aspirin 81 mg tablet,delayed 81 mg PO PM #30 tabs 06/07/23 02/24/24 Rx release (Speedy Low Dose Aspirin) blood sugar diagnostic (OneTouch #250 ea 06/11/23 02/24/24 Rx Verio test strips) Blood Pressure Cuff #1 ea 06/17/23 02/24/24 Rx acetone (urine) test (Ketone Urine #100 ea 06/22/23 02/24/24 Rx Test strips) blood-glucose meter (OneTouch #1 ea 06/22/23 02/24/24 Rx Verio Flex Meter) Shower Chair #1 ea 09/13/23 02/24/24 Rx naproxen 500 mg tablet 1,000 mg PO DAILY PRN Pain 09/13/23 02/24/24 History oxycodone-acetaminophen 5 mg-325 1 tab PO Q4H PRN Pain 09/13/23 02/24/24 History mg tablet (Percocet) blood sugar diagnostic (OneTouch #200 ea 01/19/24 02/24/24 Rx Verio test strips) insulin lispro 100 unit/mL 1 sliding scale dose subcut 01/19/24 02/24/24 Rx subcutaneous pen USEASDIRECTD #15 mL insulin lispro 100 unit/mL 100 unit continuous subcutaneous 01/19/24 02/24/24 Rx subcutaneous solution infusion ONCE #30 mL lancets 33 gauge #200 ea 01/19/24 02/24/24 Rx pen needle, diabetic 31 gauge x #100 ea 01/19/24 02/24/24 Rx 5/16" (Easy Comfort Pen [place]) amitriptyline 10 mg tablet 10 mg PO DAILY #30 tabs 01/28/24 02/24/24 Rx amlodipine 5 mg tablet 5 mg PO HS #30 tabs 01/28/24 02/24/24 Rx apixaban 5 mg tablet 5 mg PO BID #180 tabs 01/28/24 02/24/24 Rx atorvastatin 40 mg tablet 40 mg PO HS #30 tabs 01/28/24 02/24/24 Rx calcium 600 mg (as carbonate)-vit 1 tab PO DAILY #30 tabs 01/28/24 02/24/24 Rx D3 10 mcg (400 unit) chewable tablet (Calcium 600 with Vitamin D3) carvedilol 25 mg tablet 25 mg PO BIDM #60 tabs 01/28/24 02/24/24 Rx chlorthalidone 25 mg tablet 25 mg PO DAILY #30 tabs 01/28/24 02/24/24 Rx cholecalciferol (vitamin D3) 50 50 mcg PO DAILY #90 caps 01/28/24 02/24/24 Rx mcg (2,000 unit) capsule citalopram 20 mg tablet 20 mg PO QAM #30 tabs 01/28/24 02/24/24 Rx clonidine HCl 0.2 mg tablet 0.2 mg PO BID #30 tabs 01/28/24 02/24/24 Rx cyanocobalamin (vitamin B-12) 1,000 mcg PO DAILY #30 tabs 01/28/24 02/24/24 Rx 1,000 mcg tablet doxazosin 4 mg tablet 4 mg PO QAM #30 tabs 01/28/24 02/24/24 Rx ferrous sulfate 324 mg (65 mg 324 mg PO DAILY #90 tabs 01/28/24 02/24/24 Rx iron) tablet,delayed release gabapentin 100 mg capsule 200 mg (2 x 100 mg) PO TID #180 01/28/24 02/24/24 Rx caps glucagon 3 mg/actuation nasal 3 mg intranasal ONCE #2 ea 01/28/24 02/24/24 Rx spray (Baqsimi) lamotrigine 200 mg tablet 200 mg PO BID #60 tabs 01/28/24 02/24/24 Rx lamotrigine 25 mg tablet 25 mg PO QPM #30 tabs 01/28/24 02/24/24 Rx magnesium oxide 400 mg PO QAM #30 tabs 01/28/24 02/24/24 Rx ondansetron 4 mg disintegrating 4 mg PO Q6H PRN nausea and 01/28/24 02/24/24 Rx tablet vomiting #10 tabs oxybutynin chloride 5 mg 5 mg PO QAM #30 tabs 01/28/24 02/24/24 Rx tablet,extended release 24 hr pantoprazole 40 mg tablet,delayed 40 mg PO QAM #30 tabs 01/28/24 02/24/24 Rx release spironolactone 50 mg tablet 50 mg PO BID #60 tabs 01/28/24 02/24/24 Rx thyroid (pork) 60 mg tablet (STRINGED INSTRUMENT REPAIRER 60 mg PO DAILY #30 tabs 01/28/24 02/24/24 Rx Thyroid) topiramate 100 mg tablet 100 mg PO BID #60 tabs 01/28/24 02/24/24 Rx topiramate 50 mg tablet 50 mg PO BID #60 tabs 01/28/24 02/24/24 Rx trazodone 100 mg tablet 100 mg PO HS PRN Insomnia #90 tabs 01/28/24 02/24/24 Rx Patient History Medical History (Updated 02/25/24 @ 16:43 by Roc Duke DO) Anemia Left fibular fracture Left lower lobe pneumonia Hypertensive emergency Family history of ovarian cancer Type 1 diabetes HTN (hypertension) Stage 3b chronic kidney disease Iron deficiency anemia History of broken nose Hypertensive encephalopathy Hypertensive urgency Surgical History Hx of cardiac catheterization [facility]- Dr Aragon 5-10 yrs ago - no stents- not currently following w/ cardio Hx of cholecystectomy Hx of laparoscopy Hx of section X2 H/O tooth extraction S/P laparoscopic cholecystectomy S/P nasal surgery H/O esophagogastroduodenoscopy Hx of tubal ligation Family History Grandmother (Maternal) Stroke Diabetes Arthritis Anxiety Panic attacks Agoraphobia Uncle Hypertension Myocardial infarction Uncle Agoraphobia Rheumatoid arthritis Mother Hypertension FH: brain aneurysm Anxiety History of cholecystectomy Hypothyroid Diabetes History of colon resection Neuropathy Colorectal cancer Father Drug abuse Chronic mental illness Other Unknown family medical history Social History Smoking Status: Former smoker Tobacco Type: Cigarettes Age Started Using Tobacco: 22; Age Quit Using Tobacco: 22; packs per day: 0.10; Second Hand Exposure: No; Do You Dip or Chew Tobacco: No; Hx Alcohol Use: No Hx Substance Use: No Preferred Language: Chadian Communication Ability: Effective Visual Impairment: No Limitations Hearing Ability: Normal 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 Required: No Beliefs That Will Affect Care: None marital status: / marital status details: Currently engaged Current Living Situation: Family Current Living Situation Comment: With daughter and son current occupational status: disabled How many Children do You have: 3 How many Children do You have Comment: 3 children(1 ) Feels Safe at Home: No Childhood Exposure to Second-Hand Smoke: No Diet: regular during the past year weight has: remained stable Dental Care, Regularly: No Physical Activity Frequency: Daily Seatbelt Use: always Sunscreen Use: No Assistive Devices: None Review of Systems Review of Systems: All systems reviewed & are unremarkable except as noted in HPI & below Physical Exam Constitutional: well developed; no acute distress Eyes: no scleral abnormality and no corneal abnormality ENMT: Mouth: no oral mucosal abnormality and oral mucous membranes not dry Neck: normal visual inspection and trachea midline Respiratory: normal respiratory effort Auscultation: lungs clear to auscultation bilaterally Cardiovascular: Rate/Rhythm: regular rate Heart Sounds: normal S1 and normal S2 Extremities: no edema Musculoskeletal: Extremities: no cyanosis and no clubbing Skin: normal turgor; no lesions Neurologic: Motor/Sensory: no tremor and no asterixis Psychiatric: Orientation: alert and oriented x 3 Results & Data Vital Signs (Past 12 Hours) Vital Signs Temp Pulse Pulse Resp BP BP Pulse Ox 02/25/24 11:00 36.6 C 65 18 126/78 96 02/25/24 07:40 36.5 C 83 16 211/96 H 96 02/25/24 07:21 36.7 C 78 18 211/96 H 97 02/25/24 05:51 167/75 H 02/25/24 05:34 189/96 H 02/25/24 05:23 80 02/25/24 05:10 181/100 H 02/25/24 05:00 181/100 H 02/25/24 04:55 184/91 H 02/25/24 04:37 190/97 H 02/25/24 03:42 36.7 C 78 8 L 207/110 H 97 02/25/24 03:00 74 17 167/90 H 95 02/25/24 02:58 74 O2 Del Method 02/25/24 11:00 Room Air 02/25/24 07:40 Room Air 02/25/24 07:21 Room Air 02/25/24 05:51 02/25/24 05:34 02/25/24 05:23 02/25/24 05:10 02/25/24 05:00 02/25/24 04:55 02/25/24 04:37 02/25/24 03:42 Room Air 02/25/24 03:00 Room Air 02/25/24 02:58 Laboratory Results Laboratory Results - last 24 hr 02/24/24 02/25/24 02/25/24 22:23 00:07 04:45 WBC 13.63 H RBC 3.32 L Hgb 10.5 L Hct 31.3 L MCV 94.3 MCH 31.6 MCHC 33.5 RDW Std Deviation 45.2 RDW Coeff of Zak 13.1 Plt Count 357 MPV 10.4 Immature Gran % (Auto) 0.4 Neut % (Auto) 73.4 Lymph % (Auto) 15.5 Adams % (Auto) 7.6 Eos % (Auto) 2.7 Baso % (Auto) 0.4 Neut # (Auto) 10.02 H Lymph # (Auto) 2.11 Adams # (Auto) 1.03 H Eos # (Auto) 0.37 Baso # (Auto) 0.05 Immature Gran # (Auto) 0.05 PT 9.8 INR 0.9 Sodium 141 Potassium 3.4 L Chloride 113 H Carbon Dioxide 18 L Anion Gap 10 BUN 26 H Creatinine 4.13 H Est Cr Clr Drug Dosing 19.1 eGFR 12.67 BUN/Creatinine Ratio 6.3 L Glucose 201 H POC Glucose 178 H Calcium 8.2 L Magnesium Iron TIBC Unsaturated IBC Transferrin % Sat Ferritin Total Bilirubin 0.2 AST 13 ALT 7 Alkaline Phosphatase 103 Total Creatine Kinase Troponin I High Sens 52.2 H* 48.0 H Total Protein 7.1 Albumin 3.4 Globulin 3.7 Albumin/Globulin Ratio 0.9 Lipase 38 TSH Free T4 Free T3 2.70 Urine Color Urine Appearance Urine pH Ur Specific [place] Urine Protein Urine Glucose (UA) Urine Ketones Urine Blood Urine Nitrite Urine Bilirubin Urine Urobilinogen Ur Leukocyte Esterase Urine WBC (Auto) Urine RBC (Auto) U Hyaline Cast (Auto) U Epithel Cells (Auto) Urine Bacteria (Auto) 02/25/24 02/25/24 02/25/24 05:22 07:51 08:29 WBC 14.19 H RBC 3.14 L Hgb 10.1 L Hct 30.3 L MCV 96.5 MCH 32.2 MCHC 33.3 RDW Std Deviation 46.8 H RDW Coeff of Zak 13.2 Plt Count 332 MPV 10.5 Immature Gran % (Auto) 0.4 Neut % (Auto) 79.9 Lymph % (Auto) 11.7 Adams % (Auto) 5.0 Eos % (Auto) 2.8 Baso % (Auto) 0.2 Neut # (Auto) 11.34 H Lymph # (Auto) 1.66 Adams # (Auto) 0.71 H Eos # (Auto) 0.40 Baso # (Auto) 0.03 Immature Gran # (Auto) 0.05 PT INR Sodium 141 Potassium 3.4 L Chloride 113 H Carbon Dioxide 20 L Anion Gap 8 BUN 26 H Creatinine 3.98 H Est Cr Clr Drug Dosing 19.7 eGFR 13.25 BUN/Creatinine Ratio 6.5 L Glucose 191 H POC Glucose Calcium 8.1 L Magnesium 2.1 Iron 25 L TIBC 212 L Unsaturated IBC 187 Transferrin % Sat 12 L Ferritin 81.0 Total Bilirubin AST ALT Alkaline Phosphatase Total Creatine Kinase 143 Troponin I High Sens Total Protein Albumin Globulin Albumin/Globulin Ratio Lipase TSH 16.924 H Free T4 0.74 Free T3 Urine Color Yellow Urine Appearance Clear Urine pH 6.0 Ur Specific [place] 1.015 Urine Protein 3+ H Urine Glucose (UA) 2+ H Urine Ketones Negative Urine Blood 1+ H Urine Nitrite Negative Urine Bilirubin Negative Urine Urobilinogen Negative Ur Leukocyte Esterase Negative Urine WBC (Auto) 0-5 Urine RBC (Auto) 0-2 U Hyaline Cast (Auto) 0-2 U Epithel Cells (Auto) 0-2 Urine Bacteria (Auto) 1+ H Diagnostic Findings ABDOMEN AND PELVIS CT WITHOUT CONTRAST 02/11/24 TECHNIQUE: Multiaxial CT images of the abdomen and pelvis were performed without contrast. A dose lowering technique was utilized adhering to the principles of ALARA. COMPARISON STUDY: CT pelvis 01/31/2022 FINDINGS: Trace pericardial effusion. Clear lung bases. No pneumoperitoneum. The unenhanced spleen, moderately atrophic pancreas and adrenal glands are unremarkable. Cholecystectomy. Unremarkable liver. Mild cortical thinning of the kidneys with bilateral perinephric stranding. Duplicated collecting systems and ureters on the left incidentally noted. No urolith or hydronephrosis. Decompressed urinary bladder with wall thickening. IUD noted within the mid uterus. No adnexal mass lesions. Aorta and IVC are unr emarkable. No lymphadenopathy. No bowel obstruction or bowel wall thickening. No CT evidence of acute appendicitis. Unremarkable soft tissues. No acute fracture identified. Intervertebral disc space narrowing with spondylotic spurring and facet arthrosis noted throughout the thoracic and lumbar spine. Posterior disc osteophyte complex formations are most pronounced at T10-T11 and L5-S1. IMPRESSION: 1. No renal or ureteral calculi or hydronephrosis. 2. No bowel obstruction or bowel wall thickening. 3. Cholecystectomy. 4. Trace pericardial effusion. XR Chest, 1 View COMPARISON: 09/27/2023 FINDINGS: Lungs: No consolidation. No overt edema. Pleural space: No pleural effusion. No pneumothorax. Heart: Cardiomegaly. IMPRESSION: Cardiomegaly. PG Care Time/CCT Total # of Minutes Spent Total Time Spent with Patient: Total time spent is greater than 50% in coordination of care (as documented) at patient's floor/unit and/or counseling patient: Coding Level of Care Code 87956 IN/OBS CONSULT LVL 4,60M Diagnoses ESTELITA (acute kidney injury) N17.9 Chronic kidney disease, stage 4 (severe) N18.4 Hypertensive emergency I16.1 Anemia D64.9 Anemia type: unspecified type (4) Anemia Anemia type: unspecified type Qualified Code(s): D64.9 - Anemia, unspecified
[2024-02-25] MEDS: IRON SUCROSE 200 MG in SODIUM CHLORIDE 0.9% 100 ML IV ONE (14:15)
--- NOTE | 2024-02-25 15:27 | Ultrasound Report ---
EXAM: US Duplex Bilateral Lower Extremities Veins INDICATION: Swelling. TECHNIQUE: Real-time duplex ultrasound scan of the bilateral lower extremity veins integrating B-mode two-dimensional vascular structure, Doppler spectral analysis, color flow Doppler imaging and compression. COMPARISON: No relevant prior studies available. FINDINGS: Right deep veins: No DVT in the right common femoral, femoral or popliteal veins. The veins demonstrate normal color flow, are normally compressible, with normal phasic flow and/or augmentation response. Right superficial veins: No abnormality noted. No thrombus in the visualized right great saphenous vein. Left deep veins: No DVT in the left common femoral, femoral or popliteal veins. The veins demonstrate normal color flow, are normally compressible, with normal phasic flow and/or augmentation response. Left superficial veins: No abnormality noted. No thrombus in the visualized left great saphenous vein. Soft tissues: No abnormality noted. IMPRESSION: No deep venous thrombosis of either lower extremity. ACT 112: Negative or not required by law. Electronically signed by Lashanda Sampson 02-25-2024 3:27 PM
--- NOTE | 2024-02-25 15:40 | Communication Note ---
Date of Service: February 25, 2024 Ceftriaxone started given leukocytosis for urinary coverage and will f/u urine cx results. Venous doppler NEGATIVE for DVT, continues on current dose eliquis BID for factor V hx Will send for renin/aldosterone levels in AM given HTN/hypokalemia for eval underlying ?aldosteronism Did drop to 40s on telemetry, nauseated. Repeat BMP for this afternoon given continued diuretic use w/ BP medications. WIll reduce clonidine to 0.1mg BID but continue to prevent worsening HTN/rebound and continue to monitor on telemetry. Possible reduction in coreg but will continue for now w/ hold parameters. Doxazosin placed on HOLD. Will plan to continue to monitor BP, will have hydralazine available prn for significant elevations if needed. Notable amlodipine at 5mg dose, can consider increasing this agent if needed for additional control but suspect streamlining her medications/decreasing multiple medications/interactions would be helpful for compliance. Continue telemetry monitoring. Adj to thyroid replacement as previously outlined to start in AM /30. Nephrology consult pending HIGHLY RECOMMEND HAVING PATIENT BRING ALL HER MEDICATIONS/BOTTLES TO NEXT OFFICE VISIT TO VERIFY MEDS/DOSING AND NOT TAKING OLD MEDS/DOSES SHE SHOULD NOT BE TAKING. CM verified medications filled at the beginning of this month, however not about dosing. Review recent fills and appears Kaci had recent reduction in her clonidine to 0.1mg BID, amlodipine to 10mg daily as well as coreg 12.5mg BID.
[2024-02-25] MEDS ORDERED: hydrALAZINE HCL 20 MG/ML VIAL IV PRN (15:49)
[2024-02-25] MEDS: FAMOTIDINE 20MG IV PUSH 20 MG/5 ML SYR IV ONE (15:55)
[2024-02-25 16:11] LABS: BUN Creatinine Ratio 7.1 (10-20); Creatinine Clr Calc Pharmacy 18.6 ml/min; Potassium 3.9 mmol/L (3.5-5.1)
[2024-02-25 16:20] LABS: Amphetamines+Metham, Urine Neg (Neg); Barbiturates, Urine Neg (Neg); Benzodiazepine, Urine Neg (Neg); Cocaine, Urine Neg (Neg); Fentanyl, Urine Neg (Neg); MDMA (Ecstacy), Urine Neg (Neg); Marijuana, Urine Neg (Neg); Methadone, Urine Neg (Neg); Opiate, Urine Pos (Neg); Phencyclidine, Urine Neg (Neg)
[2024-02-25] MEDS: DOCUSATE SODIUM/SENNA 50/8.6MG TAB PO SCH (16:31)
[2024-02-25] MEDS: cefTRIAXone SODIUM 2,000 MG/50 ML BAG IV SCH (16:31)
[2024-02-25] MEDS: ONDANSETRON INJ 2 MG/ML 2 ML VIAL IV PRN (16:42)
[2024-02-25] MEDS: Continuous Glucose Monitor SCH (17:28)
[2024-02-25] MEDS: lamoTRIgine 25 MG TAB PO SCH (20:36)
[2024-02-25] MEDS: amLODIPine BESYLATE 5 MG TAB PO SCH (20:37)
[2024-02-25] MEDS: AMITRIPTYLINE HCL 10 MG TAB PO SCH (20:37)
[2024-02-25] MEDS: ASPIRIN 81 MG ECTAB PO SCH (20:37)
[2024-02-25] MEDS: ATORVASTATIN 40 MG TAB PO SCH (20:37)
[2024-02-25] MEDS ORDERED: cloNIDine HCL 0.1 MG TAB PO SCH (21:00)
[2024-02-25] MEDS ORDERED: amLODIPine BESYLATE 5 MG TAB PO SCH (21:00)
[2024-02-25] MEDS ORDERED: lamoTRIgine 25 MG TAB PO ONE (21:52)
[2024-02-25] MEDS ORDERED: TOPIRAMATE 50 MG TAB PO ONE (21:53)
[2024-02-25] MEDS: TOPIRAMATE 100 MG TAB PO ONE (23:06)
[2024-02-25] MEDS: lamoTRIgine 25 MG TAB PO ONE (23:06)
[2024-02-25] MEDS: TOPIRAMATE 50 MG TAB PO ONE (23:06)
[2024-02-25] MEDS: lamoTRIgine 100 MG TAB PO ONE (23:08)
[2024-02-26 02:42] VITALS: O2SAT 93
--- NOTE | 2024-02-26 04:52 | Communication Note ---
Date of Service: February 26, 2024 Notified by nursing that patient took her evening medications and vomited approximately 10 minutes afterwards, had bradycardia/vagal episode with the em esis. Patient had several bouts of emesis including into a trash can, some pills appeared to be in emesis but unable to determine which ones. Discussed with attending physician. As it was unable to determine which (if any) of her evening medications she had kept down, the decision was made to re-administer her anti- epileptic medications (Lamictal and Topiramate) after a dose of IV Zofran. Resident Activity Tracking Resident Involvement: Resident Care Provided Care Provided: Adult [facility]
[2024-02-26] MEDS: ARMOUR THYROID 30 MG TAB PO SCH (05:26)
[2024-02-26 07:14] LABS: Hematocrit (blood only) 27.5 % (37.0-47.0); Mean Corpuscular Hemoglobin 31.6 pg (25.0-34.0); Mean Corpuscular Hgb Conc 32.7 g/dL (32.0-36.0); Mean Corpuscular Volume 96.5 fL (80.0-100.0); Platelet Count 285 K/uL (130-400); RDW Coefficient of Variation 13.5 % (11.5-14.5); RDW Standard Deviation 47.8 fL (36.4-46.3); Red Blood Count 2.85 M/uL (4.20-5.40); White Blood Count 14.86 K/ul (4.8-10.8)
--- NOTE | 2024-02-26 07:32 | Electrocardiogram Report ---
Test Reason : Blood Pressure : */* mmHG Vent. Rate : 81 BPM Atrial Rate : 81 BPM P-R Int : 166 ms QRS Dur : 90 ms QT Int : 386 ms P-R-T Axes : 29 -31 130 degrees QTcB Int : 448 ms Normal sinus rhythm Left axis deviation Moderate voltage criteria for LVH, may be normal variant ( R in aVL , Scroggins product ) Septal infarct (cited on or before 16-Aug-2023) Abnormal ECG When compared with ECG of 11-Feb-2024 12:59, Premature ventricular complexes are no longer Present Confirmed by Sebastián Dean ([id number]) on 02/26/2024 7:32:24 AM Referred By: REFERRED SELF Confirmed By: Sebastián Dean
[2024-02-26 07:41] LABS: BUN Creatinine Ratio 7.3 (10-20); Creatinine Clr Calc Pharmacy 17.6 ml/min; Phosphorus 5.1 mg/dl (2.5-4.9); Uric Acid 5.1 mg/dl (2.6-7.2)
[2024-02-26 07:48] VITALS: BP 120/68; PULSE 76; TEMP 98.6
[2024-02-26] MEDS: Continuous Glucose Monitor SCH (08:11)
[2024-02-26 08:16] LABS: Potassium 3.9 mmol/L (3.5-5.1)
[2024-02-26] MEDS ORDERED: ARMOUR THYROID 30 MG TAB PO SCH (09:00)
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
--- NOTE | 2024-02-26 13:39 | Nephrology Progress Note ---
Date of Service February 26, 2024 Assessment & Plan (1) ESTELITA (acute kidney injury): Plan: Advanced CKD complicated by hypertensive emergency. Non-oliguric. Electrolytes are acceptable. Volume status acceptable. No emergent indication for dialysis. Medications are appropriately dosed for kidney function. Follow up with Dr. Vargas within 1-2 weeks of hospital discharge. Avoid SHANEKA/ARB. Avoid NSAIDS. (2) Chronic kidney disease, stage 4 (severe): Plan: Variable baseline creatinine 3.3-4.2 mg/dL. Proteinuria A3. Follows with Dr. Vargas as outpatient. CKD attributed to DKD and hypertension. (3) Hypertensive emergency: Plan: Improved with therapy. Significant concern for non-compliance/non-adherence. Medications are being adjusted to avoid hypotension and bradycardia. Doxazosin to be held pending outpatient follow up. Clonidine reduced to 0.1 mg daily. Continue chlorthalidone 25 mg daily and spironolactone 50 mg twice daily. The medical records suggests that Kaci is taking 5 mg of amlodipine daily but records from suggest that this may have recently been increased to 10 mg daily while she was hospitalized. She was encouraged to take 10 mg daily pending outpatient follow up. No change to carvedilol. (4) Anemia: Plan: IV iron provided yesterday for iron deficiency. Outpatient follow up to be arranged. Admission and Anticipated Discharge Date Admission Date: February 25, 2024 Subjective No acute events overnight. Kaci would like to go home today. Discharge home is being arranged. She became sick to her stomach and vomited overnight. This morning, she states that she feels well. BP normalized. Medication reconciliation was reviewed. Importance of close follow up stressed. I will arrange follow up with Dr. Vargas in the nephrology clinic within the next week. Review of Systems Review of Systems: All systems reviewed & are unremarkable except as noted in HPI & below Physical Exam Constitutional: well developed; no acute distress Eyes: no scleral abnormality and no corneal abnormality ENMT: Mouth: no oral mucosal abnormality and oral mucous membranes not dry Neck: normal visual inspection and trachea midline Respiratory: normal respiratory effort Auscultation: lungs clear to auscultation bilaterally Cardiovascular: Rate/Rhythm: regular rate Heart Sounds: normal S1 and normal S2 Extremities: no edema Musculoskeletal: Extremities: no cyanosis and no clubbing Skin: normal turgor; no lesions Neurologic: Motor/Sensory: no tremor and no asterixis Psychiatric: Orientation: alert and oriented x 3 Results & Data Vital Signs (Past 12 Hours) Vital Signs Temp Pulse Pulse Resp BP BP Pulse Ox 02/26/24 07:48 37.0 C 76 18 120/68 93 02/26/24 07:18 69 02/26/24 02:41 36.8 C 70 18 135/81 93 O2 Del Method 02/26/24 07:48 Room Air 02/26/24 07:18 02/26/24 02:41 Room Air Laboratory Results Laboratory Results - last 24 hr 02/25/24 02/25/24 02/25/24 08:29 15:35 19:23 WBC RBC Hgb Hct MCV MCH MCHC RDW Std Deviation RDW Coeff of Zak Plt Count MPV Sodium 137 Potassium 3.9 Chloride 111 H Carbon Dioxide 18 L Anion Gap 8 BUN 30 H Creatinine 4.21 H Est Cr Clr Drug Dosing 18.6 eGFR 12.38 BUN/Creatinine Ratio 7.1 L Glucose 122 H Uric Acid Calcium 8.0 L Phosphorus Magnesium Renin Activity Aldosterone 25-OH Vitamin D Total Procalcitonin 0.15 Urine Opiates Screen Pos H U Codeine Confrm GC/MS Pending Ur Morphine (GC/MS) Pending Ur Hydrocodone (GC/MS) Pending Ur Norhydrocodone Pending Ur Noroxycodone Pending Urine Oxycodone (GC/MS) Pending U Oxymorphone GC/MS Pending Ur Methadone, Qual Neg Ur Hydromorphone (GC/MS) Pending Urine Fentanyl Screen Neg Urine Barbiturates Neg Ur Phencyclidine (PCP) Neg U Amphetamin/Meth Scrn Neg MDMA (Ecstasy) Screen Neg U Benzodiazepines Scrn Neg Ur Cocaine Metabolite Neg U Marijuana (THC) Screen Neg Drug Screen Comment Pending Lyme Disease Screen 02/26/24 06:15 WBC 14.86 H RBC 2.85 L Hgb 9.0 L Hct 27.5 L MCV 96.5 MCH 31.6 MCHC 32.7 RDW Std Deviation 47.8 H RDW Coeff of Zak 13.5 Plt Count 285 MPV 11.0 Sodium 139 Potassium 3.9 Chloride 109 H Carbon Dioxide 19 L Anion Gap 11 BUN 32 H Creatinine 4.40 H Est Cr Clr Drug Dosing 17.6 eGFR 11.74 BUN/Creatinine Ratio 7.3 L Glucose 144 H Uric Acid 5.1 Calcium 8.0 L Phosphorus 5.1 H Magnesium 2.0 Renin Activity Pending Aldosterone Pending 25-OH Vitamin D Total 12.3 L Procalcitonin Urine Opiates Screen U Codeine Confrm GC/MS Ur Morphine (GC/MS) Ur Hydrocodone (GC/MS) Ur Norhydrocodone Ur Noroxycodone Urine Oxycodone (GC/MS) U Oxymorphone GC/MS Ur Methadone, Qual Ur Hydromorphone (GC/MS) Urine Fentanyl Screen Urine Barbiturates Ur Phencyclidine (PCP) U Amphetamin/Meth Scrn MDMA (Ecstasy) Screen U Benzodiazepines Scrn Ur Cocaine Metabolite U Marijuana (THC) Screen Drug Screen Comment Lyme Disease Screen Negative PG Care Time/CCT Total # of Minutes Spent Total Time Spent with Patient: Total time spent is greater than 50% in coordination of care (as documented) at patient's floor/unit and/or counseling patient: Coding Level of Care Code 23674 SUB INP/OBS CARE 3/50MIN Diagnoses ESTELITA (acute kidney injury) N17.9 Chronic kidney disease, stage 4 (severe) N18.4 Hypertensive emergency I16.1 Anemia D64.9 Anemia type: unspecified type (4) Anemia Anemia type: unspecified type Qualified Code(s): D64.9 - Anemia, unspecified
[2024-02-28 14:06] LABS: Codeine Urine NEGATIVE ng/mL (<50); Hydrocodone Urine NEGATIVE ng/mL (<50); Hydromor Urine NEGATIVE ng/mL (<50); Morphine Urine 1100 ng/mL (<50); Norhydrocodone Conf Ur NEGATIVE ng/mL (<50); Noroxycodone Urine NEGATIVE ng/mL (<50); Oxycodone Urine NEGATIVE ng/mL (<50); Oxymorph Urine NEGATIVE ng/mL (<50)
== END 2024-02-26 15:27 | disposition home or self-care (01) ==
LOC: ED 22:11 → 2S 02-25 02:21 → INTOOBSV 02-25 02:21 → SUATTDRO 02-25 02:21 → 2S 02-25 03:15

== ENCOUNTER 2024-06-12 15:42 | Inpatient (IN) ==
--- NOTE | 2024-06-12 16:23 | Emergency Department Note ---
Impression & Plan ESTELITA (acute kidney injury), Abdominal pain, Pericardial effusion, Pleural effusion ED Provider Note NAME: GILDARDO GILBERT AGE: 48 SEX: F : 1975 ARRIVES VIA: Ambulance INFORMANT: Patient ED PROVIDER(S): Robert Saab DO CHIEF COMPLAINT: Cannot have a bowel movement HPI: Patient is a 48-year-old female with a past medical history of diabetes, hypertension, stage V kidney disease who presents to the ER for inability to have a bowel movement for the past 3 weeks. She has been passing gas. She did have some intermittent vomiting. She threw up once today. Denies any dysuria, urgency, or frequency. She did have a fistula placed 3 weeks ago and since then no bowel movements. She was sent in by PCP. She started taking laxatives for the past 2 days with no improvement. ADDITIONAL HISTORY OBTAINED: Per HPI Chronic Medical/Social Conditions Affecting Care: Per HPI PAST MEDICAL HISTORY:See Below PAST SURGICAL HISTORY:See Below FAMILY HISTORY:See Below SOCIAL HISTORY:See Below HOME MEDICATIONS:See Below ALLERGIES:See Below VITALS:See Below PHYSICAL EXAMINATION: GENERAL: Sitting up in bed, alert, well appearing, well nourished, no distress, non-toxic EYE EXAM: normal conjunctiva. OROPHARYNX: no exudate, no erythema, lips, buccal mucosa, and tongue normal and mucous membranes are moist NECK: supple, no nuchal rigidity, no adenopathy, non-tender LUNGS: Clear to auscultation. Normal chest wall mechanics HEART: no murmurs, S1 normal and S2 normal ABDOMEN: abdomen soft, non-tender, normo-active bowel sounds, no masses, no rebound or guarding. BACK: Back is symmetrical on inspection and there is no deformity, no midline tenderness, no CVA tenderness. SKIN: no rashes and no bruising UPPER EXTREMITIES: upper extremities are grossly normal. LOWER EXTREMITIES: No pitting edema. NEURO EXAM: Normal sensorium, cranial nerves II-XII grossly intact, normal speech, no gross weakness of arms, no gross weakness of legs. MEDICAL DECISION MAKING: Patient is a 48-year-old female who presents ER for above-stated complaint. IV was established and blood work was obtained. Labs show no significant leukocytosis. Mild anemia at 9.7. BMP with a creatinine of 5.2 up from baseline of 4.2. She does have a metabolic acidosis which is likely secondary to the chronic kidney disease. LFTs and bilirubin were unremarkable. Lipase was normal. Patient was given IV labetalol due to the significantly elevated blood pressures. She was also given IV fluids. CT abdomen pelvis showed a small pericardial and pleural effusion. Case was discussed with the hospitalist for further evaluation management treatment in the setting of ESTELITA with her CKD Consults/Care Managements Discussions: Per MDM Triage Nursing notes reviewed. Limited review of prior medical records performed Vital Signs: reviewed and remarkable for HTN Differential diagnosis: Differential diagnoses includes but is not limited to gastritis, peptic ulcer disease, GERD, gallbladder disease, pancreatitis, small bowel obstruction, appendicitis, diverticulitis, hernia, urinary tract infection, torsion, perforation, trauma, infectious. ER treatment provided: See below Diagnostics interpreted by me include EKG and cardiac monitoring as listed below: -Cardiac Monitoring: An order was placed for continuous cardiac monitoring. The monitor shows a rate of 80 with sinus rhythm. -ECG: Sinus rhythm rate 85 Left axis No PVCs Septal Q waves QTc 461 -Laboratory studies:Interpreted by me as stated above in MDM and shown below. Imaging studies: Xrays: As interpreted by me:none CTs show: CT abdomen pelvis per my pleurae interpretation showed no obvious bowel obstruction CT abdomen pelvis per radiologist described above Procedures:none Critical Care: None Past Med/Surg History Problem List (Updated 06/12/24 @ 21:34 by Robert Saab DO) Pleural effusion (Acute) Pericardial effusion (Acute) Abdominal pain (Acute) ESTELITA (acute kidney injury) (Acute) Hypothyroidism Type 1 diabetes HTN (hypertension) Stage 5 chronic kidney disease due to hypertension Hypertensive emergency (Acute) 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 Metabolic acidosis CKD (chronic kidney disease) (Acute) ESTELITA (acute kidney injury) (Acute) Hyponatremia Diabetic autonomic 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 Proliferative retinopathy due to type 1 diabetes mellitus Loss of protective sensation of skin of foot History of retinal detachment L eye Hx-TIA (transient ischemic attack) History of CVA (cerebrovascular accident) Brain MRI Mar 2022 noting b/l thalamic stroke x 2 Vitamin D deficiency (Chronic) Recurrent syncope (Acute) Urine incontinence Menorrhagia B12 deficiency Proteinuria Asthma (Chronic) well controlled per pt rare res inh use Factor 5 Leiden mutation, heterozygous (Chronic) Depression (Chronic) Migraine (Chronic) GERD (gastroesophageal reflux disease) (Chronic) Anemia of chronic disease (Chronic) Endometriosis (Chronic) Steatohepatitis, nonalcoholic (Chronic) Seizure disorder epilepsy - last seizure 01/2022 @ [facility] per pt - follows w/ [facility] neuro last visit 09/2021 > grand [place] Hyperlipidemia Medical History Diabetes Chronic kidney disease, stage 4 (severe) Anemia Anxiety Hypothyroidism Bipolar 1 disorder Left fibular fracture Left lower lobe pneumonia Hypertensive emergency Family history of ovarian cancer Type 1 diabetes Stage 3b chronic kidney disease Iron deficiency anemia History of broken nose Hypertensive encephalopathy Hypertensive urgency Surgical History Hx of cardiac catheterization Hx of cholecystectomy Hx of laparoscopy Hx of section H/O tooth extraction S/P laparoscopic cholecystectomy S/P nasal surgery H/O esophagogastroduodenoscopy Hx of tubal ligation Family History Grandmother (Maternal) Stroke Diabetes Arthritis Anxiety Panic attacks Agoraphobia Uncle Hypertension Myocardial infarction Uncle Agoraphobia Rheumatoid arthritis Mother Hypertension FH: brain aneurysm Anxiety History of cholecystectomy Hypothyroid Diabetes History of colon resection Neuropathy Colorectal cancer Father Drug abuse Chronic mental illness Other Unknown family medical history Social History Smoking Status: Former smoker Tobacco Type: Cigarettes Age Started Using Tobacco: 22; Age Quit Using Tobacco: 22; packs per day: 0.10; Second Hand Exposure: No; Do You Dip or Chew Tobacco: No; Hx Alcohol Use: No Hx Substance Use: No Preferred Language: Hebrew Communication Ability: Effective Visual Impairment: No Limitations Hearing Ability: Normal Correctional Security Officer Required: No Beliefs That Will Affect Care: None marital status: / marital status details: Currently engaged Current Living Situation: Family Current Living Situation Comment: Pt states she lives in a second floor apartment with her two adult children current occupational status: disabled How many Children do You have: 3 How many Children do You have Comment: 3 children(1 ) Feels Safe at Home: Yes Safety Concerns: Feels Safe At This Time Childhood Exposure to Second-Hand Smoke: No Diet: regular during the past year weight has: remained stable Dental Care, Regularly: No Physical Activity Frequency: Daily Seatbelt Use: always Sunscreen Use: No Assistive Devices: None Allergies Allergies Allergy/AdvReac Type Severity Reaction Status Date / Time cat dander Allergy Intermediate ITCHY Verified 06/12/24 18:01 EYES,WHEEZING metformin Allergy Intermediate vominting Verified 06/12/24 18:01 Penicillins Allergy Intermediate RED RASH Verified 06/12/24 18:01 AND LIP SWELLS levothyroxine AdvReac Intermediate HAIR LOSS Verified 06/12/24 18:01 metoprolol [From Lopressor] AdvReac Intermediate HAIR LOSS Verified 06/12/24 18:01 morphine AdvReac Intermediate CHILLS, GI Verified 06/12/24 18:01 UPSET,VOMITING Home Meds Home Medications Medication Instructions Recorded Confirmed acetaminophen-caffeine 500 mg-65 1 tab PO Q12H PRN Migraine Headache 04/28/22 06/12/24 mg tablet (Excedrin Tension Headache) diphenhydramine HCl 25 mg capsule 25 mg PO TID PRN Allergy Symptoms 04/28/22 06/12/24 (Benadryl) naproxen 500 mg tablet 1,000 mg PO DAILY PRN Pain 09/13/23 06/12/24 glucagon 3 mg/actuation nasal 3 mg intranasal DIRECTED PRN 06/12/24 06/12/24 spray (Baqsimi) LOW BSG NEEDED insulin lispro 100 unit/mL 100 unit continuous subcutaneous 06/12/24 06/12/24 subcutaneous solution infusion CONTINOUS Previous Rx's Medication Instructions Recorded blood-glucose meter (OneTouch #1 ea 02/27/22 Verio Meter) Blood pressure Cuff #1 ea 11/26/22 Diabetic Shoes #1 ea 11/27/22 aspirin 81 mg tablet,delayed 81 mg PO PM #30 tabs 06/07/23 release (Speedy Low Dose Aspirin) Blood Pressure Cuff #1 ea 06/17/23 acetone (urine) test (Ketone Urine #100 ea 06/22/23 Test strips) blood-glucose meter (OneTouch #1 ea 06/22/23 Verio Flex Meter) Shower Chair #1 ea 09/13/23 blood sugar diagnostic (OneTouch #200 ea 01/19/24 Verio test strips) pen needle, diabetic 31 gauge x #100 ea 01/19/24 5/16" (Easy Comfort Pen [place]) amitriptyline 10 mg tablet 10 mg PO DAILY #30 tabs 01/28/24 apixaban 5 mg tablet 5 mg PO BID #180 tabs 01/28/24 atorvastatin 40 mg tablet 40 mg PO HS #30 tabs 01/28/24 calcium 600 mg (as carbonate)-vit 1 tab PO DAILY #30 tabs 01/28/24 D3 10 mcg (400 unit) chewable tablet (Calcium 600 with Vitamin D3) carvedilol 25 mg tablet 25 mg PO BIDM #60 tabs 01/28/24 chlorthalidone 25 mg tablet 25 mg PO DAILY #30 tabs 01/28/24 cholecalciferol (vitamin D3) 50 50 mcg PO DAILY #90 caps 01/28/24 mcg (2,000 unit) capsule citalopram 20 mg tablet 20 mg PO QAM #30 tabs 01/28/24 clonidine HCl 0.2 mg tablet 0.2 mg PO BID #30 tabs 01/28/24 cyanocobalamin (vitamin B-12) 1,000 mcg PO DAILY #30 tabs 01/28/24 1,000 mcg tablet doxazosin 4 mg tablet 4 mg PO QAM #30 tabs 01/28/24 ferrous sulfate 324 mg (65 mg 324 mg PO DAILY #90 tabs 01/28/24 iron) tablet,delayed release gabapentin 100 mg capsule 200 mg (2 x 100 mg) PO TID #180 01/28/24 caps lamotrigine 200 mg tablet 200 mg PO BID #60 tabs 01/28/24 lamotrigine 25 mg tablet 25 mg PO QPM #30 tabs 01/28/24 magnesium oxide 400 mg PO QAM #30 tabs 01/28/24 ondansetron 4 mg disintegrating 4 mg PO Q6H PRN nausea and 01/28/24 tablet vomiting #10 tabs oxybutynin chloride 5 mg 5 mg PO QAM #30 tabs 01/28/24 tablet,extended release 24 hr pantoprazole 40 mg tablet,delayed 40 mg PO QAM #30 tabs 01/28/24 release spironolactone 50 mg tablet 50 mg PO BID #60 tabs 01/28/24 thyroid (pork) 60 mg tablet (FOLDER STITCHER OPERATOR 60 mg PO DAILY #30 tabs 01/28/24 Thyroid) topiramate 100 mg tablet 100 mg PO BID #60 tabs 01/28/24 topiramate 50 mg tablet 50 mg PO BID #60 tabs 01/28/24 trazodone 100 mg tablet 100 mg PO HS PRN Insomnia #90 tabs 01/28/24 ergocalciferol (vitamin D2) 1,250 50,000 unit PO WEEKLY #12 caps 03/13/24 mcg (50,000 unit) capsule sodium bicarbonate 650 mg tablet 1,300 mg (2 x 650 mg) PO BID #120 03/13/24 tabs cyclobenzaprine 10 mg tablet 10 mg PO TID PRN muscle spasm #15 03/19/24 tabs Remote patient monitoring program #1 ea 03/24/24 Dexcom G7 Sensor (blood-glucose #3 ea 04/06/24 sensor) insulin lispro 100 unit/mL 1 sliding scale dose subcut 04/13/24 subcutaneous pen USEASDIRECTD #15 mL blood sugar diagnostic (Contour #70 ea 04/19/24 Next Test Strips) blood-glucose meter, wireless #1 ea 04/19/24 (Contour Next Link 2.4 kit) Shower Chair #1 ea 04/21/24 incontinence pads #120 ea 04/21/24 amlodipine 10 mg tablet 10 mg PO HS #90 tabs 05/15/24 blood sugar diagnostic (OneTouch #250 ea 05/24/24 Verio test strips) lancets 33 gauge #200 ea 05/24/24 Results & Data (ED) Vital Signs Vital Signs - 24 hr 06/12/24 15:52 06/12/24 16:27 06/12/24 16:36 Temperature 36.6 C Temperature Source Oral Pulse Rate 83 81 81 Pulse Rate [Left Apical] Respiratory Rate 24 22 24 Respiratory Effort / Characteristics Non-Labored Spontaneous Respiratory Depth Normal Respiratory Pattern Regular Blood Pressure 201/98 H Blood Pressure [Right Radial Artery] Blood Pressure Mean 132 Blood Pressure Mean [Right Radial Artery] Pulse Oximetry 99 Oxygen Delivery Method Room Air Sepsis Recent Fever Within 48 Hours No Sepsis New/Unexplained Change in Mental Status N/A Sepsis Action Taken by Nursing No Action Required 06/12/24 17:03 06/12/24 17:10 06/12/24 17:15 Temperature Temperature Source Pulse Rate 79 82 79 Pulse Rate [Left Apical] Respiratory Rate 24 22 Respiratory Effort / Characteristics Respiratory Depth Respiratory Pattern Blood Pressure Blood Pressure [Right Radial Artery] Blood Pressure Mean Blood Pressure Mean [Right Radial Artery] Pulse Oximetry Oxygen Delivery Method Sepsis Recent Fever Within 48 Hours Sepsis New/Unexplained Change in Mental Status Sepsis Action Taken by Nursing 06/12/24 17:18 06/12/24 17:30 06/12/24 17:36 Temperature Temperature Source Pulse Rate 79 79 Pulse Rate [Left Apical] Respiratory Rate 20 Respiratory Effort / Characteristics Respiratory Depth Respiratory Pattern Blood Pressure 186/100 H Blood Pressure [Right Radial Artery] Blood Pressure Mean 152 Blood Pressure Mean [Right Radial Artery] Pulse Oximetry Oxygen Delivery Method Sepsis Recent Fever Within 48 Hours Sepsis New/Unexplained Change in Mental Status Sepsis Action Taken by Nursing 06/12/24 17:46 06/12/24 17:54 06/12/24 18:00 Temperature Temperature Source Pulse Rate 79 79 Pulse Rate [Left Apical] 81 Respiratory Rate 21 20 24 Respiratory Effort / Characteristics Non-Labored Spontaneous Respiratory Depth Normal Respiratory Pattern Regular Blood Pressure 196/103 H Blood Pressure [Right Radial Artery] 202/111 H Blood Pressure Mean 134 Blood Pressure Mean [Right Radial Artery] 141 Pulse Oximetry 97 95 93 Oxygen Delivery Method Room Air Room Air Room Air Sepsis Recent Fever Within 48 Hours Sepsis New/Unexplained Change in Mental Status Sepsis Action Taken by Nursing 06/12/24 18:12 06/12/24 18:25 06/12/24 18:30 Temperature Temperature Source Pulse Rate 82 80 69 Pulse Rate [Left Apical] Respiratory Rate 20 19 Respiratory Effort / Characteristics Respiratory Depth Respiratory Pattern Blood Pressure 196/103 H 176/90 H Blood Pressure [Right Radial Artery] Blood Pressure Mean 118 Blood Pressure Mean [Right Radial Artery] Pulse Oximetry 96 94 Oxygen Delivery Method Room Air Room Air Sepsis Recent Fever Within 48 Hours Sepsis New/Unexplained Change in Mental Status Sepsis Action Taken by Nursing Laboratory Data 06/12/24 17:10 06/12/24 Unknown Lab Results 06/12/24 Range/Units 17:10 WBC 9.09 (4.8-10.8) K/ul RBC 3.07 L (4.20-5.40) M/uL Hgb 9.7 L (12.0-16.0) g/dl Hct 29.3 L (37.0-47.0) % MCV 95.4 (80.0-100.0) fL MCH 31.6 (25.0-34.0) pg MCHC 33.1 (32.0-36.0) g/dL RDW Std Deviation 45.5 (36.4-46.3) fL RDW Coeff of Zak 13.1 (11.5-14.5) % Plt Count 282 (130-400) K/uL MPV 9.8 (9.4-12.4) fL Immature Gran % (Auto) 0.3 % Neut % (Auto) 74.7 % Lymph % (Auto) 16.5 % Story % (Auto) 5.5 % Eos % (Auto) 2.6 % Baso % (Auto) 0.4 % Neut # (Auto) 6.78 H (1.40-6.50) K/uL Lymph # (Auto) 1.50 (1.20-3.40) K/uL Story # (Auto) 0.50 (0.11-0.59) K/uL Eos # (Auto) 0.24 (0.00-0.50) K/uL Baso # (Auto) 0.04 (0.00-0.20) K/uL Immature Gran # (Auto) 0.03 (0.01-0.20) K/uL Administered Medications Lactated Ringer's (Lr) 1,000 mls @ 125 mls/hr IV .Q8H ROCHELLE Stop: 06/13/24 18:59 Last Admin: 06/12/24 19:09 Dose: 125 mls/hr Documented By: [facility] Discontinued Medications Sodium Chloride (Nss) 1,000 mls @ 999 mls/hr IV .Q1H1M ONE Stop: 06/12/24 18:48 Last Admin: 06/12/24 18:34 Dose: Not Given Documented By: [facility] Labetalol HCl (Labetalol Hcl Iv 5 Mg/Ml 20ml) 10 mg IV NOW STA Stop: 06/12/24 18:10 Last Admin: 06/12/24 18:25 Dose: 10 mg Documented By: [facility] Imaging Data Radiologist's Impression: Abdomen/Pelvis CT 06/12/24 16:18 INDICATION: Abdominal pain. COMPARISON: CT from 03/19/2024.. TECHNIQUE: Axial CT images of the abdomen and pelvis were obtained without IV contrast administration. Coronal and sagittal reformations were reviewed. FINDINGS: Subsegmental atelectasis in the lung bases. Trace left pleural effusion. Small pericardial effusion. Cardiomegaly. The gallbladder is surgically absent. The liver, spleen, pancreas and adrenal glands appear unremarkable. No renal calculus or hydronephrosis. No evidence of bowel obstruction/colitis/appendicitis. Mild amount of retained colonic stool. No free air. No drainable fluid collection. The urinary bladder appears unremarkable. No acute osseous abnormality evident. IMPRESSION: 1. Mild retained colonic stool. 2. Subsegmental atelectasis in the lung bases. Trace left pleural effusion. Small pericardial effusion. Electronically signed by Jaron Hair 06-12-2024 5:25 PM Discharge Plan Visit Data Chief Complaint: Abdominal Pain ED Provider: Robert Saab Discharge Problem: ESTELITA (acute kidney injury), Abdominal pain, Pericardial effusion, Pleural effusion Patient Disposition: Admitted As Inpatient Discharge Instructions Interventions: ED Discharge Assessment Last Done: 06/12/24 20:24 Discharge Problem: Abdominal pain Qualifiers: Abdominal location: unspecified location Qualified Code(s): R10.9 - Unspecified abdominal pain
[2024-06-12 17:21] LABS: Albumin Globulin Ratio 1.1 (0.9-2); Albumin Level 3.9 gm/dl (3.4-5.0); BUN Creatinine Ratio 8.3 (10-20); Bilirubin,Total 0.5 mg/dl (0.2-1.0); Calcium 9.4 mg/dl (8.6-10.3); Creatinine Clr Calc Pharmacy 14.1 ml/min; Globulin 3.5 gm/dl (2.5-4.0); Potassium 4.5 mmol/L (3.5-5.1); Total Protein 7.4 gm/dl (6.0-8.3)
--- NOTE | 2024-06-12 17:26 | CT Scan Report ---
INDICATION: Abdominal pain. COMPARISON: CT from 03/19/2024.. TECHNIQUE: Axial CT images of the abdomen and pelvis were obtained without IV contrast administration. Coronal and sagittal reformations were reviewed. FINDINGS: Subsegmental atelectasis in the lung bases. Trace left pleural effusion. Small pericardial effusion. Cardiomegaly. The gallbladder is surgically absent. The liver, spleen, pancreas and adrenal glands appear unremarkable. No renal calculus or hydronephrosis. No evidence of bowel obstruction/colitis/appendicitis. Mild amount of retained colonic stool. No free air. No drainable fluid collection. The urinary bladder appears unremarkable. No acute osseous abnormality evident. IMPRESSION: 1. Mild retained colonic stool. 2. Subsegmental atelectasis in the lung bases. Trace left pleural effusion. Small pericardial effusion. Electronically signed by Jaron Hair 06-12-2024 5:25 PM
[2024-06-12 17:29] LABS: Basophils # (auto) 0.04 K/uL (0.00-0.20); Basophils % (auto) 0.4 %; Eosinophils # (auto) 0.24 K/uL (0.00-0.50); Eosinophils % (auto) 2.6 %; Hematocrit (blood only) 29.3 % (37.0-47.0); Hemoglobin 9.7 g/dl (12.0-16.0); Immature Granulocytes # (auto) 0.03 K/uL (0.01-0.20); Immature Granulocytes % (auto) 0.3 %; Lymphocytes % (auto) 16.5 %; Mean Corpuscular Hemoglobin 31.6 pg (25.0-34.0); Mean Corpuscular Hgb Conc 33.1 g/dL (32.0-36.0); Mean Corpuscular Volume 95.4 fL (80.0-100.0); Mean Platelet Volume 9.8 fL (9.4-12.4); Monocytes % (auto) 5.5 %; Neutrophils # (auto) 6.78 K/uL (1.40-6.50); Neutrophils % (auto) 74.7 %; Platelet Count 282 K/uL (130-400); RDW Coefficient of Variation 13.1 % (11.5-14.5); RDW Standard Deviation 45.5 fL (36.4-46.3); Red Blood Count 3.07 M/uL (4.20-5.40); White Blood Count 9.09 K/ul (4.8-10.8)
--- NOTE | 2024-06-12 18:21 | History & Physical Report ---
Date of Service June 12, 2024 Assessment & Plan (1) HTN (hypertension): Plan: Kaci is a 48-year-old female with past medical history of type I DM, stage V CKD, hypertension, hypothyroidism, seizure disorder, steatohepatitis, factor V Leiden who presents to the emergency department with the admittedly have a bowel movement x 3 weeks, intermittent vomiting and vomiting. Hypertensive emergency Suspect due to medication noncompliance and not taking medications due to recent nausea Multiple prior episodes due to home medication regimen noncompliance, improved and generally with good control on her outpatient regimen when able to tolerate/fill this BP greater than 200 with ESTELITA on CKD Patient reports that she has been constipated recently with some nausea and vomiting has not been able to keep her medications down due to this Labetalol x 1 ordered Antiemetics ordered, home medications ordered Nausea/vomiting CTA/P without evidence of bowel obstruction. Mild retained colonic stool. Subsegmental atelectasis in the lung bases, trace left pleural effusion, small pericardial effusion. Gallbladder surgically absent. No acute liver/adrenal/pancreas abnormalities Patient feels with some bloating and discomfort in the right lower quadrant lik lupe stool burden. MiraLAX, bisacodyl, milk of magnesia ordered. Encouraged oral p.o. intake and 1 L of supplemental fluids ordered No evidence of infectious disease on imaging CKD 5 Pending kidney transplant evaluation at [facility] Baseline creatinine around 44.5, EGFR 1114 Creatinine above baseline, 5.2 on admission History of multiple recurrent ESTELITA's Left brachiocephalic AV fistula placed 04/03/2024. Chlorthalidone held Continue sodium bicarbonate LR x 1 supplemental fluid ordered. Continue LR maintenance until tolerating p.o. Hypertension Spironolactone/chlorthalidone held for ESTELITA Continue clonidine, carvedilol, amlodipine Continue aspirin daily Type I DM BSG 131 Patient prefers not to switch to inpatient glycemic management May continue home continuous infusion pump. If outside of goal range of [id number] switch to hospital controlled basal bolus CF 1-25, basal rate 0.8 units/h, total insulin dose 45 units/day. Has severe proliferative retinopathy of both eyes and bilateral neuropathy in the feet. Glucose checks AC/at bedtime, or every 4 hours if NPO Factor V Leiden Continue Eliquis 5 mg p.o. twice daily Hypothyroidism Uses pork 60 mg thyroid tablet. May use this if brought in and verified, patient reports allergy to brand Synthroid Anxiety/depression/seizure disorder: Lamotrigine continued. She typically takes 200 mg twice daily with 25 mg additional in the evening however has been intermittently compliant and not taking her medications consistently. DVT prophylaxis: Anticoagulated Diet: Heart healthy, DM1, renal CODE STATUS: Full code Disposition: PCU (2) Type 1 diabetes: (3) Hypothyroidism: (4) Stage 5 chronic kidney disease due to hypertension: (5) Hypertensive emergency: (6) 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: (7) CKD (chronic kidney disease): (8) ESTELITA (acute kidney injury): History of Present Illness Primary Care Provider: Tran Montiel, DO +gas, no BM x3 weeks Nausea worse last few days. No vomiting Drinking a lot of fluid. Diminished appetite but eating 'ok.' Trying to eat greasy foods like a whopper to see if that could get her bowel movements going Still voiding normally. No change in color or frequency. Normally pees a few times a day 'a normal amount' No fevers, chills or sweats +headache with nausea, none currently Chronic vision loss, R eye seems worse in the last few days No chest pain or chest pressure No shortness of breath or dyspnea Some flank pain with vomiting, nothing 'like in February.' Took BP meds this morning but threw all of her medicines up. Has not been able to keep medication sdown 'maybe a dose late yesterday.' [place] to remain in until 06/27/24. Wound care consulted Medical History: Reviewed Medications: Reviewed Surgical History: Reviewed Family history: Reviewed Allergies: Reviewed. Allergic to morphine, penicilline, synthroid, lopressor, and paper tape. Metformin makes her nauseus Social History: No tobacco, no ETOH use Code Status: Full Code Allergies Allergy/AdvReac Type Severity Reaction Status Date / Time cat dander Allergy Intermediate ITCHY Verified 06/12/24 18:01 EYES,WHEEZING metformin Allergy Intermediate vominting Verified 06/12/24 18:01 Penicillins Allergy Intermediate RED RASH Verified 06/12/24 18:01 AND LIP SWELLS levothyroxine AdvReac Intermediate HAIR LOSS Verified 06/12/24 18:01 metoprolol [From Lopressor] AdvReac Intermediate HAIR LOSS Verified 06/12/24 18:01 morphine AdvReac Intermediate CHILLS, GI Verified 06/12/24 18:01 UPSET,VOMITING Home Medications Medication Instructions Recorded Confirmed Type blood-glucose meter (OneTouch #1 ea 02/27/22 06/01/24 Rx Verio Meter) acetaminophen-caffeine 500 mg-65 1 tab PO Q12H PRN Migraine Headache 04/28/22 06/12/24 History mg tablet (Excedrin Tension Headache) diphenhydramine HCl 25 mg capsule 25 mg PO TID PRN Allergy Symptoms 04/28/22 06/12/24 History (Benadryl) Blood pressure Cuff #1 ea 11/26/22 06/01/24 Rx Diabetic Shoes #1 ea 11/27/22 06/01/24 Rx aspirin 81 mg tablet,delayed 81 mg PO PM #30 tabs 06/07/23 06/12/24 Rx release (Speedy Low Dose Aspirin) Blood Pressure Cuff #1 ea 06/17/23 06/01/24 Rx acetone (urine) test (Ketone Urine #100 ea 06/22/23 06/01/24 Rx Test strips) blood-glucose meter (OneTouch #1 ea 06/22/23 06/01/24 Rx Verio Flex Meter) Shower Chair #1 ea 09/13/23 06/01/24 Rx naproxen 500 mg tablet 1,000 mg PO DAILY PRN Pain 09/13/23 06/12/24 History blood sugar diagnostic (OneTouch #200 ea 01/19/24 06/01/24 Rx Verio test strips) pen needle, diabetic 31 gauge x #100 ea 01/19/24 06/01/24 Rx 5/16" (Easy Comfort Pen [place]) amitriptyline 10 mg tablet 10 mg PO DAILY #30 tabs 01/28/24 06/12/24 Rx apixaban 5 mg tablet 5 mg PO BID #180 tabs 01/28/24 06/12/24 Rx atorvastatin 40 mg tablet 40 mg PO HS #30 tabs 01/28/24 06/12/24 Rx calcium 600 mg (as carbonate)-vit 1 tab PO DAILY #30 tabs 01/28/24 06/12/24 Rx D3 10 mcg (400 unit) chewable tablet (Calcium 600 with Vitamin D3) carvedilol 25 mg tablet 25 mg PO BIDM #60 tabs 01/28/24 06/12/24 Rx chlorthalidone 25 mg tablet 25 mg PO DAILY #30 tabs 01/28/24 06/12/24 Rx cholecalciferol (vitamin D3) 50 50 mcg PO DAILY #90 caps 01/28/24 06/12/24 Rx mcg (2,000 unit) capsule citalopram 20 mg tablet 20 mg PO QAM #30 tabs 01/28/24 06/12/24 Rx clonidine HCl 0.2 mg tablet 0.2 mg PO BID #30 tabs 01/28/24 06/12/24 Rx cyanocobalamin (vitamin B-12) 1,000 mcg PO DAILY #30 tabs 01/28/24 06/12/24 Rx 1,000 mcg tablet doxazosin 4 mg tablet 4 mg PO QAM #30 tabs 01/28/24 06/12/24 Rx ferrous sulfate 324 mg (65 mg 324 mg PO DAILY #90 tabs 01/28/24 06/12/24 Rx iron) tablet,delayed release gabapentin 100 mg capsule 200 mg (2 x 100 mg) PO TID #180 01/28/24 06/12/24 Rx caps lamotrigine 200 mg tablet 200 mg PO BID #60 tabs 01/28/24 06/12/24 Rx lamotrigine 25 mg tablet 25 mg PO QPM #30 tabs 01/28/24 06/12/24 Rx magnesium oxide 400 mg PO QAM #30 tabs 01/28/24 06/12/24 Rx ondansetron 4 mg disintegrating 4 mg PO Q6H PRN nausea and 01/28/24 06/12/24 Rx tablet vomiting #10 tabs oxybutynin chloride 5 mg 5 mg PO QAM #30 tabs 01/28/24 06/12/24 Rx tablet,extended release 24 hr pantoprazole 40 mg tablet,delayed 40 mg PO QAM #30 tabs 01/28/24 06/12/24 Rx release spironolactone 50 mg tablet 50 mg PO BID #60 tabs 01/28/24 06/12/24 Rx thyroid (pork) 60 mg tablet ([employer] 60 mg PO DAILY #30 tabs 01/28/24 06/12/24 Rx Thyroid) topiramate 100 mg tablet 100 mg PO BID #60 tabs 01/28/24 06/12/24 Rx topiramate 50 mg tablet 50 mg PO BID #60 tabs 01/28/24 06/12/24 Rx trazodone 100 mg tablet 100 mg PO HS PRN Insomnia #90 tabs 01/28/24 06/12/24 Rx ergocalciferol (vitamin D2) 1,250 50,000 unit PO WEEKLY #12 caps 03/13/24 06/12/24 Rx mcg (50,000 unit) capsule sodium bicarbonate 650 mg tablet 1,300 mg (2 x 650 mg) PO BID #120 03/13/24 06/12/24 Rx tabs cyclobenzaprine 10 mg tablet 10 mg PO TID PRN muscle spasm #15 03/19/24 06/12/24 Rx tabs Remote patient monitoring program #1 ea 03/24/24 06/01/24 Rx Dexcom G7 Sensor (blood-glucose #3 ea 04/06/24 06/01/24 Rx sensor) insulin lispro 100 unit/mL 1 sliding scale dose subcut 04/13/24 06/12/24 Rx subcutaneous pen USEASDIRECTD #15 mL blood sugar diagnostic (Contour #70 ea 04/19/24 06/01/24 Rx Next Test Strips) blood-glucose meter, wireless #1 ea 04/19/24 06/01/24 Rx (Contour Next Link 2.4 kit) Shower Chair #1 ea 04/21/24 06/01/24 Rx incontinence pads #120 ea 04/21/24 06/01/24 Rx amlodipine 10 mg tablet 10 mg PO HS #90 tabs 05/15/24 06/12/24 Rx blood sugar diagnostic (OneTouch #250 ea 05/24/24 06/01/24 Rx Verio test strips) lancets 33 gauge #200 ea 05/24/24 06/01/24 Rx glucagon 3 mg/actuation nasal 3 mg intranasal DIRECTED PRN 06/12/24 06/12/24 History spray (Baqsimi) LOW BSG NEEDED insulin lispro 100 unit/mL 100 unit continuous subcutaneous 06/12/24 06/12/24 History subcutaneous solution infusion CONTINOUS Past Med/Surg History Problem List (Updated 05/26/24 @ 10:27 by Ravindra Montes De Oca PA-C) Hypothyroidism Type 1 diabetes HTN (hypertension) Stage 5 chronic kidney disease due to hypertension Hypertensive emergency (Acute) 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 Metabolic acidosis CKD (chronic kidney disease) (Acute) ESTELITA (acute kidney injury) (Acute) Hyponatremia Diabetic autonomic 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 Proliferative retinopathy due to type 1 diabetes mellitus Loss of protective sensation of skin of foot History of retinal detachment L eye Hx-TIA (transient ischemic attack) History of CVA (cerebrovascular accident) Brain MRI Mar 2022 noting b/l thalamic stroke x 2 Vitamin D deficiency (Chronic) Recurrent syncope (Acute) Urine incontinence Menorrhagia B12 deficiency Proteinuria Asthma (Chronic) well controlled per pt rare res inh use Factor 5 Leiden mutation, heterozygous (Chronic) Depression (Chronic) Migraine (Chronic) GERD (gastroesophageal reflux disease) (Chronic) Anemia of chronic disease (Chronic) Endometriosis (Chronic) Steatohepatitis, nonalcoholic (Chronic) Seizure disorder epilepsy - last seizure 01/2022 @ [facility] per pt - follows w/ [facility] neuro last visit 09/2021 > grand mal Hyperlipidemia Medical History Diabetes Chronic kidney disease, stage 4 (severe) Anemia Anxiety Hypothyroidism Bipolar 1 disorder Left fibular fracture Left lower lobe pneumonia Hypertensive emergency Family history of ovarian cancer Type 1 diabetes Stage 3b chronic kidney disease Iron deficiency anemia History of broken nose Hypertensive encephalopathy Hypertensive urgency Surgical History Hx of cardiac catheterization Hx of cholecystectomy Hx of laparoscopy Hx of section H/O tooth extraction S/P laparoscopic cholecystectomy S/P nasal surgery H/O esophagogastroduodenoscopy Hx of tubal ligation Family History Grandmother (Maternal) Stroke Diabetes Arthritis Anxiety Panic attacks Agoraphobia Uncle Hypertension Myocardial infarction Uncle Agoraphobia Rheumatoid arthritis Mother Hypertension FH: brain aneurysm Anxiety History of cholecystectomy Hypothyroid Diabetes History of colon resection Neuropathy Colorectal cancer Father Drug abuse Chronic mental illness Other Unknown family medical history Social History Smoking Status: Former smoker Tobacco Type: Cigarettes Age Started Using Tobacco: 22; Age Quit Using Tobacco: 22; packs per day: 0.10; Second Hand Exposure: No; Do You Dip or Chew Tobacco: No; Hx Alcohol Use: No Hx Substance Use: No Preferred Language: Malian Communication Ability: Effective Visual Impairment: No Limitations Hearing Ability: Normal Wall Mirror Department Supervisor Required: No Beliefs That Will Affect Care: None marital status: / marital status details: Currently engaged Current Living Situation: Family Current Living Situation Comment: With daughter and son current occupational status: disabled How many Children do You have: 3 How many Children do You have Comment: 3 children(1 ) Feels Safe at Home: Yes Childhood Exposure to Second-Hand Smoke: No Diet: regular during the past year weight has: remained stable Dental Care, Regularly: No Physical Activity Frequency: Daily Seatbelt Use: always Sunscreen Use: No Assistive Devices: None Physical Exam Physical Exam: General: A&Ox3. NAD. Cooperative. HEENT: Atraumatic, normocephalic. Visual acuity decreased bilaterally. PERLAA. Hearing grossly intact Pulm: CTAB A&P. -wheezes, -rales, -rhonchi. Symmetrical chest rise. No increased work of breathing. No respiratory distress. Cardiac: RRR, -mrg. Radial pulses intact and symmetrical. Abdominal: Nontender, nondistended, soft. BS present. Ext: L arm fistula C/D/I. Chaim in place. No erythema/warmth/dehiscence. Good thrill Results & Data Results & Data Vital Signs (Past 12 Hours) Vital Signs Temp Pulse Pulse Resp BP BP Pulse Ox 06/12/24 17:46 81 21 202/111 H 97 06/12/24 17:36 79 06/12/24 17:30 186/100 H 06/12/24 17:18 79 20 06/12/24 17:15 79 22 06/12/24 17:10 82 06/12/24 17:03 79 24 06/12/24 16:36 81 24 06/12/24 16:27 81 22 06/12/24 15:52 36.6 C 83 24 201/98 H 99 O2 Del Method 06/12/24 17:46 Room Air 06/12/24 17:36 06/12/24 17:30 06/12/24 17:18 06/12/24 17:15 06/12/24 17:10 06/12/24 17:03 06/12/24 16:36 06/12/24 16:27 06/12/24 15:52 Room Air PG Care Time/CCT Total # of Minutes Spent Total Time Spent with Patient: Total time spent is greater than 50% in coordination of care (as documented) at patient's floor/unit and/or counseling patient: Coding Level of Care Code 57694 INT INP/OBS CARE 3/75MIN Diagnoses HTN (hypertension) I10 Type 1 diabetes mellitus with stage 4 chronic kidney disease E10.22; N18.4 Diabetes mellitus complication status: with kidney complications Diabetes mellitus complication detail: with chronic kidney disease Chronic kidney disease stage: stage 4 (severe) 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 E03.8; E06.3 Hypothyroidism type: due to Rajwinder's thyroiditis Stage 5 chronic kidney disease due to hypertension I12.0; N18.5 Hypertensive emergency I16.1 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 E10.649 CKD (chronic kidney disease) N18.9 Chronic kidney disease stage: unspecified stage ESTELITA (acute kidney injury) N17.9 (2) Type 1 diabetes Diabetes mellitus complication status: with kidney complications Diabetes mellitus complication detail: with chronic kidney disease Chronic kidney disease stage: stage 4 (severe) Qualified Code(s): E10.22 - Type 1 diabetes mellitus with diabetic chronic kidney disease; N18.4 - Chronic kidney disease, stage 4 (severe) (3) Hypothyroidism Hypothyroidism type: due to Rajwinder's thyroiditis Qualified Code(s): E03.8 - Other specified hypothyroidism; E06.3 - Autoimmune thyroiditis (7) CKD (chronic kidney disease) Chronic kidney disease stage: unspecified stage Qualified Code(s): N18.9 - Chronic kidney disease, unspecified
[2024-06-12] MEDS: LABETALOL HCL IV 5 MG/ML 20ML IV STA (18:25)
[2024-06-12] MEDS: SODIUM CHLORIDE 0.9% 1,000 ML IV ONE (18:34)
[2024-06-12] MEDS ORDERED: LABETALOL HCL IV 5 MG/ML 20ML IV PRN (18:41)
[2024-06-12] MEDS ORDERED: INSULIN ASPART 100 UNITS/ML VIAL SC PRN (18:41)
[2024-06-12] MEDS ORDERED: DEXTROSE 50% 50 ML SYRINGE IV PRN (18:41)
[2024-06-12] MEDS ORDERED: CARBOHYDRATES FOR HYPOGLYCEMIA PO PRN (18:41)
[2024-06-12] MEDS ORDERED: GLUCOSE 40% GEL 15 GM TUBE PO PRN (18:41)
[2024-06-12] MEDS ORDERED: GLUCOSE 10 TAB/TUBE PO PRN (18:41)
[2024-06-12] MEDS ORDERED: GLUCAGON FOR INJ 1 MG VIAL SQ PRN (18:41)
[2024-06-12] MEDS ORDERED: INSULIN, Rapid-Acting PUMP SC SCH (18:45)
[2024-06-12] MEDS: LACTATED RINGER'S 1,000 ML IV SCH (19:09)
[2024-06-12] MEDS ORDERED: diphenhydrAMINE Capsule 25 MG CAP PO PRN (20:30)
[2024-06-12] MEDS: ASPIRIN 81 MG ECTAB PO SCH (21:32)
[2024-06-12] MEDS: lamoTRIgine 100 MG TAB PO SCH (21:32)
[2024-06-12] MEDS: amLODIPine BESYLATE 5 MG TAB PO SCH (21:33)
[2024-06-12] MEDS: ATORVASTATIN 40 MG TAB PO SCH (21:33)
[2024-06-12] MEDS: lamoTRIgine 25 MG TAB PO SCH (21:33)
[2024-06-12] MEDS: SODIUM BICARBONATE 650 MG TAB PO SCH (21:33)
[2024-06-12] MEDS: TOPIRAMATE 50 MG TAB PO SCH (21:33)
[2024-06-12] MEDS: GABAPENTIN 100 MG CAP PO SCH (21:33)
[2024-06-12] MEDS: APIXABAN 5 MG TABLET PO SCH (21:33)
[2024-06-12] MEDS: INSULIN, Rapid-Acting PUMP SC SCH (21:38)
[2024-06-12] MEDS: Continuous Glucose Monitor SCH (21:38)
[2024-06-12] MEDS: MAGNESIUM HYDROXIDE SUSP 30 ML UDC PO PRN (22:01)
[2024-06-12] MEDS: bisacodyL 5 MG TABEC PO PRN (22:01)
[2024-06-12] MEDS: cloNIDine HCL 0.1 MG TAB PO SCH (22:16)
[2024-06-12] MEDS: cloNIDine HCL 0.2 MG TAB PO SCH (22:21)
[2024-06-12 23:57] LABS: Appearance Urine Clear (Clear); Bacteria Urine Automated 1+ (None Seen); Bilirubin Urine Negative (Negative); Blood Urine 1+ (Negative); Color Urine Yellow; Epithelial Cell Urine Auto 0-2 /hpf (0-2); Glucose Urine UA 1+ (Negative); Hyaline Casts Urine Present /lpf (None Presnt); Ketones Urine Negative (Negative); Leukocyte Esterase Urine Negative (Negative); Nitrite Urine Negative (Negative); Protein Urine 3+ (Negative); RBC Urine Automated 0-2 /hpf (0-2); Specific Gravity Urine 1.015 (1.000-1.030); Urobilinogen Urine Negative (Negative); pH Urine 5.5 (4.5-7.5)
[2024-06-13 06:25] LABS: Basophils # (auto) 0.01 K/uL (0.00-0.20); Basophils % (auto) 0.2 %; Eosinophils # (auto) 0.31 K/uL (0.00-0.50); Eosinophils % (auto) 4.9 %; Hemoglobin 7.8 g/dl (12.0-16.0); Immature Granulocytes # (auto) 0.02 K/uL (0.01-0.20); Immature Granulocytes % (auto) 0.3 %; Lymphocytes # (auto) 1.26 K/uL (1.20-3.40); Lymphocytes % (auto) 19.8 %; Mean Corpuscular Hemoglobin 30.7 pg (25.0-34.0); Mean Corpuscular Hgb Conc 32.5 g/dL (32.0-36.0); Mean Corpuscular Volume 94.5 fL (80.0-100.0); Monocytes # (auto) 0.53 K/uL (0.11-0.59); Monocytes % (auto) 8.3 %; Neutrophils # (auto) 4.24 K/uL (1.40-6.50); Neutrophils % (auto) 66.5 %; Platelet Count 205 K/uL (130-400); RDW Coefficient of Variation 13.1 % (11.5-14.5); RDW Standard Deviation 45.2 fL (36.4-46.3); Red Blood Count 2.54 M/uL (4.20-5.40); White Blood Count 6.37 K/ul (4.8-10.8)
[2024-06-13 06:44] LABS: BUN Creatinine Ratio 8.3 (10-20); Calcium 8.3 mg/dl (8.6-10.3); Creatinine Clr Calc Pharmacy 14.9 ml/min; Magnesium 2.2 mg/dl (1.7-2.4); Phosphorus 4.9 mg/dl (2.5-4.9); Potassium 4.1 mmol/L (3.5-5.1)
[2024-06-13 07:06] LABS: Polychromasia 1+
--- NOTE | 2024-06-13 08:35 | Hospitalist Progress Note ---
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 Hypertensive emergency Suspect due to medication noncompliance and not taking medications due to recent nausea however does report improved compliance with medications however got anxious with low BPs then would hold/be high and then resume (however denied symptoms w/ low BPS) BP >200 on admission with ESTELITA on CKD with associated n/v and constipation causing inability to keep her medications down Given labetalol x1, antiemetics with improvement and continued on home regimen as follows (noting recent dc chlorthalidone by nephrology) along with 1L NSS and continued x 3L BP improved 163/90 this morning an further improved to 135/70 on repeat once received AM medicatoins as follows: * clonidine 0.2mg BID - continue/avoid rebound with holding as suspect was happening prior, also on for hx bipolar, * coreg 25mg BID * amlodipine 10mg HOLD/discontinue Chlorthalidone 25mg (recently stopped by nephrology), Spironolactone 25mg BID, Doxasoxin 3mg Stopped IVF as taking PO and +BM this morning Hgb 7.8, follows w/ CCP but never had EPO/Venofer in the past. *Notable recent nephrology started PO iron BID for anemia and suspect could have been contributing to constipation on admission. Iron studies/EPO/Venofer per nephrology below Monitor labs/exam on repeat #Nausea/vomiting/constipation Cause for admission. suspect multifactorial with recent anesthesia for procedure to create fistula along with worsening renal impairment/azotemia along with constipation x 3 weeks CTAP without obstruction, mild retained stool. Given miralax, biscodyl, MOM and IVF as above, +LARGE BM reported Notable as above recent rx for PO iron and suspect contributed No further issues since moving her bowels but could consider reglan for ?underlying gastroparesis w/ her DM #CKD 5 Pending kidney transplant evaluation at [facility] with worsening renal impairment in setting of DM and uncontrolled HTN in the past 2nd to medication compliance Left brachiocephalic AV fistula placed 04/03/2024 (2nd procedure done about 3 weeks ago per patient to bring closer to the skin) Cr 5.2 on admission w/ baseline 4-4.5 UA/cx pending but no symptoms Chlorthalidone held and per patient recently STOPPED as well as her spironolactone and likely plan to stop both at dc HTN medications as outlined Nephrology consulted/appreciate assistance EPO/Venofer for HARESH and CKD - low iron/trans % sat can arrange for repeat EPO/Venofer outpatient in follow up with CCP. Currently waiting for f/u transplant this upcoming month. Continue Nabicarb, BMP on repeat #Hypertension As above, spironolactone/chlorthalidone held for ESTELITA as above with plans to stop along with doxazosin and continues on clonidine BID, coreg BID, amlodipine with stable BP 142/80 this afternoon Type I DM Patient prefers not to switch to inpatient glycemic management May continue home continuous infusion pump. -If outside of goal range of [id number] switch to hospital controlled basal bolus BSG 131, dexcom in place and ordered to continue use per her preference. Baseline w/ severe proliferative retinopathy of both eyes and bilateral neuropathy in the feet. Glucose checks AC/at bedtime, or every 4 hours if NPO She reports plan to start injectable in f/u with endocrinology and will need to ensure bowel regimen in place to prevent worsened n/v/constipation issues given presentation Factor V Leiden Continue Eliquis 5 mg p.o. twice daily, did not utilize lovenox w/ her surgery as instructed but pulses present but does have some mild edema suspected 2nd to recent procedures Hypothyroidism Uses pork 60 mg thyroid tablet. May use this if brought in and verified, patient reports allergy to brand Synthroid Prior increased Synthroid but not at dc and will add to AM labs given constipation to ensure no need to increase given constipation/fatigue on admission Anxiety/depression/seizure disorder: Lamotrigine continued. She typically takes 200 mg twice daily with 25 mg additional in the evening however has been intermittently compliant and not taking her medications consistently. Doxazosin to be discontinued but continue on clonidine BID for hx bipolar Dispo: continued inpatient stay, hopeful dc 06/14 and can consider repeat Venofer and CCP in follow up as well as close f/u nephrology. Monitor BP/adjustment as needed Will place orders for PT eval while inpatient Admission and Anticipated Discharge Date Admission Date: June 12, 2024 Supervising Physician Co-Signing Physician Notes The patient was not seen by me. The chart was reviewed. Case discussed with DAVID Ray. Agree with assessment and plan Subjective Eval this morning with Dr Duke, sitting up in bed, eating cereal. Reports moving her bowels, LARGE amonut. No further pain. Had been having weakness at home. Discussed she reports Dr Vargas told her no more chlorthalidone but she has been on the spironolactone. Making urine, yellow per patinet. On eliquis for factor V, was to be on lovenox SQ but reports she did not take the 3 days before or after surgery for her LUE, sonali intact (reports 2nd surgery for such, dressing changes w/ iodine, wound care at home). Follows w/ hematology, never got EPO/Venofer in past. Denies blood in stool but reports hasn't looked. Checking iron studies/consideration for EPO/Venofer. Patient hopeful for dc today. Consideration if BPs improved and numbes improved this afternoon. Will need close f/u PCP, nephrology. Also reports to be starting Mounjaro for weight loss w/ endocrinology. Physical Exam 2 Physical Exam: General: 48yo female sitting up in bed, eating cereal, reports feeling MUCH better, NAD HEENT: head atraumatic, mmm, trachea midline Resp: even/unlabored, slightly diminished in the bases but no wheezing/rales, on ROOM AIR CV: RRR, no significant m/r/g, trace LUE edema>RUE, radial pulse present-- wound to LUE with sonali intact/no drainage/significant cellulitis (RN to re-dress) GI: +BS, soft/NT : no velarde, voiding spontaneously MSK/Neuro: able to follow commands, no slurred speech/facial droop Psych: alert, oriented x 3, anxious at times Results & Data Results & Data Vital Signs (Past 12 Hours) Vital Signs Temp Pulse Pulse Resp BP BP Pulse Ox 06/13/24 07:34 36.8 C 80 18 163/90 H 96 06/13/24 03:49 37.3 C 75 16 165/89 H 98 06/12/24 23:16 74 06/12/24 23:09 36.7 C 72 18 177/98 H 98 06/12/24 22:40 79 06/12/24 20:55 77 180/94 H 06/12/24 20:40 36.9 C 77 18 180/94 H 98 O2 Del Method 06/13/24 07:34 Room Air 06/13/24 03:49 Room Air 06/12/24 23:16 06/12/24 23:09 Room Air 06/12/24 22:40 06/12/24 20:55 06/12/24 20:40 Room Air Laboratory Results 06/13/24 05:58 06/13/24 05:58 Iron 29 TIBC 223 Transferrin 159 Trans % sat 13% Ferritin 93.3 Diagnostic Findings Abdomen/Pelvis CT 06/12/24 16:18 INDICATION: Abdominal pain. COMPARISON: CT from 03/19/2024.. TECHNIQUE: Axial CT images of the abdomen and pelvis were obtained without IV contrast administration. Coronal and sagittal reformations were reviewed. FINDINGS: Subsegmental atelectasis in the lung bases. Trace left pleural effusion. Small pericardial effusion. Cardiomegaly. The gallbladder is surgically absent. The liver, spleen, pancreas and adrenal glands appear unremarkable. No renal calculus or hydronephrosis. No evidence of bowel obstruction/colitis/appendicitis. Mild amount of retained colonic stool. No free air. No drainable fluid collection. The urinary bladder appears unremarkable. No acute osseous abnormality evident. IMPRESSION: 1. Mild retained colonic stool. 2. Subsegmental atelectasis in the lung bases. Trace left pleural effusion. Small pericardial effusion. Electronically signed by Jaron Hair 06-12-2024 5:25 PM PG Care Time/CCT Total # of Minutes Spent Total Time Spent with Patient: Total time spent is greater than 50% in coordination of care (as documented) at patient's floor/unit and/or counseling patient: Coding Level of Care Code 55472 SUB INP/OBS CARE 3/50MIN Diagnoses HTN (hypertension) I10 Type 1 diabetes mellitus with stage 4 chronic kidney disease E10.22; N18.4 Chronic kidney disease stage: stage 4 (severe) Diabetes mellitus complication detail: with chronic kidney disease Diabetes mellitus complication status: with kidney complications 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 E03.8; E06.3 Hypothyroidism type: due to Rajwinder's thyroiditis Stage 5 chronic kidney disease due to hypertension I12.0; N18.5 Hypertensive emergency I16.1 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 E10.649 CKD (chronic kidney disease) N18.9 Chronic kidney disease stage: unspecified stage ESTELITA (acute kidney injury) N17.9 (2) Type 1 diabetes Chronic kidney disease stage: stage 4 (severe) Diabetes mellitus complication detail: with chronic kidney disease Diabetes mellitus complication status: with kidney complications Qualified Code(s): E10.22 - Type 1 diabetes mellitus with diabetic chronic kidney disease; N18.4 - Chronic kidney disease, stage 4 (severe) (3) Hypothyroidism Hypothyroidism type: due to Rajwinder's thyroiditis Qualified Code(s): E03.8 - Other specified hypothyroidism; E06.3 - Autoimmune thyroiditis (7) CKD (chronic kidney disease) Chronic kidney disease stage: unspecified stage Qualified Code(s): N18.9 - Chronic kidney disease, unspecified
[2024-06-13] MEDS: CITALOPRAM 20 MG TAB PO SCH (08:58)
[2024-06-13] MEDS: AMITRIPTYLINE HCL 10 MG TAB PO SCH (08:58)
[2024-06-13] MEDS: CALCIUM 600MG + VIT D 400 IU TAB PO SCH (08:59)
[2024-06-13] MEDS: carvediloL 25 MG TAB PO SCH (08:59)
[2024-06-13] MEDS: MAGNESIUM OXIDE 400 MG TAB PO SCH (09:00)
[2024-06-13] MEDS: ARMOUR THYROID 30 MG TAB PO SCH (09:00)
[2024-06-13] MEDS: PANTOprazole 40 MG TAB PO SCH (09:00)
[2024-06-13] MEDS: OXYBUTYNIN CHLORIDE XL 5 MG TABCR PO SCH (09:00)
[2024-06-13] MEDS: POLYETHYLENE (MIRALAX) 17 GM PACK PO SCH (09:02)
--- NOTE | 2024-06-13 09:03 | Nephrology Consultation ---
Date of Consultation June 13, 2024 Assessment & Plan (1) ESTELITA (acute kidney injury): Non-oliguric. Volume status acceptable. Electrolytes normal. No emergent indication for dialysis. CT demonstrates kidneys to be unobstructed. Hold spironolactone. Avoid Naproxen and other NSAIDS. Document I/O's. Repeat metabolic profile this afternoon. (2) Stage 5 chronic kidney disease due to hypertension: AVF is not mature for use. Vascular follow up will be required. Kaci is scheduled to start the transplant evaluation process at [facility]. She is planning to attend [facility] at [place] when dialysis is needed. Close follow up with Dr. Vargas will be required post discharge. (3) Hypertensive emergency: Improving. Denies symptoms. Continue amlodipine, clonidine, and carvedilol as Rx. Diuretics held for now. (4) Anemia of chronic disease: Epogen 01505 units now. Iron studies pending. Denies melena or hematochezia. History of Present Illness Reason for Consultation: ESTELITA on CKD5 Requesting Physician: Noel Campbell MD Attending Physician: Noel Campbell MD History of Present Illness Kaci Gagnon is a 48 year-old female with CKD V attributed to DKD and hypertension. She presented to [facility] yesterday with severe constipation. Kaci was seen and evaluated in her hospital room with Gabriella Montes De Oca PA-C this AM. Kaci was able to move her bowels this morning and reports significant improvement in her symptoms. She feels well and reports a good appetite. She denies nausea at this time. She would like to be discharged home. Evaluation is notable for elevation of serum creatinine from baseline. Thankfully, electrolytes are normal. Kaci does not have significant fluid retention or edema. She reports concentrated and foamy urine but good urine output. CT of the abdomen and pelvis demonstrates the kidneys to be unobstructed. Urine analysis is notable for protein. Microscopy notable for a few WBCs and hyaline casts. Kaci [place] [facility] [place] with Dr. Vargas. Advanced care planning for renal replacement has been initiated. A left brachiocephalic AVF was placed by Dr. Craven on April 03. Approximately 3 weeks ago, the vessel was transposed. Kaci reports that a graft may also have been placed. The incision is healed with sonali intact. Kaci states that home care nursing are providing dressing changes and cleaning the incision site. She is scheduled for follow up with staple removal later this week. Edema in the arm is improving. Kaci describes constipation starting following her recent surgery. She also reports notable fatigue since this operation. Symptoms are overall improving but her activity tolerance has been worse. [facility] for a history of Factor V Leiden for which she is maintained on Eliquis as well as chronic anemia. Kaci states that she has not required DEONNA therapy in the past. She was bridged with Lovenox for her recent surgery but states that there were days during which anticoagulation was held. Medical history is notable for diabetes mellitus type 1, resistant hypertension (noted history of accelerated hypertension - chlorthalidone has recently been held due to kidney dysfunction), no SHANEKA/ARB due to history of ESTELITA, chronic anemia with iron deficiency, hypothyroidism, Factor V Leiden, bipolar disorder, and OAB. Allergies Allergy/AdvReac Type Severity Reaction Status Date / Time cat dander Allergy Intermediate ITCHY Verified 06/12/24 18:01 EYES,WHEEZING metformin Allergy Intermediate vominting Verified 06/12/24 18:01 Penicillins Allergy Intermediate RED RASH Verified 06/12/24 18:01 AND LIP SWELLS levothyroxine AdvReac Intermediate HAIR LOSS Verified 06/12/24 18:01 metoprolol [From Lopressor] AdvReac Intermediate HAIR LOSS Verified 06/12/24 18:01 morphine AdvReac Intermediate CHILLS, GI Verified 06/12/24 18:01 UPSET,VOMITING Home Medications Medication Instructions Recorded Confirmed Type blood-glucose meter (OneTouch #1 ea 02/27/22 06/01/24 Rx Verio Meter) acetaminophen-caffeine 500 mg-65 1 tab PO Q12H PRN Migraine Headache 04/28/22 06/12/24 History mg tablet (Excedrin Tension Headache) diphenhydramine HCl 25 mg capsule 25 mg PO TID PRN Allergy Symptoms 04/28/22 06/12/24 History (Benadryl) Blood pressure Cuff #1 ea 11/26/22 06/01/24 Rx Diabetic Shoes #1 ea 11/27/22 06/01/24 Rx aspirin 81 mg tablet,delayed 81 mg PO PM #30 tabs 06/07/23 06/12/24 Rx release (Speedy Low Dose Aspirin) Blood Pressure Cuff #1 ea 06/17/23 06/01/24 Rx acetone (urine) test (Ketone Urine #100 ea 06/22/23 06/01/24 Rx Test strips) blood-glucose meter (OneTouch #1 ea 06/22/23 06/01/24 Rx Verio Flex Meter) Shower Chair #1 ea 09/13/23 06/01/24 Rx naproxen 500 mg tablet 1,000 mg PO DAILY PRN Pain 09/13/23 06/12/24 History blood sugar diagnostic (OneTouch #200 ea 01/19/24 06/01/24 Rx Verio test strips) pen needle, diabetic 31 gauge x #100 ea 01/19/24 06/01/24 Rx 5/16" (Easy Comfort Pen [place]) amitriptyline 10 mg tablet 10 mg PO DAILY #30 tabs 01/28/24 06/12/24 Rx apixaban 5 mg tablet 5 mg PO BID #180 tabs 01/28/24 06/12/24 Rx atorvastatin 40 mg tablet 40 mg PO HS #30 tabs 01/28/24 06/12/24 Rx calcium 600 mg (as carbonate)-vit 1 tab PO DAILY #30 tabs 01/28/24 06/12/24 Rx D3 10 mcg (400 unit) chewable tablet (Calcium 600 with Vitamin D3) carvedilol 25 mg tablet 25 mg PO BIDM #60 tabs 01/28/24 06/12/24 Rx chlorthalidone 25 mg tablet 25 mg PO DAILY #30 tabs 01/28/24 06/12/24 Rx cholecalciferol (vitamin D3) 50 50 mcg PO DAILY #90 caps 01/28/24 06/12/24 Rx mcg (2,000 unit) capsule citalopram 20 mg tablet 20 mg PO QAM #30 tabs 01/28/24 06/12/24 Rx clonidine HCl 0.2 mg tablet 0.2 mg PO BID #30 tabs 01/28/24 06/12/24 Rx cyanocobalamin (vitamin B-12) 1,000 mcg PO DAILY #30 tabs 01/28/24 06/12/24 Rx 1,000 mcg tablet doxazosin 4 mg tablet 4 mg PO QAM #30 tabs 01/28/24 06/12/24 Rx ferrous sulfate 324 mg (65 mg 324 mg PO DAILY #90 tabs 01/28/24 06/12/24 Rx iron) tablet,delayed release gabapentin 100 mg capsule 200 mg (2 x 100 mg) PO TID #180 01/28/24 06/12/24 Rx caps lamotrigine 200 mg tablet 200 mg PO BID #60 tabs 01/28/24 06/12/24 Rx lamotrigine 25 mg tablet 25 mg PO QPM #30 tabs 01/28/24 06/12/24 Rx magnesium oxide 400 mg PO QAM #30 tabs 01/28/24 06/12/24 Rx ondansetron 4 mg disintegrating 4 mg PO Q6H PRN nausea and 01/28/24 06/12/24 Rx tablet vomiting #10 tabs oxybutynin chloride 5 mg 5 mg PO QAM #30 tabs 01/28/24 06/12/24 Rx tablet,extended release 24 hr pantoprazole 40 mg tablet,delayed 40 mg PO QAM #30 tabs 01/28/24 06/12/24 Rx release spironolactone 50 mg tablet 50 mg PO BID #60 tabs 01/28/24 06/12/24 Rx thyroid (pork) 60 mg tablet (GROUNDHAND 60 mg PO DAILY #30 tabs 01/28/24 06/12/24 Rx Thyroid) topiramate 100 mg tablet 100 mg PO BID #60 tabs 01/28/24 06/12/24 Rx topiramate 50 mg tablet 50 mg PO BID #60 tabs 01/28/24 06/12/24 Rx trazodone 100 mg tablet 100 mg PO HS PRN Insomnia #90 tabs 01/28/24 06/12/24 Rx ergocalciferol (vitamin D2) 1,250 50,000 unit PO WEEKLY #12 caps 03/13/24 06/12/24 Rx mcg (50,000 unit) capsule sodium bicarbonate 650 mg tablet 1,300 mg (2 x 650 mg) PO BID #120 03/13/24 06/12/24 Rx tabs cyclobenzaprine 10 mg tablet 10 mg PO TID PRN muscle spasm #15 03/19/24 06/12/24 Rx tabs Remote patient monitoring program #1 ea 03/24/24 06/01/24 Rx Dexcom G7 Sensor (blood-glucose #3 ea 04/06/24 06/01/24 Rx sensor) insulin lispro 100 unit/mL 1 sliding scale dose subcut 04/13/24 06/12/24 Rx subcutaneous pen USEASDIRECTD #15 mL blood sugar diagnostic (Contour #70 ea 04/19/24 06/01/24 Rx Next Test Strips) blood-glucose meter, wireless #1 ea 04/19/24 06/01/24 Rx (Contour Next Link 2.4 kit) Shower Chair #1 ea 04/21/24 06/01/24 Rx incontinence pads #120 ea 04/21/24 06/01/24 Rx amlodipine 10 mg tablet 10 mg PO HS #90 tabs 05/15/24 06/12/24 Rx blood sugar diagnostic (OneTouch #250 ea 05/24/24 06/01/24 Rx Verio test strips) lancets 33 gauge #200 ea 05/24/24 06/01/24 Rx glucagon 3 mg/actuation nasal 3 mg intranasal DIRECTED PRN 06/12/24 06/12/24 History spray (Baqsimi) LOW BSG NEEDED insulin lispro 100 unit/mL 100 unit continuous subcutaneous 06/12/24 06/12/24 History subcutaneous solution infusion CONTINOUS Patient History Medical History (Updated 06/13/24 @ 09:05 by Roc Duke DO) Diabetes Anemia Anxiety Bipolar 1 disorder Left fibular fracture Left lower lobe pneumonia Hypertensive emergency Family history of ovarian cancer Iron deficiency anemia History of broken nose Hypertensive encephalopathy Hypertensive urgency Surgical History Hx of cardiac catheterization [facility]- Dr Aragon 5-10 yrs ago - no stents- not currently following w/ cardio Hx of cholecystectomy Hx of laparoscopy Hx of section X2 H/O tooth extraction S/P laparoscopic cholecystectomy S/P nasal surgery H/O esophagogastroduodenoscopy Hx of tubal ligation Family History Grandmother (Maternal) Stroke Diabetes Arthritis Anxiety Panic attacks Agoraphobia Uncle Hypertension Myocardial infarction Uncle Agoraphobia Rheumatoid arthritis Mother Hypertension FH: brain aneurysm Anxiety History of cholecystectomy Hypothyroid Diabetes History of colon resection Neuropathy Colorectal cancer Father Drug abuse Chronic mental illness Other Unknown family medical history Social History Smoking Status: Former smoker Tobacco Type: Cigarettes Age Started Using Tobacco: 22; Age Quit Using Tobacco: 22; packs per day: 0.10; Second Hand Exposure: No; Do You Dip or Chew Tobacco: No; Hx Alcohol Use: No Hx Substance Use: No Preferred Language: Kinyarwanda Communication Ability: Effective Visual Impairment: No Limitations Hearing Ability: Normal Head Gauge Unit Operator Required: No Beliefs That Will Affect Care: None marital status: / marital status details: Currently engaged Current Living Situation: Family Current Living Situation Comment: Pt states she lives in a second floor apartment with her two adult children current occupational status: disabled How many Children do You have: 3 How many Children do You have Comment: 3 children(1 ) Feels Safe at Home: Yes Safety Concerns: Feels Safe At This Time Childhood Exposure to Second-Hand Smoke: No Diet: regular during the past year weight has: remained stable Dental Care, Regularly: No Physical Activity Frequency: Daily Seatbelt Use: always Sunscreen Use: No Assistive Devices: None Review of Systems Review of Systems: All systems reviewed & are unremarkable except as noted in HPI & below Physical Exam Constitutional: well developed and + morbidly obese; no acute distress Eyes: + anicteric sclerae; no conjunctival abn ormality ENMT: Mouth: oral mucous membranes not dry Neck: normal visual inspection and trachea midline Respiratory: normal respiratory effort Cardiovascular: Rate/Rhythm: regular rate Extremities: + edema (trace L>R; LUE to forearm) Musculoskeletal: Extremities: no cyanosis and no clubbing Skin: normal turgor and + wound (LBC incision clean and intact with sonali); no jaundice Neurologic: Motor/Sensory: no tremor and no asterixis Psychiatric: Orientation: alert and oriented x 3 Results & Data Vital Signs (Past 12 Hours) Vital Signs Temp Pulse Pulse Resp BP Pulse Ox O2 Del Method 06/13/24 07:34 36.8 C 80 18 163/90 H 96 Room Air 06/13/24 03:49 37.3 C 75 16 165/89 H 98 Room Air 06/12/24 23:16 74 06/12/24 23:09 36.7 C 72 18 177/98 H 98 Room Air 06/12/24 22:40 79 Laboratory Results Laboratory Results - last 24 hr 06/12/24 06/12/24 06/12/24 17:10 18:52 23:29 WBC 9.09 RBC 3.07 L Hgb 9.7 L Hct 29.3 L MCV 95.4 MCH 31.6 MCHC 33.1 RDW Std Deviation 45.5 RDW Coeff of Zak 13.1 Plt Count 282 MPV 9.8 Immature Gran % (Auto) 0.3 Neut % (Auto) 74.7 Lymph % (Auto) 16.5 [place] % (Auto) 5.5 Eos % (Auto) 2.6 Baso % (Auto) 0.4 Neut # (Auto) 6.78 H Lymph # (Auto) 1.50 [place] # (Auto) 0.50 Eos # (Auto) 0.24 Baso # (Auto) 0.04 Immature Gran # (Auto) 0.03 Polychromasia Sodium Potassium Chloride Carbon Dioxide Anion Gap BUN Creatinine Est Cr Clr Drug Dosing eGFR BUN/Creatinine Ratio Glucose POC Glucose 129 H Calcium Phosphorus Magnesium Total Bilirubin AST ALT Alkaline Phosphatase Total Protein Albumin Globulin Albumin/Globulin Ratio Lipase Urine Color Yellow Urine Appearance Clear Urine pH 5.5 Ur Specific [place] 1.015 Urine Protein 3+ H Urine Glucose (UA) 1+ H Urine Ketones Negative Urine Blood 1+ H Urine Nitrite Negative Urine Bilirubin Negative Urine Urobilinogen Negative Ur Leukocyte Esterase Negative Urine WBC (Auto) 6-10 H Urine RBC (Auto) 0-2 U Hyaline Cast (Auto) 6-10 H U Epithel Cells (Auto) 0-2 Urine Bacteria (Auto) 1+ H Hyaline Casts Present A 06/12/24 06/13/24 Unknown 05:58 WBC 6.37 RBC 2.54 L Hgb 7.8 L Hct 24.0 L MCV 94.5 MCH 30.7 MCHC 32.5 RDW Std Deviation 45.2 RDW Coeff of Zak 13.1 Plt Count 205 MPV 10.0 Immature Gran % (Auto) 0.3 Neut % (Auto) 66.5 Lymph % (Auto) 19.8 [place] % (Auto) 8.3 Eos % (Auto) 4.9 Baso % (Auto) 0.2 Neut # (Auto) 4.24 Lymph # (Auto) 1.26 [place] # (Auto) 0.53 Eos # (Auto) 0.31 Baso # (Auto) 0.01 Immature Gran # (Auto) 0.02 Polychromasia 1+ Sodium 138 138 Potassium 4.5 4.1 Chloride 111 H 112 H Carbon Dioxide 19 L 20 L Anion Gap 8 6 BUN 43 H 43 H Creatinine 5.20 H* 5.16 H* Est Cr Clr Drug Dosing 14.1 14.9 eGFR 9.61 9.70 BUN/Creatinine Ratio 8.3 L 8.3 L Glucose 131 H 147 H POC Glucose Calcium 9.4 8.3 L Phosphorus 4.9 Magnesium 2.2 Total Bilirubin 0.5 AST 9 L ALT 4 L Alkaline Phosphatase 86 Total Protein 7.4 Albumin 3.9 Globulin 3.5 Albumin/Globulin Ratio 1.1 Lipase 11 Urine Color Urine Appearance Urine pH Ur Specific [place] Urine Protein Urine Glucose (UA) Urine Ketones Urine Blood Urine Nitrite Urine Bilirubin Urine Urobilinogen Ur Leukocyte Esterase Urine WBC (Auto) Urine RBC (Auto) U Hyaline Cast (Auto) U Epithel Cells (Auto) Urine Bacteria (Auto) Hyaline Casts Diagnostic Findings ABD/PLV CT 06/12/24 COMPARISON: CT from 03/19/2024.. FINDINGS: Subsegmental atelectasis in the lung bases. Trace left pleural effusion. Small pericardial effusion. Cardiomegaly. The gallbladder is surgically absent. The liver, spleen, pancreas and adrenal glands appear unremarkable. No renal calculus or hydronephrosis. No evidence of bowel obstruction/colitis/appendicitis. Mild amount of retained colonic stool. No free air. No drainable fluid collection. The urinary bladder appears unremarkable. No acute osseous abnormality evident. IMPRESSION: 1. Mild retained colonic stool. 2. Subsegmental atelectasis in the lung bases. Trace left pleural effusion. Small pericardial effusion. PG Care Time/CCT Total # of Minutes Spent Total Time Spent with Patient: Total time spent is greater than 50% in coordination of care (as documented) at patient's floor/unit and/or counseling patient: Coding Level of Care Code 48116 IN/OBS CONSULT LVL 5,80M Diagnoses ESTELITA (acute kidney injury) N17.9 Stage 5 chronic kidney disease due to hypertension I12.0; N18.5 Hypertensive emergency I16.1 Anemia of chronic disease D63.8
[2024-06-13 10:13] LABS: Ferritin 93.3 ng/ml (8-388)
[2024-06-13] MEDS: EPOETIN ALFA 10,000 UNITS/ML VIAL SQ ONE (11:17)
[2024-06-13] MEDS ORDERED: Continuous Glucose Monitor SCH (11:30)
[2024-06-13] MEDS: IRON SUCROSE 400 MG in SODIUM CHLORIDE 0.9% 250 ML IV ONE (12:16)
[2024-06-13] MEDS: GABAPENTIN 100 MG CAP PO SCH (20:53)
[2024-06-13] MEDS: traZODone HCL 50 MG TAB PO PRN (20:56)
[2024-06-14 06:25] LABS: Basophils # (auto) 0.02 K/uL (0.00-0.20); Basophils % (auto) 0.3 %; Eosinophils # (auto) 0.23 K/uL (0.00-0.50); Eosinophils % (auto) 3.6 %; Hematocrit (blood only) 24.2 % (37.0-47.0); Hemoglobin 7.9 g/dl (12.0-16.0); Immature Granulocytes # (auto) 0.04 K/uL (0.01-0.20); Immature Granulocytes % (auto) 0.6 %; Mean Corpuscular Hemoglobin 31.5 pg (25.0-34.0); Mean Corpuscular Hgb Conc 32.6 g/dL (32.0-36.0); Mean Corpuscular Volume 96.4 fL (80.0-100.0); Mean Platelet Volume 10.2 fL (9.4-12.4); Monocytes # (auto) 0.53 K/uL (0.11-0.59); Monocytes % (auto) 8.3 %; Neutrophils # (auto) 4.13 K/uL (1.40-6.50); Neutrophils % (auto) 65.2 %; Platelet Count 212 K/uL (130-400); RDW Coefficient of Variation 13.2 % (11.5-14.5); RDW Standard Deviation 46.5 fL (36.4-46.3); Red Blood Count 2.51 M/uL (4.20-5.40); White Blood Count 6.35 K/ul (4.8-10.8)
[2024-06-14 06:46] LABS: RBC Morphology Unremarkable
[2024-06-14 07:01] LABS: BUN Creatinine Ratio 7.7 (10-20); Calcium 8.3 mg/dl (8.6-10.3); Creatinine Clr Calc Pharmacy 13.5 ml/min; Magnesium 2.5 mg/dl (1.7-2.4); Potassium 4.7 mmol/L (3.5-5.1)
[2024-06-14 07:09] LABS: Thyroid Stimulating Hormone 7.487 uIu/ml (0.300-4.500)
[2024-06-14 07:46] LABS: T4 Free Thyroxine 0.84 ng/dl (0.61-1.60)
--- NOTE | 2024-06-14 08:42 | Hospitalist Progress Note ---
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 Constipation likely worsened w/ recent rx PO iron by nephrology for her anemia along with possible underlying gastroparesis/DM #Hypertensive emergency/ESTELITA on CKD - Suspect due to medication noncompliance and not taking medications due to recent nausea however does report improved compliance with medications however got anxious with low BPs then would hold/be high and then resume however denied symptoms w/ low BPS BP >200 systolic on admission with ESTELITA on CKD and associated n/v and constipation x 3 weeks Given Labetalol IV x 1 and antiemetics with improvement and IVF continued (notable ordered 3L, was stopped) BP improved and stable on current regimen 121/79 this morning Plan to continue folowing regimen at discharge: coreg 25mg BID, amlodipine 10mg, clonidine 0.2mg BID (continue/avoid rebound with holding as suspect was happening prior, also on for hx bipolar) Plan to avoid Chlorthalidone 25mg as recently stopped by nephrology, stop spironolactone and doxazosin 3mg daily Was given Lasix 40mg PO x 1 for today for edema/volume retention given reports of making urine. Cr essentially unchanged 5.7. Venofer IV x 2nd dose, EPO on 06/13 per nephrology Monitor BP, consider reduction in clonidine to 0.1mg BID if remains on lower side but now having diarrhea #Nausea/vomiting/constipation (now diarrhea)- reported no BM x 3 weeks, cause for admission. Suspect worsened with recent PO iron supplementation and likely underlying gastroparesis. CTAP without obstruction, mild retained stool. Was given miralax, biscodyl, MOM and IVF as above, +LARGE BM reported 06/13 x2. Continued on miralax daily however w/ CKD and now COPIOUS diarrhea will HOLD further miralax. Stool studies/cdiff ordered however could have been from being backed up x 3 weeks but will monitor Tolerating advancement of diet without further vomiting Monitor for reglan for gastroparesis if needed #ESTELITA on CKD V, anemia 2nd to CKD Cr 5.2 on admission with baseline 4-4.5, recent discontinued chlorthalidone by nephrology and prior dc SHANEKA 2nd to recurrent ESTELITA Pending kidney transplant evaluation at [facility] with worsening renal impairment in setting of DM and uncontrolled HTN in the past 2nd to medication compliance Now has LEFT brachiocephalic AV fistula in place w/ repeat procedure about 3 wks ago to bring closer to skin, ?graft. Looks good, continue wound care/dressing changes. Not yet mature Nephrology on consult, appreciate recs/assistance Did obtain iron studies and low iron/trans % sat, supposedly follows w/ CCP but never got EPO/Venofer and provided EPO x 1 on 06/13 and Venofer. Repeat venofer for today. Fecal occult negative Lasix 40mg PO x 1 and repeat Cr essentially unchanged but w/ diarrhea could have losses from such. Continues on nephrocaps, miralax has been discontinued as moving bowels and mag oxide discontinued given mag 2.5 Renal dose meds, avoid nephrotoxins - did reduce her gabapentin to 100mg TID BMP in AM #Hypothyroidism Ongoing, follows w/ endocrinology. Given fatigue/anemia/constipation/pre-tibial edema and elevated TSH to 7 on supplementation as well as discussion w/ outpatient endocrinology have increased thyroid armour to 90 daily and will need new rx and TFT outpatient in follow up. #Hypertension As above, spironolactone/chlorthalidone held for ESTELITA as above with plans to stop along with doxazosin and continues on clonidine BID, coreg BID, amlodipine with stable BP and can decrease clonidine if needed pending serial measurements Type I DM Patient prefers not to switch to inpatient glycemic management May continue home continuous infusion pump. BSGs stable, dexcom in place and can continue. 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 twice daily, did not utilize lovenox w/ her surgery as instructed but pulses present but does have some mild edema suspected 2nd to recent procedures Anxiety/depression/seizure disorder: -Lamotrigine continued. She typically takes 200 mg twice daily with 25 mg additional in the evening however has been intermittently compliant and not taking her medications consistently. -Doxazosin to be discontinued but continue on clonidine BID for hx bipolar Dispo: continued inpatient stay and monitoring diarrhea/renal function. Lasix PO x 1, defer ongoing diuretics to nephrology. BP stable and HTN meds as outlined PT/OT consults pending Hopeful dc 06/15 if renal function not worse with close follow up and possible continued Venofer infusions with CCP (sent her provider a tiget text but will have navigator arrange) Admission and Anticipated Discharge Date Admission Date: June 12, 2024 Supervising Physician Co-Signing Physician Notes The patient was not seen by me. The chart was reviewed. Case discussed with DAVID Ray. Agree with assessment and plan Subjective Eval this morning, sitting up in bed on her phone, appears well. Reports moved her bowels again this morning - discussed holding off PO iron as can cause constipation issues and rec hematology f/u CCP for ongoing transfusions. Also discussed TSH and increased thyroid and f/u endo. She inquires about repeat A1c for "Dr gabriel" and discussed will have that arranged in follow up. BSGs acceptable and HTN much better controlled and med review completed. Lasix 40mg PO x 1 for making urine and elevated Cr to see about response and repeat labs for this afternoon and plan for dc after lunch after 1300 labs if improved with close nephro/PCP/endocrinology follow up. Physical Exam Physical Exam: General: 48yo female sitting up in bed, talking on the phone, NAD, reports moved her bowels again this morning HEENT: head atraumatic, mmm, trachea midline Resp: even/unlabored, slightly diminished in the bases but no wheezing/rales, on ROOM AIR CV: RRR, no significant m/r/g, trace LUE edema>RUE, radial pulse present-- wound to LUE with sonali intact/no drainage/significant cellulitis (RN to re-dress) GI: +BS, soft/NT : no velarde, voiding spontaneously MSK/Neuro: able to follow commands, no slurred speech/facial droop Psych: alert, oriented x 3, anxious at times Results & Data Results & Data Vital Signs (Past 12 Hours) Vital Signs Temp Pulse Pulse Resp BP Pulse Ox O2 Del Method 06/14/24 07:32 36.8 C 66 19 121/79 96 Room Air 06/14/24 03:08 36.9 C 59 L 16 110/69 93 Room Air 06/14/24 01:28 69 06/13/24 22:54 36.6 C 64 19 104/63 95 Room Air Laboratory Results 06/14/24 06/14/24 06/14/24 Range/Units 12:57 12:33 07:55 WBC 6.69 (4.8-10.8) K/ul RBC 2.45 L (4.20-5.40) M/uL Hgb 7.7 L (12.0-16.0) g/dl Hct 23.8 L (37.0-47.0) % MCV 97.1 (80.0-100.0) fL MCH 31.4 (25.0-34.0) pg MCHC 32.4 (32.0-36.0) g/dL RDW Std Deviation 47.2 H (36.4-46.3) fL RDW Coeff of Zak 13.5 (11.5-14.5) % Plt Count 204 (130-400) K/uL MPV 10.4 (9.4-12.4) fL Immature Gran % (Auto) % Neut % (Auto) % Lymph % (Auto) % [place] % (Auto) % Eos % (Auto) % Baso % (Auto) % Neut # (Auto) (1.40-6.50) K/uL Lymph # (Auto) (1.20-3.40) K/uL [place] # (Auto) (0.11-0.59) K/uL Eos # (Auto) (0.00-0.50) K/uL Baso # (Auto) (0.00-0.20) K/uL Immature Gran # (Auto) (0.01-0.20) K/uL RBC Morphology Sodium 134 L (136-145) mmol/L Potassium 4.6 (3.5-5.1) mmol/L Chloride 106 (98-107) mmol/L Carbon Dioxide 19 L (21-32) mmol/L Anion Gap 9 (3-11) BUN 47 H (6-23) mg/dl Creatinine 5.76 H* (0.6-1.2) mg/dl Est Cr Clr Drug Dosing 13.4 ml/min eGFR 8.50 BUN/Creatinine Ratio 8.2 L (10-20) Glucose 224 H (70-99(Fasting)) mg/dl POC Glucose 145 H (70-99) mg/dl Calcium 8.2 L (8.6-10.3) mg/dl Magnesium (1.7-2.4) mg/dl TSH (0.300-4.500) uIu/ml Free T4 (0.61-1.60) ng/dl Stool Occult Bld Scrn Negative (Negative) 06/14/24 06/13/24 Range/Units 06:01 20:10 WBC 6.35 (4.8-10.8) K/ul RBC 2.51 L (4.20-5.40) M/uL Hgb 7.9 L (12.0-16.0) g/dl Hct 24.2 L (37.0-47.0) % MCV 96.4 (80.0-100.0) fL MCH 31.5 (25.0-34.0) pg MCHC 32.6 (32.0-36.0) g/dL RDW Std Deviation 46.5 H (36.4-46.3) fL RDW Coeff of Zak 13.2 (11.5-14.5) % Plt Count 212 (130-400) K/uL MPV 10.2 (9.4-12.4) fL Immature Gran % (Auto) 0.6 % Neut % (Auto) 65.2 % Lymph % (Auto) 22.0 % [place] % (Auto) 8.3 % Eos % (Auto) 3.6 % Baso % (Auto) 0.3 % Neut # (Auto) 4.13 (1.40-6.50) K/uL Lymph # (Auto) 1.40 (1.20-3.40) K/uL [place] # (Auto) 0.53 (0.11-0.59) K/uL Eos # (Auto) 0.23 (0.00-0.50) K/uL Baso # (Auto) 0.02 (0.00-0.20) K/uL Immature Gran # (Auto) 0.04 (0.01-0.20) K/uL RBC Morphology Unremarkable Sodium 137 (136-145) mmol/L Potassium 4.7 (3.5-5.1) mmol/L Chloride 108 H (98-107) mmol/L Carbon Dioxide 21 (21-32) mmol/L Anion Gap 8 (3-11) BUN 44 H (6-23) mg/dl Creatinine 5.70 H* D (0.6-1.2) mg/dl Est Cr Clr Drug Dosing 13.5 ml/min eGFR 8.61 BUN/Creatinine Ratio 7.7 L (10-20) Glucose 126 H (70-99(Fasting)) mg/dl POC Glucose 96 (70-99) mg/dl Calcium 8.3 L (8.6-10.3) mg/dl Magnesium 2.5 H (1.7-2.4) mg/dl TSH 7.487 H (0.300-4.500) uIu/ml Free T4 0.84 (0.61-1.60) ng/dl Stool Occult Bld Scrn (Negative) PG Care Time/CCT Total # of Minutes Spent Total Time Spent with Patient: Total time spent is greater than 50% in coordination of care (as documented) at patient's floor/unit and/or counseling patient: Coding Level of Care Code 65479 SUB INP/OBS CARE 3/50MIN Diagnoses HTN (hypertension) I10 Type 1 diabetes mellitus with stage 4 chronic kidney disease E10.22; N18.4 Chronic kidney disease stage: stage 4 (severe) Diabetes mellitus complication detail: with chronic kidney disease Diabetes mellitus complication status: with kidney complications 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 E03.8; E06.3 Hypothyroidism type: due to Rajwinder's thyroiditis Stage 5 chronic kidney disease due to hypertension I12.0; N18.5 Hypertensive emergency I16.1 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 E10.649 CKD (chronic kidney disease) N18.9 Chronic kidney disease stage: unspecified stage ESTELITA (acute kidney injury) N17.9 (2) Type 1 diabetes Chronic kidney disease stage: stage 4 (severe) Diabetes mellitus complication detail: with chronic kidney disease Diabetes mellitus complication status: with kidney complications Qualified Code(s): E10.22 - Type 1 diabetes mellitus with diabetic chronic kidney disease; N18.4 - Chronic kidney disease, stage 4 (severe) (3) Hypothyroidism Hypothyroidism type: due to Rajwinder's thyroiditis Qualified Code(s): E03.8 - Other specified hypothyroidism; E06.3 - Autoimmune thyroiditis (7) CKD (chronic kidney disease) Chronic kidney disease stage: unspecified stage Qualified Code(s): N18.9 - Chronic kidney disease, unspecified
[2024-06-14] MEDS: IRON SUCROSE 400 MG in SODIUM CHLORIDE 0.9% 250 ML IV ONE (09:05)
[2024-06-14] MEDS: FUROSEMIDE 40 MG TAB PO ONE (09:55)
--- NOTE | 2024-06-14 10:47 | Nephrology Progress Note ---
Date of Service June 14, 2024 Assessment & Plan (1) ESTELITA (acute kidney injury): Plan: Non-oliguric. Volume status acceptable. Electrolytes normal. No emergent indication for dialysis. Increased fluid retention noted. Furosemide 40 mg PO provided this AM. CT demonstrates kidneys to be unobstructed. Hold spironolactone. Avoid Naproxen and other NSAIDS. Document I/O's. Repeat metabolic profile this afternoon. (2) Stage 5 chronic kidney disease due to hypertension: Plan: AVF is not mature for use. Vascular follow up is required post discharge. Kaci is scheduled to start the transplant evaluation process at [facility]. She is planning to attend IHD at [place] when dialysis is needed. Close follow up with Dr. Vargas will be required post discharge. (3) Hypertensive emergency: Plan: BP improved after antihypertensives were restarted. Kaci reports non-adherence with home Rx's due to recent nausea and abdominal discomfort. Continue amlodipine, clonidine, and carvedilol as Rx. Start low dose furosemide. (4) Anemia of chronic disease: Plan: Epogen 07384 units provided yesterday. Venofer 400 mg IV provided yesterday. Additional Venofer provided this AM. Denies melena or hematochezia. Admission and Anticipated Discharge Date Admission Date: June 12, 2024 Subjective No acute events overnight. Kaci felt well overnight but reports significant and sudden large volume watery diarrhea this AM. She denies abdominal pain. She denies melena or hematochezia. She developed pain at her IV site during iron infusion. Infusion was stopped and the IV is being replaced. She notes that her arms and her legs have increased edema. She is breathing comfortably. Appetite has been good. She was hopeful to be discharged home today but now has reservations due to the change in her bowels. I discussed the plan of care with Gabriella Montes De Oca PA-C this AM. Review of Systems Review of Systems: All systems reviewed & are unremarkable except as noted in HPI & below Physical Exam Constitutional: well developed and + morbidly obese; no acute distress Eyes: + anicteric sclerae; no conjunctival abn ormality ENMT: Mouth: oral mucous membranes not dry Neck: normal visual inspection and trachea midline Respiratory: normal respiratory effort Cardiovascular: Rate/Rhythm: regular rate Extremities: + edema (trace L>R; LUE to forearm) Musculoskeletal: Extremities: no cyanosis and no clubbing Skin: normal turgor and + wound (LBC incision clean and intact with sonali); no jaundice Neurologic: Motor/Sensory: no tremor and no asterixis Psychiatric: Orientation: alert and oriented x 3 Results & Data Vital Signs (Past 12 Hours) Vital Signs Temp Pulse Pulse Resp BP Pulse Ox O2 Del Method 06/14/24 07:32 36.8 C 66 19 121/79 96 Room Air 06/14/24 03:08 36.9 C 59 L 16 110/69 93 Room Air 06/14/24 01:28 69 06/13/24 22:54 36.6 C 64 19 104/63 95 Room Air Laboratory Results Laboratory Results - last 24 hr 06/13/24 06/13/24 06/14/24 11:22 20:10 06:01 WBC 6.35 RBC 2.51 L Hgb 7.9 L Hct 24.2 L MCV 96.4 MCH 31.5 MCHC 32.6 RDW Std Deviation 46.5 H RDW Coeff of Zak 13.2 Plt Count 212 MPV 10.2 Immature Gran % (Auto) 0.6 Neut % (Auto) 65.2 Lymph % (Auto) 22.0 [place] % (Auto) 8.3 Eos % (Auto) 3.6 Baso % (Auto) 0.3 Neut # (Auto) 4.13 Lymph # (Auto) 1.40 [place] # (Auto) 0.53 Eos # (Auto) 0.23 Baso # (Auto) 0.02 Immature Gran # (Auto) 0.04 RBC Morphology Unremarkable Sodium 137 Potassium 4.7 Chloride 108 H Carbon Dioxide 21 Anion Gap 8 BUN 44 H Creatinine 5.70 H* D Est Cr Clr Drug Dosing 13.5 eGFR 8.61 BUN/Creatinine Ratio 7.7 L Glucose 126 H POC Glucose 253 H 96 Calcium 8.3 L Magnesium 2.5 H TSH 7.487 H Free T4 0.84 06/14/24 07:55 WBC RBC Hgb Hct MCV MCH MCHC RDW Std Deviation RDW Coeff of Zak Plt Count MPV Immature Gran % (Auto) Neut % (Auto) Lymph % (Auto) [place] % (Auto) Eos % (Auto) Baso % (Auto) Neut # (Auto) Lymph # (Auto) [place] # (Auto) Eos # (Auto) Baso # (Auto) Immature Gran # (Auto) RBC Morphology Sodium Potassium Chloride Carbon Dioxide Anion Gap BUN Creatinine Est Cr Clr Drug Dosing eGFR BUN/Creatinine Ratio Glucose POC Glucose 145 H Calcium Magnesium TSH Free T4 PG Care Time/CCT Total # of Minutes Spent Total Time Spent with Patient: Total time spent is greater than 50% in coordination of care (as documented) at patient's floor/unit and/or counseling patient: Coding Level of Care Code 88550 SUB INP/OBS CARE 3/50MIN Diagnoses ESTELITA (acute kidney injury) N17.9 Stage 5 chronic kidney disease due to hypertension I12.0; N18.5 Hypertensive emergency I16.1 Anemia of chronic disease D63.8
[2024-06-14 13:35] LABS: Hematocrit (blood only) 23.8 % (37.0-47.0); Hemoglobin 7.7 g/dl (12.0-16.0); Mean Corpuscular Hemoglobin 31.4 pg (25.0-34.0); Mean Corpuscular Hgb Conc 32.4 g/dL (32.0-36.0); Mean Corpuscular Volume 97.1 fL (80.0-100.0); Mean Platelet Volume 10.4 fL (9.4-12.4); Platelet Count 204 K/uL (130-400); RDW Coefficient of Variation 13.5 % (11.5-14.5); RDW Standard Deviation 47.2 fL (36.4-46.3); Red Blood Count 2.45 M/uL (4.20-5.40); White Blood Count 6.69 K/ul (4.8-10.8)
[2024-06-14 13:50] LABS: BUN Creatinine Ratio 8.2 (10-20); Calcium 8.2 mg/dl (8.6-10.3); Creatinine Clr Calc Pharmacy 13.4 ml/min; Potassium 4.6 mmol/L (3.5-5.1)
[2024-06-14 17:33] LABS: Adenovirus F 40/41 PCR Not Detected (NotDetected); Astrovirus PCR Not Detected (NotDetected); Campylobacter PCR Not Detected (NotDetected); Cryptosporidium PCR Not Detected (NotDetected); Cyclospora cayetanensis PCR Not Detected (NotDetected); Entamoeba histolytica PCR Not Detected (NotDetected); Enteroaggregative E.coli(EAEC) Not Detected (NotDetected); Enteropathogenic E.coli (EPEC) Not Detected (NotDetected); Enterotoxigenic E.coli (ETEC) Not Detected (NotDetected); Giardia lamblia PCR Not Detected (NotDetected); Norovirus GI/GII PCR Not Detected (NotDetected); Plesiomonas shigelloides PCR Not Detected (NotDetected); Rotavirus A PCR Not Detected (NotDetected); Salmonella PCR Not Detected (NotDetected); Sapovirus PCR Not Detected (NotDetected); Shiga-like Toxin E.coli (STEC) Not Detected (NotDetected); Shigella/Enteroinvasive E.coli Not Detected (NotDetected); Vibrio cholerae PCR Not Detected (NotDetected); Vibrio species PCR Not Detected (NotDetected); Yersinia enterocolitica PCR Not Detected (NotDetected)
[2024-06-14] MEDS: cloNIDine HCL 0.1 MG TAB PO SCH (19:57)
[2024-06-15 06:36] LABS: Basophils # (auto) 0.02 K/uL (0.00-0.20); Basophils % (auto) 0.3 %; Eosinophils # (auto) 0.28 K/uL (0.00-0.50); Eosinophils % (auto) 4.1 %; Hematocrit (blood only) 24.7 % (37.0-47.0); Hemoglobin 7.8 g/dl (12.0-16.0); Immature Granulocytes # (auto) 0.04 K/uL (0.01-0.20); Immature Granulocytes % (auto) 0.6 %; Lymphocytes # (auto) 1.45 K/uL (1.20-3.40); Mean Corpuscular Hemoglobin 30.6 pg (25.0-34.0); Mean Corpuscular Hgb Conc 31.6 g/dL (32.0-36.0); Mean Corpuscular Volume 96.9 fL (80.0-100.0); Mean Platelet Volume 10.7 fL (9.4-12.4); Monocytes # (auto) 0.74 K/uL (0.11-0.59); Monocytes % (auto) 10.7 %; Neutrophils # (auto) 4.37 K/uL (1.40-6.50); Neutrophils % (auto) 63.3 %; Platelet Count 199 K/uL (130-400); RDW Coefficient of Variation 13.4 % (11.5-14.5); RDW Standard Deviation 47.7 fL (36.4-46.3); Red Blood Count 2.55 M/uL (4.20-5.40)
[2024-06-15 07:06] LABS: BUN Creatinine Ratio 7.9 (10-20); Calcium 8.1 mg/dl (8.6-10.3); Creatinine Clr Calc Pharmacy 11.9 ml/min; Potassium 4.8 mmol/L (3.5-5.1)
[2024-06-15 07:09] LABS: Polychromasia 1+
--- NOTE | 2024-06-15 08:03 | Hospitalist Progress Note ---
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 Constipation likely worsened w/ recent rx PO iron by nephrology for her anemia along with possible underlying gastroparesis/DM #Hypertensive emergency- Suspect due to medication noncompliance and not taking medications due to recent nausea however does report improved compliance with medications however got anxious with low BPs then would hold/be high and then resume however denied symptoms w/ low BPS BP >200 systolic on admission with ESTELITA on CKD and associated n/v and constipation x 3 weeks Given Labetalol IV x 1 and antiemetics with improvement and IVF continued. Was ordered 3L but STOPPED w/ CKD and edema status Adjustments to medications have been made w/ significant improvement and BPs have been stable. Currently BP 121/80 and remains on Coreg 25mg BID, amlodipine 10mg daily but with reduction in clonidine to 0.1mg BID last evening (would avoid stopping cold turkey to prevent rebound) -Her chlorthalidone/spironolactone/doxazosin have been STOPPED, lasix as below/avoiding further Continue to monitor #ESTELITA on CKD V, anemia 2nd to CKD Cr 5.2 on admission, baseline 4-4.5 with recent dc of chlorthalidone by nephro outpatient. Prior SHANEKA dc'd 2nd to recurrent AKIs. Recent rx PO iron BID for ongoing anemia (fecal occult negative/denied blood) Pending kidney transplant evaluation at [facility] with worsening renal impairment in setting of DM and uncontrolled HTN in the past 2nd to medication compliance Now has LEFT brachiocephalic AV fistula in place w/ repeat procedure about 3 wks ago to bring closer to skin, ?graft. Looks good, continue wound care/dressing changes. Not yet mature Nephrology on consult, appreciate recs/assistance. -- Iron studies obtained/low , EPO, Venofer IV 400mgx 2 provided. Repeat 200mg IV today (06/15) -- Given no active bleeding, nephro defer for PRBC at this time Was given lasix 40mg PO x 1 to assist w/ diuresis given making urine on 06/14 and Cr unchanged at 5.7 however notable increased salt/carb load with [employer] last evening and Cr WORSE to 6.47 --> discussed w/ Dr Duke and will HOLD OFF further diuretics for now and just WATCH however may need to consider getting temp dialysis catheter sooner/start HD pending repeat labs in AM Renal dose meds, avoid nephrotoxins as able -->miralax stopped ,mag oxide stopped. GABAPENTIN REDUCED TO 100mg TID given CKD V BMP in AM #Nausea/vomiting/constipation (now diarrhea) - reported no BM x 3 weeks, cause for admission. Suspect worsened with recent PO iron supplementation and likely underlying gastroparesis. CTAP without obstruction, mild retained stool. s/p miralax, biscodyl, MOM and IVF on admission and LARGE BM AM 06/13 x 2 and then copious diarrhea on 06/14. Stool studies/cdiff NEGATIVE. Fecal occult negative Diarrhea slowed, mointor for reglan for possible gastroparesis with her DM. PO iron on HOLD and getting IV as outlined and tolerating diet Monitor #Hypothyroidism Ongoing, follows w/ endocrinology. Given fatigue/anemia/constipation/pre-tibial edema and elevated TSH to 7 on supplementation as well as discussion w/ outpatient endocrinology --> have increased thyroid armour to 90 daily and will need new rx and TFT outpatient in follow up. #Hypertension As above, spironolactone/chlorthalidone held for ESTELITA with plans to stop along with doxazosin and continues on clonidine BID (REDUCED), coreg BID, amlodipine with stable BP 121/80 without further lows today Type I DM, neuropathy b/l feet as well as diabetic retinopathy Using Dexcom, basal 5.3 however SIGNIFICANT carb load w/ Adrys PM 06/14 with BSG to mid 300s and has improved. DM educator following. Discussed to AVOID Gabapentin reduction for CKD V as above. Pt reports injectable in f/u endo to start and should monitor for worsened constipation once occurs Continue to monitor BSGs Factor V Leiden Continue Eliquis 5 mg p.o. twice daily (did not utilize lovenox w/ her surgery as instructed but pulses present but does have some mild edema suspected 2nd to recent procedures) Ankle pain, LEFT Reporting L ankle pain, prior fx. Xrays obtained and demonstrate Distal fibular fracture remains nondisplaced, incompletely healed. Orthopedics consulted but likely just orthotics/WBAT but appreciate recs Anxiety/depression/seizure disorder Lamotrigine continued. She typically takes 200 mg twice daily with 25 mg additional in the evening however has been intermittently compliant and not taking her medications consistently. Doxazosin to be discontinued but continue on clonidine BID for hx bipolar but reduced for BP above Dispo: continued inpatient stay and monitoring renal function. Per nephrology no diuretics but if renal function worse in AM may need plan for dialysis sooner to prevent worsening PT/OT consults pending Admission and Anticipated Discharge Date Admission Date: June 12, 2024 Supervising Physician Co-Signing Physician Notes The patient was not seen by me. The chart was reviewed. Case discussed with DAVID Ray. Agree with assessment and plan Subjective Eval this morning, diarrhea slowed Edema improved however reporting "left foot swollen, filling up my shoe". Does have some tenderness mid foot/ankle but no significant erythema. Will check xray/uric acid but did note decreased her gabapentin based on renal function. Lengthy discussion by Dr Duke with patient/mother this morning and monitoring. If worsened renal function, will need plan to begin dialysis. Deferring any further diuretics at this time. No CP/SOB. Physical Exam Physical Exam: General: 48yo female sitting up in bed, NAD, getting dressing to LUE change, no cellulitis/drainage at this time HEENT head atraumatic, normocephalic, mmm Resp: even/unlabored, slightly diminished in the bases but on room air CV; RRR, no significant m/r/g, decreased/trace pedal edema (almost completely resolved), pulses present GI: +BS, soft/NT ; no velarde MSK/Neuro: moves all extremities, no facial droop/slurred speech, poor insight talking about pain to her left ankle, no cellulitis/wound appreciated but +tenderness to palpation midfoot/distal tib/fib region but ROM intact, no edema, pulses present Psych: alert to person/place/time, poor insight at times, saying interesting things not fitting description at times Results & Data Results & Data Vital Signs (Past 12 Hours) Vital Signs Temp Pulse Pulse Resp BP Pulse Ox O2 Del Method 06/14/24 22:47 36.6 C 60 19 107/67 92 Room Air 06/14/24 22:12 62 Laboratory Results 06/15/24 06/15/24 06/15/24 Range/Units 09:37 08:08 05:38 WBC 6.90 (4.8-10.8) K/ul RBC 2.55 L (4.20-5.40) M/uL Hgb 7.8 L (12.0-16.0) g/dl Hct 24.7 L (37.0-47.0) % MCV 96.9 (80.0-100.0) fL MCH 30.6 (25.0-34.0) pg MCHC 31.6 L (32.0-36.0) g/dL RDW Std Deviation 47.7 H (36.4-46.3) fL RDW Coeff of Zak 13.4 (11.5-14.5) % Plt Count 199 (130-400) K/uL MPV 10.7 (9.4-12.4) fL Immature Gran % (Auto) 0.6 % Neut % (Auto) 63.3 % Lymph % (Auto) 21.0 % [place] % (Auto) 10.7 % Eos % (Auto) 4.1 % Baso % (Auto) 0.3 % Neut # (Auto) 4.37 (1.40-6.50) K/uL Lymph # (Auto) 1.45 (1.20-3.40) K/uL [place] # (Auto) 0.74 H (0.11-0.59) K/uL Eos # (Auto) 0.28 (0.00-0.50) K/uL Baso # (Auto) 0.02 (0.00-0.20) K/uL Immature Gran # (Auto) 0.04 (0.01-0.20) K/uL Polychromasia 1+ Sodium 132 L (136-145) mmol/L Potassium 4.8 (3.5-5.1) mmol/L Chloride 106 (98-107) mmol/L Carbon Dioxide 22 (21-32) mmol/L Anion Gap 4 (3-11) BUN 51 H (6-23) mg/dl Creatinine 6.47 H* D (0.6-1.2) mg/dl Est Cr Clr Drug Dosing 11.9 ml/min eGFR 7.39 BUN/Creatinine Ratio 7.9 L (10-20) Glucose 137 H (70-99(Fasting)) mg/dl POC Glucose 140 H (70-99) mg/dl Uric Acid 6.1 (2.6-7.2) mg/dl Calcium 8.1 L (8.6-10.3) mg/dl B-Natriuretic Peptide 839 H (0-100) pg/ml Stl C. cayetanensis PCR (NotDetected) Stool Rotavirus A PCR (NotDetected) Stl Adenov F 40/41 PCR (NotDetected) Stool Astrovirus (PCR) (NotDetected) Stool Campylobacter PCR (NotDetected) Stl C. diff Tox B Gene (Neg) Stool Cryptosporidium PCR (NotDetected) Stl E.coli Shiga Tox PCR (NotDetected) Stl Enterotoxigenic E PCR (NotDetected) Stool EPEC (PCR) (NotDetected) Stool EAEC (PCR) (NotDetected) Stl E. histolytica PCR (NotDetected) Stool Giardia Lamblia PCR (NotDetected) Stool Salmonella PCR (NotDetected) Stool Sapovirus (PCR) (NotDetected) Stl P. shigelloides PCR (NotDetected) Stl Shigella/EIEC PCR (NotDetected) St Y.enterocolitica PCR (NotDetected) Stool Vibrio (PCR) (NotDetected) Stl Vibrio cholerae PCR (NotDetected) Stl Norovirus GI/GII PCR (NotDetected) 06/14/24 06/14/24 06/14/24 Range/Units 20:43 16:00 12:57 WBC 6.69 (4.8-10.8) K/ul RBC 2.45 L (4.20-5.40) M/uL Hgb 7.7 L (12.0-16.0) g/dl Hct 23.8 L (37.0-47.0) % MCV 97.1 (80.0-100.0) fL MCH 31.4 (25.0-34.0) pg MCHC 32.4 (32.0-36.0) g/dL RDW Std Deviation 47.2 H (36.4-46.3) fL RDW Coeff of Zak 13.5 (11.5-14.5) % Plt Count 204 (130-400) K/uL MPV 10.4 (9.4-12.4) fL Immature Gran % (Auto) % Neut % (Auto) % Lymph % (Auto) % [place] % (Auto) % Eos % (Auto) % Baso % (Auto) % Neut # (Auto) (1.40-6.50) K/uL Lymph # (Auto) (1.20-3.40) K/uL [place] # (Auto) (0.11-0.59) K/uL Eos # (Auto) (0.00-0.50) K/uL Baso # (Auto) (0.00-0.20) K/uL Immature Gran # (Auto) (0.01-0.20) K/uL Polychromasia Sodium 134 L (136-145) mmol/L Potassium 4.6 (3.5-5.1) mmol/L Chloride 106 (98-107) mmol/L Carbon Dioxide 19 L (21-32) mmol/L Anion Gap 9 (3-11) BUN 47 H (6-23) mg/dl Creatinine 5.76 H* (0.6-1.2) mg/dl Est Cr Clr Drug Dosing 13.4 ml/min eGFR 8.50 BUN/Creatinine Ratio 8.2 L (10-20) Glucose 224 H (70-99(Fasting)) mg/dl POC Glucose 365 H* (70-99) mg/dl Uric Acid (2.6-7.2) mg/dl Calcium 8.2 L (8.6-10.3) mg/dl B-Natriuretic Peptide (0-100) pg/ml Stl C. cayetanensis PCR Not Detected (NotDetected) Stool Rotavirus A PCR Not Detected (NotDetected) Stl Adenov F 40/41 PCR Not Detected (NotDetected) Stool Astrovirus (PCR) Not Detected (NotDetected) Stool Campylobacter PCR Not Detected (NotDetected) Stl C. diff Tox B Gene Negative Cdiff Gene (Neg) Stool Cryptosporidium PCR Not Detected (NotDetected) Stl E.coli Shiga Tox PCR Not Detected (NotDetected) Stl Enterotoxigenic E PCR Not Detected (NotDetected) Stool EPEC (PCR) Not Detected (NotDetected) Stool EAEC (PCR) Not Detected (NotDetected) Stl E. histolytica PCR Not Detected (NotDetected) Stool Giardia Lamblia PCR Not Detected (NotDetected) Stool Salmonella PCR Not Detected (NotDetected) Stool Sapovirus (PCR) Not Detected (NotDetected) Stl P. shigelloides PCR Not Detected (NotDetected) Stl Shigella/EIEC PCR Not Detected (NotDetected) St Y.enterocolitica PCR Not Detected (NotDetected) Stool Vibrio (PCR) Not Detected (NotDetected) Stl Vibrio cholerae PCR Not Detected (NotDetected) Stl Norovirus GI/GII PCR Not Detected (NotDetected) Diagnostic Findings Ankle X-Ray 06/15/24 10:06 XR ankle LT 2V, XR foot LT 2V CLINICAL HISTORY: pain COMPARISON: 09/27/2023 FINDINGS: Fractured distally at the fibula remains nondisplaced, incompletely united. No new fracture or dislocation seen at the left ankle. There is a bone island at the first distal phalanx. No acute fracture or dislocation seen at the left foot. No significant degenerative change. IMPRESSION: 1. Distal fibular fracture remains nondisplaced, incompletely healed. 2. No new fracture seen at the left ankle or left foot. ACT 112: Negative or not required by law. Electronically signed by: Chano Cottrell M.D. 06/15/2024 11:26 AM Foot X-Ray 06/15/24 10:06 XR ankle LT 2V, XR foot LT 2V CLINICAL HISTORY: pain COMPARISON: 09/27/2023 FINDINGS: Fractured distally at the fibula remains nondisplaced, incompletely united. No new fracture or dislocation seen at the left ankle. There is a bone island at the first distal phalanx. No acute fracture or dislocation seen at the left foot. No significant degenerative change. IMPRESSION: 1. Distal fibular fracture remains nondisplaced, incompletely healed. 2. No new fracture seen at the left ankle or left foot. ACT 112: Negative or not required by law. Electronically signed by: Chano Cottrell M.D. 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 E03.8; E06.3 Hypothyroidism type: due to Rajwinder's thyroiditis Stage 5 chronic kidney disease due to hypertension I12.0; N18.5 Hypertensive emergency I16.1 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 E10.649 CKD (chronic kidney disease) N18.9 Chronic kidney disease stage: unspecified stage ESTELITA (acute kidney injury) N17.9 (2) Type 1 diabetes Chronic kidney disease stage: stage 4 (severe) Diabetes mellitus complication detail: with chronic kidney disease Diabetes mellitus complication status: with kidney complications Qualified Code(s): E10.22 - Type 1 diabetes mellitus with diabetic chronic kidney disease; N18.4 - Chronic kidney disease, stage 4 (severe) (3) Hypothyroidism Hypothyroidism type: due to Rajwinder's thyroiditis Qualified Code(s): E03.8 - Other specified hypothyroidism; E06.3 - Autoimmune thyroiditis (7) CKD (chronic kidney disease) Chronic kidney disease stage: unspecified stage Qualified Code(s): N18.9 - Chronic kidney disease, unspecified
[2024-06-15] MEDS: ARMOUR THYROID 30 MG TAB PO SCH (09:12)
--- NOTE | 2024-06-15 09:46 | Nephrology Progress Note ---
Date of Service June 15, 2024 Assessment & Plan (1) ESTELITA (acute kidney injury): Plan: Non-oliguric. Volume status acceptable. Electrolytes normal. No emergent indication for dialysis. Edema persistent but slightly improved. Additional diuretics held today. Fur osemide 40 mg PO provided yesterday AM. CT demonstrates kidneys to be unobstructed. Hold spironolactone. Document I/O's. Repeat metabolic profile tomorrow AM. (2) Stage 5 chronic kidney disease due to hypertension: Plan: AVF is not mature for use. Vascular follow up is required post discharge. Kaci is scheduled to start the transplant evaluation process at [facility]. She is planning to attend IHD at [facility] when dialysis is needed. Close follow up with Dr. Vargas will be required post discharge. She is aware that HD may need to be started during this admission if kidney function does not stabilize. (3) Hypertensive emergency: Plan: BP improved after antihypertensives were restarted. Kaci reports non-adherence with home Rx's due to recent nausea and abdominal discomfort. Continue amlodipine, clonidine, and carvedilol as Rx. Clonidine dose reduced to 0.1 mg twice daily yesterday due to symptomatic hypotension. (4) Anemia of chronic disease: Plan: Epogen 84296 units provided 06/13. Venofer 400 mg IV provided 06/13 +06/14. 200 mg IV today. H/H stable. No signs of active bleeding. Admission and Anticipated Discharge Date Admission Date: June 12, 2024 Subjective No acute events overnight. I had a long conversation with Kaci and her mother this AM. We discussed potential indications for starting dialysis. We discussed what life on dialysis would look like. We discussed TDC placement. They acknowledge Kaci's kidney dysfunction is progressing. Kaci told me that her financial situation as well stress at home with her family are barriers to improving her health but she is motivated to make improvements. She admits that there are times that she forgets to take her antihypertensives but she understands the importance of adherence. She also describes a high sodium diet. She is advised that due to her advanced kidney dysfunction there is no margin for error unless she plans to start HD. No melena or hematochezia. She has not had a bowel movement this AM. She denies abdominal pain. She denies nausea. Appetite is very good. She admits that she ate more sugar than she should have. Blood glucose was elevated this AM. She is receptive to monitoring in the hospital today. She reports some symptomatic orthostatic hypotension yesterday which has improved today. Review of Systems Review of Systems: All systems reviewed & are unremarkable except as noted in HPI & below Physical Exam Constitutional: well developed and + morbidly obese; no acute distress Eyes: + anicteric sclerae; no conjunctival abn ormality ENMT: Mouth: oral mucous membranes not dry Neck: normal visual inspection and trachea midline Respiratory: normal respiratory effort Cardiovascular: Rate/Rhythm: regular rate Extremities: + edema (trace L>R) and + AV fistula (with dressing CDI, good thrill and bruit) Musculoskeletal: Extremities: no cyanosis and no clubbing Skin: normal turgor and + wound (LBC incision clean and intact with sonali); no jaundice Neurologic: Motor/Sensory: no tremor and no asterixis Psychiatric: Orientation: alert and oriented x 3 Results & Data Vital Signs (Past 12 Hours) Vital Signs Temp Pulse Pulse Resp BP Pulse Ox O2 Del Method 06/15/24 08:38 36.6 C 64 18 110/72 96 Room Air 06/14/24 22:47 36.6 C 60 19 107/67 92 Room Air 06/14/24 22:12 62 Laboratory Results Laboratory Results - last 24 hr 06/14/24 06/14/24 06/14/24 12:33 12:57 16:00 WBC 6.69 RBC 2.45 L Hgb 7.7 L Hct 23.8 L MCV 97.1 MCH 31.4 MCHC 32.4 RDW Std Deviation 47.2 H RDW Coeff of Zak 13.5 Plt Count 204 MPV 10.4 Immature Gran % (Auto) Neut % (Auto) Lymph % (Auto) [place] % (Auto) Eos % (Auto) Baso % (Auto) Neut # (Auto) Lymph # (Auto) [place] # (Auto) Eos # (Auto) Baso # (Auto) Immature Gran # (Auto) Polychromasia Sodium 134 L Potassium 4.6 Chloride 106 Carbon Dioxide 19 L Anion Gap 9 BUN 47 H Creatinine 5.76 H* Est Cr Clr Drug Dosing 13.4 eGFR 8.50 BUN/Creatinine Ratio 8.2 L Glucose 224 H POC Glucose Calcium 8.2 L Stool Occult Bld Scrn Negative Stl C. cayetanensis PCR Not Detected Stool Rotavirus A PCR Not Detected Stl Adenov F 40 PCR Not Detected Stool Astrovirus (PCR) Not Detected Stool Campylobacter PCR Not Detected Stl C. diff Tox B Gene Negative Cdiff Gene Stool Cryptosporidium PCR Not Detected Stl E.coli Shiga Tox PCR Not Detected Stl Enterotoxigenic E PCR Not Detected Stool EPEC (PCR) Not Detected Stool EAEC (PCR) Not Detected Stl E. histolytica PCR Not Detected Stool Giardia Lamblia PCR Not Detected Stool Salmonella PCR Not Detected Stool Sapovirus (PCR) Not Detected Stl P. shigelloides PCR Not Detected Stl Shigella/EIEC PCR Not Detected St Y.enterocolitica PCR Not Detected Stool Vibrio (PCR) Not Detected Stl Vibrio cholerae PCR Not Detected Stl Norovirus GI/GII PCR Not Detected 06/14/24 06/15/24 06/15/24 20:43 05:38 08:08 WBC 6.90 RBC 2.55 L Hgb 7.8 L Hct 24.7 L MCV 96.9 MCH 30.6 MCHC 31.6 L RDW Std Deviation 47.7 H RDW Coeff of Zak 13.4 Plt Count 199 MPV 10.7 Immature Gran % (Auto) 0.6 Neut % (Auto) 63.3 Lymph % (Auto) 21.0 [place] % (Auto) 10.7 Eos % (Auto) 4.1 Baso % (Auto) 0.3 Neut # (Auto) 4.37 Lymph # (Auto) 1.45 [place] # (Auto) 0.74 H Eos # (Auto) 0.28 Baso # (Auto) 0.02 Immature Gran # (Auto) 0.04 Polychromasia 1+ Sodium 132 L Potassium 4.8 Chloride 106 Carbon Dioxide 22 Anion Gap 4 BUN 51 H Creatinine 6.47 H* D Est Cr Clr Drug Dosing 11.9 eGFR 7.39 BUN/Creatinine Ratio 7.9 L Glucose 137 H POC Glucose 365 H* 140 H Calcium 8.1 L Stool Occult Bld Scrn Stl C. cayetanensis PCR Stool Rotavirus A PCR Stl Adenov F 40 PCR Stool Astrovirus (PCR) Stool Campylobacter PCR Stl C. diff Tox B Gene Stool Cryptosporidium PCR Stl E.coli Shiga Tox PCR Stl Enterotoxigenic E PCR Stool EPEC (PCR) Stool EAEC (PCR) Stl E. histolytica PCR Stool Giardia Lamblia PCR Stool Salmonella PCR Stool Sapovirus (PCR) Stl P. shigelloides PCR Stl Shigella/EIEC PCR St Y.enterocolitica PCR Stool Vibrio (PCR) Stl Vibrio cholerae PCR Stl Norovirus GI/GII PCR PG Care Time/CCT Total # of Minutes Spent Total Time Spent with Patient: Total time spent is greater than 50% in coordination of care (as documented) at patient's floor/unit and/or counseling patient: Coding Level of Care Code 03766 SUB INP/OBS CARE 3/50MIN Diagnoses ESTELITA (acute kidney injury) N17.9 Stage 5 chronic kidney disease due to hypertension I12.0; N18.5 Hypertensive emergency I16.1 Anemia of chronic disease D63.8
[2024-06-15] MEDS: IRON SUCROSE 200 MG in SODIUM CHLORIDE 0.9% 100 ML IV ONE (11:14)
--- NOTE | 2024-06-15 11:28 | XRay Report ---
XR ankle LT 2V, XR foot LT 2V CLINICAL HISTORY: pain COMPARISON: 09/27/2023 FINDINGS: Fractured distally at the fibula remains nondisplaced, incompletely united. No new fractur e or dislocation seen at the left ankle. There is a bone island at the first distal phalanx. No acute fracture or dislocation seen at the left foot. No significant degenerative change. IMPRESSION: 1. Distal fibular fracture remains nondisplaced, incompletely healed. 2. No new fracture seen at the left ankle or left foot. ACT 112: Negative or not required by law. Electronically signed by: Chano Cottrell M.D. 06/15/2024 11:26 AM
[2024-06-15 11:56] LABS: Uric Acid 6.1 mg/dl (2.6-7.2)
[2024-06-15] MEDS ORDERED: PHARMACY GLYCEMIC MGMT CONSULT PRN (14:16)
--- NOTE | 2024-06-15 14:39 | CT Scan Report ---
CT head/brain wo con CLINICAL HISTORY: fall, ams. TECHNIQUE: Multiple axial CT images of the head were obtained without contrast. A dose lowering tech nique was utilized adhering to the principles of ALARA. CT DOSE: 547.75 mGy.cm COMPARISON: 02/15/2022 FINDINGS: There is an interval 1 cm area of hypodensity in the left thalamus consistent with interval infarction of uncertain chronicity. Stable small lacunar infarction in the right thalamus. There is a mildly progressive small area of hypodensity in the anterior left periventricular white matter. No intracranial hemorrhage seen. No mass effect, midline shift, or hydrocephalus. Visualized paranasal s inuses are clear. No mastoid effusion. No skull fracture seen. IMPRESSION: 1. No intracranial hemorrhage seen. 2. Interval small hypodensity in the left thalamus and mildly progressive hypodensity in the left per iventricular white matter. These likely represent infarctions of uncertain chronicity, possibly subac le[place]. ACT 112: Negative or not required by law. The above report was generated using voice recognition software. It may contain grammatical, syntax o r spelling errors. Electronically signed by: Chano Cottrell M.D. 06/15/2024 2:37 PM
--- NOTE | 2024-06-15 15:11 | XRay Report ---
XR hip MARGARET 2v w pelvis CLINICAL HISTORY: fall, eval fx COMPARISON STUDY: 02/15/2022 FINDINGS: ICD is present. No fracture or dislocation seen at the pelvis or hips. Hip joint spaces are maintained. IMPRESSION: No fracture seen. ACT 112: Negative or not required by law. Electronically signed by: Chano Cottrell M.D. 06/15/2024 3:10 PM
--- NOTE | 2024-06-15 15:16 | XRay Report ---
XR ankle RT 2V, XR ankle LT 2V CLINICAL HISTORY: fall with bilateral ankle pain COMPARISON: Earlier today and 09/27/2023 FINDINGS: Right ankle: There are old fractures at the fourth and fifth metatarsals. There is an old healed frac ture at the distal fibula. No acute fracture or dislocation seen. Left ankle: Partially healed fracture at the distal fibula remains nondisplaced. No new fracture or d islocation seen. IMPRESSION: No acute fracture seen at either ankle. Otherwise as described. ACT 112: Negative or not required by law. Electronically signed by: Chano Cottrell M.D. 06/15/2024 3:14 PM
--- NOTE | 2024-06-15 15:25 | Pharmacy Report ---
Pharmacy Glycemic Short Note 2 - Date of Service June 15, 2024 - Glycemic Short BSG Results (Last 24 hours): 06/14/24 06/15/24 06/15/24 20:43 05:38 08:08 Glucose 137 H POC Glucose 365 H* 140 H 06/15/24 14:17 Glucose POC Glucose 274 H OUTPATIENT ANTIDIABETIC REGIMEN: * Insulin pump (settings per 05/26/24 Endo note) * Basal rate: 0.8 units/hr * CF 25 * CR 13 ASSESSMENT: * Kaci is a 48 yo T1DM with PMH of CKD stage V, hypertension, hypothyroidism, seizure disorder, steatohepatitis, and factor V Leiden. * On admission, patient was continued on insulin pump. Pharmacy was consulted on 06/15/24 to transition patient to SC basal + bolus insulin due to confusion. * Will start patient on 18 units of basal insulin per day (based on home use of 0.8 units/hr). * Will utilize correction factor and carb ratio similar to home settings on insulin pump. PLAN FOR INPATIENT GLYCEMIC CONTROL: * Basal insulin * Lantus 18 units SQ q24h * Bolus insulin * NovoLog per scale ACHS or Q6hrs while NPO * Goal Range: Low 120 mg/dL - High 150 mg/dL * Correction Factor: 30 mg/dL/unit * Nutritional / Prandial insulin per carb ratio of 1 unit per 13 grams CHO consumed
[2024-06-15 15:46] LABS: Base Excess VBG -5.2 mEq/L; HCO3 VBG 20 mmol/L; Oxygen Saturation VBG 70.8 %; PCO2 VBG 37 mmHg (38-50); PO2 VBG 44 mmHg; pH VBG 7.34 (7.36-7.41)
--- NOTE | 2024-06-15 17:40 | Electrocardiogram Report ---
Test Reason : Blood Pressure : */* mmHG Vent. Rate : 85 BPM Atrial Rate : 85 BPM P-R Int : 176 ms QRS Dur : 90 ms QT Int : 388 ms P-R-T Axes : 30 -29 102 degrees QTcB Int : 461 ms Normal sinus rhythm Minimal voltage criteria for LVH, may be normal variant Poor R wave progression, consider anterior IN vs. lead placement vs. LVH T wave abnormality, consider lateral ischemia Abnormal ECG When compared with ECG of 24-Feb-2024 22:17, No significant change was found Confirmed by Esau Evans ([id number]) on 06/15/2024 5:40:49 PM Referred By: REFERRED SELF Confirmed By: Esau Evans
[2024-06-15] MEDS: LANTUS PER UNIT CHARGE SC SCH (17:47)
[2024-06-15] MEDS: INSULIN ASPART PER UNIT CHARGE SC SCH (17:48)
--- NOTE | 2024-06-15 19:31 | XRay Report ---
EXAM: XR orbits for MRI CLINICAL HISTORY: Screening for foreign body for MRI TECHNIQUE: X-ray examination of the orbits performed in [AP/PA and lateral views, COMPARISON: none FINDINGS: Orbital Margins: The bony orbital margins appear intact bilaterally, with no evidence of fractures, deformities, or lytic lesions. The zygomatic arches are symmetrical and show no abnormalities. Soft Tissues: The periorbital soft tissues are unremarkable, with no evidence of swelling, mass effect, or foreign bodies. The extraocular muscles are not directly visualized on X-ray, but there are no signs of displacement or other indirect abnormalities. Foreign Bodies: No radiopaque foreign bodies are identified within the orbits or surrounding regions. IMPRESSION: No radiographic evidence radiodense foreign bodies, Electronically signed by Kyle Arnold 06-15-2024 7:31 PM
--- NOTE | 2024-06-15 19:35 | XRay Report ---
EXAM: XR chest 1V portable CLINICAL HISTORY: For MRI. TECHNIQUE: An X-ray image of the chest is obtained in PA projection. COMPARISON: Prior CR study dated 02/24/2024. FINDINGS: Pulmonary Parenchyma: No evidence of consolidation, collapse, or focal opacities. No evidence of pleural effusion or pleural thickening. increased vascular markings likely of congestive etiology Heart and Mediastinum: Increased in cardiac size. No medisatinal masses. Bony Thorax: Bony thorax appears intact without fractures or deformities. Soft Tissues: Soft tissues overlying the chest wall are unremarkable. IMPRESSION: 1. Cardiomegaly, mildly enlarged on interval. 2. No radiodense foreign bodies. 3. No other time interval changes Electronically signed by Kyle Arnold 06-15-2024 7:35 PM
--- NOTE | 2024-06-15 19:40 | XRay Report ---
EXAM: XR KUB pre MRI CLINICAL HISTORY: for MRI. TECHNIQUE: X-ray images of the abdomen were obtained in supine position. COMPARISON: 06/12/2024 CT abdomen and pelvis was reviewed. FINDINGS: Gas Pattern: Prominent gas-filled splenic flexure. Fecal loaded right hemicolon. Soft Tissues: Surgical clips of prior cholecystectomy. IUD in the pelvis. Oval-shaped radiopaque density projecting over the right tenth rib. IMPRESSION: Oval-shaped radiopaque density projecting over the right tenth rib. Please correlate clinically. A lateral view may be done for further evaluation. Electronically signed by Kyle Arnold 06-15-2024 7:40 PM
[2024-06-16 06:22] LABS: Hematocrit (blood only) 24.9 % (37.0-47.0); Hemoglobin 8.2 g/dl (12.0-16.0); Mean Corpuscular Hemoglobin 32.2 pg (25.0-34.0); Mean Corpuscular Hgb Conc 32.9 g/dL (32.0-36.0); Mean Corpuscular Volume 97.6 fL (80.0-100.0); Mean Platelet Volume 10.7 fL (9.4-12.4); Platelet Count 217 K/uL (130-400); RDW Coefficient of Variation 13.5 % (11.5-14.5); RDW Standard Deviation 47.7 fL (36.4-46.3); Red Blood Count 2.55 M/uL (4.20-5.40); White Blood Count 8.94 K/ul (4.8-10.8)
[2024-06-16 06:34] LABS: Albumin Level 3.4 gm/dl (3.4-5.0); BUN Creatinine Ratio 8.1 (10-20); Calcium 8.2 mg/dl (8.6-10.3); Creatinine Clr Calc Pharmacy 10.7 ml/min; Phosphorus 6.9 mg/dl (2.5-4.9); Potassium 5.3 mmol/L (3.5-5.1)
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
[2024-06-16] MEDS: CIPROFLOXACIN / D5W 200 MG/100 ML BAG IV SCH (09:27)
[2024-06-16 10:05] LABS: Hep B Surface Ag with confirm Negative (Negative)
[2024-06-16 10:14] LABS: Hepatitis B Surface Antibody Immune
--- NOTE | 2024-06-16 10:23 | Neurology Consultation ---
Date of Consultation June 16, 2024 Assessment & Plan (1) Fall: (2) History of CVA (cerebrovascular accident): (3) Diabetic autonomic 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: (4) Migraine: (5) Seizure disorder: (6) Proliferative retinopathy due to type 1 diabetes mellitus: Plan Patient was found on the floor June 15 and 1400 hrs. It is uncertain to whether the patient actually fell or just sat on the floor. When found she was sitting on the floor with her legs crossed. She has no recall of any of the events, adds no meaningful information to this event, and it does not appear that she had an actual syncopal episode or collapse. The patient does have a history of complex partial seizures which apparently were very well-controlled. Records suggest that she has not had a seizure since September 2021 but the patient herself states that she has had nocturnal seizures every few weeks (apparently). She has not been getting spells during the day. Patient's balance is poor likely because of significant polyneuropathy involving large and small caliber sensory fibers from diabetes. In addition the patient does not see well. She may have some mild encephalopathy which could be due to a wide variety of factors, including renal/uremic, medication, urinary tract infection, significant anemia, or other. Currently she does not appear to be delirious or significantly encephalopathic. She does not seem to have a dementia as well. The CT scan of the head shows some hypodensity in the left thalamus and other areas. I believe these are old and were seen on MRI in March 2022 (although I do not have direct film access). The patient has a history of migraine headaches which are fairly well- controlled. Recommendations: 1. Given her significant renal failure, it is important to check anticonvulsant levels to make sure they are not toxic (lamotrigine, topiramate, and gabapentin). Medications will be adjusted, as needed, according to levels. 2. Check B12, repeat TSH (and check free T4), and consider adding a Lyme antibody titer. 3. Consider getting MRI films from March 2022 sent to PACS, so they can be reviewed. 4. Increase activity as able and consider Physical and Occupational Therapy 5. Since we can get an MRI of the brain because of the sonali, we might repeat the CT scan of the head today or tomorrow to look for any evolution or change. Nevertheless, I believe the findings on CT scan are old and she has not had any new stroke. 6. Continue, aspirin 81 mg daily and apixaban as before. Overall, I spent a total of 120 minutes with this case including review of records, review of CT and MRI films, direct evaluation of the patient, report generation, and discussion of the case with the patient and RN at bedside, and Gabriella Montes De Oca PA-C including differential diagnosis and treatment History of Present Illness Reason for Consultation: Patient is a 48-year-old, who I was asked to see at the request of Gabriella Montes De Oca PA-C, for neurologic evaluation regarding recent fall and abnormal CT scan of the head Requesting Physician: Gabriella Montes De Oca PA-C Attending Physician: Noel Campbell MD History of Present Illness Patient has a history of longstanding, significant diabetes, hypertension, factor V Leiden deficiency, complex partial seizure disorder, migraine headaches, polyneuropathy secondary to diabetes, retinopathy secondary to diabetes, and stage V renal disease. Currently she is on 81 mg aspirin daily as well as apixaban 5 mg twice a day. She has a history of DVT and stroke. The patient was seen by neurology, [facility] (Dr. Boswell) in 2021 and 2022. I am uncertain she has seen any neurology since the summer 2022. In 2021 she was seen for the seizure disorder and migraines. She was on lamotrigine and topiramate. She was also on gabapentin for neuropathic pain from her neuropathy and other issues. She had an MRI of the brain in March 2022 which apparently showed an acute thalamic stroke. The MRI report showed bilateral thalamic lesions as well as other extensive small vessel ischemic disease and lacunar infarcts. The MRI had so much small vessel ischemic disease that one clinician thought that she may have had multiple sclerosis. Unfortunately, I do not have these films to review. MR angiography of the head and neck was obtained in March 2022 and it reportedly showed no vascular stenoses or anomalous vessels. Apparently there is a history of a nonruptured cerebral aneurysm and the patient's mother. The patient's seizure disorder has been fairly well-controlled and she does not get any seizures during the day. Every few weeks she may have a generalized tonic-clonic event at night however. She thinks the most recent one was 2 weeks ago. She has no recall of these events but states that her daughter witnesses them. Currently she is on lamotrigine 200 mg in the morning and 225 mg at night. She is also on topiramate 150 mg twice a day and gabapentin 200 mg 3 times a day. Patient will have a migraine headache about once per month helped some with sumatriptan as needed. The patient denies any balance problems, pain, headaches, dizziness,, or weakness. She says she gets intermittently confused recently and can have some balance issues at times. She has blurry vision left greater than right eye and feels that the left eye is "near blind". Patient came to the hospital and was admitted on June 12 with a chief complaint of constipation for weeks. She has known end-stage renal disease and is followed closely now by nephrology. There is concern that she needs dialysis. Laboratory studies have been largely remarkable for significant anemia (known iron deficient anemia), elevated glucose, elevated BUN and creatinine, low calcium, and high phosphorus. Liver profile and ammonia were normal. TSH was elevated at 7.4. Yesterday, June 15, after the patient's mother left the room, nursing went in (approximately 1400) and found that the patient was on the floor, sitting with her legs crossed at the corner of her room. Apparently the table was leaning against the wall and plates and drinks were spilled. She did not have any recall of what happened or why she was in that position. She was awake and alert had no obvious head trauma. Apparently today the patient claims that she was "hiding from her significant other". She still has no idea how she got out of bed, fell, or why she did. She denies any lightheadedness with standing or dizziness. She was afebrile and her blood pressure was 119/74. Pulse was regular at 64 and O2 saturation was 98%. She has not been out of bed since. She had no obvious or visible injury. A CT scan of the head was obtained around 1430 and showed no hemorrhage. There was a hypodensity seen in the left thalamus and periventricular white matter that was not present on the previous CAT scan on January 2022. An MRI is attempted but the patient cannot have a 3T scan because of sonali in her arm from the fistula procedure. The 1.5 Roselyn scanner might be able to do this but it is being repaired. Urine is growing gram-positive bacilli Today, she denies pain, headache, dizziness, lightheadedness with sitting up, new weakness or numbness in the arms and legs or new vision issues. Her speech is unchanged. Allergies Allergy/AdvReac Type Severity Reaction Status Date / Time cat dander Allergy Intermediate ITCHY Verified 06/12/24 18:01 EYES,WHEEZING metformin Allergy Intermediate vominting Verified 06/12/24 18:01 Penicillins Allergy Intermediate RED RASH Verified 06/12/24 18:01 AND LIP SWELLS adhesive tape Allergy Mild Rash Verified 06/16/24 08:34 levothyroxine AdvReac Intermediate HAIR LOSS Verified 06/12/24 18:01 metoprolol [From Lopressor] AdvReac Intermediate HAIR LOSS Verified 06/12/24 18:01 morphine AdvReac Intermediate CHILLS, GI Verified 06/12/24 18:01 UPSET,VOMITING Home Medications Medication Instructions Recorded Confirmed Type blood-glucose meter (OneTouch #1 ea 02/27/22 06/01/24 Rx Verio Meter) acetaminophen-caffeine 500 mg-65 1 tab PO Q12H PRN Migraine Headache 04/28/22 06/12/24 History mg tablet (Excedrin Tension Headache) diphenhydramine HCl 25 mg capsule 25 mg PO TID PRN Allergy Symptoms 04/28/22 06/12/24 History (Benadryl) Blood pressure Cuff #1 ea 11/26/22 06/01/24 Rx Diabetic Shoes #1 ea 11/27/22 06/01/24 Rx aspirin 81 mg tablet,delayed 81 mg PO PM #30 tabs 06/07/23 06/12/24 Rx release (Speedy Low Dose Aspirin) Blood Pressure Cuff #1 ea 06/17/23 06/01/24 Rx acetone (urine) test (Ketone Urine #100 ea 06/22/23 06/01/24 Rx Test strips) blood-glucose meter (OneTouch #1 ea 06/22/23 06/01/24 Rx Verio Flex Meter) Shower Chair #1 ea 09/13/23 06/01/24 Rx naproxen 500 mg tablet 1,000 mg PO DAILY PRN Pain 09/13/23 06/12/24 History blood sugar diagnostic (OneTouch #200 ea 01/19/24 06/01/24 Rx Verio test strips) pen needle, diabetic 31 gauge x #100 ea 01/19/24 06/01/24 Rx 5/16" (Easy Comfort Pen Dawson) amitriptyline 10 mg tablet 10 mg PO DAILY #30 tabs 01/28/24 06/12/24 Rx apixaban 5 mg tablet 5 mg PO BID #180 tabs 01/28/24 06/12/24 Rx atorvastatin 40 mg tablet 40 mg PO HS #30 tabs 01/28/24 06/12/24 Rx calcium 600 mg (as carbonate)-vit 1 tab PO DAILY #30 tabs 01/28/24 06/12/24 Rx D3 10 mcg (400 unit) chewable tablet (Calcium 600 with Vitamin D3) carvedilol 25 mg tablet 25 mg PO BIDM #60 tabs 01/28/24 06/12/24 Rx chlorthalidone 25 mg tablet 25 mg PO DAILY #30 tabs 01/28/24 06/12/24 Rx cholecalciferol (vitamin D3) 50 50 mcg PO DAILY #90 caps 01/28/24 06/12/24 Rx mcg (2,000 unit) capsule citalopram 20 mg tablet 20 mg PO QAM #30 tabs 01/28/24 06/12/24 Rx clonidine HCl 0.2 mg tablet 0.2 mg PO BID #30 tabs 01/28/24 06/12/24 Rx cyanocobalamin (vitamin B-12) 1,000 mcg PO DAILY #30 tabs 01/28/24 06/12/24 Rx 1,000 mcg tablet doxazosin 4 mg tablet 4 mg PO QAM #30 tabs 01/28/24 06/12/24 Rx ferrous sulfate 324 mg (65 mg 324 mg PO DAILY #90 tabs 01/28/24 06/12/24 Rx iron) tablet,delayed release gabapentin 100 mg capsule 200 mg (2 x 100 mg) PO TID #180 01/28/24 06/12/24 Rx caps lamotrigine 200 mg tablet 200 mg PO BID #60 tabs 01/28/24 06/12/24 Rx lamotrigine 25 mg tablet 25 mg PO QPM #30 tabs 01/28/24 06/12/24 Rx magnesium oxide 400 mg PO QAM #30 tabs 01/28/24 06/12/24 Rx ondansetron 4 mg disintegrating 4 mg PO Q6H PRN nausea and 01/28/24 06/12/24 Rx tablet vomiting #10 tabs oxybutynin chloride 5 mg 5 mg PO QAM #30 tabs 01/28/24 06/12/24 Rx tablet,extended release 24 hr pantoprazole 40 mg tablet,delayed 40 mg PO QAM #30 tabs 01/28/24 06/12/24 Rx release spironolactone 50 mg tablet 50 mg PO BID #60 tabs 01/28/24 06/12/24 Rx thyroid (pork) 60 mg tablet (CONTROL SYSTEM COMPUTER SCIENTIST 60 mg PO DAILY #30 tabs 01/28/24 06/12/24 Rx Thyroid) topiramate 100 mg tablet 100 mg PO BID #60 tabs 01/28/24 06/12/24 Rx topiramate 50 mg tablet 50 mg PO BID #60 tabs 01/28/24 06/12/24 Rx trazodone 100 mg tablet 100 mg PO HS PRN Insomnia #90 tabs 01/28/24 06/12/24 Rx ergocalciferol (vitamin D2) 1,250 50,000 unit PO WEEKLY #12 caps 03/13/24 06/12/24 Rx mcg (50,000 unit) capsule sodium bicarbonate 650 mg tablet 1,300 mg (2 x 650 mg) PO BID #120 03/13/24 06/12/24 Rx tabs cyclobenzaprine 10 mg tablet 10 mg PO TID PRN muscle spasm #15 03/19/24 06/12/24 Rx tabs Remote patient monitoring program #1 ea 03/24/24 06/01/24 Rx Dexcom G7 Sensor (blood-glucose #3 ea 04/06/24 06/01/24 Rx sensor) insulin lispro 100 unit/mL 1 sliding scale dose subcut 04/13/24 06/12/24 Rx subcutaneous pen USEASDIRECTD #15 mL blood sugar diagnostic (Contour #70 ea 04/19/24 06/01/24 Rx Next Test Strips) blood-glucose meter, wireless #1 ea 04/19/24 06/01/24 Rx (Contour Next Link 2.4 kit) Shower Chair #1 ea 04/21/24 06/01/24 Rx incontinence pads #120 ea 04/21/24 06/01/24 Rx amlodipine 10 mg tablet 10 mg PO HS #90 tabs 05/15/24 06/12/24 Rx blood sugar diagnostic (OneTouch #250 ea 05/24/24 06/01/24 Rx Verio test strips) lancets 33 gauge #200 ea 05/24/24 06/01/24 Rx glucagon 3 mg/actuation nasal 3 mg intranasal DIRECTED PRN 06/12/24 06/12/24 History spray (Baqsimi) LOW BSG NEEDED insulin lispro 100 unit/mL 100 unit continuous subcutaneous 06/12/24 06/12/24 History subcutaneous solution infusion CONTINOUS thyroid (pork) 90 mg tablet 90 mg PO DAILY #30 tabs 06/14/24 Rx Patient History Medical History Diabetes Anemia Anxiety Bipolar 1 disorder Left fibular fracture Left lower lobe pneumonia Hypertensive emergency Family history of ovarian cancer Iron deficiency anemia History of broken nose Hypertensive encephalopathy Hypertensive urgency Surgical History Hx of cardiac catheterization [facility]- Dr Aragon 5-10 yrs ago - no stents- not currently following w/ cardio Hx of cholecystectomy Hx of laparoscopy Hx of section X2 H/O tooth extraction S/P laparoscopic cholecystectomy S/P nasal surgery H/O esophagogastroduodenoscopy Hx of tubal ligation Family History Grandmother (Maternal) Stroke Diabetes Arthritis Anxiety Panic attacks Agoraphobia Uncle Hypertension Myocardial infarction Uncle Agoraphobia Rheumatoid arthritis Mother Hypertension FH: brain aneurysm Anxiety History of cholecystectomy Hypothyroid Diabetes History of colon resection Neuropathy Colorectal cancer Father , at unknown age of uncertain cause Drug abuse Chronic mental illness Other Unknown family medical history Social History Smoking Status: Former smoker Tobacco Type: Cigarettes Age Started Using Tobacco: 22; Age Quit Using Tobacco: 22; packs per day: 0.10; Second Hand Exposure: No; Do You Dip or Chew Tobacco: No; Hx Alcohol Use: No Hx Substance Use: No Preferred Language: Setswana Communication Ability: Effective Visual Impairment: No Limitations Hearing Ability: Normal Tilesetter Required: No Beliefs That Will Affect Care: None marital status: / marital status details: Currently engaged Current Living Situation: Family Current Living Situation Comment: Pt states she lives in a second floor apartment with her two adult children current occupational status: disabled How many Children do You have: 3 How many Children do You have Comment: 3 children(1 ) Feels Safe at Home: Yes Childhood Exposure to Second-Hand Smoke: No Diet: regular during the past year weight has: remained stable Dental Care, Regularly: No Physical Activity Frequency: Daily Seatbelt Use: always Sunscreen Use: No Assistive Devices: None Review of Systems Constitutional: no fever, no fatigue and no weakness Eyes: + worsening vision (Blurry vision left g reater than right eye); no diplopia and no eye pain Ear, Nose, Mouth, Throat: no ear pain, no tinnitus, no hearing loss, no dizziness, no snoring, no hoarseness and no dysphagia Respiratory: no cough and no dyspnea Cardiovascular: no chest pain, no palpitations and no lightheadedness Gastrointestinal: no abdominal pain, no nausea and no vomiting Genitourinary: no dysuria, no urinary frequency and no urinary incontinence Musculoskeletal: no back pain, no neck pain, no radicular pain, no joint pain and no myalgia Integumentary: no rash and no lesions Neurologic: + numbness; no gait abnormality, no loca lized weakness, no generalized weakness, no tingling, no tremor(s), no abnormal movements, no headache(s), no abnormal speech, no confusion and no memory loss Psychiatric: no depression, no irritability, no anxiety, no difficulty concentrating, no confusion and no hallucinations Endocrine: no fatigue and no flushing Hematologic / Lymphatic: no easy bleeding and no easy bruising Allergy / Immunological: no urticaria and no problem reported Exam (Neuro) Physical Exam: The patient is right-handed. The patient is awake, alert, and attentive. Speech is normal without any aphasia or dysarthria. Mentation and thought processes are reasonable but her cognitive skills seem somewhat limited.. Mood and affect are normal and appropriate. Appearance and grooming are normal. Short and long-term memory are reasonable but she has noted recall of the events of yesterday getting out of bed and being on the floor. Pupils are 4 mm on the right and 3 mm on the left. The right Riax little brisker than the left. Extraocular eye muscles are intact without nystagmus. Visual acuity and visual tolliver seem normal grossly to confrontation. There are no deficits to sensation in the face in all 3 distributions of the fifth cranial nerve bilaterally. Corneal reflexes are positive bilaterally. Facial strength and symmetry was normal bilaterally. Hearing seems intact grossly to voice and finger rub bilaterally. Palate moves well without asymmetry. There is normal sternocleidomastoid and trapezius strength bilaterally. Tongue is midline with good strength bilaterally. Neck has a full range of motion without discomfort. There are no cervical bruits bilaterally. There are no cranial or ocular bruits. Heart is without murmur. There is a regular rhythm and rate. Cervical, thoracic, and lumbar spine are nontender to palpation. Gait is very poor needing the assistance of 1 or 2. She is cautious and does not navigate well. Stance sitting with feet dangling is normal. She has no lightheadedness or dizziness with sitting or standing. With outstretched arms there is no drift. There are no resting, postural, or action tremors. There is no ataxia with finger to nose testing. There is good facility in the hands. No other abnormal involuntary movements are noted. Motor strength is 5/5 diffusely in the arms bilaterally including deltoids, biceps, triceps, brachioradialis, wrist flexors and extensors, soccer commentator, and intrinsic hand muscles. Motor strength is 5/5 diffusely in the legs bilaterally including hip flexors, quadriceps, hamstrings, gastrocnemius, tibialis anterior, tibialis posterior, and Peroneii muscles bilaterally. Toe extensors are normal and there is good bulk in the extensor digitorum brevis muscles bilaterally. The limbs have good tone without rigidity or spasticity. There is no atrophy noted in the muscles. Muscle bulk is normal, there is no tenderness to palpation, no myotonia to percussion, and no fasciculations seen. Sensory examination is difficult to be sure because her answers were varied Reflexes are 1/4 in the biceps, triceps, and brachioradialis tendons bilaterally. Quadriceps and Achilles tendon reflexes are absent bilaterally. Toes are downgoing with plantar stimulation bilaterally (although there is some withdrawal on the left). Peripheral pulses are present and of normal quality distally in all 4 limbs. There is no peripheral edema noted in the limbs. Results & Data Vital Signs (Past 12 Hours) Vital Signs Temp Pulse Pulse Resp BP Pulse Ox O2 Del Method 06/16/24 07:41 36.7 C 60 17 110/72 99 Room Air 06/16/24 02:56 36.4 C L 61 18 107/70 95 Room Air 06/15/24 23:12 60 18 120/73 93 Room Air 06/15/24 22:03 60 PG Care Time/CCT Total # of Minutes Spent Total Time Spent with Patient: Total time spent is greater than 50% in coordination of care (as documented) at patient's floor/unit and/or counseling patient: Coding Level of Care Code 18219 INT INP/OBS CARE 3/75MIN Diagnoses Fall W19.XXXA History of CVA (cerebrovascular accident) Z86.73 Diabetic autonomic 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 E10.43 Migraine G43.909 Seizure disorder G40.909 Proliferative retinopathy due to type 1 diabetes mellitus E10.3599 Time Spent (min) 120
--- NOTE | 2024-06-16 10:47 | Nephrology Progress Note ---
Date of Service June 16, 2024 Assessment & Plan (1) ESTELITA (acute kidney injury): Plan: Non-oliguric. Volume status acceptable. Electrolytes normal. No emergent indication for dialysis. Unfortunately kidney dysfunction is advanced and there is no evidence of renal recovery. I had a long conversation with with Kaci this AM. She has developed early electrolyte abnormalities, significant anemia, and difficult to manage volume status with fluctuating BP. Her kidney dysfunction is very advanced. I recommended planning to start HD following TDC placement. She was receptive of this plan. I reached out to Dr. Coto to see if we can coordinate tunneled catheter placement early next week. Kaci remains on Eliquis for now. AVF is not ready for use. Hepatitis B sAb was checked demonstrating immunity. Volume status reasonably acceptable. BP is low but acceptable. Document I/O's. Repeat metabolic profile tomorrow AM. Renal diet - low potassium. Lokelma 10 gram daily started today. (2) Stage 5 chronic kidney disease due to hypertension: Plan: AVF is not mature for use. Vascular follow up is required post discharge. Kaci is scheduled to start the transplant evaluation process at [facility]. She is planning to attend IHD at [facility]. Care coordination assistance is appreciated in helping with these arrangements. (3) Hypertensive emergency: Plan: BP improved after antihypertensives were restarted. Continue amlodipine, clonidine, and carvedilol as Rx. Clonidine dose reduced to 0.1 mg twice daily yesterday due to symptomatic hypotension. I would continue to wean clonidine as tolerated. (4) Anemia of chronic disease: Plan: Epogen 79795 units provided 06/13. Venofer 1000 mg IV loading dose has been completed. H/H stable. No signs of active bleeding. Admission and Anticipated Discharge Date Admission Date: June 12, 2024 Subjective No acute events overnight. Diarrhea resolved. Kaci reports a normal BM this AM. Appetite is good. She denies significant fluid retention or edema. Good urine output. No lightheadedness or dizziness. Kaci fell in her room yesterday afternoon. No chest pains or palpitations. No obvious syncope. She reports unsteadiness in her legs and weakness from neuropathy. Review of Systems Review of Systems: All systems reviewed & are unremarkable except as noted in HPI & below Physical Exam Constitutional: well developed and + morbidly obese; no acute distress Eyes: + anicteric sclerae; no conjunctival abn ormality ENMT: Mouth: oral mucous membranes not dry Neck: normal visual inspection and trachea midline Respiratory: normal respiratory effort Cardiovascular: Rate/Rhythm: regular rate Extremities: + edema (trace L>R) and + AV fistula (with dressing CDI, good thrill and bruit) Musculoskeletal: Extremities: no cyanosis and no clubbing Skin: normal turgor and + wound (LBC incision clean and intact with sonali); no jaundice Neurologic: Motor/Sensory: no tremor and no asterixis Psychiatric: Orientation: alert and oriented x 3 Results & Data Vital Signs (Past 12 Hours) Vital Signs Temp Pulse Resp BP Pulse Ox O2 Del Method 06/16/24 10:36 36.7 C 60 17 99/66 L 93 Room Air 06/16/24 07:41 36.7 C 60 17 110/72 99 Room Air 06/16/24 02:56 36.4 C L 61 18 107/70 95 Room Air 06/15/24 23:12 60 18 120/73 93 Room Air Laboratory Results Laboratory Results - last 24 hr 06/15/24 06/15/24 06/15/24 05:38 09:37 14:17 WBC RBC Hgb Hct MCV MCH MCHC RDW Std Deviation RDW Coeff of Zak Plt Count MPV VBG pH VBG pCO2 VBG pO2 VBG HCO3 VBG O2 Saturation VBG Base Excess Sodium Potassium Chloride Carbon Dioxide Anion Gap BUN Creatinine Est Cr Clr Drug Dosing eGFR BUN/Creatinine Ratio Glucose POC Glucose 274 H Uric Acid 6.1 Calcium Phosphorus Ammonia B-Natriuretic Peptide 839 H Albumin Hep Bs Antigen Hep Bs Antibody Hep Bs Antibody, Quant Hep B Core IgM Ab 06/15/24 06/15/24 06/15/24 15:30 16:23 20:33 WBC RBC Hgb Hct MCV MCH MCHC RDW Std Deviation RDW Coeff of Zak Plt Count MPV VBG pH 7.34 L VBG pCO2 37 L VBG pO2 44 VBG HCO3 20 VBG O2 Saturation 70.8 VBG Base Excess -5.2 Sodium Potassium Chloride Carbon Dioxide Anion Gap BUN Creatinine Est Cr Clr Drug Dosing eGFR BUN/Creatinine Ratio Glucose POC Glucose 195 H 196 H Uric Acid Calcium Phosphorus Ammonia B-Natriuretic Peptide Albumin Hep Bs Antigen Hep Bs Antibody Hep Bs Antibody, Quant Hep B Core IgM Ab 06/16/24 06/16/24 06/16/24 05:50 05:58 08:07 WBC 8.94 RBC 2.55 L Hgb 8.2 L Hct 24.9 L MCV 97.6 MCH 32.2 MCHC 32.9 RDW Std Deviation 47.7 H RDW Coeff of Zak 13.5 Plt Count 217 MPV 10.7 VBG pH VBG pCO2 VBG pO2 VBG HCO3 VBG O2 Saturation VBG Base Excess Sodium 133 L Potassium 5.3 H Chloride 104 Carbon Dioxide 21 Anion Gap 8 BUN 60 H Creatinine 7.40 H* D Est Cr Clr Drug Dosing 10.7 eGFR 6.29 BUN/Creatinine Ratio 8.1 L Glucose 154 H POC Glucose 169 H Uric Acid Calcium 8.2 L Phosphorus 6.9 H Ammonia 32.0 B-Natriuretic Peptide Albumin 3.4 Hep Bs Antigen Negative Hep Bs Antibody Immune Hep Bs Antibody, Quant 228.00 Hep B Core IgM Ab Pending PG Care Time/CCT Total # of Minutes Spent Total Time Spent with Patient: Total time spent is greater than 50% in coordination of care (as documented) at patient's floor/unit and/or counseling patient: Coding Level of Care Code 57582 SUB INP/OBS CARE 3/50MIN Diagnoses ESTELITA (acute kidney injury) N17.9 Stage 5 chronic kidney disease due to hypertension I12.0; N18.5 Hypertensive emergency I16.1 Anemia of chronic disease D63.8
--- NOTE | 2024-06-16 10:53 | Orthopedic Consultation ---
Date of Service June 16, 2024 Assessment & Plan (1) Left ankle pain: Orthopedics was asked to see Kaci today for left ankle pain. Upon my visit today, the patient states that she is not having any ankle pain or any issues with her ankles. She would like to get up and walking. I did ask her if she had any injuries to her ankles in the past. She does state that she had a fracture about 3 months ago in her left ankle. She states that she was seen in [facility] for this. Since the patient is not having any reported pain at my visit today, is nontender, has full strength, I do not think there are any interventions that need to be done for the left ankle. She may be weightbearing as tolerated and range of motion as tolerated. She can use DME's such as a boot or an ankle ASO if needed if she begins to develop some discomfort, however no surgical intervention indicated at this time. Please reach out to orthopedics with any other questions or concerns. History of Present Illness Reason for Consultation: Left ankle pain Requesting Physician: . Attending Physician: Noel Campbell MD Kaci is a 48-year-old female who was being consulted today for left ankle pain. At the hospitalist progress note yesterday on 06/16/2019 5 in the morning, the patient was reporting left ankle pain and states that she had a prior fracture. They did obtain x-rays of the left ankle as well as the right ankle for comparison review. It was read as a distal fibula fracture. We were consulted for this specific problem. At my visit with the patient today, she states that she is not having any ankle pain and was unsure of why I was there. She does state that she had ankle fractures in the past but is unsure of when they were. Patient was a poor historian at today's visit, however she did state that she had a left ankle fracture within the last 3 months and was taken to [facility] for it. She states that she is not having any ankle pain and would like to get up and walking at some point today. Patient did not have any other questions or concerns for me. Allergies Allergy/AdvReac Type Severity Reaction Status Date / Time cat dander Allergy Intermediate ITCHY Verified 06/19/24 07:25 EYES,WHEEZING metformin Allergy Intermediate vominting Verified 06/19/24 07:25 Penicillins Allergy Intermediate RED RASH Verified 06/19/24 07:25 AND LIP SWELLS adhesive tape Allergy Mild Rash Verified 06/19/24 07:25 levothyroxine AdvReac Intermediate HAIR LOSS Verified 06/19/24 07:25 metoprolol [From Lopressor] AdvReac Intermediate HAIR LOSS Verified 06/19/24 07:25 morphine AdvReac Intermediate CHILLS, GI Verified 06/19/24 07:25 UPSET,VOMITING Home Medications Medication Instructions Recorded Confirmed Type blood-glucose meter (OneTouch #1 ea 02/27/22 06/01/24 Rx Verio Meter) acetaminophen-caffeine 500 mg-65 1 tab PO Q12H PRN Migraine Headache 04/28/22 06/12/24 History mg tablet (Excedrin Tension Headache) diphenhydramine HCl 25 mg capsule 25 mg PO TID PRN Allergy Symptoms 04/28/22 06/12/24 History (Benadryl) Blood pressure Cuff #1 ea 11/26/22 06/01/24 Rx Diabetic Shoes #1 ea 11/27/22 06/01/24 Rx aspirin 81 mg tablet,delayed 81 mg PO PM #30 tabs 06/07/23 06/12/24 Rx release (Speedy Low Dose Aspirin) Blood Pressure Cuff #1 ea 06/17/23 06/01/24 Rx acetone (urine) test (Ketone Urine #100 ea 06/22/23 06/01/24 Rx Test strips) blood-glucose meter (OneTouch #1 ea 06/22/23 06/01/24 Rx Verio Flex Meter) Shower Chair #1 ea 09/13/23 06/01/24 Rx blood sugar diagnostic (OneTouch #200 ea 01/19/24 06/01/24 Rx Verio test strips) pen needle, diabetic 31 gauge x #100 ea 01/19/24 06/01/24 Rx 5/16" (Easy Comfort Pen [place]) amitriptyline 10 mg tablet 10 mg PO DAILY #30 tabs 01/28/24 06/12/24 Rx apixaban 5 mg tablet 5 mg PO BID #180 tabs 01/28/24 06/12/24 Rx atorvastatin 40 mg tablet 40 mg PO HS #30 tabs 01/28/24 06/12/24 Rx calcium 600 mg (as carbonate)-vit 1 tab PO DAILY #30 tabs 01/28/24 06/12/24 Rx D3 10 mcg (400 unit) chewable tablet (Calcium 600 with Vitamin D3) cholecalciferol (vitamin D3) 50 50 mcg PO DAILY #90 caps 01/28/24 06/12/24 Rx mcg (2,000 unit) capsule citalopram 20 mg tablet 20 mg PO QAM #30 tabs 01/28/24 06/12/24 Rx lamotrigine 200 mg tablet 200 mg PO BID #60 tabs 01/28/24 06/12/24 Rx lamotrigine 25 mg tablet 25 mg PO QPM #30 tabs 01/28/24 06/12/24 Rx ondansetron 4 mg disintegrating 4 mg PO Q6H PRN nausea and 01/28/24 06/12/24 Rx tablet vomiting #10 tabs pantoprazole 40 mg tablet,delayed 40 mg PO QAM #30 tabs 01/28/24 06/12/24 Rx release topiramate 100 mg tablet 100 mg PO BID #60 tabs 01/28/24 06/12/24 Rx topiramate 50 mg tablet 50 mg PO BID #60 tabs 01/28/24 06/12/24 Rx trazodone 100 mg tablet 100 mg PO HS PRN Insomnia #90 tabs 01/28/24 06/12/24 Rx cyclobenzaprine 10 mg tablet 10 mg PO TID PRN muscle spasm #15 03/19/24 06/12/24 Rx tabs Remote patient monitoring program #1 ea 03/24/24 06/01/24 Rx Dexcom G7 Sensor (blood-glucose #3 ea 04/06/24 06/01/24 Rx sensor) insulin lispro 100 unit/mL 1 sliding scale dose subcut 04/13/24 06/12/24 Rx subcutaneous pen USEASDIRECTD #15 mL blood sugar diagnostic (Contour #70 ea 04/19/24 06/01/24 Rx Next Test Strips) blood-glucose meter, wireless #1 ea 04/19/24 06/01/24 Rx (Contour Next Link 2.4 kit) Shower Chair #1 ea 04/21/24 06/01/24 Rx incontinence pads #120 ea 04/21/24 06/01/24 Rx amlodipine 10 mg tablet 10 mg PO HS #90 tabs 05/15/24 06/12/24 Rx blood sugar diagnostic (OneTouch #250 ea 05/24/24 06/01/24 Rx Verio test strips) lancets 33 gauge #200 ea 05/24/24 06/01/24 Rx glucagon 3 mg/actuation nasal 3 mg intranasal DIRECTED PRN 06/12/24 06/12/24 History spray (Baqsimi) LOW BSG NEEDED insulin lispro 100 unit/mL 100 unit continuous subcutaneous 06/12/24 06/12/24 History subcutaneous solution infusion CONTINOUS gabapentin 100 mg capsule 100 mg PO TID #180 caps 06/13/24 06/12/24 Rx thyroid (pork) 90 mg tablet 90 mg PO DAILY #30 tabs 06/14/24 Rx carvedilol 25 mg tablet 12.5 mg (1/2 x 25 mg) PO BIDM 30 06/23/24 Rx days #30 tabs insulin glargine 100 unit/mL 5 unit (0.05 mL) subcut QAM #10 mL 06/23/24 Rx subcutaneous solution (Lantus U-100 Insulin) vitamin B complex and vitamin C 1 cap PO QAM #30 caps 06/23/24 Rx no.20-folic acid 1 mg capsule (Renal Caps) Past Med/Surg History Problem List (Updated 06/17/24 @ 11:04 by Norman Goss MD) End stage chronic kidney disease Metabolic encephalopathy Left ankle pain Pleural effusion (Acute) Pericardial effusion (Acute) Abdominal pain (Acute) ESTELITA (acute kidney injury) (Acute) Hypothyroidism Type 1 diabetes HTN (hypertension) Stage 5 chronic kidney disease due to hypertension Hypertensive emergency (Acute) 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 Metabolic acidosis CKD (chronic kidney disease) (Acute) ESTELITA (acute kidney injury) (Acute) Hyponatremia Diabetic autonomic 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 Proliferative retinopathy due to type 1 diabetes mellitus Loss of protective sensation of skin of foot History of retinal detachment L eye Hx-TIA (transient ischemic attack) History of CVA (cerebrovascular accident) Brain MRI Mar 2022 noting b/l thalamic stroke x 2 Vitamin D deficiency (Chronic) Recurrent syncope (Acute) Urine incontinence Menorrhagia B12 deficiency Proteinuria Asthma (Chronic) well controlled per pt rare res inh use Factor 5 Leiden mutation, heterozygous (Chronic) Depression (Chronic) Migraine (Chronic) GERD (gastroesophageal reflux disease) (Chronic) Anemia of chronic disease (Chronic) Endometriosis (Chronic) Steatohepatitis, nonalcoholic (Chronic) Seizure disorder epilepsy - last seizure 01/2022 @ [facility] per pt - follows w/ [facility] neuro last visit 09/2021 > grand mal Hyperlipidemia Medical History Diabetes Anemia Anxiety Bipolar 1 disorder Left fibular fracture Left lower lobe pneumonia Hypertensive emergency Family history of ovarian cancer Iron deficiency anemia History of broken nose Hypertensive encephalopathy Hypertensive urgency Surgical History Hx of cardiac catheterization [facility]- Dr Aragon 5-10 yrs ago - no stents- not currently following w/ cardio Hx of cholecystectomy Hx of laparoscopy Hx of section X2 H/O tooth extraction S/P laparoscopic cholecystectomy S/P nasal surgery H/O esophagogastroduodenoscopy Hx of tubal ligation Family History Grandmother (Maternal) Stroke Diabetes Arthritis Anxiety Panic attacks Agoraphobia Uncle Hypertension Myocardial infarction Uncle Agoraphobia Rheumatoid arthritis Mother Hypertension FH: brain aneurysm Anxiety History of cholecystectomy Hypothyroid Diabetes History of colon resection Neuropathy Colorectal cancer Father , at unknown age of uncertain cause Drug abuse Chronic mental illness Other Unknown family medical history Social History Smoking Status: Former smoker Tobacco Type: Cigarettes Age Started Using Tobacco: 22; Age Quit Using Tobacco: 22; packs per day: 0.10; Second Hand Exposure: No; Do You Dip or Chew Tobacco: No; Hx Alcohol Use: No Hx Substance Use: No Preferred Language: Vietnamese Communication Ability: Effective Visual Impairment: No Limitations Hearing Ability: Normal Mobile Home Laborer Required: No Beliefs That Will Affect Care: None marital status: / marital status details: Currently engaged Current Living Situation: Family Current Living Situation Comment: Pt states she lives in a second floor apartment with her two adult children current occupational status: disabled How many Children do You have: 3 How many Children do You have Comment: 3 children(1 ) Feels Safe at Home: Yes Childhood Exposure to Second-Hand Smoke: No Diet: regular during the past year weight has: remained stable Dental Care, Regularly: No Physical Activity Frequency: Daily Seatbelt Use: always Sunscreen Use: No Assistive Devices: None Review of Systems All systems reviewed & are unremarkable except as noted in HPI & below. Physical Exam General: Patient is alert at today's visit. She is in no acute distress. There is also a neurology resident who is in today. Neurology resident states that neurology just had her up and walking before my visit today. They state that she did not have any issues with ambulation pain choe and did not complain of any left ankle pain. In regards to the bilateral ankles: Exams were symmetrical. No soft tissue swelling/edema, erythema or open wounds. I did palpate fairly hard on the left lateral malleolus and distal fibula. She had no tenderness. She has full range of motion and strength in the bilateral lower extremities. Constitutional WD/WN, vitals as above Musculoskeletal Please see above Skin no rashes, warm and dry Results & Data Results & Data Laboratory Results . Diagnostic Findings X-ray images of the left and right ankles on 06/15/2024: Please see findings below. There may be an old distal fibula fracture, however does seem to be more of a Snyder A which is stable or a near avulsion of the lateral malleolus. FINDINGS: Right ankle: There are old fractures at the fourth and fifth metatarsals. There is an old healed fracture at the distal fibula. No acute fracture or dislocation seen. Left ankle: Partially healed fracture at the distal fibula remains nondisplaced. No new fracture or dislocation seen. IMPRESSION: No acute fracture seen at either ankle. Otherwise as described. PG Care Time/CCT Total # of Minutes Spent Total Time Spent with Patient: Total time spent is greater than 50% in coordination of care (as documented) at patient's floor/unit and/or counseling patient: Coding Level of Care Code 33299 IN/OBS CONSULT LVL 4,60M Diagnoses Left ankle pain M25.572
--- NOTE | 2024-06-16 12:23 | Pharmacy Report ---
Pharmacy Glycemic Short Note 2 - Date of Service June 16, 2024 - Glycemic Short BSG Results (Last 24 hours): 06/15/24 06/15/24 06/15/24 14:17 16:23 20:33 Glucose POC Glucose 274 H 195 H 196 H 06/16/24 06/16/24 06/16/24 05:50 08:07 11:59 Glucose 154 H POC Glucose 169 H 246 H OUTPATIENT ANTIDIABETIC REGIMEN: * Insulin pump (settings per 05/26/24 Endo note) * Basal rate: 0.8 units/hr * CF 25 * CR 13 ASSESSMENT: 06/16: * BSGs [phone]/dL the last 24h. Received 18 units of basal and 9 units of bolus insulin yesterday. * Tolerating diet. Converted from insulin pump to SQ basal/bolus yesterday. * Continue with Lantus 18 units daily for now. Will adjust Lantus timing to this afternoon with plan for AM dosing tomorrow. Novolog tightened. 06/15: * Kaci is a 48 yo T1DM with PMH of CKD stage V, hypertension, hypothyroidism, seizure disorder, steatohepatitis, and factor V Leiden. * On admission, patient was continued on insulin pump. Pharmacy was consulted on 06/15/24 to transition patient to SC basal + bolus insulin due to confusion. * Will start patient on 18 units of basal insulin per day (based on home use of 0.8 units/hr). * Will utilize correction factor and carb ratio similar to home settings on insulin pump. PLAN FOR INPATIENT GLYCEMIC CONTROL: * Basal insulin * Lantus 18 units SQ q24h * Bolus insulin * NovoLog per scale ACHS or Q6hrs while NPO * Goal Range: Low 110 mg/dL - High 140 mg/dL * Correction Factor: 25 mg/dL/unit * Nutritional / Prandial insulin per carb ratio of 1 unit per 12 grams CHO consumed
[2024-06-16] MEDS: SODIUM ZIRCONIUM CYCLOSILICATE 10 GM PACKET PO SCH (12:28)
[2024-06-16] MEDS: LANTUS PER UNIT CHARGE SC SCH (12:35)
--- NOTE | 2024-06-16 13:36 | Consultation ---
Date of Consultation June 16, 2024 Assessment & Plan (1) ESTELITA (acute kidney injury): Pt with acute on chronic kidney disease, now requiring HD per nephrology. Planning on permcath insertion in OR on WEDNESDAY morning. Pt agreeable. Pt will need to hold her eliquis for the procedure. History of Present Illness Reason for Consultation: ESTELITA Attending Physician: Noel Campbell MD History of Present Illness 48 yo f with hx of CKD, HTN, DMI, neuropathy, CVA, retinal detachment, migraines, anemia, endometriosis, seizures, GERD, hyperlipidemia, heterozygous factor V leiden mutation, DVT, admitted with worsening renal fxn, seen in consultation today for permcath insertion for HD. Pt admits fatigue/malaise. Denies CONCEPCION, fever, chest pain, SOB, abd pain, N/V, rest pain, claudication, other complaints. Allergies Allergy/AdvReac Type Severity Reaction Status Date / Time cat dander Allergy Intermediate ITCHY Verified 06/19/24 07:25 EYES,WHEEZING metformin Allergy Intermediate vominting Verified 06/19/24 07:25 Penicillins Allergy Intermediate RED RASH Verified 06/19/24 07:25 AND LIP SWELLS adhesive tape Allergy Mild Rash Verified 06/19/24 07:25 levothyroxine AdvReac Intermediate HAIR LOSS Verified 06/19/24 07:25 metoprolol [From Lopressor] AdvReac Intermediate HAIR LOSS Verified 06/19/24 07:25 morphine AdvReac Intermediate CHILLS, GI Verified 06/19/24 07:25 UPSET,VOMITING Home Medications Medication Instructions Recorded Confirmed Type blood-glucose meter (OneTouch #1 ea 02/27/22 06/01/24 Rx Verio Meter) acetaminophen-caffeine 500 mg-65 1 tab PO Q12H PRN Migraine Headache 04/28/22 06/12/24 History mg tablet (Excedrin Tension Headache) diphenhydramine HCl 25 mg capsule 25 mg PO TID PRN Allergy Symptoms 04/28/22 06/12/24 History (Benadryl) Blood pressure Cuff #1 ea 11/26/22 06/01/24 Rx Diabetic Shoes #1 ea 11/27/22 06/01/24 Rx aspirin 81 mg tablet,delayed 81 mg PO PM #30 tabs 06/07/23 06/12/24 Rx release (Speedy Low Dose Aspirin) Blood Pressure Cuff #1 ea 06/17/23 06/01/24 Rx acetone (urine) test (Ketone Urine #100 ea 06/22/23 06/01/24 Rx Test strips) blood-glucose meter (OneTouch #1 ea 06/22/23 06/01/24 Rx Verio Flex Meter) Shower Chair #1 ea 09/13/23 06/01/24 Rx naproxen 500 mg tablet 1,000 mg PO DAILY PRN Pain 09/13/23 06/12/24 History blood sugar diagnostic (OneTouch #200 ea 01/19/24 06/01/24 Rx Verio test strips) pen needle, diabetic 31 gauge x #100 ea 01/19/24 06/01/24 Rx 5/16" (Easy Comfort Pen Hiller) amitriptyline 10 mg tablet 10 mg PO DAILY #30 tabs 01/28/24 06/12/24 Rx apixaban 5 mg tablet 5 mg PO BID #180 tabs 01/28/24 06/12/24 Rx atorvastatin 40 mg tablet 40 mg PO HS #30 tabs 01/28/24 06/12/24 Rx calcium 600 mg (as carbonate)-vit 1 tab PO DAILY #30 tabs 01/28/24 06/12/24 Rx D3 10 mcg (400 unit) chewable tablet (Calcium 600 with Vitamin D3) carvedilol 25 mg tablet 25 mg PO BIDM #60 tabs 01/28/24 06/12/24 Rx chlorthalidone 25 mg tablet 25 mg PO DAILY #30 tabs 01/28/24 06/12/24 Rx cholecalciferol (vitamin D3) 50 50 mcg PO DAILY #90 caps 01/28/24 06/12/24 Rx mcg (2,000 unit) capsule citalopram 20 mg tablet 20 mg PO QAM #30 tabs 01/28/24 06/12/24 Rx clonidine HCl 0.2 mg tablet 0.2 mg PO BID #30 tabs 01/28/24 06/12/24 Rx cyanocobalamin (vitamin B-12) 1,000 mcg PO DAILY #30 tabs 01/28/24 06/12/24 Rx 1,000 mcg tablet doxazosin 4 mg tablet 4 mg PO QAM #30 tabs 01/28/24 06/12/24 Rx ferrous sulfate 324 mg (65 mg 324 mg PO DAILY #90 tabs 01/28/24 06/12/24 Rx iron) tablet,delayed release gabapentin 100 mg capsule 200 mg (2 x 100 mg) PO TID #180 01/28/24 06/12/24 Rx caps lamotrigine 200 mg tablet 200 mg PO BID #60 tabs 01/28/24 06/12/24 Rx lamotrigine 25 mg tablet 25 mg PO QPM #30 tabs 01/28/24 06/12/24 Rx magnesium oxide 400 mg PO QAM #30 tabs 01/28/24 06/12/24 Rx ondansetron 4 mg disintegrating 4 mg PO Q6H PRN nausea and 01/28/24 06/12/24 Rx tablet vomiting #10 tabs oxybutynin chloride 5 mg 5 mg PO QAM #30 tabs 01/28/24 06/12/24 Rx tablet,extended release 24 hr pantoprazole 40 mg tablet,delayed 40 mg PO QAM #30 tabs 01/28/24 06/12/24 Rx release spironolactone 50 mg tablet 50 mg PO BID #60 tabs 01/28/24 06/12/24 Rx thyroid (pork) 60 mg tablet (BEEF SELECTOR 60 mg PO DAILY #30 tabs 01/28/24 06/12/24 Rx Thyroid) topiramate 100 mg tablet 100 mg PO BID #60 tabs 01/28/24 06/12/24 Rx topiramate 50 mg tablet 50 mg PO BID #60 tabs 01/28/24 06/12/24 Rx trazodone 100 mg tablet 100 mg PO HS PRN Insomnia #90 tabs 01/28/24 06/12/24 Rx ergocalciferol (vitamin D2) 1,250 50,000 unit PO WEEKLY #12 caps 03/13/24 06/12/24 Rx mcg (50,000 unit) capsule sodium bicarbonate 650 mg tablet 1,300 mg (2 x 650 mg) PO BID #120 03/13/24 06/12/24 Rx tabs cyclobenzaprine 10 mg tablet 10 mg PO TID PRN muscle spasm #15 03/19/24 06/12/24 Rx tabs Remote patient monitoring program #1 ea 03/24/24 06/01/24 Rx Dexcom G7 Sensor (blood-glucose #3 ea 04/06/24 06/01/24 Rx sensor) insulin lispro 100 unit/mL 1 sliding scale dose subcut 04/13/24 06/12/24 Rx subcutaneous pen USEASDIRECTD #15 mL blood sugar diagnostic (Contour #70 ea 04/19/24 06/01/24 Rx Next Test Strips) blood-glucose meter, wireless #1 ea 04/19/24 06/01/24 Rx (Contour Next Link 2.4 kit) Shower Chair #1 ea 04/21/24 06/01/24 Rx incontinence pads #120 ea 04/21/24 06/01/24 Rx amlodipine 10 mg tablet 10 mg PO HS #90 tabs 05/15/24 06/12/24 Rx blood sugar diagnostic (OneTouch #250 ea 05/24/24 06/01/24 Rx Verio test strips) lancets 33 gauge #200 ea 05/24/24 06/01/24 Rx glucagon 3 mg/actuation nasal 3 mg intranasal DIRECTED PRN 06/12/24 06/12/24 History spray (Baqsimi) LOW BSG NEEDED insulin lispro 100 unit/mL 100 unit continuous subcutaneous 06/12/24 06/12/24 History subcutaneous solution infusion CONTINOUS thyroid (pork) 90 mg tablet 90 mg PO DAILY #30 tabs 06/14/24 Rx Patient History Medical History Diabetes Anemia Anxiety Bipolar 1 disorder Left fibular fracture Left lower lobe pneumonia Hypertensive emergency Family history of ovarian cancer Iron deficiency anemia History of broken nose Hypertensive encephalopathy Hypertensive urgency Surgical History Hx of cardiac catheterization [facility]- Dr Aragon 5-10 yrs ago - no stents- not currently following w/ cardio Hx of cholecystectomy Hx of laparoscopy Hx of section X2 H/O tooth extraction S/P laparoscopic cholecystectomy S/P nasal surgery H/O esophagogastroduodenoscopy Hx of tubal ligation Family History Grandmother (Maternal) Stroke Diabetes Arthritis Anxiety Panic attacks Agoraphobia Uncle Hypertension Myocardial infarction Uncle Agoraphobia Rheumatoid arthritis Mother Hypertension FH: brain aneurysm Anxiety History of cholecystectomy Hypothyroid Diabetes History of colon resection Neuropathy Colorectal cancer Father , at unknown age of uncertain cause Drug abuse Chronic mental illness Other Unknown family medical history Social History Smoking Status: Former smoker Tobacco Type: Cigarettes Age Started Using Tobacco: 22; Age Quit Using Tobacco: 22; packs per day: 0.10; Second Hand Exposure: No; Do You Dip or Chew Tobacco: No; Hx Alcohol Use: No Hx Substance Use: No Preferred Language: Spanish Communication Ability: Effective Visual Impairment: No Limitations Hearing Ability: Normal Network Support Engineer Required: No Beliefs That Will Affect Care: None marital status: / marital status details: Currently engaged Current Living Situation: Family Current Living Situation Comment: Pt states she lives in a second floor apartment with her two adult children current occupational status: disabled How many Children do You have: 3 How many Children do You have Comment: 3 children(1 ) Feels Safe at Home: Yes Childhood Exposure to Second-Hand Smoke: No Diet: regular during the past year weight has: remained stable Dental Care, Regularly: No Physical Activity Frequency: Daily Seatbelt Use: always Sunscreen Use: No Assistive Devices: None Review of Systems Review of Systems: All systems reviewed & are unremarkable except as noted in HPI & below Physical Exam Constitutional: WD/WN, vitals as above well developed, + morbidly obese, cooperative and comfortable; not in distress ENMT: Ears: no hearing impairment Neck: trachea midline Respiratory: normal respiratory effort, lungs clear to auscultation Auscultation: + diminished lung sounds Cardiovascular: Rate/Rhythm: regular rate and regular rhythm Vessels: posterior tibial pulses present, dorsalis pedis pulses present and radial pulses present; + abnormal peripheral pulses Extremities: normal capillary refill and + edema Gastrointestinal (Abdomen): Inspection/Auscultation: abdomen normal to inspection and normal bowel sounds Percussion/Palpation: abdomen soft; abdomen nontender Musculoskeletal: no cyanosis or clubbing, extremities motor strength 5/5 Skin: no rashes, warm and dry Neurologic: moves all extremities and awake (but sleepy); no focal motor deficits and not confused Psychiatric: Orientation: alert and oriented x 3 Affect: + flat affect Results & Data Vital Signs (Past 12 Hours) Vital Signs Temp Pulse Resp BP Pulse Ox O2 Del Method 06/16/24 10:36 36.7 C 60 17 99/66 L 93 Room Air 06/16/24 07:41 36.7 C 60 17 110/72 99 Room Air 06/16/24 02:56 36.4 C L 61 18 107/70 95 Room Air
[2024-06-16] MEDS: SODIUM CHLORIDE 0.9% 250 ML IV ONE (14:30)
--- NOTE | 2024-06-16 14:43 | CT Scan Report ---
CT OF THE HEAD WITHOUT CONTRAST CLINICAL HISTORY: repeat CT 24 hours COMPARISON STUDY: MRI of the brain April 14, 2016. Head CT June 15, 2024. CT DOSE: 547.75 mGy.cm TECHNIQUE: Helical axial images of the head were obtained without IV contrast. Automated exposure con trol was utilized for the study. A dose lowering technique was utilized adhering to the principles o f ALARA. FINDINGS: No acute intracranial hemorrhage, midline shift or mass effect is present. Ventricular syst em is normal. Basal cisterns are patent. There are no extra-axial collections. White matter hypodensi ties are unchanged since CT of June 15, 2024. These have progressed since CT of February 15, 2022. A 1.1 cm right thalamic infarct is old. A 1.5 cm hypodensity within the left thalamus is unchanged sin ce CT of June 15, 2024. This is new since CT of January 31, 2022. IMPRESSION: 1. No acute intracranial hemorrhage. No mass effect. 2. No change in a 1.5 cm left thalamic hypodense focus since CT of June 15, 2024. This represents ag e indeterminate ischemic change. Old right thalamic infarct. 3. No change in indeterminate white matter hypodensities since prior CT. ACT 112: Negative or not required by law. Electronically signed by: Haile Ivy M.D. 06/16/2024 2:42 PM
[2024-06-16] MEDS ORDERED: cefTRIAXone SODIUM 2,000 MG/50 ML BAG IV SCH (15:00)
[2024-06-16] MEDS ORDERED: Nursing to Pharmacy Communication SCH (17:45)
[2024-06-16] MEDS: cefTRIAXone SODIUM 2,000 MG/50 ML BAG IV STA (17:58)
[2024-06-16 18:35] LABS: Appearance Urine Clear (Clear); Bacteria Urine Automated None Seen (None Seen); Bilirubin Urine Negative (Negative); Blood Urine Trace (Negative); Color Urine Yellow; Epithelial Cell Urine Auto 0-2 /hpf (0-2); Glucose Urine UA 1+ (Negative); Ketones Urine Trace (Negative); Leukocyte Esterase Urine Trace (Negative); Nitrite Urine Negative (Negative); Protein Urine 3+ (Negative); RBC Urine Automated 0-2 /hpf (0-2); Specific Gravity Urine 1.019 (1.000-1.030); Urobilinogen Urine Negative (Negative); WBC Urine Automated 0-5 /hpf (0-5)
--- NOTE | 2024-06-16 20:45 | Electrocardiogram Report ---
Test Reason : Blood Pressure : */* mmHG Vent. Rate : 59 BPM Atrial Rate : * BPM P-R Int : * ms QRS Dur : 102 ms QT Int : 474 ms P-R-T Axes : * -23 55 degrees QTcB Int : 469 ms Sinus rhythm Minimal voltage criteria for LVH, may be normal variant Poor R wave progression, consider anterior WI vs. lead placement vs. LVH Nonspecific T wave abnormality Abnormal ECG When compared with ECG of 12-Jun-2024 15:54, Nonspecific T wave abnormality now evident in Inferior leads Confirmed by Esau Evans ([id number]) on 06/16/2024 8:45:11 PM Referred By: REFERRED SELF Confirmed By: Esau Evans
[2024-06-16] MEDS: amLODIPine BESYLATE 5 MG TAB PO SCH (21:52)
[2024-06-16] MEDS: PROCHLORPERAZINE 5 MG in SYRINGE 4 ML IV ONE (22:31)
[2024-06-17 06:33] LABS: Hematocrit (blood only) 25.3 % (37.0-47.0); Hemoglobin 8.2 g/dl (12.0-16.0); Mean Corpuscular Hemoglobin 31.7 pg (25.0-34.0); Mean Corpuscular Hgb Conc 32.4 g/dL (32.0-36.0); Mean Corpuscular Volume 97.7 fL (80.0-100.0); Platelet Count 232 K/uL (130-400); RDW Coefficient of Variation 13.2 % (11.5-14.5); RDW Standard Deviation 47.2 fL (36.4-46.3); Red Blood Count 2.59 M/uL (4.20-5.40); White Blood Count 9.25 K/ul (4.8-10.8)
[2024-06-17 07:07] LABS: BUN Creatinine Ratio 8.2 (10-20); Calcium 8.1 mg/dl (8.6-10.3); Creatinine Clr Calc Pharmacy 9.9 ml/min; Potassium 4.9 mmol/L (3.5-5.1)
--- NOTE | 2024-06-17 07:56 | Hospitalist Progress Note ---
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 #Metabolic Encephalopathy, Fall, Gait Instability #ESTELITA on CKD V #HTN emergency #Hx CVA 48yo w/ significant medical hx initially presented with "constipation" and recent PO iron rx for anemia and tx and constipation resolved. Unfortunately w/ progressive renal dysfunction and ongoing inpatient stay and had unwitnessed "fall" evening 06/15, no head trauma reported but confusion about events and prompted CT head w/ concerns for stroke in patient w/ hx of multiple strokes -- (see neuro note 06/16 as was discussed with Dr Go, does not believe to be new stroke given review prior but will remain on eliquis/aspirin, not able for MRI due to sonali and 1.5T machine under maintenance). Patient with MULTIPLE reasons for encephalopathy at times including HTN issues, DM w/ neuropathy/retinopathy/seizure disorder/medication noncompliance/progressive azotemia w/ renal impairment, hypothyroidism, etc. Notable hx factor V and was to get lovenox shots w/ her vascular procedure prior but not surprisingly was noncompliant with such and could have additionally been source for findings seen. 06/17 Mentation stable/improved. Alert to person/place/time. Cooperative. Did get 250cc NSS bolus on 06/16 for hypotension BP stable 122/77 - discontinued clonidine, amlodipine reduced to 5mg HS and continues coreg 25mg BID w/ hold parameters. DC SHANEKA/ARB prior, as well as chlorthalidone recently and planned STOP spironolactone (was on 50mg BID) Remains on eliquis BID, aspirin 81mg daily for hx CVA/CT findings, appreciate neurology --> lamotrigine, topiramate, and gabapentin levels pending --> Ammonia wnl, Lyme negative Nephrology following, perm cath on Wednesday with Dr Hylton as outlined planned. Continue lokemla daily, K stable on Am labs but Cr up to 8. Given rocephin x 1 but avoiding further as repeat UA not appearing w/ bacteria and mentation stable today but if any issues can consider repeat dose. Prior given Venofer/EPO, hgb stable/no bleeding PT/OT consults to continue while inpatient. CM consult placed 2nd to significant other concerns about safety at home/neglect from children/house in cat feces (Kaci denied issues w/ safety during discussion 06/17) Hypertensive emergency in setting acute on chronic CKD V - SBP>200 on admit, labetalol IV/meds for constipation and further adjustment to HTN meds as above w/ stable BP currently - plan to stop her doxazosin, spironolactone, chlorthalidone, clonidine. reduct ion in amlodipine as above and remains on coreg w/ hold parameters. increase amlodipine as needed but w/ recent hypotension/CT will allow for now and BP stable 122/77 ESTELITA on CKD V, anemia 2nd to CKD- Pending kidney transplant evaluation at [facility] with worsening renal impairment in setting of DM and uncontrolled HTN in the past 2nd to medication compliance; Now has LEFT brachiocephalic AV fistula in place w/ repeat procedure about 3 wks ago to bring closer to skin, ?graft. Looks good, continue wound care/dressing changes. Not yet mature. Cr worsening/K stable on lokemla today and plan for Perm cath/dialysis this upcoming week. Provided EPO/Venofer prior Nausea/vomiting/constipation- on admission suspected combination gastroparesis/recent PO iron supplementation but also likely worsened w/ recent anesethesia and pre-renal azotemia. Moving bowels daily, exception this morning and will monitor if needed. Diarrhea following constipation likely overflow and stool studies/fecal occult and cdiff negative Hypothyroidism -Ongoing, follows w/ endocrinology. Prior TSH elevation, up to 7. Discussed w/ endocrinology provider and increased thyroid armour to 90 daily - new rx @dc, f/u outpt Type I DM, neuropathy b/l feet as well as diabetic retinopathy Using Dexcom, basal 5.3 however SIGNIFICANT carb load w/ [employer] PM 06/14 with BSG to mid 300s and issues w/ confusion and have REMOVED and pharmacy consulted and using SSI while inpatient and gabapentin REDUCED 100mg TID and BSGs acceptable Factor V Leiden -continue Eliquis 5 mg p.o. twice daily (did not utilize lovenox w/ her surgery as instructed but pulses present but does have some mild edema improved and suspected 2nd to recent procedures but see above) Ankle pain, LEFT-Reporting L ankle pain, prior fx. Xrays obtained and demonstrate Distal fibular fracture remains nondisplaced, incompletely healed. Orthopedics consulted but likely just orthotics/WBAT but appreciate recs. Ortho consulted/see note BENEFIT FROM REHAB AT [place] Anxiety/depression/seizure disorder Lamotrigine 200mg BID w/ 25mg HS dose, topiramate BID Doxazosin DISCONTINUED, clonidine reduced but now STOPPED given BP Monitor for psych consult if needed/BHU Dispo: continued inpatient stay, PERM cath planned for Wednesday. PT/OT and CM consults pending and strongly encourage rehab/SNF prior to returning home if reasonable. Monitor for BHU/psych but mentation stable at this time Admission and Anticipated Discharge Date Admission Date: June 12, 2024 Supervising Physician Co-Signing Physician Notes The patient was not seen by me. The chart was reviewed. Case discussed with DAVID Ray. Agree with assessment and plan Subjective Eval this morning, sitting up in bed. Awake/alert to person, place [facility], year 2024, month may going into June. BP stable, off clonidine and discussed reduction in her amlodipine. Coreg continued, HR stable/no further lilia. K stable, remains on lokemla. Aware of vascular procedure for wednesday, still wanting to go home but will see how course goes. Concerns about her upcoming appointments/eye doctor/etc. Will help with rescheduling if needed. Per nursing care attendant did go to bathroom twice today, first time wanted to prove could do herself but was very unsteady. Discussed encouraged therapy/consideration for rehab, she is hopeful not to need this and is missing her rabbit. Support provided. Questions/concerns addressed at this time. Physical Exam Physical Exam: General: 48yo female sitting up in bed today, NAD, more awake/alert, depressed affect at times but cooperative with care Head atraumatic, normocephalic, mm stable, trachea midline, baseline eye reti nopathy/reduced at baseline Resp: unlabored but diminished in the bases, no cough, remains on room air, no tachypnea CV: regular, rates controlled, +systolic murmur, trace pedal edema but no calf tenderness, pulses present LUE w/ sonali, dressing c/d/i (not removed today but viewed yesterday) GI: +BS, soft/slight distension but nontender, no guarding/rebound no velarde MSK/Neuro: poor gait at baseline (b/l neuropathy), able to follow commands as asked, not confused, no slurred speech, poor medical IQ Psych: awake, alert to person, place [facility], year 2024, month May, cooperative but depressed at times Results & Data Results & Data Vital Signs (Past 12 Hours) Vital Signs Temp Pulse Pulse Resp BP Pulse Ox O2 Del Method 06/17/24 07:43 37.0 C 62 18 122/77 92 Room Air 06/17/24 03:20 36.8 C 59 L 16 119/75 96 Room Air 06/16/24 22:42 36.7 C 61 20 124/78 95 Room Air 06/16/24 21:49 61 Laboratory Results 06/17/24 06/17/24 06/16/24 Range/Units 08:05 05:49 20:25 WBC 9.25 (4.8-10.8) K/ul RBC 2.59 L (4.20-5.40) M/uL Hgb 8.2 L (12.0-16.0) g/dl Hct 25.3 L (37.0-47.0) % MCV 97.7 (80.0-100.0) fL MCH 31.7 (25.0-34.0) pg MCHC 32.4 (32.0-36.0) g/dL RDW Std Deviation 47.2 H (36.4-46.3) fL RDW Coeff of Zak 13.2 (11.5-14.5) % Plt Count 232 (130-400) K/uL MPV 11.0 (9.4-12.4) fL Sodium 132 L (136-145) mmol/L Potassium 4.9 (3.5-5.1) mmol/L Chloride 102 (98-107) mmol/L Carbon Dioxide 19 L (21-32) mmol/L Anion Gap 11 (3-11) BUN 66 H (6-23) mg/dl Creatinine 8.05 H* D (0.6-1.2) mg/dl Est Cr Clr Drug Dosing 9.9 ml/min eGFR 5.69 BUN/Creatinine Ratio 8.2 L (10-20) Glucose 105 H (70-99(Fasting)) mg/dl POC Glucose 109 H 154 H (70-99) mg/dl Calcium 8.1 L (8.6-10.3) mg/dl Urine Color Urine Appearance (Clear) Urine pH (4.5-7.5) Ur Specific [place] (1.000-1.030) Urine Protein (Negative) Urine Glucose (UA) (Negative) Urine Ketones (Negative) Urine Blood (Negative) Urine Nitrite (Negative) Urine Bilirubin (Negative) Urine Urobilinogen (Negative) Ur Leukocyte Esterase (Negative) Urine WBC (Auto) (0-5) /hpf Urine RBC (Auto) (0-2) /hpf U Hyaline Cast (Auto) (0-2) /lpf U Epithel Cells (Auto) (0-2) /hpf Urine Bacteria (Auto) (None Seen) Lamotrigine Gabapentin Topiramate Lyme Disease Screen (Negative) Hep Bs Antigen (Negative) Hep Bs Antibody Hep Bs Antibody, Quant (>or=10mIU/mL Immune) mIU/mL 06/16/24 06/16/24 06/16/24 Range/Units 17:25 17:01 11:59 WBC (4.8-10.8) K/ul RBC (4.20-5.40) M/uL Hgb (12.0-16.0) g/dl Hct (37.0-47.0) % MCV (80.0-100.0) fL MCH (25.0-34.0) pg MCHC (32.0-36.0) g/dL RDW Std Deviation (36.4-46.3) fL RDW Coeff of Zak (11.5-14.5) % Plt Count (130-400) K/uL MPV (9.4-12.4) fL Sodium (136-145) mmol/L Potassium (3.5-5.1) mmol/L Chloride (98-107) mmol/L Carbon Dioxide (21-32) mmol/L Anion Gap (3-11) BUN (6-23) mg/dl Creatinine (0.6-1.2) mg/dl Est Cr Clr Drug Dosing ml/min eGFR BUN/Creatinine Ratio (10-20) Glucose (70-99(Fasting)) mg/dl POC Glucose 78 246 H (70-99) mg/dl Calcium (8.6-10.3) mg/dl Urine Color Yellow Urine Appearance Clear (Clear) Urine pH 5.0 (4.5-7.5) Ur Specific [place] 1.019 (1.000-1.030) Urine Protein 3+ H (Negative) Urine Glucose (UA) 1+ H (Negative) Urine Ketones Trace H (Negative) Urine Blood Trace H (Negative) Urine Nitrite Negative (Negative) Urine Bilirubin Negative (Negative) Urine Urobilinogen Negative (Negative) Ur Leukocyte Esterase Trace H (Negative) Urine WBC (Auto) 0-5 (0-5) /hpf Urine RBC (Auto) 0-2 (0-2) /hpf U Hyaline Cast (Auto) 6-10 H (0-2) /lpf U Epithel Cells (Auto) 0-2 (0-2) /hpf Urine Bacteria (Auto) None Seen (None Seen) Lamotrigine Gabapentin Topiramate Lyme Disease Screen (Negative) Hep Bs Antigen (Negative) Hep Bs Antibody Hep Bs Antibody, Quant (>or=10mIU/mL Immune) mIU/mL 06/16/24 06/16/24 Range/Units 11:57 05:50 WBC (4.8-10.8) K/ul RBC (4.20-5.40) M/uL Hgb (12.0-16.0) g/dl Hct (37.0-47.0) % MCV (80.0-100.0) fL MCH (25.0-34.0) pg MCHC (32.0-36.0) g/dL RDW Std Deviation (36.4-46.3) fL RDW Coeff of Zak (11.5-14.5) % Plt Count (130-400) K/uL MPV (9.4-12.4) fL Sodium (136-145) mmol/L Potassium (3.5-5.1) mmol/L Chloride (98-107) mmol/L Carbon Dioxide (21-32) mmol/L Anion Gap (3-11) BUN (6-23) mg/dl Creatinine (0.6-1.2) mg/dl Est Cr Clr Drug Dosing ml/min eGFR BUN/Creatinine Ratio (10-20) Glucose (70-99(Fasting)) mg/dl POC Glucose (70-99) mg/dl Calcium (8.6-10.3) mg/dl Urine Color Urine Appearance (Clear) Urine pH (4.5-7.5) Ur Specific [place] (1.000-1.030) Urine Protein (Negative) Urine Glucose (UA) (Negative) Urine Ketones (Negative) Urine Blood (Negative) Urine Nitrite (Negative) Urine Bilirubin (Negative) Urine Urobilinogen (Negative) Ur Leukocyte Esterase (Negative) Urine WBC (Auto) (0-5) /hpf Urine RBC (Auto) (0-2) /hpf U Hyaline Cast (Auto) (0-2) /lpf U Epithel Cells (Auto) (0-2) /hpf Urine Bacteria (Auto) (None Seen) Lamotrigine Pending Gabapentin Pending Topiramate Pending Lyme Disease Screen Negative (Negative) Hep Bs Antigen Negative (Negative) Hep Bs Antibody Immune Hep Bs Antibody, Quant 228.00 (>or=10mIU/mL Immune) mIU/mL Diagnostic Findings Head CT 06/16/24 14:00 CT OF THE HEAD WITHOUT CONTRAST CLINICAL HISTORY: repeat CT 24 hours COMPARISON STUDY: MRI of the brain April 14, 2016. Head CT June 15, 2024. CT DOSE: 547.75 mGy.cm TECHNIQUE: Helical axial images of the head were obtained without IV contrast. Automated exposure control was utilized for the study. A dose lowering technique was utilized adhering to the principles of ALARA. FINDINGS: No acute intracranial hemorrhage, midline shift or mass effect is present. Ventricular system is normal. Basal cisterns are patent. There are no extra-axial collections. White matter hypodensities are unchanged since CT of June 15, 2024. These have progressed since CT of February 15, 2022. A 1.1 cm right thalamic infarct is old. A 1.5 cm hypodensity within the left thalamus is unchanged since CT of June 15, 2024. This is new since CT of January 31, 2022. IMPRESSION: 1. No acute intracranial hemorrhage. No mass effect. 2. No change in a 1.5 cm left thalamic hypodense focus since CT of June 15, 2024. This represents age indeterminate ischemic change. Old right thalamic infarct. 3. No change in indeterminate white matter hypodensities since prior CT. ACT 112: Negative or not required by law. Electronically signed by: Haile Ivy M.D. 06/16/2024 2:42 PM PG Care Time/CCT Total # of Minutes Spent Total Time Spent with Patient: Total time spent is greater than 50% in coordination of care (as documented) at patient's floor/unit and/or counseling patient: Coding Level of Care Code 46556 SUB INP/OBS CARE 3/50MIN Diagnoses ESTELITA (acute kidney injury) N17.9 Stage 5 chronic kidney disease due to hypertension I12.0; N18.5 History of CVA (cerebrovascular accident) Z86.73 HTN (hypertension) I10 Type 1 diabetes mellitus with stage 4 chronic kidney disease E10.22; N18.4 Chronic kidney disease stage: stage 4 (severe) Diabetes mellitus complication detail: with chronic kidney disease Diabetes mellitus complication status: with kidney complications 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 E03.8; E06.3 Hypothyroidism type: due to Rajwinder's thyroiditis Hypertensive emergency I16.1 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 E10.649 CKD (chronic kidney disease) N18.9 Chronic kidney disease stage: unspecified stage Metabolic encephalopathy G93.41 Seizure disorder G40.909 (5) Type 1 diabetes Chronic kidney disease stage: stage 4 (severe) Diabetes mellitus complication detail: with chronic kidney disease Diabetes mellitus complication status: with kidney complications Qualified Code(s): E10.22 - Type 1 diabetes mellitus with diabetic chronic kidney disease; N18.4 - Chronic kidney disease, stage 4 (severe) (6) Hypothyroidism Hypothyroidism type: due to Rajwinder's thyroiditis Qualified Code(s): E03.8 - Other specified hypothyroidism; E06.3 - Autoimmune thyroiditis (9) CKD (chronic kidney disease) Chronic kidney disease stage: unspecified stage Qualified Code(s): N18.9 - Chronic kidney disease, unspecified
[2024-06-17] MEDS ORDERED: LANTUS PER UNIT CHARGE SC SCH ×2 (09:00)
[2024-06-17] MEDS: LANTUS PER UNIT CHARGE SC SCH (09:03)
--- NOTE | 2024-06-17 09:09 | Nephrology Progress Note ---
Date of Service June 17, 2024 Assessment & Plan (1) End stage chronic kidney disease: Plan: * ESKD due to DKD, hypertensive nephrosclerosis * Volume status and electrolyte balance are acceptable. No acute indication for HD today * Dr. Coto to place IJ TCC Wednesday. Will plan 1st run HD following catheter placement * Patient has AVF in place but it is not yet mature for use (transposition 04/03/24) * Will consult case management to set up outpatient HD. Patient is now asking for unit nearest her home in [place], [place] * Continue low K, renal diet * Will start nephrocap one daily (2) Hypertensive emergency: Plan: * BP improved after antihypertensives were restarted. * Continue amlodipine and carvedilol * Clonidine has been held due to relative hypotension (3) Anemia of chronic disease: Plan: * Epogen 08619 units provided 06/13. * Venofer 1000 mg IV loading dose has been completed. * H/H stable. No signs of active bleeding. Admission and Anticipated Discharge Date Admission Date: June 12, 2024 Subjective Ms. Gagnon was evaluated in her hospital room this morning. She reports that her GI symptoms have resolved and she is anxious to return home Review of Systems Constitutional: no fever Eyes: no problem reported Ear, Nose, Mouth, Throat: no problem reported Respiratory: no cough and no dyspnea Cardiovascular: no chest pain Gastrointestinal: no abdominal pain, no nausea, no vomiting and no diarrhea/loose stools Genitourinary: no dysuria Integumentary: no rash Neurologic: no problem reported Physical Exam Constitutional: not in distress Eyes: PERRL, conjunctivae normal, anicteric sclerae ENMT: external ear and nose normal, oropharynx normal Neck: trachea midline, no thyromegaly Respiratory: normal respiratory effort, lungs clear to auscultation Cardiovascular: RRR, no murmur, no edema (no rub) Gastrointestinal (Abdomen): normal bowel sounds, soft, nontender, no hepatosplenomegaly Musculoskeletal: Extremities: no cyanosis and no clubbing Skin: no rashes, warm and dry Neurologic: awake; not confused Results & Data Vital Signs (Past 12 Hours) Vital Signs Temp Pulse Pulse Resp BP Pulse Ox O2 Del Method 06/17/24 07:43 37.0 C 62 18 122/77 92 Room Air 06/17/24 03:20 36.8 C 59 L 16 119/75 96 Room Air 06/16/24 22:42 36.7 C 61 20 124/78 95 Room Air 06/16/24 21:49 61 Laboratory Results Laboratory Results - last 24 hr 06/16/24 06/16/24 06/16/24 05:50 11:57 11:59 WBC RBC Hgb Hct MCV MCH MCHC RDW Std Deviation RDW Coeff of Zak Plt Count MPV Sodium Potassium Chloride Carbon Dioxide Anion Gap BUN Creatinine Est Cr Clr Drug Dosing eGFR BUN/Creatinine Ratio Glucose POC Glucose 246 H Calcium Urine Color Urine Appearance Urine pH Ur Specific [place] Urine Protein Urine Glucose (UA) Urine Ketones Urine Blood Urine Nitrite Urine Bilirubin Urine Urobilinogen Ur Leukocyte Esterase Urine WBC (Auto) Urine RBC (Auto) U Hyaline Cast (Auto) U Epithel Cells (Auto) Urine Bacteria (Auto) Lamotrigine Pending Gabapentin Pending Topiramate Pending Lyme Disease Screen Negative Hep Bs Antigen Negative Hep Bs Antibody Immune Hep Bs Antibody, Quant 228.00 06/16/24 06/16/24 06/16/24 17:01 17:25 20:25 WBC RBC Hgb Hct MCV MCH MCHC RDW Std Deviation RDW Coeff of Zak Plt Count MPV Sodium Potassium Chloride Carbon Dioxide Anion Gap BUN Creatinine Est Cr Clr Drug Dosing eGFR BUN/Creatinine Ratio Glucose POC Glucose 78 154 H Calcium Urine Color Yellow Urine Appearance Clear Urine pH 5.0 Ur Specific [place] 1.019 Urine Protein 3+ H Urine Glucose (UA) 1+ H Urine Ketones Trace H Urine Blood Trace H Urine Nitrite Negative Urine Bilirubin Negative Urine Urobilinogen Negative Ur Leukocyte Esterase Trace H Urine WBC (Auto) 0-5 Urine RBC (Auto) 0-2 U Hyaline Cast (Auto) 6-10 H U Epithel Cells (Auto) 0-2 Urine Bacteria (Auto) None Seen Lamotrigine Gabapentin Topiramate Lyme Disease Screen Hep Bs Antigen Hep Bs Antibody Hep Bs Antibody, Quant 06/17/24 06/17/24 05:49 08:05 WBC 9.25 RBC 2.59 L Hgb 8.2 L Hct 25.3 L MCV 97.7 MCH 31.7 MCHC 32.4 RDW Std Deviation 47.2 H RDW Coeff of Zak 13.2 Plt Count 232 MPV 11.0 Sodium 132 L Potassium 4.9 Chloride 102 Carbon Dioxide 19 L Anion Gap 11 BUN 66 H Creatinine 8.05 H* D Est Cr Clr Drug Dosing 9.9 eGFR 5.69 BUN/Creatinine Ratio 8.2 L Glucose 105 H POC Glucose 109 H Calcium 8.1 L Urine Color Urine Appearance Urine pH Ur Specific [place] Urine Protein Urine Glucose (UA) Urine Ketones Urine Blood Urine Nitrite Urine Bilirubin Urine Urobilinogen Ur Leukocyte Esterase Urine WBC (Auto) Urine RBC (Auto) U Hyaline Cast (Auto) U Epithel Cells (Auto) Urine Bacteria (Auto) Lamotrigine Gabapentin Topiramate Lyme Disease Screen Hep Bs Antigen Hep Bs Antibody Hep Bs Antibody, Quant Laboratory Results - last 24 hr 06/16/24 06/16/24 06/16/24 11:57 11:59 17:01 WBC RBC Hgb Hct MCV MCH MCHC RDW Std Deviation RDW Coeff of Zak Plt Count MPV Sodium Potassium Chloride Carbon Dioxide Anion Gap BUN Creatinine Est Cr Clr Drug Dosing eGFR BUN/Creatinine Ratio Glucose POC Glucose 246 H 78 Calcium Urine Color Urine Appearance Urine pH Ur Specific [place] Urine Protein Urine Glucose (UA) Urine Ketones Urine Blood Urine Nitrite Urine Bilirubin Urine Urobilinogen Ur Leukocyte Esterase Urine WBC (Auto) Urine RBC (Auto) U Hyaline Cast (Auto) U Epithel Cells (Auto) Urine Bacteria (Auto) Lamotrigine Pending Gabapentin Pending Topiramate Pending Lyme Disease Screen Negative 06/16/24 06/16/24 06/17/24 17:25 20:25 05:49 WBC 9.25 RBC 2.59 L Hgb 8.2 L Hct 25.3 L MCV 97.7 MCH 31.7 MCHC 32.4 RDW Std Deviation 47.2 H RDW Coeff of Zak 13.2 Plt Count 232 MPV 11.0 Sodium 132 L Potassium 4.9 Chloride 102 Carbon Dioxide 19 L Anion Gap 11 BUN 66 H Creatinine 8.05 H* D Est Cr Clr Drug Dosing 9.9 eGFR 5.69 BUN/Creatinine Ratio 8.2 L Glucose 105 H POC Glucose 154 H Calcium 8.1 L Urine Color Yellow Urine Appearance Clear Urine pH 5.0 Ur Specific [place] 1.019 Urine Protein 3+ H Urine Glucose (UA) 1+ H Urine Ketones Trace H Urine Blood Trace H Urine Nitrite Negative Urine Bilirubin Negative Urine Urobilinogen Negative Ur Leukocyte Esterase Trace H Urine WBC (Auto) 0-5 Urine RBC (Auto) 0-2 U Hyaline Cast (Auto) 6-10 H U Epithel Cells (Auto) 0-2 Urine Bacteria (Auto) None Seen Lamotrigine Gabapentin Topiramate Lyme Disease Screen 06/17/24 08:05 WBC RBC Hgb Hct MCV MCH MCHC RDW Std Deviation RDW Coeff of Zak Plt Count MPV Sodium Potassium Chloride Carbon Dioxide Anion Gap BUN Creatinine Est Cr Clr Drug Dosing eGFR BUN/Creatinine Ratio Glucose POC Glucose 109 H Calcium Urine Color Urine Appearance Urine pH Ur Specific [place] Urine Protein Urine Glucose (UA) Urine Ketones Urine Blood Urine Nitrite Urine Bilirubin Urine Urobilinogen Ur Leukocyte Esterase Urine WBC (Auto) Urine RBC (Auto) U Hyaline Cast (Auto) U Epithel Cells (Auto) Urine Bacteria (Auto) Lamotrigine Gabapentin Topiramate Lyme Disease Screen PG Care Time/CCT Total # of Minutes Spent Total Time Spent with Patient: Total time spent is greater than 50% in coordination of care (as documented) at patient's floor/unit and/or counseling patient: Coding Level of Care Code 77787 SUB INP/OBS CARE 3/50MIN Diagnoses End stage chronic kidney disease N18.6 Hypertensive emergency I16.1 Anemia of chronic disease D63.8
[2024-06-18 05:54] LABS: Hemoglobin 7.8 g/dl (12.0-16.0); Mean Corpuscular Hemoglobin 31.7 pg (25.0-34.0); Mean Corpuscular Hgb Conc 32.5 g/dL (32.0-36.0); Mean Corpuscular Volume 97.6 fL (80.0-100.0); Mean Platelet Volume 10.6 fL (9.4-12.4); Platelet Count 225 K/uL (130-400); RDW Coefficient of Variation 13.4 % (11.5-14.5); RDW Standard Deviation 46.9 fL (36.4-46.3); Red Blood Count 2.46 M/uL (4.20-5.40); White Blood Count 7.29 K/ul (4.8-10.8)
[2024-06-18 06:30] LABS: Calcium 7.7 mg/dl (8.6-10.3); Creatinine Clr Calc Pharmacy 9.4 ml/min; Potassium 4.8 mmol/L (3.5-5.1)
--- NOTE | 2024-06-18 08:08 | Hospitalist Progress Note ---
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 #Metabolic Encephalopathy, Fall, Gait Instability, #ESTELITA on CKD V, #HTN emergency, #Hx CVA, #Constipation, #Factor V Leiden 48yo w/ significant medical hx initially presented with "constipation" and recent PO iron rx for anemia and tx and constipation resolved. Unfortunately w/ progressive renal dysfunction and ongoing inpatient stay and had unwitnessed "fall" evening 06/15, no head trauma reported but confusion about events and prompted CT head w/ concerns for stroke in patient w/ hx of multiple strokes -- (see neuro note 06/16 as was discussed with Dr Go, does not believe to be new stroke given review prior but will remain on eliquis/aspirin, not able for MRI due to sonali and 1.5T machine under maintenance). Patient with MULTIPLE reasons for encephalopathy at times including HTN issues, DM w/ neuropathy/retinopathy/seizure disorder/medication noncompliance/progressive azotemia w/ renal impairment, hypothyroidism, etc. Notable hx factor V and was to get lovenox shots w/ her vascular procedure prior but not surprisingly was noncompliant with such and could have additionally been source for findings seen. Ammonia wnl, Lyme negative --> Pending anticonvulsant levels w/ lamotrigine, topiramate, and gabapentin -- will need f/u (prior gabapentin reduced 100mg TID for renal function) 06/17 mentation stable/improved and given 250cc NSS bolus for hypotension day prior and BP 122/77 off clonidine and reduction in amlodipine to 5mg daily HR had been lower side and coreg reduced to 12.5mg BID w/ hold parameters 06/18 Cr 8.4 but did have velarde placed last evening following straight cath for 1150cc, presently 425cc this morning CLEAR YELLOW URINE Will repeat urine cx/resume abx CTX given prior gram neg but no growth present Mentation stable and does wax/wane but answered orientation questions for me today without issue and knew where she was/year/month and time. Poor medical IQ and underlying mental health issues as well Remains on REDUCED Coreg 12.5mg BID w/ hold parameters, amlodipine 5mg and BPs acceptable 113/67 Perm cath planned Wednesday with Dr Coto, lexy placed on hold but remains on ASA daily. Heparin SQ ok per nephrology while eliquis on hold, remains on ASA Remains on Lokelma daily, Nephrocaps added and repeat Venofer/EPO ordered by Dr Goss and plan for HD after perm cath tomorrow Continue PT/OT and CM consulted as unsafe for home at this time. See CM notes Monitor labs/exam on repeat Hypertensive emergency in setting acute on chronic CKD V - SBP>200 on admit, labetalol IV/meds for constipation and further adjustment to HTN meds as above w/ stable BP currently and significant reduction to home regimen and likely compliance a large factor --> plan to stop her doxazosin, spironolactone, chlorthalidone, clonidine. reduction in amlodipine as above and remains on coreg w/ hold parameters Anemia 2nd to CKD- Pending kidney transplant evaluation at [facility] with worsening renal impairment in setting of DM and uncontrolled HTN in the past 2nd to medication compliance; Now has LEFT brachiocephalic AV fistula in place w/ repeat procedure about 3 wks ago to bring closer to skin, ?graft. Looks good, continue wound care/dressing changes. Not yet mature. Cr worsening/K stable on lokemla and plan for Perm cath/dialysis on Wednesday. Provided EPO/Venofer prior and has been ordered by Dr Goss for tomorrow Nausea/vomiting/constipation- on admission suspected combination gastroparesis/recent PO iron supplementation but also likely worsened w/ recent anesthesia and pre-renal azotemia. +BM and no issues at present/fecal occult and cdiff negative prior given diarrhea following constiaption Hypothyroidism -Ongoing, follows w/ endocrinology. Prior TSH elevation, up to 7. Discussed w/ endocrinology provider and increased thyroid armour to 90 daily - new rx @dc, f/u outpt Type I DM, neuropathy b/l feet as well as diabetic retinopathy-Using Dexcom, basal 5.3 however SIGNIFICANT carb load w/ [employer] PM 3/19 with BSG to mid 300s and issues w/ confusion and have REMOVED and pharmacy consulted and using SSI while inpatient and gabapentin REDUCED 100mg TID and BSGs acceptable Ankle pain, LEFT-Reported L ankle pain, prior fx. Xrays obtained and demonstrate Distal fibular fracture remains nondisplaced, incompletely healed. Orthopedics consulted but likely just orthotics/WBAT but appreciate recs. Ortho consulted/see note BENEFIT FROM REHAB [facility] Anxiety/depression/seizure disorder Lamotrigine 200mg BID w/ 25mg HS dose, topiramate BID Doxazosin DISCONTINUED, clonidine reduced but now STOPPED Monitor for psych consult if needed/BHU Dispo: continued inpatient stay, PERM cath planned for Wednesday. PT/OT and CM consults pending and strongly encourage rehab/SNF prior to returning home if reasonable. Monitor for BHU/psych but mentation stable at this time Admission and Anticipated Discharge Date Admission Date: June 12, 2024 Supervising Physician Co-Signing Physician Notes The patient was not seen by me. The chart was reviewed. Case discussed with DAVID Ray. Agree with assessment and plan Subjective Eval this morning, resting in bed, easily awoke. Alert to person/[place]/year 2024, month may going into june. Cath planned for tomorrow. Velarde placed overnight due to retention, CLEAR YELLOW URINE DRAINING and remains in place. BP stable and adjustment to meds. She reports she did move her bowels yesterday, is missing her bunny. She is snacking on her breakfast. Support provided. Questions/concerns addressed at this time. Physical Exam 2 Physical Exam: General: 48yo female sleeping this morning, easily awoken, remains alert/oriented at this time, missing her bunny Head atraumatic, normocephalic, mm stable, trachea midline, baseline eye retinopathy/reduced at baseline Resp: unlabored but diminished in the bases, no cough, remains on room air, no tachypnea CV: regular, rates controlled, +systolic murmur, trace pedal edema but no calf tenderness, pulses present LUE w/ sonali, dressing c/d/i (not removed today) GI: +BS, soft/slight distension but nontender, no guarding/rebound -- velarde with CLEAR urine draining without blood/sediment MSK/Neuro: poor gait at baseline (b/l neuropathy), able to follow commands as asked, not confused, no slurred speech, poor medical IQ Psych: awake, alert to person, place Joey Haque, year 2024, month May, cooperative but depressed at times Results & Data Results & Data Vital Signs (Past 12 Hours) Vital Signs Temp Pulse Pulse Resp BP Pulse Ox O2 Del Method 06/18/24 07:56 36.7 C 59 L 18 123/75 97 Room Air 06/18/24 03:37 36.4 C L 59 L 14 125/76 96 Room Air 06/17/24 23:28 36.8 C 59 L 16 114/72 98 Room Air 06/17/24 21:42 60 Laboratory Results 06/18/24 05:35 06/18/24 05:35 PG Care Time/CCT Total # of Minutes Spent Total Time Spent with Patient: Total time spent is greater than 50% in coordination of care (as documented) at patient's floor/unit and/or counseling patient: Coding Level of Care Code 34943 SUB INP/OBS CARE 3/50MIN Diagnoses ESTELITA (acute kidney injury) N17.9 Stage 5 chronic kidney disease due to hypertension I12.0; N18.5 History of CVA (cerebrovascular accident) Z86.73 HTN (hypertension) I10 Type 1 diabetes mellitus with stage 4 chronic kidney disease E10.22; N18.4 Chronic kidney disease stage: stage 4 (severe) Diabetes mellitus complication detail: with chronic kidney disease Diabetes mellitus complication status: with kidney complications 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 E03.8; E06.3 Hypothyroidism type: due to Rajwinder's thyroiditis Hypertensive emergency I16.1 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 E10.649 CKD (chronic kidney disease) N18.9 Chronic kidney disease stage: unspecified stage Metabolic encephalopathy G93.41 Seizure disorder G40.909 (5) Type 1 diabetes Chronic kidney disease stage: stage 4 (severe) Diabetes mellitus complication detail: with chronic kidney disease Diabetes mellitus complication status: with kidney complications Qualified Code(s): E10.22 - Type 1 diabetes mellitus with diabetic chronic kidney disease; N18.4 - Chronic kidney disease, stage 4 (severe) (6) Hypothyroidism Hypothyroidism type: due to Rajwinder's thyroiditis Qualified Code(s): E03.8 - Other specified hypothyroidism; E06.3 - Autoimmune thyroiditis (9) CKD (chronic kidney disease) Chronic kidney disease stage: unspecified stage Qualified Code(s): N18.9 - Chronic kidney disease, unspecified
--- NOTE | 2024-06-18 09:08 | Nephrology Progress Note ---
Date of Service June 18, 2024 Assessment & Plan (1) End stage chronic kidney disease: Plan: * ESKD due to DKD, hypertensive nephrosclerosis * Volume status and electrolyte balance are acceptable. No acute indication for HD today * Dr. Coto to place IJ TCC Wednesday. Will plan 1st run HD following catheter placement * Patient has AVF in place but it is not yet mature for use (transposition 04/03/24) * Will consult case management to set up outpatient HD. Patient is now asking for unit nearest her home in [place], [place] * Continue low K, renal diet * Will start nephrocap one daily (2) Hypertensive emergency: Plan: * BP improved after antihypertensives were restarted. * Continue amlodipine and carvedilol * Clonidine has been held due to relative hypotension (3) Anemia of chronic disease: Plan: * H/H stable. No signs of active bleeding * Will provide IV iron and DEONNA w/ HD Admission and Anticipated Discharge Date Admission Date: June 12, 2024 Subjective Ms. Gagnon was evaluated in her hospital room this morning. She reports that her GI symptoms have resolved and she is anxious to start dialysis so that she can return home soon Review of Systems Constitutional: no fever Eyes: no problem reported Ear, Nose, Mouth, Throat: no problem reported Respiratory: no cough and no dyspnea Cardiovascular: no chest pain Gastrointestinal: no abdominal pain, no nausea, no vomiting and no diarrhea/loose stools Genitourinary: no dysuria Integumentary: no rash Neurologic: no problem reported Physical Exam Constitutional: not in distress Eyes: PERRL, conjunctivae normal, anicteric sclerae ENMT: external ear and nose normal, oropharynx normal Neck: trachea midline, no thyromegaly Respiratory: normal respiratory effort, lungs clear to auscultation Cardiovascular: RRR, no murmur, no edema (no rub) Gastrointestinal (Abdomen): normal bowel sounds, soft, nontender, no hepatosplenomegaly Musculoskeletal: Extremities: no cyanosis and no clubbing Skin: no rashes, warm and dry Neurologic: awake; not confused Results & Data Vital Signs (Past 12 Hours) Vital Signs Temp Pulse Pulse Resp BP Pulse Ox O2 Del Method 06/18/24 07:56 36.7 C 59 L 18 123/75 97 Room Air 06/18/24 03:37 36.4 C L 59 L 14 125/76 96 Room Air 06/17/24 23:28 36.8 C 59 L 16 114/72 98 Room Air 06/17/24 21:42 60 Laboratory Results Laboratory Results - last 24 hr 06/16/24 06/17/24 06/17/24 05:50 12:01 17:06 WBC RBC Hgb Hct MCV MCH MCHC RDW Std Deviation RDW Coeff of Zak Plt Count MPV Sodium Potassium Chloride Carbon Dioxide Anion Gap BUN Creatinine Est Cr Clr Drug Dosing eGFR BUN/Creatinine Ratio Glucose POC Glucose 216 H 107 H Calcium Hep B Core IgM Ab NON-REACTIVE 06/17/24 06/18/24 06/18/24 20:23 05:35 07:25 WBC 7.29 RBC 2.46 L Hgb 7.8 L Hct 24.0 L MCV 97.6 MCH 31.7 MCHC 32.5 RDW Std Deviation 46.9 H RDW Coeff of Zak 13.4 Plt Count 225 MPV 10.6 Sodium 131 L Potassium 4.8 Chloride 102 Carbon Dioxide 20 L Anion Gap 9 BUN 76 H Creatinine 8.43 H* D Est Cr Clr Drug Dosing 9.4 eGFR 5.38 BUN/Creatinine Ratio 9.0 L Glucose 74 POC Glucose 116 H 85 Calcium 7.7 L Hep B Core IgM Ab PG Care Time/CCT Total # of Minutes Spent Total Time Spent with Patient: Total time spent is greater than 50% in coordination of care (as documented) at patient's floor/unit and/or counseling patient: Coding Level of Care Code 15866 SUB INP/OBS CARE 3/50MIN Diagnoses End stage chronic kidney disease N18.6 Hypertensive emergency I16.1 Anemia of chronic disease D63.8
[2024-06-18] MEDS: carvediloL 12.5 MG TAB PO SCH (09:37)
[2024-06-18] MEDS: cefTRIAXone SODIUM 2,000 MG/50 ML BAG IV SCH (09:43)
[2024-06-18] MEDS: LANTUS PER UNIT CHARGE SC SCH (09:44)
--- NOTE | 2024-06-18 12:31 | Electrocardiogram Report ---
Test Reason : Blood Pressure : */* mmHG Vent. Rate : 61 BPM Atrial Rate : 61 BPM P-R Int : 216 ms QRS Dur : 100 ms QT Int : 468 ms P-R-T Axes : 26 -33 49 degrees QTcB Int : 471 ms Sinus rhythm with 1st degree A-V block Left axis deviation Minimal voltage criteria for LVH, may be normal variant ( Benjamin product ) Poor R wave progression, consider anterior [place] vs. lead placement vs. LVH Abnormal ECG When compared with ECG of 16-Jun-2024 13:33, Nonspecific T wave abnormality no longer evident in Inferior leads Confirmed by Hipolito Thompson ([id number]) on 06/18/2024 12:30:41 PM Referred By: REFERRED SELF Confirmed By: Hipolito Thompson
--- NOTE | 2024-06-18 13:02 | Pharmacy Report ---
Pharmacy Glycemic Short Note 2 - Date of Service June 18, 2024 - Glycemic Short BSG Results (Last 24 hours): 06/17/24 06/17/24 06/18/24 17:06 20:23 05:35 Glucose 74 POC Glucose 107 H 116 H 06/18/24 06/18/24 07:25 11:22 Glucose POC Glucose 85 190 H OUTPATIENT ANTIDIABETIC REGIMEN: * Insulin pump (settings per 05/26/24 Endo note) * Basal rate: 0.8 units/hr * CF 25 * CR 13 ASSESSMENT: 06/18/24: * Blood sugars tightly controlled yesterday except for lunchtime BSG > 200 mg/dL * Fasting blood sugar of 85 mg/dL this morning - will reduce basal insulin again today to reduce likelihood of hypoglycemia * NPO after midnight for perm cath placement on 06/19/2406/16: * BSGs 316-450-122-246mg/dL the last 24h. Received 18 units of basal and 9 units of bolus insulin yesterday. * Tolerating diet. Converted from insulin pump to SQ basal/bolus yesterday. * Continue with Lantus 18 units daily for now. Will adjust Lantus timing to this afternoon with plan for AM dosing tomorrow. Novolog tightened. 06/15: * Kaci is a 48 yo T1DM with PMH of CKD stage V, hypertension, hypothyroidism, seizure disorder, steatohepatitis, and factor V Leiden. * On admission, patient was continued on insulin pump. Pharmacy was consulted on 06/15/24 to transition patient to SC basal + bolus insulin due to confusion. * Will start patient on 18 units of basal insulin per day (based on home use of 0.8 units/hr). * Will utilize correction factor and carb ratio similar to home settings on insulin pump. PLAN FOR INPATIENT GLYCEMIC CONTROL: * Basal insulin * Lantus 13 units SC daily * Bolus insulin * NovoLog per scale ACHS or Q6hrs while NPO * Goal Range: Low 110 mg/dL - High 140 mg/dL * Correction Factor: 35 mg/dL/unit * Nutritional / Prandial insulin per carb ratio of 1 unit per 12 grams CHO consumed
[2024-06-18 17:50] LABS: Appearance Urine Cloudy (Clear); Bacteria Urine Automated None Seen (None Seen); Bilirubin Urine Negative (Negative); Blood Urine 2+ (Negative); Color Urine Yellow; Glucose Urine UA Trace (Negative); Ketones Urine Negative (Negative); Leukocyte Esterase Urine 2+ (Negative); Nitrite Urine Negative (Negative); Protein Urine 3+ (Negative); Specific Gravity Urine 1.014 (1.000-1.030); Urobilinogen Urine Negative (Negative); WBC Urine Automated >50 /hpf (0-5)
[2024-06-18] MEDS: HEPARIN SOD 5,000 UNIT/0.5 ML VIAL SQ SCH (20:41)
[2024-06-18 21:40] LABS: HCO3 VBG 20 mmol/L; Oxygen Saturation VBG 85.2 %; PCO2 VBG 32 mmHg (38-50); PO2 VBG 53 mmHg
[2024-06-19 06:09] LABS: Hematocrit (blood only) 24.4 % (37.0-47.0); Hemoglobin 7.9 g/dl (12.0-16.0); Mean Corpuscular Hemoglobin 31.5 pg (25.0-34.0); Mean Corpuscular Hgb Conc 32.4 g/dL (32.0-36.0); Mean Corpuscular Volume 97.2 fL (80.0-100.0); Platelet Count 241 K/uL (130-400); RDW Coefficient of Variation 13.6 % (11.5-14.5); RDW Standard Deviation 46.2 fL (36.4-46.3); Red Blood Count 2.51 M/uL (4.20-5.40); White Blood Count 7.01 K/ul (4.8-10.8)
[2024-06-19 06:38] LABS: BUN Creatinine Ratio 9.4 (10-20); Calcium 7.8 mg/dl (8.6-10.3); Creatinine Clr Calc Pharmacy 9.2 ml/min; INR 1.1 (0.9-1.1); Potassium 4.6 mmol/L (3.5-5.1); Prothrombin Time 12.2 Seconds (9.0-12.0)
[2024-06-19] MEDS ORDERED: SODIUM CHLORIDE 0.9% 1,000 ML IV PRN (07:00)
--- NOTE | 2024-06-19 07:37 | History & Physical Bridge Note ---
Date of Service June 19, 2024 History & Physical Bridge Note Patient for insertion of permcath today. I have discussed the risks options and benefits of the procedure with the patient. The patient understands the risks options and benefits and agrees to the procedure. I have examined the patient, reviewed the History & Physical and in the interval since the performance of the History & Physical I have noted the following changes of clinical significance: no changes noted
--- NOTE | 2024-06-19 07:52 | Hospitalist Progress Note ---
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 #Metabolic Encephalopathy, Fall, Gait Instability, #Constipation #ESTELITA on CKD V #HTN emergency #Hx CVA , #Factor V Leiden 48yo w/ significant medical hx initially presented with "constipation" and recent PO iron rx for anemia and tx and constipation resolved. Unfortunately w/ progressive renal dysfunction and ongoing inpatient stay and had unwitnessed "fall" evening 06/15, no head trauma reported but confusion about events and prompted CT head w/ concerns for stroke in patient w/ hx of multiple strokes -- (see neuro note 06/16 as was discussed with Dr Go, does not believe to be new stroke given review prior but will remain on eliquis/aspirin, not able for MRI due to sonali and 1.5T machine under maintenance). Patient with MULTIPLE reasons for encephalopathy at times including HTN issues, DM w/ neuropathy/retinopathy/seizure disorder/medication noncompliance/progressive azotemia w/ renal impairment, hypothyroidism, etc. Notable hx factor V and was to get lovenox shots w/ her vascular procedure prior but not surprisingly was noncompliant with such and could have additionally been source for findings seen. Ammonia wnl, Lyme negative --> Pending anticonvulsant levels w/ lamotrigine, topiramate, and gabapentin --> will need f/u (prior gabapentin reduced 100mg TID for renal function) See prior notes 06/19 Cr up to 8.4 on 06/18 and NPO this morning for PERM CATH by Dr Coto 06/19 for progressive renal impairment w/ fistula not yet mature. Ceftriaxone IV continued for urinary coverage, repeat urine cx pending and velarde in place for urinary retention prior HTN medication adjustment and currently on coreg 12.5mg BID, amlodipine 5mg. Will increase amlodipine back to 10mg HS for tonight. - Coreg prior reduced for BP and HR (hold parameters). See prior notes should dc prior HTN meds w/ progressive renal impairment with chlorthalidone/spironolactone/doxazosin/clonidine s/p R IJ perm cath this morning and underwent 1L UF w/ HD this morning - and plan for HD on Wednesday/Wednesday. Appreciate recs from nephrology CM following as PT/OT rec rehab and coordination with [facility], possibly after HD on Wednesday Heparin SQ discontinued, eliquis resumed, and remains on ASA. Ongoing inpatient stay Hypertensive emergency in setting acute on chronic CKD V -SBP>200 on admit, labetalol IV/meds for constipation and further adjustment to HTN meds as above w/ stable BP currently and significant reduction to home regimen and likely compliance a large factor --> plan to stop her doxazosin, spironolactone, chlorthalidone, clonidine at dc. -reduction in amlodipine per prior notes but BP 152/76 this afternoon and monitor to increase back to 10mg HS Anemia 2nd to CKD Pending kidney transplant evaluation at [facility] with worsening renal impairment in setting of DM and uncontrolled HTN in the past 2nd to medication compliance; Now has LEFT brachiocephalic AV fistula in place w/ repeat procedure about 3 wks ago to bring closer to skin, ?graft. Looks good, continue wound care/dressing changes - not yet mature. Cr worsening/K stable on lokemla and planned HD cath this morning as above and EPO/Venofer per nephrology. Consider stopping lokemla in AM pending chemistries Nausea/vomiting/constipation- on admission suspected combination gastroparesis/recent PO iron supplementation but also likely worsened w/ recent anesthesia and pre-renal azotemia. +BM and no issues at present/fecal occult and cdiff negative prior given diarrhea following constipation. +BM 06/19 Hypothyroidism -Ongoing, follows w/ endocrinology. Prior TSH elevation, up to 7. Discussed w/ endocrinology provider and increased thyroid armour to 90 daily - new rx @dc, f/u outpt Type I DM, neuropathy b/l feet as well as diabetic retinopathy-Using Dexcom, basal 5.3 however SIGNIFICANT carb load w/ [employer] PM 06/14 with BSG to mid 300s and issues w/ confusion and have REMOVED and pharmacy consulted and using SSI while inpatient and gabapentin REDUCED 100mg TID and BSGs acceptable but lower and will loosen parameters 06/19 and monitor Ankle pain, LEFT-Reported L ankle pain, prior fx. Xrays obtained and demonstrate Distal fibular fracture remains nondisplaced, incompletely healed. Orthopedics consulted but likely just orthotics/WBAT but appreciate recs. Ortho consulted/see note, benefit from rehab as above. Orthotics consult for new shoes as well Anxiety/depression/seizure disorder -Lamotrigine 200mg BID w/ 25mg HS dose, topiramate BID. DOXAZOSIN AND CLONIDINE NOW DC'D. Monitor for BHU/psych consultation. She is missing her bunny rabbit. Support provided. Dispo: continued inpatient stay for HD/SNF at [facility]. Underwent R IJ placement today and tolerated HD and appreciate ongoing recs/assistance from nephrology. CM WORKING ON REHAB/HD NEEDS AT DISCHARGE --PER DISCUSSION W/ CM, [place] ABLE TO TAKE AFTER HER 3 HD SESSIONS, BUT CAN APPLY FOR AUTH ON WEDNESDAY PENDING COURSE AND DC TO SUCH AFTER HD SESSION ON WEDNESDAY?? Admission and Anticipated Discharge Date Admission Date: June 12, 2024 Subjective Eval this afternoon, underwent perm cath placement with Dr Coto this morning. Site looks good, minimal blood. No overt hematoma. Tolerated HD for 1L UF, plans for repeat on Wednesday. Mother/son in room but leaving as reports needs to use the bathroom/move her bowels. Hopeful dc after HD on Wednesday pending course. No CP/SOB reported or nausea/vomiting. Remains on abx until urine cx final. Questions/concerns addressed at this time. Physical Exam 2 Physical Exam: General: 48yo female sitting up in bed, family in room but reporting need them to leave to use the bathroom/privacy, NAD Chest: perm cath to R chest, dressing intact, no overt hematoma Resp: diminished in the bases but no wheezing/rales, on room air CV: regular/lilia to 50s at times (no pauses), trace pedal edema GI: +BS, soft/slight distension but nontender ; velarde with clear yellow urine MSK/Neuro/Psych: alert/oriented to person/place/events (at times) able to follow commands as asked, nonfocal, b/l neuropathy and ankle fx, ROM intact, intermittent memory issues at times but able to follow commands/nonfocal Results & Data Results & Data Vital Signs (Past 12 Hours) Vital Signs Temp Pulse Pulse Pulse Resp BP Pulse Ox 06/19/24 07:32 37.1 C 61 18 139/74 93 06/19/24 03:25 36.7 C 57 L 14 130/76 95 06/18/24 22:43 36.7 C 58 L 16 118/71 94 06/18/24 21:44 58 L 06/18/24 19:51 36.8 C 56 L 16 112/71 96 O2 Del Method 06/19/24 07:32 Room Air 06/19/24 03:25 Room Air 06/18/24 22:43 Room Air 06/18/24 21:44 06/18/24 19:51 Room Air Laboratory Results 06/19/24 05:29 06/19/24 05:29 PG Care Time/CCT Total # of Minutes Spent Total Time Spent with Patient: Total time spent is greater than 50% in coordination of care (as documented) at patient's floor/unit and/or counseling patient: Coding Level of Care Code 77264 SUB INP/OBS CARE 3/50MIN Diagnoses ESTELITA (acute kidney injury) N17.9 Stage 5 chronic kidney disease due to hypertension I12.0; N18.5 History of CVA (cerebrovascular accident) Z86.73 HTN (hypertension) I10 Type 1 diabetes mellitus with stage 4 chronic kidney disease E10.22; N18.4 Chronic kidney disease stage: stage 4 (severe) Diabetes mellitus complication detail: with chronic kidney disease Diabetes mellitus complication status: with kidney complications 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 E03.8; E06.3 Hypothyroidism type: due to Rajwinder's thyroiditis Hypertensive emergency I16.1 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 E10.649 CKD (chronic kidney disease) N18.9 Chronic kidney disease stage: unspecified stage Metabolic encephalopathy G93.41 Seizure disorder G40.909 (5) Type 1 diabetes Chronic kidney disease stage: stage 4 (severe) Diabetes mellitus complication detail: with chronic kidney disease Diabetes mellitus complication status: with kidney complications Qualified Code(s): E10.22 - Type 1 diabetes mellitus with diabetic chronic kidney disease; N18.4 - Chronic kidney disease, stage 4 (severe) (6) Hypothyroidism Hypothyroidism type: due to Rajwinder's thyroiditis Qualified Code(s): E03.8 - Other specified hypothyroidism; E06.3 - Autoimmune thyroiditis (9) CKD (chronic kidney disease) Chronic kidney disease stage: unspecified stage Qualified Code(s): N18.9 - Chronic kidney disease, unspecified
[2024-06-19] MEDS: CLINDAMYCIN/D5W 900 MG/50 ML BAG IV SCH (08:00)
--- NOTE | 2024-06-19 08:39 | Pre Anesthesia Assessment ---
Date of Service June 19, 2024 Pre Sedation Assessment Vital Signs Temp Pulse Pulse Pulse Resp BP BP 06/19/24 08:21 58 L 16 131/72 06/19/24 07:32 37.1 C 61 18 139/74 06/19/24 03:25 36.7 C 57 L 14 130/76 06/18/24 22:43 36.7 C 58 L 16 118/71 06/18/24 21:44 58 L 06/18/24 19:51 36.8 C 56 L 16 112/71 06/18/24 15:59 36.5 C 61 18 124/74 06/18/24 15:00 63 06/18/24 11:57 36.7 C 61 18 113/67 Pulse Ox O2 Del Method O2 Flow Rate 06/19/24 08:21 100 Oxymask 4 06/19/24 07:32 93 Room Air 06/19/24 03:25 95 Room Air 06/18/24 22:43 94 Room Air 06/18/24 21:44 06/18/24 19:51 96 Room Air 06/18/24 15:59 98 Room Air 06/18/24 15:00 06/18/24 11:57 98 Room Air Cardiovascular RRR, no murmur, no edema Respiratory normal respiratory effort, lungs clear to auscultation Pre-Sedation Airway Assessment Smoking Status: Former smoker Hx Sleep Apnea: No Short, Thick Neck: No Thyromental Distance: > or= 3.5 Finger Breadths Oral Cavity: + WNL Mallampati Class: III ASA: ASA4 NPO Status Date of Last Intake of Fluids: 06/18/24 Time of Last Intake of Fluids: 23:00 Date of Last Intake of Solid Food: 06/18/24 Time of Last Intake of Solid Foods: 23:00 Procedure Planning Contraindications for Sedation: none Current Medications Reviewed: Yes Notes The planned sedation has been discussed with the patient. Informed Consent was obtained. I have identified the patient, determined the appropriateness of sedation and have assessed the patient immediately prior to the procedure. All medicine(s) and interventions are by my order.
--- NOTE | 2024-06-19 08:47 | Nephrology Progress Note ---
Date of Service June 19, 2024 Assessment & Plan (1) End stage chronic kidney disease: Plan: * ESKD due to DKD, hypertensive nephrosclerosis * R IJ TCC placed by Dr. Coto 06/19/24 * Patient has AVF in place but it is not yet mature for use (transposition 04/03/24) * Will provide 1st run HD today. Orders have been placed in EMR and HD RN notified * Will plan 2nd HD treatment in am * Will consult case management to set up outpatient HD. Patient is now asking for unit nearest her home in [place], [place] (2) Hypertensive emergency: Plan: * BP is acceptable * Continue amlodipine and carvedilol * Clonidine has been held due to relative hypotension (3) Anemia of chronic disease: Plan: * H/H stable. No signs of active bleeding * Will provide IV iron and DEONNA w/ HD Admission and Anticipated Discharge Date Admission Date: June 12, 2024 Subjective Ms. Gagnon was evaluated while on HD this morning. She had just undergone R IJ TCC insertion and was somewhat lethargic Review of Systems Constitutional: no fever Eyes: no problem reported Ear, Nose, Mouth, Throat: no problem reported Respiratory: no cough and no dyspnea Cardiovascular: no chest pain Gastrointestinal: no abdominal pain, no nausea, no vomiting and no diarrhea/loose stools Genitourinary: no dysuria Integumentary: no rash Neurologic: no problem reported Physical Exam Constitutional: not in distress Eyes: PERRL, conjunctivae normal, anicteric sclerae ENMT: external ear and nose normal, oropharynx normal Neck: trachea midline, no thyromegaly Respiratory: normal respiratory effort, lungs clear to auscultation Cardiovascular: RRR, no murmur, no edema (no rub) Gastrointestinal (Abdomen): normal bowel sounds, soft, nontender, no hepatosplenomegaly Musculoskeletal: Extremities: no cyanosis and no clubbing Skin: no rashes, warm and dry Neurologic: awake; not confused Results & Data Vital Signs (Past 12 Hours) Vital Signs Temp Pulse Pulse Pulse Resp BP BP 06/19/24 08:21 58 L 16 131/72 06/19/24 07:32 37.1 C 61 18 139/74 06/19/24 03:25 36.7 C 57 L 14 130/76 06/18/24 22:43 36.7 C 58 L 16 118/71 06/18/24 21:44 58 L Pulse Ox O2 Del Method O2 Flow Rate 06/19/24 08:21 100 Oxymask 4 06/19/24 07:32 93 Room Air 06/19/24 03:25 95 Room Air 06/18/24 22:43 94 Room Air 06/18/24 21:44 Laboratory Results Laboratory Results - last 24 hr 06/18/24 06/18/24 06/18/24 11:22 16:06 17:18 WBC RBC Hgb Hct MCV MCH MCHC RDW Std Deviation RDW Coeff of Zak Plt Count MPV PT INR VBG pH VBG pCO2 VBG pO2 VBG HCO3 VBG O2 Saturation VBG Base Excess Sodium Potassium Chloride Carbon Dioxide Anion Gap BUN Creatinine Est Cr Clr Drug Dosing eGFR BUN/Creatinine Ratio Glucose POC Glucose 190 H 106 H Calcium Urine Color Yellow Urine Appearance Cloudy A Urine pH 6.0 Ur Specific Gloster 1.014 Urine Protein 3+ H Urine Glucose (UA) Trace H Urine Ketones Negative Urine Blood 2+ H Urine Nitrite Negative Urine Bilirubin Negative Urine Urobilinogen Negative Ur Leukocyte Esterase 2+ H Urine WBC (Auto) >50 H Urine RBC (Auto) 6-10 H U Hyaline Cast (Auto) 6-10 H U Epithel Cells (Auto) 6-10 H Urine Bacteria (Auto) None Seen 06/18/24 06/18/24 06/18/24 20:27 21:27 22:58 WBC RBC Hgb Hct MCV MCH MCHC RDW Std Deviation RDW Coeff of Zak Plt Count MPV PT INR VBG pH 7.40 VBG pCO2 32 L VBG pO2 53 VBG HCO3 20 VBG O2 Saturation 85.2 VBG Base Excess -4.0 Sodium Potassium Chloride Carbon Dioxide Anion Gap BUN Creatinine Est Cr Clr Drug Dosing eGFR BUN/Creatinine Ratio Glucose POC Glucose 84 90 Calcium Urine Color Urine Appearance Urine pH Ur Specific Gloster Urine Protein Urine Glucose (UA) Urine Ketones Urine Blood Urine Nitrite Urine Bilirubin Urine Urobilinogen Ur Leukocyte Esterase Urine WBC (Auto) Urine RBC (Auto) U Hyaline Cast (Auto) U Epithel Cells (Auto) Urine Bacteria (Auto) 06/19/24 06/19/24 05:29 05:34 WBC 7.01 RBC 2.51 L Hgb 7.9 L Hct 24.4 L MCV 97.2 MCH 31.5 MCHC 32.4 RDW Std Deviation 46.2 RDW Coeff of Zak 13.6 Plt Count 241 MPV 11.0 PT 12.2 H INR 1.1 VBG pH VBG pCO2 VBG pO2 VBG HCO3 VBG O2 Saturation VBG Base Excess Sodium 132 L Potassium 4.6 Chloride 103 Carbon Dioxide 20 L Anion Gap 9 BUN 81 H Creatinine 8.60 H* Est Cr Clr Drug Dosing 9.2 eGFR 5.26 BUN/Creatinine Ratio 9.4 L Glucose 83 POC Glucose 99 Calcium 7.8 L Urine Color Urine Appearance Urine pH Ur Specific Gloster Urine Protein Urine Glucose (UA) Urine Ketones Urine Blood Urine Nitrite Urine Bilirubin Urine Urobilinogen Ur Leukocyte Esterase Urine WBC (Auto) Urine RBC (Auto) U Hyaline Cast (Auto) U Epithel Cells (Auto) Urine Bacteria (Auto) PG Care Time/CCT Total # of Minutes Spent Total Time Spent with Patient: Total time spent is greater than 50% in coordination of care (as documented) at patient's floor/unit and/or counseling patient: Coding Level of Care Code 71958 SUB INP/OBS CARE 3/50MIN Diagnoses End stage chronic kidney disease N18.6 Hypertensive emergency I16.1 Anemia of chronic disease D63.8
[2024-06-19] MEDS: HEPARIN SOD (PORCINE) 5,000 UNITS/ML VIAL ONE (08:53)
[2024-06-19] MEDS: LIDOCAINE 1% LOCAL 20 ML VIAL ONE (08:53)
[2024-06-19] MEDS ORDERED: LANTUS PER UNIT CHARGE SC SCH (09:00)
--- NOTE | 2024-06-19 09:00 | Operative Report ---
Post Operative Report Pre & Post Diagnosis Operation Date: 06/19/24 08:00 Pre-Op Diagnosis: Acute Kidney Injury Post-Op Diagnosis: Acute Kidney Injury I identified the patient and participated in the time-out.: Yes Procedure Operation Date: 06/19/24 08:00 Actual Procedures p Insertion of Perm Cath,Right Internal Jugular Approach,Ultrasound Localization of Right Internal Jugular Vein, Fluoroscopy for Positioning(Right) - Leo Coto MD Surgeon Leo Coto MD Loan Clerk None Estimated Blood Loss 10 Findings Consistent with Post-Op Diagnosis Specimens None Anesthesia Type Local Complications none Disposition Accompanied Patient To Recovery: No Disposition: Recovery Room Indications This is a 49-year-old female with acute renal failure in need of dialysis. PermCath insertion was recommended for access. I have discussed the risks options and benefits of the procedure with the patient's mother. The patient's mother understands the risks options and benefits and agrees to the procedure. Description of Procedure Patient was taken to the angio suite and placed in the supine position. The right side of the neck and chest wall were prepped and draped in a sterile manner. The patient was identified and a timeout performed. Local anesthesia was then administered to the appropriate areas of the neck and chest wall. Ultrasound was then used to locate the right internal jugular vein. The vein compressed easily, had no filing defects, and was patent. The vein was then punctured under direct ultrasound imaging. A guidewire was then passed centrally under fluoroscopic imaging. A stab wound was then made in the anterior chest wall and a 19 cm permcath was passed from the stab wound on the chest wall to the puncture site on the neck. The puncture site was then dilated till the 14Fr peel away sheath was inserted. The permcath was then inserted through the sheath to a central position in the distal superior vena cava. The peel away sheath was then removed. The catheter was then sutured in place using nylon sutures. The puncture was then closed using a 4-0 Vicryl subcuticular suture. Dermabond was used for a dressing on the puncture site. Both ports aspirated and flushed easily and were then packed with heparin. A sterile dressing was applied to the catheter. The patient left the operation room in satisfactory condition and tolerated the procedure well. All needle and sponge counts were correct at the end of the procedure. I attest to the content of the Intraoperative Record and any orders documented therein. Any exceptions are noted below.
[2024-06-19] MEDS: EPOETIN ALFA 10,000 UNITS/ML VIAL IV ONE (11:10)
[2024-06-19] MEDS: IRON SUCROSE 200 MG in SYRINGE 0 ML IV ONE (11:10)
[2024-06-19] MEDS: NEPHROCAPS PO SCH (12:25)
--- NOTE | 2024-06-19 14:35 | Electrocardiogram Report ---
Test Reason : Blood Pressure : */* mmHG Vent. Rate : 60 BPM Atrial Rate : 60 BPM P-R Int : 208 ms QRS Dur : 100 ms QT Int : 480 ms P-R-T Axes : 33 -34 35 degrees QTcB Int : 480 ms Sinus rhythm with occasional Premature ventricular complexes Left axis deviation Septal infarct , age undetermined QTcB >= 480 msec Abnormal ECG When compared with ECG of 18-Jun-2024 06:26, Premature ventricular complexes are now Present Confirmed by Nikolas Hodges ([id number]) on 06/19/2024 2:35:28 PM Referred By: REFERRED SELF Confirmed By: Nikolas Hodges
[2024-06-19] MEDS: amLODIPine BESYLATE 5 MG TAB PO SCH (22:49)
[2024-06-20 06:22] LABS: Hematocrit (blood only) 27.4 % (37.0-47.0); Hemoglobin 8.9 g/dl (12.0-16.0); Mean Corpuscular Hemoglobin 31.6 pg (25.0-34.0); Mean Corpuscular Hgb Conc 32.5 g/dL (32.0-36.0); Mean Corpuscular Volume 97.2 fL (80.0-100.0); Mean Platelet Volume 10.9 fL (9.4-12.4); Platelet Count 239 K/uL (130-400); RDW Coefficient of Variation 13.8 % (11.5-14.5); RDW Standard Deviation 47.5 fL (36.4-46.3); Red Blood Count 2.82 M/uL (4.20-5.40); White Blood Count 7.81 K/ul (4.8-10.8)
[2024-06-20 06:41] LABS: BUN Creatinine Ratio 8.2 (10-20); Calcium 8.2 mg/dl (8.6-10.3); Creatinine Clr Calc Pharmacy 11.9 ml/min; Potassium 4.1 mmol/L (3.5-5.1)
[2024-06-20] MEDS ORDERED: SODIUM CHLORIDE 0.9% 1,000 ML IV PRN (07:00)
--- NOTE | 2024-06-20 08:55 | Nephrology Progress Note ---
Date of Service June 20, 2024 Assessment & Plan (1) End stage chronic kidney disease: Plan: * ESKD due to DKD, hypertensive nephrosclerosis * R IJ TCC placed by Dr. Coto 06/19/24 * Patient has AVF in place but it is not yet mature for use (transposition 04/03/24) * Will provide 2nd HD today. Orders have been placed in EMR and HD RN notified * Will plan 3rd HD treatment in am * Will consult case management to set up outpatient HD near her [place] in [place], [place] * Stop lokelma and NaHCO3 (2) Hypertensive emergency: Plan: * BP is acceptable * Continue amlodipine and carvedilol * Clonidine has been held due to relative hypotension (3) Anemia of chronic disease: Plan: * H/H stable. No signs of active bleeding * Will provide IV iron and DEONNA w/ HD (4) Metabolic encephalopathy: Plan: * Lethargic * Stop oxybutynin * Recommend d/c Higgins catheter * Needs PT for strengthening, mobility Admission and Anticipated Discharge Date Admission Date: June 12, 2024 Subjective Ms. Gagnon was evaluated while on HD this morning. She had bleeding from the R IJ TCC insertion site last evening. This morning she has a pressure dressing in place. Ms. Gagnon was oriented to self and place only. She voiced no medical concerns Review of Systems Constitutional: no fever Eyes: no problem reported Ear, Nose, Mouth, Throat: no problem reported Respiratory: no cough and no dyspnea Cardiovascular: no chest pain Gastrointestinal: no abdominal pain, no nausea, no vomiting and no diarrhea/loose stools Genitourinary: no dysuria Integumentary: no rash Neurologic: no problem reported Physical Exam Constitutional: not in distress Eyes: PERRL, conjunctivae normal, anicteric sclerae ENMT: external ear and nose normal, oropharynx normal Neck: trachea midline, no thyromegaly Respiratory: normal respiratory effort, lungs clear to auscultation Cardiovascular: RRR, no murmur, no edema (no rub) Gastrointestinal (Abdomen): normal bowel sounds, soft, nontender, no hepatosplenomegaly Musculoskeletal: Extremities: no cyanosis and no clubbing Skin: no rashes, warm and dry Neurologic: awake; not confused Results & Data Vital Signs (Past 12 Hours) Vital Signs Temp Pulse Pulse Resp BP Pulse Ox O2 Del Method 06/20/24 07:24 36.8 C 63 18 174/83 H 98 Room Air 06/20/24 05:22 36.5 C 62 18 153/89 H 95 Room Air 06/20/24 02:58 60 06/20/24 00:04 36.4 C L 63 18 179/91 H 96 Room Air Laboratory Results Laboratory Results - last 24 hr 06/19/24 06/19/24 06/19/24 11:38 16:20 16:48 WBC RBC Hgb Hct MCV MCH MCHC RDW Std Deviation RDW Coeff of Zak Plt Count MPV Sodium Potassium Chloride Carbon Dioxide Anion Gap BUN Creatinine Est Cr Clr Drug Dosing eGFR BUN/Creatinine Ratio Glucose POC Glucose 82 93 Calcium Hep B Core Total Ab Positive A 06/19/24 06/20/24 06/20/24 20:32 05:53 07:20 WBC 7.81 RBC 2.82 L Hgb 8.9 L Hct 27.4 L MCV 97.2 MCH 31.6 MCHC 32.5 RDW Std Deviation 47.5 H RDW Coeff of Zak 13.8 Plt Count 239 MPV 10.9 Sodium 136 Potassium 4.1 Chloride 104 Carbon Dioxide 22 Anion Gap 10 BUN 54 H D Creatinine 6.60 H* D Est Cr Clr Drug Dosing 11.9 eGFR 7.22 BUN/Creatinine Ratio 8.2 L Glucose 86 POC Glucose 97 86 Calcium 8.2 L Hep B Core Total Ab PG Care Time/CCT Total # of Minutes Spent Total Time Spent with Patient: Total time spent is greater than 50% in coordination of care (as documented) at patient's floor/unit and/or counseling patient: Coding Level of Care Code 47777 SUB INP/OBS CARE 3/50MIN Diagnoses End stage chronic kidney disease N18.6 Hypertensive emergency I16.1 Anemia of chronic disease D63.8 Metabolic encephalopathy G93.41
--- NOTE | 2024-06-20 09:32 | Hospitalist Progress Note ---
Date of Service June 20, 2024 Assessment & Plan (1) ESTELITA (acute kidney injury): (2) Stage 5 chronic kidney disease due to hypertension: (3) History of CVA (cerebrovascular accident): (4) Type 1 diabetes: (5) Hypothyroidism: (6) Hypertensive emergency: (7) Metabolic encephalopathy: (8) Seizure disorder: Plan Kaci ponce 48F with a PMHx of CKD5, DMT1, HTN, hypothyroid, seizure disorder, factor V liden, who initially presented with constipation. CT A/P showed no obstruction/colitis, mild retianed stoole, trace pleural effusion and pericardial effusion. Was found to have significantly elevated BPs in the ED. Admitted for blood pressure control and management of stools. #Hypertensive Emergency / HTN Related to medication noncompliance - BPs have improved since admission Continue Coreg 12.5mg BID, amlodipine 10mg daily. Discontinued clonidine, spir onolactone, chlorathalidone, doxazosin, lasix #Fall | Gait instability | Metabolic Encephalopathy Unwitnessed "fall" evening 06/15 - No head trauma but CT head obtained due to confusions - concern for subacute stroke. [address] with out change. CXR/ b/l ankle xray - without acute fracture. P Neurology consulted - check lamictal levels, topamax, gabapentin - PENDING check B12 level Encephalopathy likely multifactorial - delirium, HTN, renal impairment, among other. Ammonia and lyme negative. CTX d/c with negative urine culture x 2 #ESTELITA on CKD V | Anemia secondary to CKD Pending kidney transplant at [facility]. Has Left AV fistula that is not yet mature R IJ perm cath placed 06/[address] dye. Dialysis 06/19, repeat run today - oozing from IJ site, eliquis held, DDAVP x1 given Nephrology following - stop Lokelma and Bicarb. IV iron and DEONNA with dialysis today Received venofer x 4. Gabapentin dose reduced for kidney function #DMT1 with neuropathy and retinopathy Home dexcom - basal 5.3 Pharmacy glycemic consult #Hx of CVA | Factor V Leiden Continue ASA and Eliquis #Hypothyroid - TSH 7 - prior hospitalist discussed with endocrinology, dose inceased to 90, will need new rx at d/c #Constipation - Has resolved. BM 06/19 #mental health/seizure disorder - continue lamictal and topomax. Monitor for worsening as clonodine and doxazosin have been discontinued. #Left ankle pain - reported and xrays showed nondisplaced incompletely healed, ortho consulted non-operative management. Orthotics consulted for surgical shoe Dispo: continued inpatient stay, Dialysis tomorrow. Stable for downgrade to medical DVT proh: Artemio held Admission and Anticipated Discharge Date Admission Date: June 12, 2024 Subjective Patient seen lying in bed, denies any acute complaints beside neck pain when trying to get up to the chair moved bowels yesterday Review of Systems Review of Systems: All systems reviewed & are unremarkable except as noted in Subjective Physical Exam Physical Exam: General: NAD, VS as above Resp: normal respiratory effort, lungs clear to auscultation CV: RRR, no murmur, Abd: normal bowel sounds, non tender, soft Extremities: Moves all extremities, no edema Neuro: A&O x3, Skin: intact, right IJ site with saturated dressing Results & Data Results & Data Vital Signs (Past 12 Hours) Vital Signs Temp Pulse Pulse Resp BP Pulse Ox O2 Del Method 06/20/24 07:24 98.2 F 63 18 160/70 H 98 Room Air 06/20/24 05:22 97.7 F 62 18 153/89 H 95 Room Air 06/20/24 02:58 60 06/20/24 00:04 97.5 F L 63 18 179/91 H 96 Room Air Laboratory Results CBC and chemistry reviewed PG Care Time/CCT Total # of Minutes Spent Total Time Spent with Patient: Total time spent is greater than 50% in coordination of care (as documented) at patient's floor/unit and/or counseling patient: Coding Level of Care Code 46132 SUB INP/OBS CARE 3/50MIN Diagnoses ESTELITA (acute kidney injury) N17.9 Stage 5 chronic kidney disease due to hypertension I12.0; N18.5 History of CVA (cerebrovascular accident) Z86.73 Type 1 diabetes mellitus with stage 4 chronic kidney disease E10.22; N18.4 Chronic kidney disease stage: stage 4 (severe) Diabetes mellitus complication detail: with chronic kidney disease Diabetes mellitus complication status: with kidney complications 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 E03.8; E06.3 Hypothyroidism type: due to Rajwinder's thyroiditis Hypertensive emergency I16.1 Metabolic encephalopathy G93.41 Seizure disorder G40.909 (4) Type 1 diabetes Chronic kidney disease stage: stage 4 (severe) Diabetes mellitus complication detail: with chronic kidney disease Diabetes mellitus complication status: with kidney complications Qualified Code(s): E10.22 - Type 1 diabetes mellitus with diabetic chronic kidney disease; N18.4 - Chronic kidney disease, stage 4 (severe) (5) Hypothyroidism Hypothyroidism type: due to Rajwinder's thyroiditis Qualified Code(s): E03.8 - Other specified hypothyroidism; E06.3 - Autoimmune thyroiditis
--- NOTE | 2024-06-20 16:52 | Communication Note ---
Date of Service: June 20, 2024 Continuous oozing from tunneled HD catheter site. Has soaked multiple dressings. On apixaban 5 bid, unclear indication but Factor V Leiden listed on chart history. No acute clot. Bleeding secondary to DOAC, uremic platelets -hold apixaban, continue aspirin -DDAVP 20 mcg IV x 1
[2024-06-20] MEDS: DESMOPRESSIN ACETATE 20 MCG in SODIUM CHLORIDE 0.9% 50 ML IV ONE (18:48)
[2024-06-20 21:38] LABS: Gabapentin 12.3 mcg/mL; Lamictal(Lamotrigine) 10.8 mcg/mL (2.5-15.0); Topiramate 13.9 mcg/mL (see note)
[2024-06-21 06:24] LABS: Hematocrit (blood only) 25.1 % (37.0-47.0); Hemoglobin 8.1 g/dl (12.0-16.0); Mean Corpuscular Hemoglobin 31.6 pg (25.0-34.0); Mean Corpuscular Hgb Conc 32.3 g/dL (32.0-36.0); Mean Platelet Volume 10.7 fL (9.4-12.4); Platelet Count 224 K/uL (130-400); RDW Coefficient of Variation 14.1 % (11.5-14.5); RDW Standard Deviation 47.9 fL (36.4-46.3); Red Blood Count 2.56 M/uL (4.20-5.40); White Blood Count 7.21 K/ul (4.8-10.8)
[2024-06-21 06:48] LABS: Albumin Globulin Ratio 1.1 (0.9-2); Albumin Level 3.3 gm/dl (3.4-5.0); BUN Creatinine Ratio 6.4 (10-20); Bilirubin,Total 0.3 mg/dl (0.2-1.0); Calcium 8.1 mg/dl (8.6-10.3); Creatinine Clr Calc Pharmacy 19.3 ml/min; Potassium 3.9 mmol/L (3.5-5.1); Total Protein 6.3 gm/dl (6.0-8.3)
[2024-06-21] MEDS ORDERED: SODIUM CHLORIDE 0.9% 1,000 ML IV PRN (07:00)
[2024-06-21] MEDS: IRON SUCROSE 200 MG in SYRINGE 0 ML IV ONE (08:50)
--- NOTE | 2024-06-21 08:55 | Nephrology Progress Note ---
Date of Service June 21, 2024 Assessment & Plan (1) End stage chronic kidney disease: Plan: * ESKD due to DKD, hypertensive nephrosclerosis * R IJ TCC placed by Dr. Coto 06/19/24 * Patient has AVF in place but it is not yet mature for use (transposition 04/03/24) * Will provide 3rd HD today. Orders have been placed in EMR and HD RN notified * Case management is setting up outpatient HD near her home in [place], [place] * Will ask vascular surgery to reassess IJ TCC site today (2) Hypertensive emergency: Plan: * BP is acceptable * Continue amlodipine and carvedilol * Clonidine has been held due to relative hypotension (3) Anemia of chronic disease: Plan: * H/H stable. No signs of active bleeding * Will provide IV iron and DEONNA w/ HD (4) Metabolic encephalopathy: Plan: * Mental status has improved * Higgins catheter has been removed * Needs PT for strengthening, mobility Admission and Anticipated Discharge Date Admission Date: June 12, 2024 Subjective Ms. Gagnon was evaluated while on HD this morning. She appeared much brighter and voiced no medical concerns. R IJ TCC has saturated proximal dressing Review of Systems Constitutional: no fever Eyes: no problem reported Ear, Nose, Mouth, Throat: no problem reported Respiratory: no cough and no dyspnea Cardiovascular: no chest pain Gastrointestinal: no abdominal pain, no nausea, no vomiting and no diarrhea/loose stools Genitourinary: no dysuria Integumentary: no rash Neurologic: no problem reported Physical Exam Constitutional: not in distress Eyes: PERRL, conjunctivae normal, anicteric sclerae ENMT: external ear and nose normal, oropharynx normal Neck: trachea midline, no thyromegaly Respiratory: normal respiratory effort, lungs clear to auscultation Cardiovascular: RRR, no murmur, no edema (no rub) Gastrointestinal (Abdomen): normal bowel sounds, soft, nontender, no hepatosplenomegaly Musculoskeletal: Extremities: no cyanosis and no clubbing Skin: no rashes, warm and dry Neurologic: awake; not confused Results & Data Vital Signs (Past 12 Hours) Vital Signs Temp Pulse Pulse Resp BP Pulse Ox O2 Del Method 06/21/24 08:01 37.7 C H 77 18 168/77 H 94 Room Air 06/21/24 07:49 68 06/21/24 04:20 36.9 C 70 16 164/71 H 97 Room Air 06/20/24 23:30 36.6 C 69 18 156/86 H 94 Room Air Laboratory Results Laboratory Results - last 24 hr 06/16/24 06/20/24 06/20/24 11:57 13:03 16:54 WBC RBC Hgb Hct MCV MCH MCHC RDW Std Deviation RDW Coeff of Zak Plt Count MPV Sodium Potassium Chloride Carbon Dioxide Anion Gap BUN Creatinine Est Cr Clr Drug Dosing eGFR BUN/Creatinine Ratio Glucose POC Glucose 83 142 H Calcium Total Bilirubin AST ALT Alkaline Phosphatase Total Protein Albumin Globulin Albumin/Globulin Ratio Vitamin B12 Lamotrigine 10.8 Gabapentin 12.3 Topiramate 13.9 06/20/24 06/21/24 06/21/24 20:33 05:55 08:03 WBC 7.21 RBC 2.56 L Hgb 8.1 L Hct 25.1 L MCV 98.0 MCH 31.6 MCHC 32.3 RDW Std Deviation 47.9 H RDW Coeff of Zak 14.1 Plt Count 224 MPV 10.7 Sodium 137 Potassium 3.9 Chloride 105 Carbon Dioxide 24 Anion Gap 8 BUN 26 H D Creatinine 4.06 H D Est Cr Clr Drug Dosing 19.3 eGFR 12.93 BUN/Creatinine Ratio 6.4 L Glucose 143 H POC Glucose 161 H 137 H Calcium 8.1 L Total Bilirubin 0.3 AST 6 L ALT 3 L Alkaline Phosphatase 76 Total Protein 6.3 Albumin 3.3 L Globulin 3.0 Albumin/Globulin Ratio 1.1 Vitamin B12 289 Lamotrigine Gabapentin Topiramate PG Care Time/CCT Total # of Minutes Spent Total Time Spent with Patient: Total time spent is greater than 50% in coordination of care (as documented) at patient's floor/unit and/or counseling patient: Coding Level of Care Code 88361 SUB INP/OBS CARE 3/50MIN Diagnoses End stage chronic kidney disease N18.6 Hypertensive emergency I16.1 Anemia of chronic disease D63.8 Metabolic encephalopathy G93.41
[2024-06-21] MEDS: EPOETIN ALFA 10,000 UNITS/ML VIAL IV ONE (11:16)
--- NOTE | 2024-06-21 14:49 | Pharmacy Report ---
Pharmacy Glycemic Short Note 2 - Date of Service June 21, 2024 - Glycemic Short BSG Results (Last 24 hours): 06/20/24 06/20/24 06/21/24 16:54 20:33 05:55 Glucose 143 H POC Glucose 142 H 161 H 06/21/24 06/21/24 08:03 12:18 Glucose POC Glucose 137 H 122 H OUTPATIENT ANTIDIABETIC REGIMEN: * Insulin pump (settings per 05/26/24 Endo note) * Basal rate: 0.8 units/hr * CF 25 * CR 13 ASSESSMENT: 06/21: * BSGs have been mostly below goal range the previous 48 hours. (73-55-46-97mg/dL on 06/19) and (61-54-411-161mg/dL on 06/20). Lantus was held, CF was loosened on 06/19 and CR was loosened 06/20. * Patient only received 1 unit of insulin yesterday (bolus) at HS and fasting BSG was in range this morning. * Of note, patient received HD the last 3 days. * Will continue current insulin regimen without change. 06/18/24: * Blood sugars tightly controlled yesterday except for lunchtime BSG > 200 mg/dL * Fasting blood sugar of 85 mg/dL this morning - will reduce basal insulin again today to reduce likelihood of hypoglycemia * NPO after midnight for perm cath placement on 06/19/2406/16: * BSGs 806-900-521-246mg/dL the last 24h. Received 18 units of basal and 9 units of bolus insulin yesterday. * Tolerating diet. Converted from insulin pump to SQ basal/bolus yesterday. * Continue with Lantus 18 units daily for now. Will adjust Lantus timing to this afternoon with plan for AM dosing tomorrow. Novolog tightened. 06/15: * Kaci is a 48 yo T1DM with PMH of CKD stage V, hypertension, hypothyroidism, seizure disorder, steatohepatitis, and factor V Leiden. * On admission, patient was continued on insulin pump. Pharmacy was consulted on 06/15/24 to transition patient to SC basal + bolus insulin due to confusion. * Will start patient on 18 units of basal insulin per day (based on home use of 0.8 units/hr). * Will utilize correction factor and carb ratio similar to home settings on insulin pump. PLAN FOR INPATIENT GLYCEMIC CONTROL: * Basal insulin * hold for now * Bolus insulin * NovoLog per scale ACHS or Q6hrs while NPO * Goal Range: Low 120 mg/dL - High 160 mg/dL * Correction Factor: 40 mg/dL/unit * Nutritional / Prandial insulin per carb ratio of 1 unit per 20 grams CHO consumed
--- NOTE | 2024-06-21 15:31 | Hospitalist Progress Note ---
Date of Service June 21, 2024 Assessment & Plan (1) ESTELITA (acute kidney injury): (2) Stage 5 chronic kidney disease due to hypertension: (3) History of CVA (cerebrovascular accident): (4) Type 1 diabetes: (5) Hypothyroidism: (6) Hypertensive emergency: (7) Metabolic encephalopathy: (8) Seizure disorder: Plan Kaic ponce 48F with a PMHx of CKD5, DMT1, HTN, hypothyroid, seizure disorder, factor V liden, who initially presented with constipation. CT A/P showed no obstruction/colitis, mild retianed stoole, trace pleural effusion and pericardial effusion. Was found to have significantly elevated BPs in the ED. Admitted for blood pressure control and management of stools. #Hypertensive Emergency / HTN Related to medication noncompliance - BPs have improved since admission Continue Coreg 12.5mg BID, amlodipine 10mg daily. Discontinued clonidine, spir onolactone, chlorthalidone, doxazosin, lasix #Fall | Gait instability | Metabolic Encephalopathy Unwitnessed "fall" evening 06/15 - No head trauma but CT head obtained due to confusions - concern for subacute stroke. [address] with out change. CXR/ b/l ankle xray - without acute fracture. Neurology consulted - lamictal/topamax/gabapentin/B12 level WNL Encephalopathy likely multifactorial - delirium, HTN, renal impairment, among other. Ammonia and lyme negative. CTX d/c with negative urine culture x 2 #ESTELITA on CKD V | Anemia secondary to CKD Pending kidney transplant at [facility]. Has Left AV fistula that is not yet mature R IJ perm cath placed 06/[address] dye. Dialysis 06/19, repeat run today - oozing from IJ site, DDAVP x1 given Nephrology following - stop Lokelma and Bicarb. Received Venofer x 4. Gabapentin dose reduced for kidney function #DMT1 with neuropathy and retinopathy Home dexcom and insulin pump - held earlier in the stay with confusion. Pharmacy glycemic consult Attempted to transition back to pump but patient has had very minimal insulin requirements (1 unit yesterday) - given SNF placement at discharge can probably use basal/bolus instead of pump in interim #Hx of CVA | Factor V Leiden Continue ASA and Eliquis #Hypothyroid - TSH 7 - prior hospitalist discussed with endocrinology, dose increased to 90, will need new rx at d/c #Constipation - Has resolved. BM 06/19 #mental health/seizure disorder - continue lamictal and topomax. Monitor for worsening as clonidine and doxazosin have been discontinued. #Left ankle pain - reported and xrays showed nondisplaced incompletely healed, ortho consulted non-operative management. Orthotics consulted for surgical shoe Dispo: continued inpatient stay, possible d/c tomorrow for outpatient dialysis on Wednesday DVT proh: Eliquis Admission and Anticipated Discharge Date Admission Date: June 12, 2024 Supervising Physician Co-Signing Physician Notes Attending Attestation - Chart reviewed, care plan d/w DAVID Min. I agree w/ the stanton components of her documentation. Ramírez Moncada MD Subjective Seen sitting at the edge of thebed after getting washed up Feeling well, was able to stand today no fever/illness symptoms - RN reports was under blankets with low grade temp, resolved without tylenol Review of Systems Review of Systems: All systems reviewed & are unremarkable except as noted in Subjective Physical Exam Physical Exam: General: NAD, VS as above Resp: normal respiratory effort, lungs clear to auscultation CV: RRR, no murmur, Abd: normal bowel sounds, non tender, soft Extremities: Moves all extremities, no edema Neuro: A&O x3, Skin: intact, right IJ site with compression dressing Results & Data Results & Data Vital Signs (Past 12 Hours) Vital Signs Temp Pulse Pulse Pulse Resp BP BP 06/21/24 14:30 98.1 F 68 18 168/75 H 06/21/24 13:08 98.6 F 74 164/81 H 06/21/24 13:00 71 158/78 H 06/21/24 12:30 66 161/79 H 06/21/24 12:00 67 166/88 H 06/21/24 11:30 67 181/90 H 06/21/24 11:00 69 179/93 H 06/21/24 10:30 66 169/88 H 06/21/24 10:00 68 167/84 H 06/21/24 09:30 70 164/79 H 06/21/24 09:05 70 162/81 H 06/21/24 08:58 98.8 F 71 06/21/24 08:01 99.9 F H 77 18 168/77 H 06/21/24 07:49 68 06/21/24 04:20 98.4 F 70 16 164/71 H Pulse Ox O2 Del Method 06/21/24 14:30 98 Room Air 06/21/24 13:08 06/21/24 13:00 06/21/24 12:30 06/21/24 12:00 06/21/24 11:30 06/21/24 11:00 06/21/24 10:30 06/21/24 10:00 06/21/24 09:30 06/21/24 09:05 06/21/24 08:58 06/21/24 08:01 94 Room Air 06/21/24 07:49 06/21/24 04:20 97 Room Air Laboratory Results cbc and chemistry approved PG Care Time/CCT Total # of Minutes Spent Total Time Spent with Patient: Total time spent is greater than 50% in coordination of care (as documented) at patient's floor/unit and/or counseling patient: Coding Level of Care Code 56941 SUB INP/OBS CARE 2/35MIN Diagnoses ESTELITA (acute kidney injury) N17.9 Stage 5 chronic kidney disease due to hypertension I12.0; N18.5 History of CVA (cerebrovascular accident) Z86.73 Type 1 diabetes mellitus with stage 4 chronic kidney disease E10.22; N18.4 Chronic kidney disease stage: stage 4 (severe) Diabetes mellitus complication detail: with chronic kidney disease Diabetes mellitus complication status: with kidney complications 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 E03.8; E06.3 Hypothyroidism type: due to Rajwinder's thyroiditis Hypertensive emergency I16.1 Metabolic encephalopathy G93.41 Seizure disorder G40.909 (4) Type 1 diabetes Chronic kidney disease stage: stage 4 (severe) Diabetes mellitus complication detail: with chronic kidney disease Diabetes mellitus complication status: with kidney complications Qualified Code(s): E10.22 - Type 1 diabetes mellitus with diabetic chronic kidney disease; N18.4 - Chronic kidney disease, stage 4 (severe) (5) Hypothyroidism Hypothyroidism type: due to Rajwinder's thyroiditis Qualified Code(s): E03.8 - Other specified hypothyroidism; E06.3 - Autoimmune thyroiditis
[2024-06-22 07:06] LABS: Hematocrit (blood only) 28.8 % (37.0-47.0); Hemoglobin 9.2 g/dl (12.0-16.0); Mean Corpuscular Hemoglobin 31.4 pg (25.0-34.0); Mean Corpuscular Hgb Conc 31.9 g/dL (32.0-36.0); Mean Corpuscular Volume 98.3 fL (80.0-100.0); Mean Platelet Volume 10.9 fL (9.4-12.4); Platelet Count 229 K/uL (130-400); RDW Coefficient of Variation 14.3 % (11.5-14.5); RDW Standard Deviation 49.6 fL (36.4-46.3); Red Blood Count 2.93 M/uL (4.20-5.40); White Blood Count 6.59 K/ul (4.8-10.8)
[2024-06-22 07:29] LABS: BUN Creatinine Ratio 4.1 (10-20); Calcium 8.4 mg/dl (8.6-10.3); Creatinine Clr Calc Pharmacy 26.1 ml/min; Potassium 3.8 mmol/L (3.5-5.1)
--- NOTE | 2024-06-22 09:00 | Nephrology Progress Note ---
Date of Service June 22, 2024 Assessment & Plan (1) End stage chronic kidney disease: Plan: * ESKD due to DKD, hypertensive nephrosclerosis * R IJ TCC placed by Dr. Coto 06/19/24 * Patient has AVF in place but it is not yet mature for use (transposition 04/03/24) * 3rd HD treatment completed 06/21/24. 1L UF obtained. There were no complications * Volume status and electrolyte balance are acceptable. Will schedule next HD for am * Case management is setting up outpatient HD near her home in [place], [place] expected start date is Wednesday (2) Hypertensive emergency: Plan: * BP is elevated * Continue amlodipine and carvedilol * Expect BP will improve following UF on HD (3) Anemia of chronic disease: Plan: * H/H trending up * Will provide IV iron and DEONNA w/ HD (4) Metabolic encephalopathy: Plan: * Mental status has improved * Higgins catheter has been removed * Needs PT for strengthening, mobility Admission and Anticipated Discharge Date Admission Date: June 12, 2024 Subjective Ms. Gagnon was evaluated in her hospital room this morning. She hopes to get up with PT today. She voiced no new medical concerns. R IJ TCC has clean pressure dressing in place Review of Systems Constitutional: no fever Eyes: no problem reported Ear, Nose, Mouth, Throat: no problem reported Respiratory: no cough and no dyspnea Cardiovascular: no chest pain Gastrointestinal: no abdominal pain, no nausea, no vomiting and no diarrhea/loose stools Genitourinary: no dysuria Integumentary: no rash Neurologic: no problem reported Physical Exam Constitutional: not in distress Eyes: PERRL, conjunctivae normal, anicteric sclerae ENMT: external ear and nose normal, oropharynx normal Neck: trachea midline, no thyromegaly Respiratory: normal respiratory effort, lungs clear to auscultation Cardiovascular: RRR, no murmur, no edema (no rub) Gastrointestinal (Abdomen): normal bowel sounds, soft, nontender, no hepatosplenomegaly Musculoskeletal: Extremities: no cyanosis and no clubbing Skin: no rashes, warm and dry Neurologic: awake; not confused Results & Data Vital Signs (Past 12 Hours) Vital Signs Temp Pulse Resp BP Pulse Ox O2 Del Method 06/22/24 08:17 36.7 C 66 20 168/78 H 95 Room Air 06/21/24 23:28 36.5 C 62 16 154/77 H 97 Room Air Laboratory Results Laboratory Results - last 24 hr 06/21/24 06/21/24 06/21/24 12:18 16:14 20:22 WBC RBC Hgb Hct MCV MCH MCHC RDW Std Deviation RDW Coeff of Zak Plt Count MPV Sodium Potassium Chloride Carbon Dioxide Anion Gap BUN Creatinine Est Cr Clr Drug Dosing eGFR BUN/Creatinine Ratio Glucose POC Glucose 122 H 165 H 131 H Calcium 06/22/24 06/22/24 06:25 08:38 WBC 6.59 RBC 2.93 L Hgb 9.2 L Hct 28.8 L MCV 98.3 MCH 31.4 MCHC 31.9 L RDW Std Deviation 49.6 H RDW Coeff of Zak 14.3 Plt Count 229 MPV 10.9 Sodium 138 Potassium 3.8 Chloride 105 Carbon Dioxide 25 Anion Gap 8 BUN 12 Creatinine 2.96 H D Est Cr Clr Drug Dosing 26.1 eGFR 18.90 BUN/Creatinine Ratio 4.1 L Glucose 116 H POC Glucose 122 H Calcium 8.4 L PG Care Time/CCT Total # of Minutes Spent Total Time Spent with Patient: Total time spent is greater than 50% in coordination of care (as documented) at patient's floor/unit and/or counseling patient: Coding Level of Care Code 33631 SUB INP/OBS CARE 3/50MIN Diagnoses End stage chronic kidney disease N18.6 Hypertensive emergency I16.1 Anemia of chronic disease D63.8 Metabolic encephalopathy G93.41
--- NOTE | 2024-06-22 12:31 | Pharmacy Report ---
Pharmacy Glycemic Short Note 2 - Date of Service June 22, 2024 - Glycemic Short BSG Results (Last 24 hours): 06/21/24 06/21/24 06/22/24 16:14 20:22 06:25 Glucose 116 H POC Glucose 165 H 131 H 06/22/24 06/22/24 08:38 12:01 Glucose POC Glucose 122 H 209 H OUTPATIENT ANTIDIABETIC REGIMEN: * Insulin pump (settings per 05/26/24 Endo note) * Basal rate: 0.8 units/hr * CF 25 * CR 13 ASSESSMENT: 06/22: * BSGs yesterday 053-277-405-131 mg/dL with HD yesterday. * Fasting 122 mg/dL. No plans for HD today. Lunch BSG 209 mg/dL- will trial 5 units of lantus today, plans for next HD tomorrow * Expect insulin needs to change as patient acclimates to HD/starts MWF dialysis rather than multiple days in a row * Tightened carb ratio to 15- monitor 06/21: * BSGs have been mostly below goal range the previous 48 hours. (30-74-99-97mg/dL on 06/19) and (89-76-766-161mg/dL on 06/20). Lantus was held, CF was loosened on 06/19 and CR was loosened 06/20. * Patient only received 1 unit of insulin yesterday (bolus) at HS and fasting BSG was in range this morning. * Of note, patient received HD the last 3 days. * Will continue current insulin regimen without change. 06/18/24: * Blood sugars tightly controlled yesterday except for lunchtime BSG > 200 mg/dL * Fasting blood sugar of 85 mg/dL this morning - will reduce basal insulin again today to reduce likelihood of hypoglycemia * NPO after midnight for perm cath placement on 06/19/2406/16: * BSGs 227-504-529-246mg/dL the last 24h. Received 18 units of basal and 9 units of bolus insulin yesterday. * Tolerating diet. Converted from insulin pump to SQ basal/bolus yesterday. * Continue with Lantus 18 units daily for now. Will adjust Lantus timing to this afternoon with plan for AM dosing tomorrow. Novolog tightened. 06/15: * Kaci is a 48 yo T1DM with PMH of CKD stage V, hypertension, hypothyroidism, seizure disorder, steatohepatitis, and factor V Leiden. * On admission, patient was continued on insulin pump. Pharmacy was consulted on 06/15/24 to transition patient to SC basal + bolus insulin due to confusion. * Will start patient on 18 units of basal insulin per day (based on home use of 0.8 units/hr). * Will utilize correction factor and carb ratio similar to home settings on insulin pump. PLAN FOR INPATIENT GLYCEMIC CONTROL: * Basal insulin * 5 units x 1 * Bolus insulin * NovoLog per scale ACHS or Q6hrs while NPO * Goal Range: Low 120 mg/dL - High 160 mg/dL * Correction Factor: 40 mg/dL/unit * Nutritional / Prandial insulin per carb ratio of 1 unit per 15 grams CHO consumed
[2024-06-22] MEDS: LANTUS PER UNIT CHARGE SC ONE (12:58)
--- NOTE | 2024-06-22 13:54 | Hospitalist Progress Note ---
Date of Service June 22, 2024 Assessment & Plan (1) ESTELITA (acute kidney injury): (2) Stage 5 chronic kidney disease due to hypertension: (3) History of CVA (cerebrovascular accident): (4) Type 1 diabetes: (5) Hypothyroidism: (6) Hypertensive emergency: (7) Metabolic encephalopathy: (8) Seizure disorder: Plan Kaci ponce 48F with a PMHx of CKD5, DMT1, HTN, hypothyroid, seizure disorder, factor V liden, who initially presented with constipation. CT A/P showed no obstruction/colitis, mild retianed stoole, trace pleural effusion and pericardial effusion. Was found to have significantly elevated BPs in the ED. Admitted for blood pressure control and management of stools. #Hypertensive Emergency / HTN Related to medication noncompliance - BPs have improved since admission Continue Coreg 12.5mg BID, amlodipine 10mg daily. Discontinued clonidine, spir onolactone, chlorthalidone, doxazosin, lasix #Fall | Gait instability | Metabolic Encephalopathy Unwitnessed "fall" evening 06/15 - No head trauma but CT head obtained due to confusions - concern for subacute stroke. [address] with out change. CXR/ b/l ankle xray - without acute fracture. Neurology consulted - lamictal/topamax/gabapentin/B12 level WNL Encephalopathy likely multifactorial - delirium, HTN, renal impairment, among other. Ammonia and lyme negative. CM following - plan is for rehab #ESTELITA on CKD V | Anemia secondary to CKD Pending kidney transplant at [facility]. Has Left AV fistula that is not yet mature R IJ perm cath placed 06/[address] Coto. Dialysis 06/19, repeat run today - oozing from IJ site, DDAVP x1 given Nephrology following - stop Lokelma and Bicarb. Received Venofer x 4. Gabapentin dose reduced for kidney function #DMT1 with neuropathy and retinopathy Home dexcom and insulin pump - held earlier in the stay with confusion. Pharmacy glycemic consult Attempted to transition back to pump but patient has had very minimal insulin requirements (1 unit yesterday) - given SNF placement at discharge can probably use basal/bolus instead of pump in interim #Hx of CVA | Factor V Leiden Continue ASA and Eliquis #Hypothyroid - TSH 7 - prior hospitalist discussed with endocrinology, dose increased to 90, will need new rx at d/c #Constipation - Has resolved. BM 3/24 #mental health/seizure disorder - continue lamictal and topomax. Monitor for worsening as clonidine and doxazosin have been discontinued. #Left ankle pain - reported and xrays showed nondisplaced incompletely healed, ortho consulted non-operative management. Orthotics consulted for surgical shoe Dispo: continued inpatient stay dailysis tomorrow, discharge dispo pending when outpatient dialysis chair is confirmed. DVT proh: Artemio son Aguilar Updated by phone 06/22 Admission and Anticipated Discharge Date Admission Date: June 12, 2024 Supervising Physician Co-Signing Physician Notes Attending Attestation - Chart reviewed, care plan d/w DAVID Min. I agree w/ the stanton components of her documentation. Ramírez Moncada MD Subjective patient seen walking back from the bathroom, reports feeling better today understands that she does not have an outpatient chair at dialysis tomorrow and will recieved that here states she thought she was going home instead of going to rehab and asked me to update her son good appetite. Review of Systems Review of Systems: All systems reviewed & are unremarkable except as noted in Subjective Physical Exam Physical Exam: General: NAD, VS as above Resp: normal respiratory effort, lungs clear to auscultation CV: RRR, no murmur, Abd: normal bowel sounds, non tender, soft Extremities: Moves all extremities, no edema Neuro: A&O x3, Skin: intact, right IJ site with compression dressing with some shadowing. Results & Data Results & Data Vital Signs (Past 12 Hours) Vital Signs Temp Pulse Resp BP Pulse Ox O2 Del Method 06/22/24 12:05 100.0 F H 78 20 130/69 95 Room Air 06/22/24 08:17 98.1 F 66 20 168/78 H 95 Room Air Laboratory Results cbc and chemistry reviewed PG Care Time/CCT Total # of Minutes Spent Total Time Spent with Patient: Total time spent is greater than 50% in coordination of care (as documented) at patient's floor/unit and/or counseling patient: Coding Level of Care Code 58039 SUB INP/OBS CARE 2/35MIN Diagnoses ESTELITA (acute kidney injury) N17.9 Stage 5 chronic kidney disease due to hypertension I12.0; N18.5 History of CVA (cerebrovascular accident) Z86.73 Type 1 diabetes mellitus with stage 4 chronic kidney disease E10.22; N18.4 Chronic kidney disease stage: stage 4 (severe) Diabetes mellitus complication detail: with chronic kidney disease Diabetes mellitus complication status: with kidney complications 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 E03.8; E06.3 Hypothyroidism type: due to Rajwinder's thyroiditis Hypertensive emergency I16.1 Metabolic encephalopathy G93.41 Seizure disorder G40.909 (4) Type 1 diabetes Chronic kidney disease stage: stage 4 (severe) Diabetes mellitus complication detail: with chronic kidney disease Diabetes mellitus complication status: with kidney complications Qualified Code(s): E10.22 - Type 1 diabetes mellitus with diabetic chronic kidney disease; N18.4 - Chronic kidney disease, stage 4 (severe) (5) Hypothyroidism Hypothyroidism type: due to Rajwinder's thyroiditis Qualified Code(s): E03.8 - Other specified hypothyroidism; E06.3 - Autoimmune thyroiditis
[2024-06-23] MEDS ORDERED: SODIUM CHLORIDE 0.9% 1,000 ML IV PRN (07:00)
[2024-06-23 07:42] VITALS: RESP 18; O2SAT 96
[2024-06-23] MEDS: LANTUS PER UNIT CHARGE SC SCH (08:45)
--- NOTE | 2024-06-23 09:00 | Nephrology Progress Note ---
Date of Service June 23, 2024 Assessment & Plan (1) End stage chronic kidney disease: Plan: * ESKD due to DKD, hypertensive nephrosclerosis * R IJ TCC placed by Dr. Coto 06/19/24 * Patient has AVF in place but it is not yet mature for use (transposition 04/03/24) * Will provide HD today and attempt 3 L UF. Orders placed in EMR and HD RN notified * Case management is setting up outpatient HD near her home in [place], [place] expected start date is Wednesday (2) Hypertensive emergency: Plan: * BP is elevated * Continue amlodipine and carvedilol * Expect BP will improve following UF on HD (3) Anemia of chronic disease: Plan: * H/H trending up * Will provide IV iron and DEONNA w/ HD (4) Metabolic encephalopathy: Plan: * Mental status has improved * Higgins catheter has been removed * Needs PT for strengthening, mobility Admission and Anticipated Discharge Date Admission Date: June 12, 2024 Subjective Ms. Gagnon was evaluated in her hospital room this morning. She voiced no new medical concerns. R IJ TCC has clean pressure dressing in place Review of Systems Constitutional: no fever Eyes: no problem reported Ear, Nose, Mouth, Throat: no problem reported Respiratory: no cough and no dyspnea Cardiovascular: no chest pain Gastrointestinal: no abdominal pain, no nausea, no vomiting and no diarrhea/ loose stools Genitourinary: no dysuria Integumentary: no rash Neurologic: no problem reported Physical Exam Constitutional: not in distress Eyes: PERRL, conjunctivae normal, anicteric sclerae ENMT: external ear and nose normal, oropharynx normal Neck: trachea midline, no thyromegaly Respiratory: normal respiratory effort, lungs clear to auscultation Cardiovascular: RRR, no murmur, no edema (no rub) Gastrointestinal (Abdomen): normal bowel sounds, soft, nontender, no hepatosplenomegaly Musculoskeletal: Extremities: no cyanosis and no clubbing Skin: no rashes, warm and dry Neurologic: awake; not confused Results & Data Vital Signs (Past 12 Hours) Vital Signs Temp Pulse Resp BP Pulse Ox O2 Del Method 06/23/24 07:30 36.9 C 71 18 154/77 H 96 Room Air Laboratory Results Laboratory Results - last 24 hr 06/22/24 06/22/24 06/22/24 12:01 16:54 20:13 POC Glucose 209 H 145 H 112 H 06/23/24 07:37 POC Glucose 126 H PG Care Time/CCT Total # of Minutes Spent Total Time Spent with Patient: Total time spent is greater than 50% in coordination of care (as documented) at patient's floor/unit and/or counseling patient: Coding Level of Care Code 03381 SUB INP/OBS CARE 3/50MIN Diagnoses End stage chronic kidney disease N18.6 Hypertensive emergency I16.1 Anemia of chronic disease D63.8 Metabolic encephalopathy G93.41
[2024-06-23 10:38] VITALS: TEMP 97.7
[2024-06-23] MEDS: EPOETIN ALFA 10,000 UNITS/ML VIAL IV ONE (11:26)
--- NOTE | 2024-06-23 13:18 | Discharge Summary ---
Discharge Summary Date of Service June 23, 2024 Principal Dx & Hospital Course #1 = Principal Diagnosis (1) ESTELITA (acute kidney injury): (2) Stage 5 chronic kidney disease due to hypertension: (3) History of CVA (cerebrovascular accident): (4) Type 1 diabetes: (5) Hypothyroidism: (6) Hypertensive emergency: (7) Metabolic encephalopathy: (8) Seizure disorder: Plan #Hypertensive Emergency / HTN Kaci a 48F with a PMHx of CKD5, DMT1, HTN, hypothyroid, seizure disorder, factor V liden, who initially presented with constipation. CT A/P showed no obstruction/colitis, mild retained stool, trace pleural effusion and pericardial effusion. Was found to have significantly elevated BPs in the ED. Admitted for blood pressure control and management of stools. suspect elevation in blood pressure is related to medication noncompliance. Blood pressure is improved since admission. Patient was also initiated on dialysis which helped improved her blood pressures. Current regimen Coreg 12.5mg BID, amlodipine 10mg daily. Discontinued clonidine, spironolactone, chlorthalidone, doxazosin, lasix #Fall | Gait instability | Metabolic Encephalopathy Unwitnessed "fall" evening 06/15 - No head trauma but CT head obtained due to confusions - concern for subacute stroke. [address] with out change. Neurology consulted - lamictal/topamax/gabapentin/B12 level WNL Encephalopathy likely multifactorial - delirium, HTN, renal impairment, among other. Ammonia and lyme negative. Mental status improving #ESTELITA on CKD V | Anemia secondary to CKD Pending kidney transplant at [facility]. Has Left AV fistula that is not yet mature so R IJ perm cath placed 06/[address] Coto. Initiated on dialysis and this will be continued outpatient at [facility] - Dr. Oneill is their medical device and will need to establish with them. Nephrology recommended stop Lokelma and Bicarb. Gabapentin dose reduced for kidney function #DMT1 with neuropathy and retinopathy Home dexcom and insulin pump - held earlier in the stay with confusion. Attempted to transition back to pump but patient has had very minimal insulin requirements and unclear what true requirements will be on new dialysis regiment. Discussed with patient and her son - continue on basal /bolus while at SNF to capture more data. Lantus 5units QAM and sliding scale with meals. Plan for endocrinology follow up right around time of discharge from rehab so pump can be restarted. #Hx of CVA | Factor V Leiden - Continue ASA and Eliquis #Hypothyroid - TSH 7 - prior hospitalist discussed with endocrinology, dose increased to 90, recheck outpatient 6-8 weeks #Constipation - Has resolved. #mental health/seizure disorder - continue lamictal and topomax. Monitor for worsening as clonidine and doxazosin have been discontinued. #Left ankle pain - reported and xrays showed nondisplaced incompletely healed, ortho consulted non-operative management. Orthotics consulted for surgical shoe Dispo: discharged from [place] for rehab today son Aguilar Updated by phone 06/22 & 06/23 Notes For Next Care Provider will need thyroid rechecked in 6 to 8 weeks Will need close follow-up with endocrinology to resume her insulin pump Initiated on dialysis Medication Changes From Visit Coreg 12.5mg BID, amlodipine 10mg daily. Discontinued clonidine, spironolactone, chlorthalidone, doxazosin, lasix, sodium bicarb, oxybutynin Admission HPI Per Admitting Provider +gas, no BM x3 weeks Nausea worse last few days. No vomiting Drinking a lot of fluid. Diminished appetite but eating 'ok.' Trying to eat greasy foods like a whopper to see if that could get her bowel movements going Still voiding normally. No change in color or frequency. Normally pees a few ti mes a day 'a normal amount' No fevers, chills or sweats +headache with nausea, none currently Chronic vision loss, R eye seems worse in the last few days No chest pain or chest pressure No shortness of breath or dyspnea Some flank pain with vomiting, nothing 'like in February.' Took BP meds this morning but threw all of her medicines up. Has not been able to keep medication sdown 'maybe a dose late yesterday.' Chaim to remain in until 06/27/24. Wound care consulted Medical History: Reviewed Medications: Reviewed Surgical History: Reviewed Family history: Reviewed Allergies: Reviewed. Allergic to morphine, penicilline, synthroid, lopressor, and paper tape. Metformin makes her nauseus Social History: No tobacco, no ETOH use Code Status: Full Code Discharge Exam General: NAD, VS as above, sitting up in bed at dialysis Resp: normal respiratory effort, lungs clear to auscultation CV: RRR, no murmur, Abd: normal bowel sounds, non tender, soft Extremities: Moves all extremities, no edema Neuro: A&O x3, Skin: intact, right IJ site with compression dressing clean dry and intact Discharge Plan Discharge Items Patient Disposition: Transfer Long-Term Fac Reason For Visit: HTN, CONSTIPATION Discharge Diagnosis: ESRD, DMT1, HTN Activity: As commented below Activity Comment: work with therapy to get stronger Bathing: Keep incision dry Weightbearing: Full weightbearing Non-emergency contact: Primary Care Provider Call non-emergency contact if: you have any medication questions, your symptoms worsen and your temperature is above 101 Follow-up/Referrals: Tran Montiel DO [Primary Care Provider] - None (follow up after discharge from rehab ) Ravindra Montes De Oca PA-C [Physician [employer]ic Terra[employer] Setter] - (please follow up at discharge from rehab from [place] to transition back to [facility] ) Aristides Oneill DO [Outside Practitioners] - (Nephrology - new dialysis patient ) Diet: Carb Count or DM1, Dialysis Renal and Low Potassium (2gm) Addtl Attending Provider Instructions: Ms. Gagnon, You have been hospitalized for constipation, which can be from the oral iron given to you by nephrology and were given medications to help and have moved your bowels and improved since that time. Your blood pressure was also significantly elevated on admission and we have made multiple changes to your blood pressure regimen, however with starting dialysis we have been able to stop multiple of your medications. You were started on dialysis during your stay and this will be continued 3x a week at [facility] in [place]. You have received medication with dialysis to help bring up your blood counts. You should follow a dialysis /diabetic diet. Handouts have been provided on this. Diabetes changes: Your insulin needs were much lower since we have started dialysis. However, the dialysis you had while in the hospital was more frequent than what you will be reciving outpatient. we have decided to keep you on basal bolus insulin while you are at [place]. This will allow us to gather more data about what your true insulin needs are going to be on dialysis. The plan will be for you to see endocrinology either right before or right after your discharge from rehab back to home, at this time they will be able to review your data and get you restarted on your pump. In the meantime: Lantus 5 units every morning, sliding scale short acting following the same regimen previously prescribed <150 0u, 151- 180 1u, 181-210 2u, 211- 240 3u, 241-270 4u, 271 300 5u, 301- 330 6u, 331-360 7u, 361- 390 8u, 391-420 9u, >420 10u up to TDD of 20 units. Used for pump failure. Medication changes: - thyroid replacement dose increased to 90mg daily. Take this in the morning on empty stomach before other medications for best results. - Blood pressure medications now are: carvedilol 12.5mg twice a day, amlodipine 10mg daily - Gabapentin decreased to 100mg three times day because of your reduced kidney function - Discontinued medications: Clonidine, spironolactone, chlorthalidone, doxazosin, lasix, iron supplementation, magnesium oxide, oxybutynin, sodium bicarb. Recommendations: Right IJ in place for dialysis - please keep clean, dry and intact. Because you have started on dialysis at [facility] - you will need to follow up with their Hairspring I Inspector, Dr. Mayberry. His information is above. Follow up with endocrinology as close to discharge from [place] as possible Follow up with PCP one week after discharge from rehab Please return to the ER with any increased pain, fever/chills, issues with urination or for any other symptoms concerning for you. It has been a pleasure being a part of the medical team providing for you while you have been in the hospital. Take care! For [place] - please keep a long of patient BSG. If poor control, endocrinology (Armen Montes De Oca) can be very helpful. Unclear what insulin needs will be on regular dialysis scheduled. Pump not replaced on discharge from hospital because of this. also please make sure patient and family have updated med list upon departure from your facility Pending Studies at Discharge: Yes Studies:: urine cultures Stand-Alone Forms: My [facility] Skilled Items Patient informed of condition?: Yes DNR: No Discharge Level of Care: Skilled Communicable Disease: No Discharge Prognosis: Stable Lines: None Urinary Catheter: No Medications and DC Order Prescriptions: New thyroid (pork) 90 mg tablet 90 mg PO DAILY Qty: 30 0RF Renal Caps 1 mg Capsule 1 cap PO QAM Qty: 30 0RF insulin glargine [Lantus U-100 Insulin] 100 unit/mL solution 5 unit subcut QAM Qty: 10 0RF Continued (DME) blood-glucose meter [OneTouch Verio Meter] Mis See Rx Instructions .Route Qty: 1 0RF Rx Instructions: Testing 8 times per day (DME) Diabetic Shoes See Rx Instructions .Route .MEDSUPPLY Qty: 1 0RF Rx Instructions: As directed aspirin [Speedy Low Dose Aspirin] 81 mg tablet,delayed release (DR/EC) 81 mg PO PM Qty: 30 2RF (DME) Shower Chair Misc See Rx Instructions .Route Qty: 1 0RF Rx Instructions: As directed ([facility]) OneTouch Verio test strips Strip See Rx Instructions .Route Qty: 200 2RF Rx Instructions: use to check blood sugar 4x daily (DME) pen needle, diabetic [Easy Comfort Pen Brandon] 31 gauge x 5/16" needle See Rx Instructions .Route Qty: 100 5RF Rx Instructions: As directed amitriptyline 10 mg tablet 10 mg PO DAILY Qty: 30 5RF Rx Instructions: vomited after taking this am apixaban 5 mg tablet 5 mg PO BID Qty: 180 1RF Rx Instructions: vomited after taking this am atorvastatin 40 mg tablet 40 mg PO HS Qty: 30 5RF Calcium 600 with Vitamin D3 600 mg-10 mcg (400 unit) tablet,chewable 1 tab PO DAILY Qty: 30 2RF Rx Instructions: vomited after taking this am cholecalciferol (vitamin D3) 50 mcg (2,000 unit) capsule 50 mcg PO DAILY Qty: 90 3RF Rx Instructions: vomited after taking this am citalopram 20 mg tablet 20 mg PO QAM Qty: 30 5RF Rx Instructions: vomited after taking this am lamotrigine 25 mg tablet 25 mg PO QPM Qty: 30 5RF lamotrigine 200 mg tablet 200 mg PO BID Qty: 60 5RF Rx Instructions: vomited after taking this am ondansetron 4 mg tablet,disintegrating 4 mg PO Q6H PRN (Reason: nausea and vomiting) Qty: 10 0RF pantoprazole 40 mg tablet,delayed release (DR/EC) 40 mg PO QAM Qty: 30 4RF Rx Instructions: vomited after taking this am topiramate 50 mg tablet 50 mg PO BID Qty: 60 5RF Rx Instructions: TOTAL DOSE 150 MG--TAKES WITH 100 MG TAB. vomited after taking this am topiramate 100 mg tablet 100 mg PO BID Qty: 60 5RF Rx Instructions: TOTAL DOSE 150 MG--TAKES WITH 50 MG TAB. vomited after taking this am trazodone 100 mg tablet 100 mg PO HS PRN (Reason: Insomnia) Qty: 90 1RF (DME) Remote patient monitoring program See Rx Instructions .Route .MEDSUPPLY Qty: 1 0RF Rx Instructions: As directed (DME) Dexcom G7 Sensor Device See Rx Instructions .Route Qty: 3 11RF Rx Instructions: Chane sensor every 10 days insulin lispro 100 unit/mL insulin pen 1 sliding scale dose subcut USEASDIRECTD Qty: 15 1RF Rx Instructions: <150 0u, 151- 180 1u, 181-210 2u, 211- 240 3u, 241-270 4u, 271 300 5u, 301- 330 6u, 331-360 7u, 361- 390 8u, 391-420 9u, >420 10u up to TDD of 20 units. Used for pump failure. (DME) Shower Chair Misc See Rx Instructions .Route Qty: 1 0RF Rx Instructions: As directed (DME) incontinence pads See Rx Instructions .Route .MEDSUPPLY Qty: 120 5RF Rx Instructions: Using 4-5 pads per day (DME) OneTouch Verio test strips Strip See Rx Instructions .Route Qty: 250 5RF Rx Instructions: to check 8x/day (DME) lancets 33 gauge misc See Rx Instructions .Route Qty: 200 11RF Rx Instructions: to check 4x/day. OneTouch Delica ([facility]) Blood pressure Cuff See Rx Instructions .Route .MEDSUPPLY Qty: 1 0RF Rx Instructions: As directed Excedrin Tension Headache 500-65 mg tablet 1 tab PO Q12H PRN (Reason: Migraine Headache) (DME) Blood Pressure Cuff See Rx Instructions .Route .MEDSUPPLY Qty: 1 0RF Rx Instructions: As directed (DME) Ketone Urine Test Strip See Rx Instructions .Route Qty: 100 2RF Rx Instructions: use daily to check for ketones (DME) blood-glucose meter [OneTouch Verio Flex meter] Misc See Rx Instructions .Route Qty: 1 0RF Rx Instructions: use to check blood sugar 4x daily amlodipine 10 mg tablet 10 mg PO HS Qty: 90 5RF (DME) Contour Next Link 2.4 Kit See Rx Instructions .Route Qty: 1 0RF Rx Instructions: use to check blood sugar 2x daily (DME) Contour Next Test Strips Strip See Rx Instructions .Route Qty: 70 11RF Rx Instructions: check blood sugar 2x daily cyclobenzaprine 10 mg tablet 10 mg PO TID PRN (Reason: muscle spasm) Qty: 15 0RF Baqsimi 3 mg/actuation spray,non-aerosol 3 mg intranasal DIRECTED PRN (Reason: LOW BSG NEEDED) Rx Instructions: May repeat x 1 in 15min PRN Changed carvedilol 25 mg tablet 12.5 mg PO BIDM 30 Days Qty: 30 0RF Rx Instructions: vomited after taking this am gabapentin 100 mg capsule 100 mg PO TID Qty: 180 5RF Rx Instructions: vomited after taking this am Held diphenhydramine HCl [Benadryl] 25 mg capsule 25 mg PO TID PRN (Reason: Allergy Symptoms) Hold Instructions: Provider's Order- avoid unless directed by medical provider insulin lispro 100 unit/mL solution 100 unit continuous subcutaneous infusion CONTINOUS Hold Instructions: Provider's Order - do not resume pump until seen by endocrinology - settings need changed Rx Instructions: up to 100 units daily in insulin pump Discontinued naproxen 500 mg tablet 1,000 mg PO DAILY PRN (Reason: Pain) chlorthalidone 25 mg tablet 25 mg PO DAILY Qty: 30 5RF Hold Instructions: Provider's Order Rx Instructions: vomited after taking this am clonidine HCl 0.2 mg tablet 0.2 mg PO BID Qty: 30 5RF Rx Instructions: vomited after taking this am cyanocobalamin (vitamin B-12) 1,000 mcg tablet 1,000 mcg PO DAILY Qty: 30 5RF Rx Instructions: vomited after taking this am doxazosin 4 mg tablet 4 mg PO QAM Qty: 30 5RF Rx Instructions: vomited after taking this am ferrous sulfate 324 mg (65 mg iron) tablet,delayed release (DR/EC) 324 mg PO DAILY Qty: 90 3RF Rx Instructions: vomited after taking this am magnesium oxide 400 mg magnesium tablet 400 mg PO QAM Qty: 30 4RF Rx Instructions: vomited after taking this am oxybutynin chloride 5 mg tablet extended release 24hr 5 mg PO QAM Qty: 30 4RF Rx Instructions: vomited after taking this am spironolactone 50 mg tablet 50 mg PO BID Qty: 60 3RF Hold Instructions: Provider's Order Rx Instructions: vomited after taking this am thyroid (pork) [NURSE GENERAL DUTY Thyroid] 60 mg tablet 60 mg PO DAILY Qty: 30 5RF Rx Instructions: Take one tablet by mouth 30-40 minutes before any other oral intake. sodium bicarbonate 650 mg tablet 1,300 mg PO BID Qty: 120 3RF Rx Instructions: vomited after taking this am ergocalciferol (vitamin D2) 1,250 mcg (50,000 unit) capsule 50,000 unit PO WEEKLY Qty: 12 0RF Discharge Orders: Discharge Order (Routine); Ordered 06/23/24 Ordered By: Gabbi Curtis/Other Patient Handouts: ED Diet for Chronic Kidney Disease, ED Hemodialysis Admission Data Admit Date/Time: 06/12/24 18:40 Attending Provider: Ramírez Moncada Admit Provider: Miguel Lam Primary Care Provider: Tran Montiel Other Providers: Miguel Lam; Carol Vargas; Daniel Cummins; Marcio Go; Leo Henson Hospital Stay Data Consultations 06/12/24 17:49 ED Decision to Admit Stat 06/12/24 18:44 Consult Nephrology Routine 06/15/24 13:04 Consult Orthopedic Surgery Routine 06/16/24 08:23 Consult Neurology Routine 06/16/24 10:38 Consult Vascular Surgery Routine Procedures Performed Operation Date: 06/19/24 08:00 Actual Procedures p Insertion of Perm Cath,Right Internal Jugular Approach,Ultrasound Localization of Right Internal Jugular Vein, Fluoroscopy for Positioning(Right) - Leo Coto MD Diagnostic Imagining Performed Abdomen/Pelvis CT 06/12/24 16:18 INDICATION: Abdominal pain. COMPARISON: CT from 03/19/2024.. TECHNIQUE: Axial CT images of the abdomen and pelvis were obtained without IV contrast administration. Coronal and sagittal reformations were reviewed. FINDINGS: Subsegmental atelectasis in the lung bases. Trace left pleural effusion. Small pericardial effusion. Cardiomegaly. The gallbladder is surgically absent. The liver, spleen, pancreas and adrenal glands appear unremarkable. No renal calculus or hydronephrosis. No evidence of bowel obstruction/colitis/appendicitis. Mild amount of retained colonic stool. No free air. No drainable fluid collection. The urinary bladder appears unremarkable. No acute osseous abnormality evident. IMPRESSION: 1. Mild retained colonic stool. 2. Subsegmental atelectasis in the lung bases. Trace left pleural effusion. Small pericardial effusion. Electronically signed by Jaron Hair 06-12-2024 5:25 PM Ankle X-Ray 06/15/24 10:06 XR ankle LT 2V, XR foot LT 2V CLINICAL HISTORY: pain COMPARISON: 09/27/2023 FINDINGS: Fractured distally at the fibula remains nondisplaced, incompletely united. No new fracture or dislocation seen at the left ankle. There is a bone island at the first distal phalanx. No acute fracture or dislocation seen at the left foot. No significant degenerative change. IMPRESSION: 1. Distal fibular fracture remains nondisplaced, incompletely healed. 2. No new fracture seen at the left ankle or left foot. ACT 112: Negative or not required by law. Electronically signed by: Chano Cottrell M.D. 06/15/2024 11:26 AM Foot X-Ray 06/15/24 10:06 XR ankle LT 2V, XR foot LT 2V CLINICAL HISTORY: pain COMPARISON: 09/27/2023 FINDINGS: Fractured distally at the fibula remains nondisplaced, incompletely united. No new fracture or dislocation seen at the left ankle. There is a bone island at the first distal phalanx. No acute fracture or dislocation seen at the left foot. No significant degenerative change. IMPRESSION: 1. Distal fibular fracture remains nondisplaced, incompletely healed. 2. No new fracture seen at the left ankle or left foot. ACT 112: Negative or not required by law. Electronically signed by: Chano Cottrell M.D. 06/15/2024 11:[address] 06/15/24 14:01 CT head/brain wo con CLINICAL HISTORY: fall, ams. TECHNIQUE: Multiple axial CT images of the head were obtained without contrast. A dose lowering technique was utilized adhering to the principles of ALARA. CT DOSE: 547.75 mGy.cm COMPARISON: 02/15/2022 FINDINGS: There is an interval 1 cm area of hypodensity in the left thalamus consistent with interval infarction of uncertain chronicity. Stable small lacunar infarction in the right thalamus. There is a mildly progressive small area of hypodensity in the anterior left periventricular white matter. No intracranial hemorrhage seen. No mass effect, midline shift, or hydrocephalus. Visualized paranasal sinuses are clear. No mastoid effusion. No skull fracture seen. IMPRESSION: 1. No intracranial hemorrhage seen. 2. Interval small hypodensity in the left thalamus and mildly progressive hypodensity in the left periventricular white matter. These likely represent infarctions of uncertain chronicity, possibly subacute. ACT 112: Negative or not required by law. The above report was generated using voice recognition software. It may contain grammatical, syntax or spelling errors. Electronically signed by: Chano Cottrell M.D. 06/15/2024 2:37 PM Hip/Pelvis X-Ray 06/15/24 14:19 XR hip MARGARET 2v w pelvis CLINICAL HISTORY: fall, eval fx COMPARISON STUDY: 02/15/2022 FINDINGS: ICD is present. No fracture or dislocation seen at the pelvis or hips. Hip joint spaces are maintained. IMPRESSION: No fracture seen. ACT 112: Negative or not required by law. Electronically signed by: Chano Cottrell M.D. 06/15/2024 3:10 PM Ankle X-Ray 06/15/24 14:31 XR ankle RT 2V, XR ankle LT 2V CLINICAL HISTORY: fall with bilateral ankle pain COMPARISON: Earlier today and 09/27/2023 FINDINGS: Right ankle: There are old fractures at the fourth and fifth metatarsals. There is an old healed fracture at the distal fibula. No acute fracture or dislocation seen. Left ankle: Partially healed fracture at the distal fibula remains nondisplaced. No new fracture or dislocation seen. IMPRESSION: No acute fracture seen at either ankle. Otherwise as described. ACT 112: Negative or not required by law. Electronically signed by: Chano Cottrell M.D. 06/15/2024 3:14 PM Ankle X-Ray 06/15/24 14:31 XR ankle RT 2V, XR ankle LT 2V CLINICAL HISTORY: fall with bilateral ankle pain COMPARISON: Earlier today and 09/27/2023 FINDINGS: Right ankle: There are old fractures at the fourth and fifth metatarsals. There is an old healed fracture at the distal fibula. No acute fracture or dislocation seen. Left ankle: Partially healed fracture at the distal fibula remains nondisplaced. No new fracture or dislocation seen. IMPRESSION: No acute fracture seen at either ankle. Otherwise as described. ACT 112: Negative or not required by law. Electronically signed by: Chano Cottrell M.D. 06/15/2024 3:14 PM Chest X-Ray 06/15/24 17:40 EXAM: XR chest 1V portable CLINICAL HISTORY: For MRI. TECHNIQUE: An X-ray image of the chest is obtained in PA projection. COMPARISON: Prior CR study dated 02/24/2024. FINDINGS: Pulmonary Parenchyma: No evidence of consolidation, collapse, or focal opacities. No evidence of pleural effusion or pleural thickening. increased vascular markings likely of congestive etiology Heart and Mediastinum: Increased in cardiac size. No medisatinal masses. Bony Thorax: Bony thorax appears intact without fractures or deformities. Soft Tissues: Soft tissues overlying the chest wall are unremarkable. IMPRESSION: 1. Cardiomegaly, mildly enlarged on interval. 2. No radiodense foreign bodies. 3. No other time interval changes Electronically signed by Kyle Arnold 06-15-2024 7:35 PM KUB X-Ray 06/15/24 17:40 EXAM: XR KUB pre MRI CLINICAL HISTORY: for MRI. TECHNIQUE: X-ray images of the abdomen were obtained in supine position. COMPARISON: 06/12/2024 CT abdomen and pelvis was reviewed. FINDINGS: Gas Pattern: Prominent gas-filled splenic flexure. Fecal loaded right hemicolon. Soft Tissues: Surgical clips of prior cholecystectomy. IUD in the pelvis. Oval-shaped radiopaque density projecting over the right tenth rib. IMPRESSION: Oval-shaped radiopaque density projecting over the right tenth rib. Please correlate clinically. A lateral view may be done for further evaluation. Electronically signed by Kyle Arnold 06-15-2024 7:40 PM Orbit X-Ray 06/15/24 17:40 EXAM: XR orbits for MRI CLINICAL HISTORY: Screening for foreign body for MRI TECHNIQUE: X-ray examination of the orbits performed in [AP/PA and lateral views, COMPARISON: none FINDINGS: Orbital Margins: The bony orbital margins appear intact bilaterally, with no evidence of fractures, deformities, or lytic lesions. The zygomatic arches are symmetrical and show no abnormalities. Soft Tissues: The periorbital soft tissues are unremarkable, with no evidence of swelling, mass effect, or foreign bodies. The extraocular muscles are not directly visualized on X-ray, but there are no signs of displacement or other indirect abnormalities. Foreign Bodies: No radiopaque foreign bodies are identified within the orbits or surrounding regions. IMPRESSION: No radiographic evidence radiodense foreign bodies, Electronically signed by Kyle Arnold 06-15-2024 7:[address] 06/16/24 14:00 CT OF THE HEAD WITHOUT CONTRAST CLINICAL HISTORY: repeat CT 24 hours COMPARISON STUDY: MRI of the brain April 14, 2016. Head CT June 15, 2024. CT DOSE: 547.75 mGy.cm TECHNIQUE: Helical axial images of the head were obtained without IV contrast. Automated exposure control was utilized for the study. A dose lowering technique was utilized adhering to the principles of ALARA. FINDINGS: No acute intracranial hemorrhage, midline shift or mass effect is present. Ventricular system is normal. Basal cisterns are patent. There are no extra-axial collections. White matter hypodensities are unchanged since CT of June 15, 2024. These have progressed since CT of February 15, 2022. A 1.1 cm right thalamic infarct is old. A 1.5 cm hypodensity within the left thalamus is unchanged since CT of June 15, 2024. This is new since CT of January 31, 2022. IMPRESSION: 1. No acute intracranial hemorrhage. No mass effect. 2. No change in a 1.5 cm left thalamic hypodense focus since CT of June 15, 2024. This represents age indeterminate ischemic change. Old right thalamic infarct. 3. No change in indeterminate white matter hypodensities since prior CT. ACT 112: Negative or not required by law. Electronically signed by: Haile Ivy M.D. 06/16/2024 2:42 PM Pending Results Patient Have Any Pending Studies at Discharge: Yes Discharge Instructions Given to Patient (Per Discharging Provider) Ms. Gagnon, You have been hospitalized for constipation, which can be from the oral iron given to you by nephrology and were given medications to help and have moved your bowels and improved since that time. Your blood pressure was also significantly elevated on admission and we have made multiple changes to your blood pressure regimen, however with starting dialysis we have been able to stop multiple of your medications. You were started on dialysis during your stay and this will be continued 3x a week at [facility] in [place]. You have received medication with dialysis to help bring up your blood counts. You should follow a dialysis/diabetic diet. Handouts have been provided on this. Diabetes changes: Your insulin needs were much lower since we have started dialysis. However, the dialysis you had while in the hospital was more frequent than what you will be reciving outpatient. we have decided to keep you on basal bolus insulin while you are at [place]. This will allow us to gather more data about what your true insulin needs are going to be on dialysis. The plan will be for you to see endocrinology either right before or right after your discharge from rehab back to home, at this time they will be able to review your data and get you restarted on your pump. In the meantime: Lantus 5 units every morning, sliding scale short acting following the same regimen previously prescribed <150 0u, 151- 180 1u, 181-210 2u, 211- 240 3u, 241-270 4u, 271 300 5u, 301- 330 6u, 331-360 7u, 361- 390 8u, 391-420 9u, >420 10u up to TDD of 20 units. Used for pump failure. Medication changes: - thyroid replacement dose increased to 90mg daily. Take this in the morning on empty stomach before other medications for best results. - Blood pressure medications now are: carvedilol 12.5mg twice a day, amlodipine 10mg daily - Gabapentin decreased to 100mg three times day because of your reduced kidney function - Discontinued medications: Clonidine, spironolactone, chlorthalidone, doxazosin, lasix, iron supplementation, magnesium oxide, oxybutynin, sodium bicarb. Recommendations: Right IJ in place for dialysis - please keep clean, dry and intact. Because you have started on dialysis at [facility] - you will need to follow up with their [employer] Inspector, Dr. Mayberry. His information is above. Follow up with endocrinology as close to discharge from [place] as possible Follow up with PCP one week after discharge from rehab Please return to the ER with any increased pain, fever/chills, issues with urination or for any other symptoms concerning for you. It has been a pleasure being a part of the medical team providing for you while you have been in the hospital. Take care! For [place] - please keep a long of patient BSG. If poor control, endocrinology ([facility]) can be very helpful. Unclear what insulin needs will be on regular dialysis scheduled. Pump not replaced on discharge from hospital because of this. also please make sure patient and family have updated med list upon departure from your facility Total Time Total Time Spent Total Time Spent (In Minutes): Time spent day of discharge 65 minutes including direct patient care, medication reconciliation, documentation, review of labs and images, and coordination of care. 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
[2024-06-23 13:30] VITALS: BP 202/111; PULSE 57
== END 2024-06-23 15:10 | DRG 673 ==
LOC: ED 15:42 → SUATTDRO 18:40 → 4W 18:40